=== PATIENT | male | born 1955 | race Two or more races ===

== ENCOUNTER → 2025-01-03 | Outpatient (CLI) | payer MEDICARE, MEDICAID, SELFPAY ==
--- NOTE | 2025-01-03 14:00 | XR_ITS ---
Examination: CT chest, without intravenous contrast. Sagittal and coronal 2-D reconstructions. Exam date and time: January 03, [address] chest July 07, 2024 CTDI:vol (mGy) 9.35 DLP: (mGycm) 335 INDICATIONS: Chronic respiratory failure with hypoxia and coughing 3 months, bilateral pulmonary nodules on CT chest June 06, 2024 Technique: Multiple 3.0 mm axial sections of the chest to been obtained. Bone and lung density settings are obtained. Sagittal and coronal 2-D reconstructions have been obtained. Low dose protocols were performed. One or more of the following dose reduction techniques were used; automated exposure control, adjustment of the mA and/or KV according to patient size, use of iterative reconstruction technique. Findings: Thoracic aortic calcification no aneurysmal dilatation Heavy calcification left anterior descending left circumflex coronary arteries Mild to moderate enlargement cardiac contour COPD with multiple areas of airspace destruction Diffuse woil-ts-sjyaeuli pulmonary fibrosis with bronchiectasis in the right middle lobe and lingular segment as well as left base Mild to moderate left pleural effusion Bilateral pulmonary nodules again depicted, the largest in the right lower lobe 8 mm 1 new nodule in the right upper lobe 7 mm image 91 No focal liver or splenic lesion No gallstones No pancreatic mass Moderate osteopenia IMPRESSION: COPD Mild to moderate pulmonary fibrosis Bronchiectasis right middle lobe lingular segment left upper lobe left base Bilateral pulmonary nodules, one new pulmonary nodule in the right upper lobe 7 mm, recommend continued 6 month follow-up CT chest without contrast Mild to moderate left pleural effusion
== END | disposition home or self-care (01) ==
PROVIDERS: PCP Internal Medicine; Referring Provider Nurse Practitioner Family; Visit Provider Nurse Practitioner Family
DX: J44.9 Chronic obstructive pulmonary disease, unspecified (principal); J84.10 Pulmonary fibrosis, unspecified; R91.8 Other nonspecific abnormal finding of lung field; J90 Pleural effusion, not elsewhere classified
CPT/HCPCS: 71250

== ENCOUNTER 2025-01-13 08:41 | Emergency (ER) | payer MEDICARE, MEDICAID, SELFPAY ==
--- NOTE | 2025-01-13 08:46 | EKG_ITS ---
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
--- NOTE | 2025-01-13 08:46 | XR_ITS ---
Examination: PA lateral chest 2 views Technique: Upright PA lateral chest 2 views Date and time: January 13, 2025 0930 hrs. Comparison 04/26/2024 Indications: Difficulty breathing beginning one week ago. Findings: Prominent CHF. Moderate enlargement cardiac contour with prominent perihilar edema and layering left pleural fluid Cardiac leads adequate position Impression: Prominent CHF
[2025-01-13 08:54] VITALS: BP 125/79; PULSE 96; RESP 19; TEMP 36.3; O2SAT 94; BMI 24.0
--- NOTE | 2025-01-13 09:17 | PD.EDRME ---
Rapid Medical Screening Exam RME Arrival date/time: 01/13/25 08:41 69-year-old male presents to the emergency department today for complaint of chest pain and shortness of breath Chief Complaint: Shortness of Breath/Dyspnea Vital signs: Vital Signs Temperature 97.4 F 01/13/25 08:54 Pulse Rate 96 01/13/25 08:54 Respiratory Rate 19 01/13/25 08:54 Blood Pressure 125/79 01/13/25 08:54 Pulse Oximetry (%) 94 L 01/13/25 08:54 Oxygen Delivery Method Room Air 01/13/25 08:54
[2025-01-13 09:32] LABS: Basophils % (Auto) 0 % (0-2.5); Eosinophils # (Auto) 0.3 Thou/mm3 (0.0-0.5); Eosinophils % (Auto) 3 % (0-10); Hemoglobin 13.8 g/dL (13.5-16.0); Immature Granulocytes % (Auto) 0 % (0-0); Immature Granulocytes Auto 0.04 Thou/mm3 (0.00-0.00); Lymphocytes # (Auto) 0.4 Thou/mm3 (1.0-4.8); Lymphocytes % (Auto) 4 % (10-50); Mean Corpuscular HGB Conc 32.9 g/dl (31.0-37.0); Mean Corpuscular Hemoglobin 30.7 pg (25.0-35.0); Mean Corpuscular Volume 94 fL (80-100); Monocytes # (Auto) 0.7 Thou/mm3 (0.0-0.8); Monocytes % (Auto) 7 % (0-12); Neutrophils # (Auto) 9.5 Thou/mm3 (1.8-7.7); Neutrophils % (Auto) 86 % (37-80); Nucleated Red Blood Cell % 0 /100 WBC (0); Platelet Count 186 Thou/mm3 (140-440); RDW Standard Deviation 52.7 fL (35.1-43.9); Red Blood Count 4.49 Miln/mm3 (4.50-5.90)
[2025-01-13 09:54] LABS: B-Type Natriuretic Peptide 2651 pg/mL (0-100); INR 1.2 (0.9-1.3); Partial Thromboplastin Time 29.2 Seconds (22.0-36.0); Prothrombin Time 12.7 Seconds (9.0-12.2)
[2025-01-13 09:56] LABS: Alanine Aminotransferase 13 U/L (10-49); Albumin, Serum 4.5 gm/dL (3.4-4.8); Albumin/Globulin Ratio 1.5 (1.2-2.2); Alkaline Phosphatase 71 U/L (46-116); Anion Gap 13 (7-16); BUN/Creatinine Ratio 18 Ratio (12-20); Bilirubin,Total 1.1 mg/dL (0.3-1.2); Blood Urea Nitrogen 22 mg/dL (9-23); Calcium 9.1 mg/dL (8.3-10.6); Calcium (Corrected) 9.1 mg/dL (8.5-10.1); Carbon Dioxide 27.3 mMol/L (20.0-31.0); Chloride 105 mMol/L (98-107); Creatinine (Component) 1.2 mg/dL (0.6-1.3); Digoxin 2.1 ng/mL (0.8-2.0); Estimated Creatinine Clearance 47.4 mL/min (>60); Globulin 3.1 gm/dL (2.3-3.5); Glucose 143 mg/dL (74-106); Magnesium 2.2 mg/dL (1.6-2.6); Osmolality,Calculated 294 (275-295); Sodium 145 mMol/L (136-145); Total Protein 7.6 gm/dL (5.7-8.2); Troponin I 0.027 ng/mL (0.0-0.045); eGFR > 60 See Note
[2025-01-13 10:43] LABS: Collection Type, Urine Clean Catch; Squamous Epithelial Cell,Urine 0 /hpf (0-5)
[2025-01-13 10:52] LABS: Bilirubin,Urine Negative (Negative); Blood,Urine Trace (Negative); Clarity,Urine Clear (Clear/Hazy); Color,Urine Colorless (Lt Yel-Yel); Glucose, Urine 3+ (Negative); Ketones,Urine Negative (Negative); Leukocyte Esterase,Urine Negative (Negative); Nitrite,Urine Negative (Negative); Protein,Urine Negative (Neg - Trace); RBC,Urine 2 /hpf (0-3); Specific Gravity,Urine 1.008 (1.001-1.035); Urobilinogen,Urine Negative mg/dL (0.0-1.0); WBC,Urine < 1 /hpf (0-5)
[2025-01-13 10:59] LABS: Amphetamine/Methamp Scrn,U Negative (Negative); Barbiturate Screen,Urine Negative (Negative); Benzodiazepines Screen,Urine Negative (Negative); Benzoylecgonine Screen, Ur Negative (Negative); Fentanyl Screen,Urine Negative (Negative); Opiate Screen,Urine Negative (Negative); THC Screen,Urine Negative (Negative)
[2025-01-13 12:24] VITALS: BP 116/73; PULSE 80; RESP 17; TEMP 36.6; O2SAT 97
--- NOTE | 2025-01-13 12:49 | PD.EDSOB ---
ED SOB =RME/HPI General Chief Complaint: Shortness of Breath/Dyspnea Stated Complaint: SOB Time Seen by Provider: 01/13/25 12:28 Arrival date/time: 01/13/25 08:41 This is a 69 year old male with past medical history of hypertension, coronary artery disease status post stent, s/p pacemaker, HFrEF (EF 30-35%) on goal-directed medical therapy, atrial fibrillation, COPD on 2.5 L home but not all the time, former smoker (30 pack-year history), DMII, recent hospitalization for pneumonia on 08/2023 presented to the emergency department for chief complaint of 2 days shortness of breath. Patient states over the past few days he was not taking his Lasix or spironolactone. Patient stated that he started getting very short of breath and it was hard for him to lay flat. Patient states that sometimes he gets frustrated taking the Lasix because he has to be close to a bathroom all the time. RME / HPI RME / HPI Narrative: 01/13/25 08:41 69-year-old male presents to the emergency department today for complaint of chest pain and shortness of breath Related Data Home Medications ?Medication ?Instructions ?Recorded ?Confirmed amiodarone 200 mg tablet 200 mg PO QDAY 05/18/22 10/27/23 levothyroxine 88 mcg tablet 88 mcg PO QDAY 05/18/22 10/27/23 liothyronine 5 mcg tablet 5 mcg PO QDAY 05/18/22 10/27/23 semaglutide 0.25 mg or 0.5 mg (2 0.5 mg subcut QWEEK 05/18/22 10/27/23 mg/1.5 mL) subcutaneous pen injector (Ozempic) dapagliflozin propanediol 5 mg 5 mg PO DAILY 10/27/23 10/27/23 tablet (Farxiga) digoxin 125 mcg (0.125 mg) tablet 125 mcg PO DAILY 10/27/23 10/27/23 Previous Rx's ?Medication ?Instructions ?Recorded carvedilol 3.125 mg tablet 3.125 mg PO BIDWM 30 days #60 tabs 08/21/23 furosemide 40 mg tablet 40 mg PO QDAY 30 days #30 tabs 08/21/23 potassium chloride 10 mEq 10 meq PO QDAY #30 caps 08/21/23 capsule,extended release sacubitril 24 mg-valsartan 26 mg 1 tab PO BID #60 tabs 08/21/23 tablet (Entresto) dexamethasone 6 mg tablet 6 mg PO QDAY #5 tabs 09/27/23 aspirin 81 mg tablet,delayed 81 mg PO QDAY Antiplatelet therapy 10/27/23 release post-stent placement 30 days #30 tabs ticagrelor 90 mg tablet (Brilinta) 90 mg PO BID #60 tabs 10/27/23 Allergies Allergy/AdvReac Type Severity Reaction Status Date / Time No Known Allergies Allergy Verified 09/23/23 07:05 Course Orders Category Date Time Status EKG (ED ONLY) *Do not use* NOW Care 01/13/25 08:46 Completed EKG (ED Only) Stat Exams 01/13/25 08:46 Draft XR chest 2V Stat Exams 01/13/25 08:46 Completed B-Type Natriuretic Peptide Stat Lab 01/13/25 09:16 Completed CBC Stat Lab 01/13/25 09:16 Completed Comprehensive Metabolic Panel Stat Lab 01/13/25 09:16 Completed Digoxin Stat Lab 01/13/25 09:16 Completed Drug Screen,Urine Stat Lab 01/13/25 10:39 Completed Magnesium Stat Lab 01/13/25 09:16 Completed Partial Thromboplastin Time Stat Lab 01/13/25 09:16 Completed Prothrombin Time with INR Stat Lab 01/13/25 09:16 Completed Troponin I Stat Lab 01/13/25 09:16 Completed Urinalysis Stat Lab 01/13/25 09:31 Completed Furosemide [Lasix] Med 01/13/25 13:04 Discontinued 40 mg PO X1 ONE Vital Signs Vital signs: Vital Signs Temperature 97.4 F 01/13/25 08:54 Pulse Rate 96 01/13/25 08:54 Respiratory Rate 19 01/13/25 08:54 Blood Pressure 125/79 01/13/25 08:54 Pulse Oximetry (%) 94 L 01/13/25 08:54 Oxygen Delivery Method Room Air 01/13/25 08:54 Procedures -ED EKG Interpretation #1: Date of EK01/13/25 Time of EK:57 Rate: 91 Interpretation: Interpreted by me (Ventricularly paced rhythm.) Shortness of Breath / Dyspnea MDM Narrative MDM Narrative:: White blood count is 11. Hemoglobin and hematocrit of 13.8 and 42. Platelet count is 186. PT is 12.7 INR 1.2. BNP is 2651 troponin is 0.027. Dig level is 2.1 drug screen vital signs stable Spoke to patient at length. Patient knows he supposed to be taking his water pills. Patient takes spironolactone 25 mg and also furosemide 40 mg p.o. I will give patient an additional dose of Lasix here. Patient told to come back to the emergency room if symptoms change or worsen. Patient states he feels a lot better because he took his medication prior to coming to the emergency room. Patient feels comfortable going home at this time. Medications / Prescriptions Medication administrations:: Medication Administration History Discontinued Medications Furosemide (Furosemide 40 Mg Tablet) 40 mg PO X1 ONE Stop: 01/13/25 13:05 Consultations Consultation(s) initiated? (list below): Yes Consultation #1 (Physician, Specialty, Details): Dr. Arizmendi workplace trainer and assessor. I let him know that patient had not been taking his medications at home. Patient came in shortness of breath. Patient had a high BNP with prominent CHF on x-ray. He is very familiar with patient. He is okay with patient to go home and follow-up with him in the office. Discharge Plan Plan Patient Disposition: HOME (Self Care) Patient condition on transfer: Stable Prescriptions/Referrals Prescriptions/Med Rec: No Action furosemide 40 mg Tablet 40 mg PO QDAY 30 Days Qty: 30 1RF carvedilol 3.125 mg Tablet 3.125 mg PO BIDWM 30 Days Qty: 60 2RF Entresto 24-26 mg Tablet 1 tab PO BID Qty: 60 2RF potassium chloride 10 mEq capsule, extended release 10 meq PO QDAY Qty: 30 0RF dexamethasone 6 mg Tablet 6 mg PO QDAY Qty: 5 0RF dapagliflozin propanediol [Farxiga] 5 mg tablet 5 mg PO DAILY Patient Comments: take 1 tablet by mouth every morning digoxin 125 mcg (0.125 mg) Tablet 125 mcg PO DAILY aspirin 81 mg Tablet,Delayed Release (Dr/Ec) 81 mg PO QDAY 30 Days Qty: 30 1RF Brilinta 90 mg Tablet 90 mg PO BID Qty: 60 0RF amiodarone 200 mg Tablet 200 mg PO QDAY liothyronine 5 mcg Tablet 5 mcg PO QDAY levothyroxine 88 mcg Tablet 88 mcg PO QDAY Ozempic 0.25 mg or 0.5 mg(2 mg/1.5 mL) Pen Injector 0.5 mg SUBCUT QWEEK Referrals: Hortencia Donis FNP [Primary Care Provider] - In 1 week Problem List Clinical Impression: CHF (congestive heart failure) Patient/Caregiver Discharge Instructions Discharge Activity: activity as tolerated Education Materials: Diabetes and Heart Disease Additional Instructions: Follow up with primary provider in 1-2 days. Come back to ED if symptoms change or worsen Print Language: Latvian Stand Alone Forms: Domenica Award Info., Patient Portal Info Letter PA/DIAGNOSTIC CARDIAC SONOGRAPHER Supervising Physician SEVERO/DIAGNOSTIC CARDIAC SONOGRAPHER Supervising Physician: pato
[2025-01-13 13:26] VITALS: BP 116/73; PULSE 80
[2025-01-13] MEDS: Furosemide 40 MG TABLET PO (13:26)
== END 2025-01-13 13:42 | disposition home or self-care (01) ==
PROVIDERS: Nurse Practitioner Primary Care; Emergency Provider Family Medicine; PCP Nurse Practitioner Family
DX: I11.0 Hypertensive heart disease with heart failure (principal); I50.20 Unspecified systolic (congestive) heart failure; R94.31 Abnormal electrocardiogram [ECG] [EKG]; I25.10 Atherosclerotic heart disease of native coronary artery without angina pectoris; I48.91 Unspecified atrial fibrillation; Z79.02 Long term (current) use of antithrombotics/antiplatelets; Z95.0 Presence of cardiac pacemaker; Z95.5 Presence of coronary angioplasty implant and graft; Z87.891 Personal history of nicotine dependence
CPT/HCPCS: 36415; 71046; 80053; 80162; 80307; 81001; 83735; 83880; 84484; 85025; 85610; 85730; 93005; 99283; A9270

== ENCOUNTER 2025-02-27 06:47 | Day surgery (SDC) | payer MEDICARE, MEDICAID, SELFPAY ==
[2025-02-23 15:40] VITALS: BMI 23.1
--- NOTE | 2025-02-26 07:00 | EKG_ITS ---
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
[2025-02-26 12:46] LABS: Basophils # (Auto) 0.0 Thou/mm3 (0.0-0.2); Basophils % (Auto) 1 % (0-2.5); Eosinophils # (Auto) 0.3 Thou/mm3 (0.0-0.5); Eosinophils % (Auto) 5 % (0-10); Hematocrit 42.7 % (41.0-53.0); Hemoglobin 13.2 g/dL (13.5-16.0); Immature Granulocytes Auto 0.01 Thou/mm3 (0.00-0.00); Lymphocytes # (Auto) 0.6 Thou/mm3 (1.0-4.8); Lymphocytes % (Auto) 9 % (10-50); Mean Corpuscular HGB Conc 30.9 g/dl (31.0-37.0); Mean Corpuscular Hemoglobin 30.0 pg (25.0-35.0); Mean Corpuscular Volume 97 fL (80-100); Monocytes # (Auto) 0.6 Thou/mm3 (0.0-0.8); Monocytes % (Auto) 9 % (0-12); Neutrophils # (Auto) 5.1 Thou/mm3 (1.8-7.7); Neutrophils % (Auto) 78 % (37-80); Nucleated Red Blood Cell # 0.00 Thou/mm3 (0.00-0.00); Nucleated Red Blood Cell % 0 /100 WBC (0); Platelet Count 168 Thou/mm3 (140-440); RDW Standard Deviation 57.5 fL (35.1-43.9); Red Blood Count 4.40 Miln/mm3 (4.50-5.90); White Blood Count 6.6 Thou/mm3 (3.8-10.6)
[2025-02-26 12:48] LABS: Anion Gap 9 (7-16); BUN/Creatinine Ratio 14 Ratio (12-20); Blood Urea Nitrogen 20 mg/dL (9-23); Calcium 8.7 mg/dL (8.3-10.6); Carbon Dioxide 29.2 mMol/L (20.0-31.0); Chloride 106 mMol/L (98-107); Creatinine (Component) 1.4 mg/dL (0.6-1.3); Estimated Creatinine Clearance 42.3 mL/min (>60); Glucose 108 mg/dL (74-106); Osmolality,Calculated 290 (275-295); Potassium 4.6 mMol/L (3.4-5.1); Sodium 144 mMol/L (136-145); eGFR 55 See Note
[2025-02-26 12:52] LABS: INR 1.1 (0.9-1.3); Partial Thromboplastin Time 29.3 Seconds (22.0-36.0); Prothrombin Time 12.4 Seconds (9.0-12.2)
[2025-02-27] VITALS (13 sets, daily range): BP systolic 102–129; BP diastolic 59–81; PULSE 56–73; RESP 12–15; TEMP 36.4; O2SAT 91–98; BMI 23.1
[2025-02-27 10:31] LABS: ACT (CATH LAB ONLY) 307.0 Seconds (89-169)
--- NOTE | 2025-02-28 09:31 | ESOP_ITS ---
RE: REAL REYES : 1955 DATE OF OPERATION: 02/27/2025 DATE OF PROCEDURE: 02/27/2025 PROCEDURES PERFORMED: 1. Diagnostic right and left heart cardiac catheterization, selective coronary angiogram, left ventricular angiogram, CPT 53940. 2. Conscious sedation for 30-minute duration. 3. Ultrasound-guided access, right radial artery and right femoral vein. 4. PCI, stent placement of the proximal left circumflex artery, placement of a drug-eluting stent 3.0 x 12 mm Yg Medtronic drug-eluting stent. Pre-procedure stenosis 95%, post-procedure stenosis 0%, CAMPBELL flow pre-procedure 3, post-procedure 3, CPT 22241. DIAGNOSES: Coronary artery disease, ischemic cardiomyopathy, congestive heart failure, shortness of breath, chest pressure, abnormal nuclear stress test. HISTORY AND INDICATIONS: The patient is a 69-year-old male with history of known ischemic cardiomyopathy, multiple stents placed in the circumflex artery, LAD, right coronary artery in the past, and severe LV dysfunction with systolic heart failure. He has been having severe shortness of breath and chest pressure. Cardiac nuclear stress test with nuclear scan was abnormal and showed extensive inferolateral ischemia. Hence, coronary angiogram was recommended to assess if the patient is a candidate for intervention including PCI. DESCRIPTION OF PROCEDURE: The patient was brought to the cardiac catheterization laboratory where he was given 2 mg of Versed and 50 mcg of fentanyl for sedation. Right radial approach was taken. Right radial artery was cannulated with a micropuncture technique and 6-[place] Glidesheath was introduced. Right femoral vein was cannulated by micropuncture technique. Ultrasound guidance was used and a 7-[place] Citizen sheath was introduced. Right heart catheterization was performed with Jean-Nazario catheter. Right heart pressures were measured. Wedge pressure was measured. Subsequently, left heart catheterization was performed by a 5-[place] Citizen TIG-4 diagnostic catheter. Left ventricular angiogram was performed by hand injection method. Selective right and left coronary angiogram was performed by a TIG-4 diagnostic catheter. The patient tolerated the diagnostic procedure well with no complications. Findings are as follows Hemodynamics: Right atrial pressure 12 mmHg, right ventricular pressure 57/12 mmHg, pulmonary artery wedge pressure is 26 mmHg, V-wave 31, A-wave 25, pulmonary artery pressure is 68/43 mmHg, left ventricular pressure 107/6 mmHg, EDP is 31 mmHg, aortic pressure 100/59 mmHg. No gradient across the aortic valve. Left ventricular angiogram showed evidence of severe global hypokinesis with an ejection fraction of 15% to 20%. Following diagnostic procedure, intervention was undertaken. Diagnostic coronary angiogram showed the following findings. The right coronary artery is large and dominant and showed evidence of mild plaque at the bifurcation with no significant stenosis. Left coronary system: The left main coronary artery is normal. The left anterior descending artery showed multiple stents across the mid segment with widely patent left circumflex artery _ one large obtuse marginal branch and posterolateral branch. There is evidence of a 95% stenosis of the left circumflex artery just proximal to the previously deployed edge of the stent. The stent itself showed moderate 70% in-stent restenosis. This was the culprit lesion, hence we proceeded with a PCI. Details of the angioplasty are as follows. The patient was given IV heparin radial cocktail 2000 units, subsequently additional 3000 units was given, a total of 5000 units. ACT was 305. Proceeded with PCI, aspirin and Plavix, the patient is already on board, has been taking at home. The patient was given IV Lasix 40 mg because of elevated wedge pressures. The patient proceeded with a PCI. A 6-[place] Citizen FL4 guiding catheter was used to cannulate the left main coronary artery. A 0.014-inch Runthrough guidewire was used to cross the lesion successfully. Pre-dilation of the lesion was performed by a subsequently, a 3.0 x 12 mm Medtronic [place] stent was deployed successfully in the proximal left circumflex artery. Multiple inflations were performed with high pressure including the stent itself. The previously stented site was also dilated using a 3.0 mm balloon. Final angiogram showed widely patent circumflex artery with excellent angiographic results. SUMMARY OF FINDINGS AND SUGGESTIONS: 1. Ischemic cardiomyopathy, chronic systolic heart failure, elevated wedge pressures, and ejection fraction of 15% to 20%. 2. Elevated wedge pressure of 26 mmHg and left ventricular end-diastolic pressure suggestive of congestive heart failure, chronic systolic heart failure. 3. Widely patent stents in the LAD and right coronary artery with evidence of severe stenosis of the proximal left circumflex artery, 95% stenosis, underwent successful PCI, stent placement of a drug-eluting stent, 3.0 x 12 mm Medtronic [place] stent with excellent results. Pre-procedure stenosis was 95%, post-procedure 0%. CAMPBELL flow pre-procedure 3, post-procedure 3. COMPLICATIONS: None. Estimated blood loss is 0. TR band was applied. Hemostasis was secured. Venous sheath will be removed later. RECOMMENDATIONS: The patient will be continued on medical management. We will change the Lasix to bumetanide 2 mg daily because of decompensated heart failure. _ Continue with spironolactone, also digoxin, Entresto, and guideline-directed medical management including Farxiga and will follow up in 1 week. DT: 09:02:11 TT: 10:32:00 Ref: [id number] - TID: [id number] MTDD
== END 2025-02-27 12:00 | disposition home or self-care (01) ==
PROVIDERS: PCP Internal Medicine; Referring Provider Internal Medicine Cardiovascular Disease; Visit Provider Internal Medicine Cardiovascular Disease
PROC: (CPT 93460; principal; 2025-02-27 07:30)
DX: I25.118 Atherosclerotic heart disease of native coronary artery with other forms of angina pectoris (principal); I25.5 Ischemic cardiomyopathy; Z95.5 Presence of coronary angioplasty implant and graft; I50.23 Acute on chronic systolic (congestive) heart failure; Z95.810 Presence of automatic (implantable) cardiac defibrillator; E11.9 Type 2 diabetes mellitus without complications; Z01.810 Encounter for preprocedural cardiovascular examination; R06.02 Shortness of breath
CPT/HCPCS: 93460; C9600; 36415; 80048; 85025; 85347; 85610; 85730; 93005; 99152; 99153; A4649; C1725; C1769; C1874; C1887; C1894; J0171; J0461; J1643; J1938; J2250; J2310; J2371; J3010; J3490; Q9967; J2305

== ENCOUNTER → 2025-03-21 | Outpatient (CLI) | payer MEDICARE, MEDICAID, SELFPAY ==
--- NOTE | 2025-03-21 09:59 | XR_ITS ---
EXAMINATION: Cervical spine, 5 views Technique: Cervical spine AP, AP odontoid, lateral, bilateral obliques, 5 views Exam date and time: March 21, 2025 1003 hours INDICATIONS: Neck pain and stiffness beginning 4 months ago. FINDINGS: Straightening normal cervical lordosis. No cervical fracture. Intact odontoid. Moderate cervical spondylosis. No significant cervical disc narrowing. Soft tissue left carotid vascular calcification. Oblique films do not demonstrate significant neural foraminal stenosis. IMPRESSION: No cervical fracture No significant cervical disc narrowing Soft tissue left carotid vascular calcification
[2025-03-21 11:04] LABS: Albumin, Serum 4.1 gm/dL (3.4-4.8); Anion Gap 11 (7-16); BUN/Creatinine Ratio 15 Ratio (12-20); Blood Urea Nitrogen 22 mg/dL (9-23); Calcium 9.2 mg/dL (8.3-10.6); Calcium (Corrected) 9.2 mg/dL (8.5-10.1); Carbon Dioxide 29.4 mMol/L (20.0-31.0); Chloride 102 mMol/L (98-107); Creatinine (Component) 1.5 mg/dL (0.6-1.3); Glucose 107 mg/dL (74-106); Osmolality,Calculated 286 (275-295); Phosphorous 4.2 mg/dL (2.4-5.1); Potassium 4.1 mMol/L (3.4-5.1); Sodium 142 mMol/L (136-145); eGFR 50 See Note
== END | disposition home or self-care (01) ==
LOC: CDIM 09:28 → COPL 10:32
PROVIDERS: PCP Nurse Practitioner Family; Referring Provider Nurse Practitioner Family; Visit Provider Radiology Diagnostic Radiology
DX: I77.89 Other specified disorders of arteries and arterioles (principal); I20.89 Other forms of angina pectoris
CPT/HCPCS: 36415; 72050; 80069

== ENCOUNTER 2025-05-01 06:15 | Inpatient (IN) | payer MEDICARE, MEDICAID, SELFPAY ==
[2025-05-01] VITALS (13 sets, daily range): BP systolic 101–144; BP diastolic 60–106; PULSE 50–93; RESP 12–100; TEMP 35.8–36.9; O2SAT 82–100; BMI 23.1
--- NOTE | 2025-05-01 06:17 | EKG_ITS ---
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
--- NOTE | 2025-05-01 06:30 | XR_ITS ---
Examination: AP lateral chest 2 views Technique: Sitting AP lateral chest 2 views Date and time: May 01, 2025, 0659 hrs., Comparison January 13, 2025 Indications: Shortness of breath chest pain beginning 2 days ago. Findings: Prominent CHF. Moderate enlargement cardiac contour, prominent vascular congestion and perihilar edema. Consider superimposed pneumonia at the lung bases Large left pleural effusion Cardiac leads satisfactory position Impression: Prominent CHF Consider superimposed pneumonia at the lung bases Recommend ultrasound left hemithorax follow-up to confirm large left pleural effusion
--- NOTE | 2025-05-01 06:30 | PD.EDRME ---
Rapid Medical Screening Exam RME Arrival date/time: 05/01/25 06:15 70-year-old male with a history of hypertension, hypothyroidism, CHF, COPD, atrial fibrillation, presents to the emergency room with a chief complaint of shortness of breath, and chest pain x 3 days I have greeted and performed a focused initial assessment of this patient. A comprehensive ED assessment and evaluation of the patient, analysis of all test results, and completion of the medical decision making process will be conducted by additional ED providers. Chief Complaint: Shortness of Breath/Dyspnea Time Seen by Provider: 05/01/25 06:23 Vital signs reviewed by provider: Yes
[2025-05-01 07:40] LABS: Basophils # (Auto) 0.0 Thou/mm3 (0.0-0.2); Basophils % (Auto) 0 % (0-2.5); Eosinophils # (Auto) 0.1 Thou/mm3 (0.0-0.5); Eosinophils % (Auto) 1 % (0-10); Hematocrit 42.4 % (41.0-53.0); Hemoglobin 13.2 g/dL (13.5-16.0); Immature Granulocytes Auto 0.05 Thou/mm3 (0.00-0.00); Lymphocytes # (Auto) 0.4 Thou/mm3 (1.0-4.8); Lymphocytes % (Auto) 4 % (10-50); Mean Corpuscular HGB Conc 31.1 g/dl (31.0-37.0); Mean Corpuscular Hemoglobin 30.6 pg (25.0-35.0); Mean Corpuscular Volume 98 fL (80-100); Monocytes # (Auto) 0.4 Thou/mm3 (0.0-0.8); Monocytes % (Auto) 4 % (0-12); Neutrophils # (Auto) 9.6 Thou/mm3 (1.8-7.7); Neutrophils % (Auto) 90 % (37-80); Nucleated Red Blood Cell # 0.00 Thou/mm3 (0.00-0.00); Nucleated Red Blood Cell % 0 /100 WBC (0); Platelet Count 248 Thou/mm3 (140-440); RDW Standard Deviation 57.0 fL (35.1-43.9); Red Blood Count 4.31 Miln/mm3 (4.50-5.90); White Blood Count 10.6 Thou/mm3 (3.8-10.6)
[2025-05-01 08:06] LABS: INR 1.4 (0.9-1.3); Partial Thromboplastin Time 27.1 Seconds (22.0-36.0); Prothrombin Time 15.0 Seconds (9.0-12.2)
[2025-05-01 08:07] LABS: Collection Type, Urine Clean Catch
[2025-05-01 09:00] LABS: Amphetamine/Methamp Scrn,U Negative (Negative); Barbiturate Screen,Urine Negative (Negative); Benzodiazepines Screen,Urine Positive (Negative); Benzoylecgonine Screen, Ur Negative (Negative); Fentanyl Screen,Urine Negative (Negative); Opiate Screen,Urine Positive (Negative); THC Screen,Urine Negative (Negative)
[2025-05-01 09:00] LABS: Alanine Aminotransferase 46 U/L (10-49); Albumin, Serum 4.1 gm/dL (3.4-4.8); Albumin/Globulin Ratio 1.2 (1.2-2.2); Alkaline Phosphatase 98 U/L (46-116); Anion Gap 13 (7-16); Aspartate Amino Transferase 83 U/L (0-34); BUN/Creatinine Ratio 22 Ratio (12-20); Bilirubin,Total 0.8 mg/dL (0.3-1.2); Blood Urea Nitrogen 38 mg/dL (9-23); Calcium 9.3 mg/dL (8.3-10.6); Calcium (Corrected) 9.3 mg/dL (8.5-10.1); Carbon Dioxide 26.3 mMol/L (20.0-31.0); Chloride 104 mMol/L (98-107); Creatinine (Component) 1.7 mg/dL (0.6-1.3); Estimated Creatinine Clearance 34.3 mL/min (>60); Globulin 3.3 gm/dL (2.3-3.5); Glucose 166 mg/dL (74-106); Osmolality,Calculated 297 (275-295); Potassium 4.4 mMol/L (3.4-5.1); Sodium 143 mMol/L (136-145); Total Protein 7.4 gm/dL (5.7-8.2); eGFR 43 See Note
[2025-05-01 09:10] LABS: Troponin I 0.056 ng/mL (0.0-0.045)
[2025-05-01 09:14] LABS: B-Type Natriuretic Peptide > 3280 pg/mL (0-100)
[2025-05-01 09:27] LABS: Bilirubin,Urine Negative (Negative); Blood,Urine Negative (Negative); Cellular Casts,Urine 2 /hpf (0-1); Color,Urine Yellow (Lt Yel-Yel); Culture Indicated,Urine Not Indicated; Glucose, Urine 3+ (Negative); Hyaline Casts,Urine 7 /hpf (0-1); Ketones,Urine Negative (Negative); Leukocyte Esterase,Urine Positive (Negative); Nitrite,Urine Negative (Negative); PH,Urine 5.5 (5.0-7.0); Protein,Urine 1+ (Neg - Trace); RBC,Urine 5 /hpf (0-3); Specific Gravity,Urine 1.031 (1.001-1.035); Squamous Epithelial Cell,Urine 1 /hpf (0-5); Urobilinogen,Urine 6.0 mg/dL (0.0-1.0); WBC,Urine 7 /hpf (0-5)
[2025-05-01 09:54] LABS: Clarity,Urine Hazy (Clear/Hazy)
--- NOTE | 2025-05-01 10:17 | XR_ITS ---
Examination: CTA chest with intravenous contrast 2-D reconstructions 3-D reconstructions, vascular Date and time of exam: May 01, 2025, 1208 hours, comparison January 03, 2025 INDICATIONS: Chest pain shortness of breath today, clinical diagnosis pulmonary embolus CTDI: vol (mGy) 14.6 DLP: (mGycm) 296 Technique: Multiple axial sections of the thorax have been obtained. 3 mm slice thickness, from below the hemidiaphragms to above the apices of the lungs. Mediastinal and lung density settings have been obtained. 2-D sagittal and coronal reconstructions. 3-D angiographic renderings, 3-D volume renderings, 3D post processing, vascular maximum intensity projections obtained. Contrast administered is 60 cc Isovue-300. Low dose protocols were performed. One or more of the following dose reduction techniques were used; automated exposure control, adjustment of the mA and/or KV according to patient size, use of iterative reconstruction technique. Findings: No thoracic aortic aneurysmal dilatation No definite pulmonary artery filling defects Mild hilar lymphadenopathy Heavy calcification coronary arteries Moderate enlargement cardiac contour Appearance of bilateral lung opacity consistent with pneumonia with superimposed pulmonary fibrosis at the lung bases Extensive loculated left pleural fluid Mild right pleural fluid No liver or splenic lesion No definite gallstones No pancreatic mass IMPRESSION: Negative for pulmonary artery emboli Extensive diffuse bilateral pneumonia Superimposed pulmonary fibrosis at the lung bases Extensive loculated left pleural fluid
[2025-05-01] MEDS: FUROSEMIDE INJ 10 MG/ML VIAL 2 ML 40 MG IVP ×2 (10:22→21:02)
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
--- NOTE | 2025-05-01 13:52 | XR_ITS ---
Examination: Ultrasound-guided left thoracentesis Ultrasound right left hemithoraces Date and time: May 01, 2025, 1433 hours INDICATIONS: Difficulty breathing this week, large left loculated pleural fluid on CT chest study today TECHNIQUE AND FINDINGS: Grayscale sonographic images right and left hemithoraces, large left pleural effusion Informed consent provided. Timeout performed. Skin prepped over the left hemithorax and sterile drape applied hand hygiene ultrasound sterile technique Utilizing ultrasonographic guidance percutaneous placement 5 Faroese catheter in the left pleural space, 1475 cc pleural fluid removed IMPRESSION: Successful ultrasound-guided left thoracentesis, 1475 cc pleural fluid removed
--- NOTE | 2025-05-01 14:42 | XR_ITS ---
Examination: AP chest single view Technique one AP portable semiupright chest single view Date and time: May 01, 2025 1510 hours, comparison 05/01/2025 INDICATIONS: Post left thoracentesis. FINDINGS: No pneumothorax post thoracentesis Mild to moderate enlargement cardiac contour prominent vascular congestion and extensive edema and/or pneumonia throughout the lungs Cardiac leads satisfactory position IMPRESSION: No pneumothorax post thoracentesis
--- NOTE | 2025-05-01 14:46 | PC.NURSE ---
PATIENT TAKEN VIA GURNEY FOR THORACENTESIS
[2025-05-01] MEDS: cefTRIAXone/D5w 1gm IV premix 1 GM/50 ML BAG IV (15:52)
--- NOTE | 2025-05-01 16:08 | ECHO_ITS ---
Transthoracic Echo Report Ht (in): 64 Wt (lb): 135 Exam Location: Echo Lab Status: Emergency Spd Tech: Jyotsna Durbin Indications: Procedure Performed: BP: 103 / 49 HR: 52 Technical Quality: Technically difficult study MEASUREMENTS (Male / Female) Normal Values 2D ECHO LV Diastolic Diameter PLAX 6.3 cm 4.2 - 5.9 / 3.9 - 5.3 cm LV Systolic Diameter PLAX 5.6 cm IVS Diastolic Thickness 0.5 cm 0.6 - 1.0 / 0.6 - 0.9 cm LVPW Diastolic Thickness 1.1 cm 0.6 - 1.0 / 0.6 - 0.9 cm LV Relative Wall Thickness 0.3 LVOT Diameter 2.4 cm Aortic Root Diameter 3.4 cm LV Ejection Fraction MOD BP 24.7 % >= 55 % LV Cardiac Index MOD BP 1713.6 cm?/min?m? LV Ejection Fraction MOD 4C 27.8 % LV Cardiac Index MOD 4C 1838.2 cm?/min?m? LV Ejection Fraction 4C AL 29.6 % LV Cardiac Index 4C AL 2068.7 cm?/min?m? LV Ejection Fraction MOD 2C 34.3 % LV Cardiac Index MOD 2C 2461.3 cm?/min?m? LV Ejection Fraction 2C AL 33.7 % LV Cardiac Index 2C AL 2426.2 cm?/min?m? LA Volume Index 52.7 cm?/m? 16 - 28 cm?/m? DOPPLER AV Peak Velocity 234.0 cm/s AV Peak Gradient 21.9 mmHg AV Mean Gradient 12.5 mmHg AV Velocity Time Integral 43.8 cm LVOT Peak Velocity 79.1 cm/s LVOT Peak Gradient 2.5 mmHg LVOT Velocity Time Integral 12.8 cm LVOT Cardiac Index 1804.1 cm?/min?m? AV Area Cont Eq vti 1.3 cm? AV Area Cont Eq pk 1.5 cm? MR Peak Velocity 336.0 cm/s MR Peak Gradient 45.2 mmHg TR Peak Velocity 361.3 cm/s TR Peak Gradient 52.2 mmHg PV Peak Velocity 179.0 cm/s PV Peak Gradient 12.8 mmHg FINDINGS Left Ventricle The left ventricular cavity size is moderately increased with normal wall thickness. wall thickness. Global left ventricular systolic function is severely decreased. The ejection fraction is visually estimated at 20 %. Right Ventricle The right ventricle is normal in size and systolic function. The estimated right ventricular systolic pressure, 66 mmHg. RAP 8. Left Atrium The left atrium is normal by two-dimensional, color flow and Doppler imaging with no structural abnormalities, no thrombus formation present. Right Atrium The right atrium is normal by two-dimensional imaging, color flow and Doppler imaging with no structural abnormalities, no thrombus formation present. Atrial Septum The interatrial septum appears normal with no evidence of a shunt. Aorta The aorta is normal by two-dimensional, color flow and Doppler interrogation. Mitral Valve The mitral valve is normal by two-dimensional, color flow and Doppler interrogation. Trace mitral regurgitation. Aortic Valve Trace aortic valve regurgitation. Aortic valve sclerosis. Tricuspid Valve The tricuspid valve is normal by two-dimensional, color flow and Doppler interrogation. There is moderate tricuspid regurgitation. Pulmonic Valve The pulmonic valve is not well visualized. There is no significant pulmonic valve regurgitation. Vessels The pulmonary artery appears normal. The inferior vena cava pulmonary and hepatic veins appear normal. Pericardium The pericardium is normal by two-dimensional imaging. There is no significant pericardial effusion. CONCLUSIONS Indication: CHF exacerbation Dilated cardiomyopathy severe global hypokinesis LVEF 20% The RV is normal in size and systolic function. The estimated RVSP, 66 mmHg. RAP 8. Aortic valve sclerosis with mild aortic regurgitation Mild mitral regurgitation Moderate tricuspid regurgitation Theodora Springer (Electronically Signed) Final Date: 03 May 2025 16:42
[2025-05-01] MEDS: AZITHROMYCIN INJ 500 MG in SODIUM CHLORIDE 0.9% 250 ML 250 ML 250 MG IV (16:25)
--- NOTE | 2025-05-01 16:30 | ESHP_ITS ---
<Statement entered by Tia Kinney MD - 05/02/25 08:43> Mr. Dugan is a 70-year-old male with past medical history significant for CAD status post stent with recent 1 on 03/02 currently on aspirin and Plavix, CHF, COPD who presented with worsening shortness of breath. Associated symptoms include leg swelling, and insomnia. Patient will be admitted for further management of acute hypoxic respiratory failure secondary to CHF exacerbation, CAP and bilateral pleural effusion. In the ER, patient had a thoracentesis of the left side pending fluid analysis. Patient will be on IV antibiotics, aggressive IV Lasix, Farxiga strict I's and O's, and fluid restriction. Pending echocardiogram. Will resume patient's home aspirin and Plavix due to recent coronary stent. Patient also noted to have GEORGIE most likely in the setting of CKD secondary to CHF exacerbation, and will continue to monitor and hold off on adding any gentle fluids. Anticipate discharge within 48 to 72 hours. I discussed with and supervised the investigator internal revenue physician who took care of this patient. I personally saw and examined the patient and discussed the assessment and plan with the entire medicine team, including my attending Dr. Tinajero, I agree with most of the assessment and plan as documented below Tia Kinney M.D. PGY-3 Disclaimer: Despite multiple revisions, due to the dictation software being used, the document bellow may not be free of grammatical errors including phonetic/typographic errors. However, this does not deter from our commitment to providing health care in the patient's best interest in mind. Documentation for date of: 05/01/25 HPI History of Present Illness Chief complaint: shortness of breath History of present illness: 70 yom with a h/o CAD, s/p stenting on 03/02 currently on aspirin plavix, CHF, COPD, who presents with weeks of progressive shortness of breath. Has been having worsening breathing and leg swelling. Has not been sleeping well at night. Normally uses one 2-3 L of O2 NC at night. Denies fever, sputum production, nausea, vomiting, or sick contacts. Had these symptoms before PMHx: CHF chronic ischemic cardiomyopathy, EF 15-20% on 02/28/25, COPD, afib, type II DM, HTN, PSHx: Stent on 03/02 Meds: See med rec Allergies: NKDA Fam hx, non-contributory ED Course: -Patient presented with BP 140/92, HR 87, T 98.2, RR 17, O2 95% RA. - Labs notable for creatinine is 1.7, troponin is 0.056. BNP is greater than 3000, Patient given lasix. - Chest x-ray with pneumonia. CT chest with evidence of bilateral pneumonia and extensive superimposed pulmonary fibrosis. Also extensive loculated left pleural effusion. Patient also with mild right pleural fluid. -Patient given ceftriaxone, and azithromycin. Blood cx ordered. -Patient also recieved thoracentesis pleural fluid sent for analysis. -Admitted for Acute on chronic CHF exacerbation Exam Vital Signs Temp Pulse Resp BP Pulse Ox O2 Del Method O2 Flow Rate 97.5 F 93 19 128/91 H 100 Nasal Cannula 3 05/01/25 15:54 05/01/25 15:54 05/01/25 15:54 05/01/25 15:54 05/01/25 15:54 05/01/25 15:54 05/01/25 15:54 Narrative Exam General: Elderly, frail, ill appearing patient, sitting at the edge of the bed, hunched over. HEENT: Mucosa moist. Pupils are equal and reactive to light bilaterally. Poor dentition. Cardiovascular: Regular rate and rhythm. No murmur appreciated, Cold extremities Respiratory: Crackles heard at the lung bases bilaterally, higher on the left side. No wheezes. No tachypnea Abdomen: Soft, nontender, not distended, Skin: Dry, no rashes or bruising Musculoskeletal: No gross injuries. Able to move all 4 extremities. B/L pitting edema up to the knees. Neuro: No focal neuro deficits. Results: Labs 05/03/25 04:40 05/03/25 04:40 Labs: Short CBC 05/01/25 Range/Units 07:26 WBC 10.6 (3.8-10.6) Thou/mm3 Hgb 13.2 L (13.5-16.0) g/dL Hct 42.4 (41.0-53.0) % Plt Count 248 (140-440) Thou/mm3 BMP 05/01/25 07:26 Sodium 143 Potassium 4.4 Chloride 104 Carbon Dioxide 26.3 BUN 38 H Creatinine 1.7 H Glucose 166 H Calcium 9.3 Cardiac Enzymes 05/01/25 Range/Units 07:26 Troponin I 0.056 H* (0.0-0.045) ng/mL Liver Function 05/01/25 Range/Units 07:26 Total Bilirubin 0.8 (0.3-1.2) mg/dL AST 83 H (0-34) U/L ALT 46 (10-49) U/L Alkaline Phosphatase 98 (46-116) U/L Albumin 4.1 (3.4-4.8) gm/dL Urine 05/01/25 Range/Units 07:49 Urine Color Yellow (Lt Yel-Yel) Urine Clarity Hazy (Clear/Hazy) Urine pH 5.5 (5.0-7.0) Ur Specific [place] 1.031 (1.001-1.035) Urine Protein 1+ A (Neg - Trace) Urine Glucose (UA) 3+ A (Negative) Quality Measures Quality Measures none Advance care planning discussed with:: patient and spouse Medications Home Medications and Allergies Home Medications ?Medication ?Instructions ?Recorded ?Confirmed ?Type levothyroxine 88 mcg tablet 88 mcg PO QDAY 05/18/22 History semaglutide 0.25 mg or 0.5 mg (2 0.5 mg subcut QWEEK 1 05/01/25 History mg/1.5 mL) subcutaneous pen injector (Ozempic) dapagliflozin propanediol 5 mg 10 mg PO DAILY 10/27/23 05/01/25 History tablet (Farxiga) digoxin 125 mcg (0.125 mg) tablet 125 mcg PO DAILY 05/01/25 History clopidogrel 75 mg tablet (Plavix) 75 mg PO QDAY 05/01/25 History amiodarone 200 mg tablet 200 mg PO Q24H 05/01/2504/10 History dapagliflozin propanediol 10 mg 10 mg PO DAILY 5 05/01/25 History tablet (Farxiga) fexofenadine 180 mg tablet 180 mg PO Q24H 05/01/25 History (Allergy Relief (fexofenadine)) hydrocodone 10 mg-acetaminophen 1 tab PO Q6H 05/01/25 05/01/25 History 325 mg tablet tadalafil 10 mg tablet 10 mg PO .as needed 05/01/25 05/01/25 History Allergies Allergy/AdvReac Type Severity Reaction Status Date / Time No Known Allergies Allergy Verified 09/23/23 07:05 Visit Medications Acetaminophen (Acetaminophen 325 Mg Tablet) 650 mg PO Q6H PRN PRN Reason: Fever >101.5 Stop: 05/31/25 16:02 Aspirin (Aspirin Ec 81 Mg Tabec) 81 mg PO QDAY ALISA Stop: 05/31/25 16:29 Clopidogrel Bisulfate (Clopidogrel Bisulfate 75 Mg Tablet) 75 mg PO QDAY ALISA Stop: 05/31/25 16:29 Ceftriaxone Sodium/Dextrose (Rocephin/D5w 1gm Iv Premix) 1 gm in 50 mls @ 100 mls/hr IV Q12HR ALISA Stop: 05/09/25 08:59 Azithromycin 250 mg/ Sterile (Water 2.5 ml/ Sodium Chloride) 252.5 mls @ 252.5 mls/hr IV QDAY ALISA Stop: 05/09/25 08:59 Levalbuterol HCl (Levalbuterol Rt 0.63 Mg/3 Ml Nebu) 0.63 mg INH Q4HRRT PRN PRN Reason: WHEEZING Stop: 05/31/25 18:59 Ondansetron HCl (Ondansetron Inj 2 Mg/Ml Inj 2 Ml) 4 mg IVP Q6H PRN; Protocol PRN Reason: NAUSEA OR VOMITING Stop: 05/31/25 16:02 Discontinued Medications Furosemide (Furosemide Inj 10 Mg/Ml Vial 2 Ml) 40 mg IVP X1 ONE Stop: 05/01/25 10:18 Last Admin: 05/01/25 10:22 Dose: 40 mg Ceftriaxone Sodium/Dextrose (Rocephin/D5w 1gm Iv Premix) 1 gm in 50 mls @ 100 mls/hr IV STAT STA Stop: 05/01/25 14:22 Last Admin: 05/01/25 15:52 Dose: 100 mls/hr Azithromycin 500 mg/ Sodium (Chloride) 250 mls @ 250 mls/hr IV QDAY ALISA Stop: 05/08/25 13:53 Last Admin: 05/01/25 16:25 Dose: 250 mls/hr Assessment & Plan Plan 70 yom with a h/o CHF CAD s/p stenting 03/02, DM, and COPD who presents with a few weeks of progressive dyspnea. Found to have a bilateral pleural effusion which is now s/p thoracentesis, admitted for CHF exacerbation vs pneumonia. #Acute on Chronic CHF exacerbation #Pleural Effusion #CAP #NSTEMI Progressive shortness of breath, LE edema, orthopnea. Patient near tripoding but not tachypneic. BNP markedly elevated with elevated troponins. Extremities cool and wet. CT chest with evidence of bilateral pneumonia and extensive superimposed pulmonary fibrosis. Also extensive loculated left pleural effusion. Patient also with mild right pleural fluid. Is now s/p thoracentesis. -Ceftriaxone (05/01- -Azithromycin (05/01- -Continue Farxiga. Hold entresto and -Pleural fluid analysis. - Admit tele - Strict I&O -Daily Weights - Fluid restrict 1500 mL - caridac, low sodium diet, less than 2 gm. - Furosemide, 40mg IV TID #CAD -Recent stent on 03/02. On DAPT -Continue aspirin and plavix. #GEORGIE #CKD Noted Cr of 1.7, baseline appears to be 1.4. Likely secondary to CHF exacerbation. Anticipate improvement with treatment of HF exacerbation. - Continue to moniter. #NSTEMI Trop 0.056, most likley secondary to CHF exacerbation. -treatment of CHF as above. #Non-insulin dependent Type II DM -Continue Farxiga -Consider sliding scale tomorrow. Health Maintenance: DVT prophylaxis: SCDs Diet: Cardiac, low salt < 2gm [place]: No Lines: PIV CODE STATUS: Full code Disposition: Pending treatment of CAP and CHF exacerbation. Patient's plan and care discussed with my attending, Dr. Tinajero and my senior Dr. Nirmal Alvarado, PGY-1 ([facility] Resident) Attending Provider Attestation/Addendum 70-year-old male with multiple comorbidities including hypertension, hyperlipidemia with subsequent CAD status post stent placement and heart failure with unknown EF who presented with shortness of breath found to have acute hypoxic respiratory failure and noted to have bilateral pleural effusion status post thoracentesis and admitted for acute hypoxic respiratory failure secondary to CHF exacerbation. In addition noted to have acute kidney injury superimposed on CKD and mild elevation in troponin at 0.056. I reviewed above note and agree with findings and plans. I have also personally examined the patient with medicine team and went over assessment and plan with medical team including investigator internal revenue and resident physician.
--- NOTE | 2025-05-01 17:16 | PC.NURSE ---
REPORT CALLED TO CHARISSE THOMAS. NO FURTHER QUESTIONS. PATIENT WILL BE ADMITTED TO ROOM 270
--- NOTE | 2025-05-01 17:52 | PC.NURSE ---
pt arrived to floor
[2025-05-01 18:15] LABS: Glucose,Pleural Fluid 148 mg/dL; LDH,Pleural Fluid 95 IU/L; Protein Total,Pleural Fluid 2.2 g/dL
[2025-05-01] MEDS: ASPIRIN EC 81 MG TABEC PO (18:15)
[2025-05-01] MEDS: CLOPIDOGREL BISULFATE 75 MG TABLET PO (18:15)
[2025-05-01 18:28] LABS: Pleural Fluid WBC 239 /cmm
[2025-05-01 18:37] LABS: Pleural Fluid Appearance Hazy; Pleural Fluid Color Straw
[2025-05-01 18:38] LABS: Pleural Fluid Mononuclear 65 %; Pleural Fluid Polynuclear 35 %; Pleural Fluid RBC 5000 /cmm
[2025-05-01 18:51] LABS: pH,Body Fluid 7.0
--- NOTE | 2025-05-01 21:10 | PC.NURSE ---
Pt returned from EGD at 2104, pt resting comfortably in bed, instructed to utilize call light for assistance as needed.
[2025-05-02] VITALS (14 sets, daily range): BP systolic 90–125; BP diastolic 49–72; PULSE 50–74; RESP 13–27; TEMP 35.7–36.6; O2SAT 1–100; BMI 21.1
--- NOTE | 2025-05-02 00:15 | PC.NURSE ---
Pt found down near bedside commode, code star initiated at 2312, Pt noted to be bleeding from skin tear to left elbow, pt assisted back into bed, vitals taken, pt assessed by MD Vu. When asked if the pt hit his head during the fall, pt replies with I'm not sure, I don't think so . MD Vu provided orders to continue to monitor pt's neurological status and to call MD if any changes were observed.
[2025-05-02] MEDS: FUROSEMIDE INJ 10 MG/ML VIAL 2 ML 40 MG IVP (05:11)
[2025-05-02] MEDS: ACETAMINOPHEN 325 MG TABLET 650 MG PO (05:36)
[2025-05-02 05:37] LABS: Basophils # (Auto) 0.0 Thou/mm3 (0.0-0.2); Basophils % (Auto) 0 % (0-2.5); Eosinophils # (Auto) 0.0 Thou/mm3 (0.0-0.5); Eosinophils % (Auto) 0 % (0-10); Hematocrit 42.4 % (41.0-53.0); Hemoglobin 13.0 g/dL (13.5-16.0); Immature Granulocytes Auto 0.18 Thou/mm3 (0.00-0.00); Lymphocytes # (Auto) 0.3 Thou/mm3 (1.0-4.8); Lymphocytes % (Auto) 2 % (10-50); Mean Corpuscular HGB Conc 30.7 g/dl (31.0-37.0); Mean Corpuscular Hemoglobin 30.8 pg (25.0-35.0); Mean Corpuscular Volume 101 fL (80-100); Monocytes # (Auto) 0.8 Thou/mm3 (0.0-0.8); Monocytes % (Auto) 4 % (0-12); Neutrophils # (Auto) 16.6 Thou/mm3 (1.8-7.7); Neutrophils % (Auto) 93 % (37-80); Nucleated Red Blood Cell # 0.00 Thou/mm3 (0.00-0.00); Nucleated Red Blood Cell % 0 /100 WBC (0); Platelet Count 226 Thou/mm3 (140-440); RDW Standard Deviation 58.4 fL (35.1-43.9); Red Blood Count 4.22 Miln/mm3 (4.50-5.90); White Blood Count 17.9 Thou/mm3 (3.8-10.6)
[2025-05-02 07:33] LABS: Alanine Aminotransferase 2333 U/L (10-49); Albumin, Serum 4.0 gm/dL (3.4-4.8); Albumin/Globulin Ratio 1.1 (1.2-2.2); Alkaline Phosphatase 98 U/L (46-116); Anion Gap 16 (7-16); Aspartate Amino Transferase 5002 U/L (0-34); BUN/Creatinine Ratio 23 Ratio (12-20); Bilirubin,Total 1.0 mg/dL (0.3-1.2); Blood Urea Nitrogen 62 mg/dL (9-23); Calcium 9.3 mg/dL (8.3-10.6); Calcium (Corrected) 9.3 mg/dL (8.5-10.1); Carbon Dioxide 21.0 mMol/L (20.0-31.0); Chloride 101 mMol/L (98-107); Creatinine (Component) 2.7 mg/dL (0.6-1.3); Estimated Creatinine Clearance 20.4 mL/min (>60); Globulin 3.5 gm/dL (2.3-3.5); Glucose 148 mg/dL (74-106); Magnesium 2.4 mg/dL (1.6-2.6); Osmolality,Calculated 296 (275-295); Potassium 5.3 mMol/L (3.4-5.1); Sodium 138 mMol/L (136-145); Total Protein 7.5 gm/dL (5.7-8.2); eGFR 25 See Note
[2025-05-02] MEDS: ASPIRIN EC 81 MG TABEC PO (08:20)
[2025-05-02] MEDS: CLOPIDOGREL BISULFATE 75 MG TABLET PO (08:20)
[2025-05-02] MEDS: cefTRIAXone/D5w 1gm IV premix 1 GM/50 ML BAG IV (08:20)
[2025-05-02 09:54] LABS: Hepatitis A Antibody IgM Non Reactive (Non React); Hepatitis B Core Antibody IgM Non Reactive (Non React); Hepatitis B Surface Antigen Non Reactive (Non React); Hepatitis C Antibody Non Reactive (Non React)
[2025-05-02 10:11] LABS: Alanine Aminotransferase 2415 U/L (10-49); Albumin, Serum 3.8 gm/dL (3.4-4.8); Albumin/Globulin Ratio 1.2 (1.2-2.2); Alkaline Phosphatase 100 U/L (46-116); Anion Gap 17 (7-16); BUN/Creatinine Ratio 20 Ratio (12-20); Bilirubin,Total 0.8 mg/dL (0.3-1.2); Blood Urea Nitrogen 57 mg/dL (9-23); Calcium 9.1 mg/dL (8.3-10.6); Calcium (Corrected) 9.3 mg/dL (8.5-10.1); Carbon Dioxide 20.3 mMol/L (20.0-31.0); Chloride 99 mMol/L (98-107); Creatinine (Component) 2.8 mg/dL (0.6-1.3); Estimated Creatinine Clearance 19.7 mL/min (>60); Globulin 3.2 gm/dL (2.3-3.5); Glucose 170 mg/dL (74-106); LDH (Lactate Dehydrogenase) 4056 U/L (120-246); Osmolality,Calculated 291 (275-295); Potassium 5.4 mMol/L (3.4-5.1); Sodium 136 mMol/L (136-145); Total Protein 7.0 gm/dL (5.7-8.2); eGFR 24 See Note
--- NOTE | 2025-05-02 10:30 | XR_ITS ---
Examination: Abdomen sonogram, complete Date and time of exam: May 02, 2025 1332 hours INDICATIONS: History chest pain this week epigastric pain. Technique: Multiple real-time grayscale transabdominal sonographic images of the abdomen have been obtained. Findings: Normal gallbladder Normal common bile duct 0.4 cm Pancreatic head 2.8 cm Aorta not enlarged. Liver 14.9 cm smooth contour Normal hepatopedal portal venous flow Patent IVC Right kidney 8.5 cm cortex 1.9 cm Left kidney 8.2 cm cortex 1.7 cm Mild renal scarring Spleen 9.2 cm IMPRESSION: Normal gallbladder Normal common bile duct Normal hepatopedal portal venous flow Patent IVC no thrombus Small kidneys with bilateral renal cortical thinning
[2025-05-02 10:32] LABS: Aspartate Amino Transferase 5078 U/L (0-34)
[2025-05-02] MEDS: AZITHROMYCIN INJ 250 MG, Sterile Water 2.5 ML in SODIUM CHLORIDE 0.9% 250 ML 250 ML 252.5 MG IV (10:35)
[2025-05-02] MEDS: BUMETANIDE INJ 0.25 MG/ML VIAL 4 ML 2 MG IVP (10:43)
--- NOTE | 2025-05-02 10:56 | PC.CC ---
1154-Per Dr. Kinney, pt is now getting a workup on renal, liver and heart failure toxcitiy. Pt is not ready for d/c at this time. Possible d/c in the next few days.
[2025-05-02 11:36] LABS: Lactate (Lactic Acid) 3.4 mMol/L (0.4-2.0)
[2025-05-02 11:38] LABS: Acetaminophen 8.6 mcg/mL (10.0-20.0)
[2025-05-02] MEDS: ALBUTEROL/IPRATROPIUM (Duoneb) RT SOL 3 ML NEBU INH ×4 (11:42→22:53)
[2025-05-02 11:45] LABS: Troponin I 0.117 ng/mL (0.0-0.045)
[2025-05-02] MEDS: LEVOFLOXACIN/D5W 750MG IVPB 750 MG/150 ML BAG 100 MG IV (12:17)
[2025-05-02] MEDS: ONDANSETRON INJ 2 MG/ML INJ 2 ML 4 MG IVP (12:22)
--- NOTE | 2025-05-02 12:52 | ESPR_ITS ---
<Statement entered by María Jennings MD - 05/02/25 17:50> Patient examined at bedside. No events overnight. Has no pain after undergoing thoracentesis yesterday. Blood pressure 111/72, heart rate low 50s, no fever. LFTs markedly elevated to AST 5002, ALT 2333. LDH 4056, troponins uptrending 0.117. Patient's acute liver injury most likely due to overdiuresis as yesterday he underwent thoracentesis with significant amount of fluid removed and continued to undergo diuresis with IV Lasix, IV Bumex in the morning. Possible ischemic injury follow-up with abdominal ultrasound to rule out Budd- Chiari. Will hold fluids and discontinue ceftriaxone as possible contributing factor. Plan to start 1 L LR maintenance fluids 100 cc/h if lactic acid continues to increase or blood pressure drops. Follow-up with morning coagulation pannel. The patient's management plan was discussed with my attending physician Dr. Tinajero. María Jennings, PGY-2 Documentation for date of: 05/02/25 Subjective Subjective Interval history: Test Mr. Dugan is a 70-year-old man with history of CAD status post stent on aspirin and Plavix, CHF with EF of 15-20, COPD, who presented with concern for CHF exacerbation who was found to have bilateral pleural effusions who is status post thoracentesis performed by interventional radiology and concomitant bilateral pneumonia who was started on ceftriaxone and azithromycin. He was started on IV Lasix and fluid restriction for CHF exacerbation 05/02/2025 patient seen and examined at bedside patient reports feeling less short of breath currently on 2 L nasal cannula. Laboratories were significant for marked elevation of AST and ALT, creatinine 2.7 from 1.7. LA 3.5, will continue to trend GI and nephrology were consulted. Suspect that acute liver injury is secondary to aggressive diuresis from yesterday. Had minimal urine output recorded. Patient received Bumex 2 mg IV this morning. patient's vital signs demonstrate that his blood pressures lower than on admission 90s over 70s. Pending abdominal ultrasound to rule out Budd Chiari. Stop diuretics, stopped ceftriaxone. Okay for fluids if lactic acid uptrend Exam Vital Signs Temp Pulse Resp BP Pulse Ox O2 Del Method O2 Flow Rate 96.9 F 57 L 20 96/71 1 L Nasal Cannula 1 05/02/25 12:00 05/02/25 12:00 05/02/25 12:00 05/02/25 12:00 05/02/25 12:00 05/02/25 12:00 05/02/25 11:45 FiO2 3 05/02/25 08:00 Narrative Exam General: Elderly, frail, in no acute distress sitting upright in bed with nasal cannula in place HEENT: Mucosa dry. Pupils are equal and reactive to light bilaterally. Poor dentition. Cardiovascular: Regular rate and rhythm. No murmur appreciated, Cold extremities, pedal pulses are palpable Respiratory: Bilateral bibasilar crackles Abdomen: Soft, nontender, not distended, Skin: Dry, no rashes or bruising Musculoskeletal: No gross injuries. Able to move all 4 extremities. B/L trace edema less notable at the feet and ankles Neuro: No focal neuro deficits. Objective Labs 05/03/25 04:40 05/03/25 04:40 Labs: Laboratory Results - last 24 hr 05/01/25 05/02/25 05/02/25 17:00 05:13 06:47 WBC 17.9 H D RBC 4.22 L Hgb 13.0 L Hct 42.4 MCV 101 H MCH 30.8 MCHC 30.7 L RDW Std Deviation 58.4 H Plt Count 226 Neut % (Auto) 93 H Lymph % (Auto) 2 L [place] % (Auto) 4 Eos % (Auto) 0 Baso % (Auto) 0 Neut # (Auto) 16.6 H Lymph # (Auto) 0.3 L [place] # (Auto) 0.8 Eos # (Auto) 0.0 Baso # (Auto) 0.0 Immature Gran # (Auto) 0.18 H Absolute Nucleated RBC 0.00 Immature Gran % 1 H Nucleated RBC % 0 Sodium 138 Potassium 5.3 H D Chloride 101 Carbon Dioxide 21.0 Anion Gap 16 BUN 62 H Creatinine 2.7 H D Estim Creat Clear Calc 20.4 L eGFR 25 L BUN/Creatinine Ratio 23 H Glucose 148 H Calculated Osmolality 296 H Lactic Acid Calcium 9.3 Corrected Calcium 9.3 Magnesium 2.4 Total Bilirubin 1.0 AST 5002 H* ALT 2333 H* Alkaline Phosphatase 98 Lactate Dehydrogenase Troponin I Total Protein 7.5 Albumin 4.0 Globulin 3.5 Albumin/Globulin Ratio 1.1 L Fluid pH 7.0 Pleural Color Straw Pleural Appearance Hazy Pleural WBC 239 Pleural RBC 5000 Pleural Polynuclear WBC 35 Pleural Mononuclear WBC 65 Pleural Total Protein 2.2 Pleural LDH 95 Pleural Glucose 148 Acetaminophen Hepatitis A IgM Ab Non Reactive Hep Bs Antigen Non Reactive Hep B Core IgM Ab Non Reactive Hepatitis C Antibody Non Reactive 05/02/25 05/02/25 09:15 11:17 WBC RBC Hgb Hct MCV MCH MCHC RDW Std Deviation Plt Count Neut % (Auto) Lymph % (Auto) [place] % (Auto) Eos % (Auto) Baso % (Auto) Neut # (Auto) Lymph # (Auto) [place] # (Auto) Eos # (Auto) Baso # (Auto) Immature Gran # (Auto) Absolute Nucleated RBC Immature Gran % Nucleated RBC % Sodium 136 Potassium 5.4 H Chloride 99 Carbon Dioxide 20.3 Anion Gap 17 H BUN 57 H Creatinine 2.8 H Estim Creat Clear Calc 19.7 L eGFR 24 L BUN/Creatinine Ratio 20 Glucose 170 H Calculated Osmolality 291 Lactic Acid 3.4 H Calcium 9.1 Corrected Calcium 9.3 Magnesium Total Bilirubin 0.8 AST 5078 H* ALT 2415 H* Alkaline Phosphatase 100 Lactate Dehydrogenase 4056 H Troponin I 0.117 H* Total Protein 7.0 Albumin 3.8 Globulin 3.2 Albumin/Globulin Ratio 1.2 Fluid pH Pleural Color Pleural Appearance Pleural WBC Pleural RBC Pleural Polynuclear WBC Pleural Mononuclear WBC Pleural Total Protein Pleural LDH Pleural Glucose Acetaminophen 8.6 L Hepatitis A IgM Ab Hep Bs Antigen Hep B Core IgM Ab Hepatitis C Antibody Quality Measures Quality Measures VTE prophylaxis and none Advance care planning discussed with:: patient and spouse Assessment & Plan Assessment Current Active Medications: Generic Name Dose Route Start Last Admin Trade Name Freq PRN Reason Stop Dose Admin Acetaminophen 650 mg 05/01/25 16:03 05/02/25 05:36 Acetaminophen 325 Mg Tablet PO 05/31/25 16:02 650 mg Q6H PRN Administration Fever >101.5 Albuterol/Ipratropium 3 ml 05/02/25 11:00 05/02/25 11:42 Albuterol/Ipratropium (Duoneb) Rt Emily 3 Ml Nebu INH 06/01/25 10:59 3 ml Q4HRRT ALISA Administration Aspirin 81 mg 05/01/25 16:30 05/02/25 08:20 Aspirin Ec 81 Mg Tabec PO 05/31/25 16:29 81 mg QDAY ALISA Administration Bumetanide 2 mg 05/02/25 10:30 05/02/25 10:43 Bumetanide Inj 0.25 Mg/Ml Vial 4 Ml IVP 06/01/25 10:29 2 mg On Hold: 05/02/25 12:03 BID ALISA Administration Clopidogrel Bisulfate 75 mg 05/01/25 16:30 05/02/25 08:20 Clopidogrel Bisulfate 75 Mg Tablet PO 05/31/25 16:29 75 mg QDAY ALISA Administration Levofloxacin/Dextrose 750 mg in 150 mls @ 100 mls/hr 05/02/25 10:45 05/02/25 12:17 Levaquin Ivpb IV 05/09/25 10:44 100 mls/hr Q48H ALISA Administration Protocol Methylprednisolone Sodium Succinate 40 mg 05/02/25 10:00 05/02/25 10:47 Methylprednisolone Sod Succ 40 Mg/Ml Vial IVP 05/09/25 09:59 40 mg DAILY ALISA Administration Ondansetron HCl 4 mg 05/01/25 16:03 05/02/25 12:22 Ondansetron Inj 2 Mg/Ml Inj 2 Ml IVP 05/31/25 16:02 4 mg Q6H PRN Administration NAUSEA OR VOMITING Protocol Plan Mr. Dugan ani 70 yo gentleman with a h/o CHF CAD s/p stenting 03/02, DM, and COPD who presents with a few weeks of progressive dyspnea. Found to have a bilateral pleural effusion which is now s/p thoracentesis, admitted for CHF exacerbation and bibasilar pneumonia, who was agressively diuresed yesterday, which likely contributed to ischemic hepatitis demonstrated on labs today. Acute liver Injury 2/2 Ischemic hepatitis SBP 90s/70s copared to SBP 130s yesterday, suspect that marked elevation in transaminases are 2/2 reduced blood flow due to decreased preload 2/2 agressive diuresis Lactic acid 3.5, continue to trend LDH elevated, however T lauren wnl, lower c/f Budd chiari. given pt has no pain on exam. Abdominal US pending to rule out Budd Chiari Hepatitis panel negative - GI consulted, appreciate recs - d/c diuretics - give IVF 100cc/hr for 1 L LR if Lactic acid uptrends #GEORGIE- worse (Cr 1.7 --> 2.7, baseline 1.2) #CKD Stage III b Noted Cr of 1.7, baseline appears to be 1.4 --> 2.7, likely prerenal 2/2 agressive diuresis with lasix and bumex - hold diuresis - Strict I and O - Avoid nephro toxic medications - Nephro consulted appreciate recs. #Acute on Chronic CHF exacerbation- ruled out #Pleural Effusion s/p thora #CAP- on ivabx #NSTEMI Progressive shortness of breath, LE edema, orthopnea. Patient near tripoding but not tachypneic. BNP markedly elevated with elevated troponins. Extremities cool and wet. CT chest with evidence of bilateral pneumonia and extensive superimposed pulmonary fibrosis. Also extensive loculated left pleural effusion. Patient also with mild right pleural fluid. Is now s/p thoracentesis. -Ceftriaxone (05/01- 05/02) -Azithromycin (05/01-05/02) -Continue Farxiga. Hold entresto and -Pleural fluid analysis: - Admit tele - Strict I&O -Daily Weights - Fluid restrict 1500 mL - caridac, low sodium diet, less than 2 gm. - d/c Furosemide, 40mg IV TID - d/c Bumex 2mg IV x1 #CAD -Recent stent on 03/02. On DAPT -Continue aspirin and plavix. #NSTEMI Trop 0.056, most likley secondary to CHF exacerbation, downtrending -Dr. Arizmendi consulted, appreciate recs #Non-insulin dependent Type II DM well controlled on farixiga -Continue Farxiga -Consider sliding scale . Health Maintenance: DVT prophylaxis: SCDs Diet: Cardiac, low salt < 2gm [place]: yes Lines: PIV CODE STATUS: Full code Disposition: Pending treatment of ischemic hepatitis, and chf exacerbation Plan discussed with Dr. Jennings, Dr Kinney, and Dr. Lior Stevens MD PGY1 Attending Provider Attestation/Addendum 70-year-old male with multiple comorbidities including hypertension, hyperlipidemia with subsequent CAD status post stent placement and heart failure with unknown EF who presented with shortness of breath found to have acute hypoxic respiratory failure and noted to have bilateral pleural effusion status post thoracentesis and admitted for acute hypoxic respiratory failure secondary to CHF exacerbation. In addition noted to have acute kidney injury superimposed on CKD and mild elevation in troponin at 0.056. Overnight, patient was noted to have acute liver injury with AST and ALT in the thousands and worsening kidney injury unknown etiology at this point however no evidence of any Tylenol or alcohol use, no evidence of any viral/infectious hepatitis, denies any herbal supplementation. At this point, could be ischemic hepatitis versus Budd-Chiari for which we will obtain an ultrasound. As for acute kidney injury superimposed on CKD plan to obtain nephrology and likely will benefit from a fluid challenge. I reviewed above note and agree with findings and plans. I have also personally examined the patient with medicine team and went over assessment and plan with medical team including recording studio internship and resident physician.
--- NOTE | 2025-05-02 12:58 | PD.RESCONSUL ---
HPI Data of Consult Consult date: 05/02/25 Requesting Physician: Kelli Tinajero MD Admitting Provider: Kelli Tinajero MD Attending Provider: Kelli Tinajero MD Primary Care Provider: LAURA Iqbal Consult Narrative Reason for consult: GEORGIE History of present illness: History of Present Illness: 70 y/o M with PMH significant for Coronary artery disease s/p stent placement (currently on aspirin and clopidogrel), CHF, and COPD, presented to hospital on 05/01/2025, with several weeks of progressively worsening shortness of breath, increased work of breathing, and lower extremity swelling. THe patient reports difficulty sleeping at night and requires 2-3 liters of supplemental oxygen nocturnally. Patient was admitted for CHF exacerbation vs pneumonia. Nephrology has been consulted for management of GEORGIE. ED Course: -Patient presented with BP 140/92, HR 87, T 98.2, RR 17, O2 95% RA. - Labs notable for creatinine is 1.7, troponin is 0.056. BNP is greater than 3000, Patient given lasix. - Chest x-ray with pneumonia. CT chest with evidence of bilateral pneumonia and extensive superimposed pulmonary fibrosis. Also extensive loculated left pleural effusion. Patient also with mild right pleural fluid. -Patient given ceftriaxone, and azithromycin. Blood cx ordered. -Patient also recieved thoracentesis pleural fluid sent for analysis. -Admitted for Acute on chronic CHF exacerbation PMHx: CHF chronic ischemic cardiomyopathy, EF 15-20% on 02/28/25, COPD, afib, type II DM, HTN, PSHx: Stent on 03/02 Meds: See med rec Allergies: NKDA Fam hx, non-contributory 05/02/2025: Labs reviewed and patient examined at the bedside. Initially, patient was mildly hypertensive, stable HR, afebrile, O2 sat acceptable on room air, wirh Cr 1.7, troponin 0.056, and BNP >3000. CXR and CT both showed ongoing pneumonia with pleural effusion. During hospital stay, patient was given IV Lasix with minimal diuresis (only ~300ml output), 1.3 L of pleural effusion drained via thoracentesis, markedly decline in renal function (Cr from 1.7 to 2.8 and eGFR from 43 to 25), WBC john from 10.6 to 17.9 despite ceftriaxone. Rise in LFTs (AST from 83 to 5000 and ALT from 46 to 2333) showing massive hepatocellular injury. LDH showed 4056 , troponin increased from 0.056 to 0.117. This patient has marked transaminitis, which is not typical of CHF exacerbation alone, Rising WBC despite antibiotics that shows uncontrolled or atypical infection, Severe LDH elevation raises suspicion for tissue necrosis/hemolysis/ischemia, Acute renal injury is out of proportion to diuresis, and troponin bump may indicate supply-demand problem or true LA. Overall, this raises concern for possibility of ischemic Hepatitis (Shock liver) due to hypoperfusion and Sepsis due to resistant pneumonia or empyema. The patient is currently in borderline SIRS 3/4 criteria: T 96.9 (>100.4 or <96.8F), RR 20 (>20/min), HR 50 (>90/min), WBC 17.9 (>12 or <4K or Bands >10%). Hepatic and renal injury may be secondary to sepsis-induced hypoperfusion in addition to aggressive diuresis given to the patient. However, transient increase in Cr due to contrast-induced nephropathy from Chest CTA is also a possibility. Will continue to monitor. cc:: cc: Kelli Tinajero MD Review of Systems Review of Systems Narrative Review of Systems: All 12 systems assessed and the patient denies unless otherwise stated in HPI Exam Vital Signs Temp Pulse Resp BP Pulse Ox O2 Del Method O2 Flow Rate 96.9 F 57 L 20 96/71 1 L Nasal Cannula 1 05/02/25 12:00 05/02/25 12:00 05/02/25 12:00 05/02/25 12:00 05/02/25 12:00 05/02/25 12:00 05/02/25 11:45 FiO2 3 05/02/25 08:00 Narrative Exam General: No acute distress, frail, elderly, AAO x3 Eye: PERRL, EOMI, normal conjunctiva, no scleral icterus HENT: Normocephalic, atraumatic, hearing intact to conversation at normal volume, moist oral mucosa Neck: Supple, non-tender, no JVD, no lymphadenopathy Lungs: symmetric chest rise, Slight labored breathing, Expiratory wheezing throughout bilateral lungs. Heart: Peripheral pulses intact bilaterally, Regular Rate and Rhythm. Abdomen: Soft, non-tender, non-distended, no palpable masses Musculoskeletal: Normal range of motion and strength, No cyanosis, Minimal edema BLE, No visible joint swelling Skin: Skin is warm, dry, no rashes or lesions. Psychiatric: Cooperative, appropriate mood and affect, Awake and alert, not agitated Neuro: Cranial nerves II-XII grossly intact. Sensations intact to light touch. Results Labs 05/02/25 05:13 05/02/25 09:15 Labs: Short CBC 05/02/25 Range/Units 05:13 WBC 17.9 H D (3.8-10.6) Thou/mm3 Hgb 13.0 L (13.5-16.0) g/dL Hct 42.4 (41.0-53.0) % Plt Count 226 (140-440) Thou/mm3 BMP 05/02/25 05/02/25 06:47 09:15 Sodium 138 136 Potassium 5.3 H D 5.4 H Chloride 101 99 Carbon Dioxide 21.0 20.3 BUN 62 H 57 H Creatinine 2.7 H D 2.8 H Glucose 148 H 170 H Calcium 9.3 9.1 Cardiac Enzymes 05/02/25 Range/Units 09:15 Troponin I 0.117 H* (0.0-0.045) ng/mL Liver Function 05/02/25 05/02/25 Range/Units 06:47 09:15 Total Bilirubin 1.0 0.8 (0.3-1.2) mg/dL AST 5002 H* 5078 H* (0-34) U/L ALT 2333 H* 2415 H* (10-49) U/L Alkaline Phosphatase 98 100 (46-116) U/L Albumin 4.0 3.8 (3.4-4.8) gm/dL Quality Measures Quality Measures none Advance care planning discussed with:: patient and other Medications Home Medications and Allergies Home Medications ?Medication ?Instructions ?Recorded ?Confirmed ?Type levothyroxine 88 mcg tablet 88 mcg PO QDAY 05/18/22 05/01/25 History semaglutide 0.25 mg or 0.5 mg (2 0.5 mg subcut QWEEK 05/18/22 05/01/25 History mg/1.5 mL) subcutaneous pen injector (Ozempic) dapagliflozin propanediol 5 mg 10 mg PO DAILY 10/27/23 05/01/25 History tablet (Farxiga) digoxin 125 mcg (0.125 mg) tablet 125 mcg PO DAILY 10/27/23 05/01/25 History clopidogrel 75 mg tablet (Plavix) 75 mg PO QDAY 02/27/25 05/01/25 History amiodarone 200 mg tablet 200 mg PO Q24H 05/01/25 05/01/25 History dapagliflozin propanediol 10 mg 10 mg PO DAILY 05/01/25 05/01/25 History tablet (xi) fexofenadine 180 mg tablet 180 mg PO Q24H 05/01/25 05/01/25 History (Allergy Relief (fexofenadine)) hydrocodone 10 mg-acetaminophen 1 tab PO Q6H 05/01/25 05/01/25 History 325 mg tablet tadalafil 10 mg tablet 10 mg PO .as needed 05/01/25 05/01/25 History Allergies Allergy/AdvReac Type Severity Reaction Status Date / Time No Known Allergies Allergy Verified 09/23/23 07:05 Visit Medications Acetaminophen (Acetaminophen 325 Mg Tablet) 650 mg PO Q6H PRN PRN Reason: Fever >101.5 Stop: 05/31/25 16:02 Last Admin: 05/02/25 05:36 Dose: 650 mg Albuterol/Ipratropium (Albuterol/Ipratropium (Duoneb) Rt Emily 3 Ml Nebu) 3 ml INH Q4HRRT [facility] Stop: 06/01/25 10:59 Last Admin: 05/02/25 11:42 Dose: 3 ml Aspirin (Aspirin Ec 81 Mg Tabec) 81 mg PO QDAY [facility] Stop: 05/31/25 16:29 Last Admin: 05/02/25 08:20 Dose: 81 mg Bumetanide (Bumetanide Inj 0.25 Mg/Ml Vial 4 Ml) 2 mg IVP BID ALISA On Hold: 05/02/25 12:03 Stop: 06/01/25 10:29 Last Admin: 05/02/25 10:43 Dose: 2 mg Clopidogrel Bisulfate (Clopidogrel Bisulfate 75 Mg Tablet) 75 mg PO QDAY [facility] Stop: 05/31/25 16:29 Last Admin: 05/02/25 08:20 Dose: 75 mg Levofloxacin/Dextrose (Levaquin Ivpb) 750 mg in 150 mls @ 100 mls/hr IV Q48H [facility]; Protocol Stop: 05/09/25 10:44 Last Admin: 05/02/25 12:17 Dose: 100 mls/hr Methylprednisolone Sodium Succinate (Methylprednisolone Sod Succ 40 Mg/Ml Vial) 40 mg IVP DAILY [facility] Stop: 05/09/25 09:59 Last Admin: 05/02/25 10:47 Dose: 40 mg Ondansetron HCl (Ondansetron Inj 2 Mg/Ml Inj 2 Ml) 4 mg IVP Q6H PRN; Protocol PRN Reason: NAUSEA OR VOMITING Stop: 05/31/25 16:02 Last Admin: 05/02/25 12:22 Dose: 4 mg Discontinued Medications Furosemide (Furosemide Inj 10 Mg/Ml Vial 2 Ml) 40 mg IVP X1 ONE Stop: 05/01/25 10:18 Last Admin: 05/01/25 10:22 Dose: 40 mg Furosemide (Furosemide Inj 10 Mg/Ml Vial 2 Ml) 40 mg IVP TID ALISA Stop: 05/31/25 21:59 Last Admin: 05/02/25 05:11 Dose: 40 mg Ceftriaxone Sodium/Dextrose (Rocephin/D5w 1gm Iv Premix) 1 gm in 50 mls @ 100 mls/hr IV STAT STA Stop: 05/01/25 14:22 Last Infusion: 05/01/25 16:22 Dose: Infused Azithromycin 500 mg/ Sodium (Chloride) 250 mls @ 250 mls/hr IV QDAY [facility] Stop: 05/08/25 13:53 Last Admin: 05/01/25 16:25 Dose: 250 mls/hr Ceftriaxone Sodium/Dextrose (Rocephin/D5w 1gm Iv Premix) 1 gm in 50 mls @ 100 mls/hr IV Q12HR [facility] Stop: 05/09/25 08:59 Last Admin: 05/02/25 08:20 Dose: 100 mls/hr Azithromycin 250 mg/ Sterile (Water 2.5 ml/ Sodium Chloride) 252.5 mls @ 252.5 mls/hr IV QDAY [facility] Stop: 05/09/25 08:59 Last Admin: 05/02/25 10:35 Dose: 252.5 mls/hr Levalbuterol HCl (Levalbuterol Rt 0.63 Mg/3 Ml Nebu) 0.63 mg INH Q4HRRT PRN PRN Reason: WHEEZING Stop: 05/31/25 18:59 Methylprednisolone Sodium Succinate (Methylprednisolone Sod Succ 40 Mg/Ml Vial) 40 mg IM DAILY [facility] Stop: 05/09/25 09:59 Assessment & Plan Plan 70 y/o M with PMG significant for Coronary artery disease s/p stent placement (currently on aspirin and clopidogrel), CHF, and COPD, presented to hospital on 05/01/2025, with several weeks of progressively worsening shortness of breath, increased work of breathing, and lower extremity swelling. Patient was admitted for CHF exacerbation vs pneumonia. Nephrology has been consulted for management of GEORGIE. # GEORGIE on Chronic Kidney Disease # ?Cardiorenal Syndrome # VS Contrast Induced nephropathy -On admission: BUN:38, Cr:1.7, eGFR:43, BNP: >3280, Tropnin: 0.056 -Currently, BUN:57, Cr:2.8, eGFR:24, Tropnin: 0.117 -CXR: (05/01/2025): Prominent CHF. Moderate enlargement cardiac contour, prominent vascular congestion and perihilar edema, Consider superimposed pneumonia at the lung bases, Large left pleural effusion, Cardiac leads satisfactory position -Repeat CXR (05/01/2025): No pneumothorax post thoracentesis, Mild to moderate enlargement cardiac contour prominent vascular congestion and extensive edema and/or pneumonia throughout the lungs, Cardiac leads satisfactory position. -Chest CTA (05/01/2025): Negative for pulmonary artery emboli, Extensive diffuse bilateral pneumonia, Superimposed pulmonary fibrosis at the lung bases, Extensive loculated left pleural fluid -His current renal function is most likely a result of chronic injury to the kidneys from poorly controlled CHF, resulting in fluid overload as evidenced by BNP levels, with possibility of sepsis due to pneumonia. -Initial management with diuresis is warranted, dialysis can be considered if renal function does not improve with diuresis. Plan: -Hold diuresis. -Renal US pending. -Continue to monitor renal function; will consider dialysis if renal function shows no improvement with diuresis -Nephrology will continue to follow -Urine electrolytes, Urine protein and Urea -Avoid nephrotoxic and renally dose medications, -Strict ins and outs #Acute on Chronic CHF exacerbation #Pleural Effusion #CAP #NSTEMI #CAD #Non-insulin dependent Type II DM -Management per Primary Hospitalist team Thank you for allowing us to participate in the care of your patient. Assessment and plan discussed with my attending physician Dr. Quirino Foss (PGY-1)- Internal medicine resident Attending Provider Attestation/Addendum patient currently seen and examined with resident physician Dr. Foss. Note reviewed, agree with findings and recommendations. Patient currently seen in telemetry. Chart review done. Sick looking gentleman. Significant elevation in liver enzymes-most likely related to shock liver. Rising creatinine today secondary to contrast nephropathy in the setting of prerenal azotemia/ischemic ATN. Will monitor renal function and urine output closely. Prognosis guarded. Thank you Kelli for allowing me to participate in the care of Mr. Dugan.
[2025-05-02 14:32] LABS: Reflex Lactate? Y
--- NOTE | 2025-05-02 15:13 | ESCONSULT_ITS ---
<Statement entered by Sydney Arizmendi MD - 05/04/25 10:05> I personally evaluated examined this patient who is very well-known to me alongside history ischemic cardiomyopathy multiple stent placements most recently circumflex artery stent placement also had LAD stent placed in the past has ejection fraction only 10 to 15% has a NYHA functional class IV congestive heart failure status post previous ICD implantation came to the hospital with multiple problems shortness of breath and patient underwent CTA of the chest to rule out pulm embolism inappropriately contrast was given patient developed acute renal failure now not doing well also developed severe elevation of liver enzymes 4000 ALT AST and elevated LDH due to possibly shock liver hypoperfusion possibly low blood pressure. Patient is critically ill with multiorgan failure be getting a renal consultation. Evaluated patient with resident physician Dr. Corey Olmstead PGY2 MD evaluate. I do not think patient had any cardiac event here he is known to have end-stage heart failure cardiac and functional class IV stage D heart failure with poor prognosis. Recommended nephrology consultation may require dialysis for acute renal failure prognosis extremely poor. Will continue to monitor the patient closely HPI Data of Consult Consult date: 05/02/25 Requesting Physician: Kelli Tinajero MD Admitting Provider: Kelli Tinajero MD Attending Provider: Sydney Arizmendi MD Primary Care Provider: LAURA Iqbal Consult Narrative Reason for consult: Heart failure exacerbation History of present illness: 70 y/o M with PMHx of CAD s/p stents in february 2025, Heart failure with reduced ejection fraction (15-20%) in 2023, COPD on 2L of home O2 who presented to the ED due to progressive shortness of breath. Patient has been having progressive shortness of breath for that past few months, he also endorses bilateral lower extremity swelling. In the ED patient was given IV dirureses and noted to have pleural effusions and had thoracentesis done with removal of 1.4L of fluid. Patient continued to not improve and was admitted for acute decompensated heart failure. ED course: BP 140/92, HR 87, RR 17, O2 95% on room air. Labs notable for creatinine is 1.7, troponin is 0.056. BNP > 3000. Chest x-ray with pneumonia. CT chest with evidence of bilateral pneumonia and extensive superimposed pulmonary fibrosis. Also extensive loculated left pleural effusion. Patient given lasix, ceftriaxone, and azithromycin. Blood cx ordered. Patient also recieved thoracentesis pleural fluid sent for analysis PMHx: as above SxHx: stent FHx: unknown cc:: cc: Kelli Tinajero MD Review of Systems Review of Systems Systems Reviewed: All systems reviewed, normal except as documented Exam Vital Signs Temp Pulse Resp BP Pulse Ox O2 Del Method O2 Flow Rate 96.9 F 51 L 19 96/71 97 Nasal Cannula 2 05/02/25 12:00 05/02/25 15:03 05/02/25 15:03 05/02/25 12:00 05/02/25 15:03 05/02/25 12:00 05/02/25 15:03 FiO2 3 05/02/25 08:00 Narrative Exam Physical Exam GENERAL: NAD, AAOx3 HEENT: dry mucosa. Eyes open, symmetrical, & clear, +JVD CARDIO: Heart RRR, no obvious murmurs PULM: No noted coughing/dyspnea, B/L mild crackles GI: Abdomen soft, nondistended, no pain on palpation. BSx4 SKIN/MSK/EXT: bilateral lower extremity swelling, no pain on palpation. Pedal pulses present B/L NEURO: AAOx3, no focal neuro deficits, able to move all 4 extremities Results Labs 05/02/25 05:13 05/02/25 09:15 Labs: Short CBC 05/02/25 Range/Units 05:13 WBC 17.9 H D (3.8-10.6) Thou/mm3 Hgb 13.0 L (13.5-16.0) g/dL Hct 42.4 (41.0-53.0) % Plt Count 226 (140-440) Thou/mm3 BMP 05/02/25 05/02/25 06:47 09:15 Sodium 138 136 Potassium 5.3 H D 5.4 H Chloride 101 99 Carbon Dioxide 21.0 20.3 BUN 62 H 57 H Creatinine 2.7 H D 2.8 H Glucose 148 H 170 H Calcium 9.3 9.1 Cardiac Enzymes 05/02/25 Range/Units 09:15 Troponin I 0.117 H* (0.0-0.045) ng/mL Liver Function 05/02/25 05/02/25 Range/Units 06:47 09:15 Total Bilirubin 1.0 0.8 (0.3-1.2) mg/dL AST 5002 H* 5078 H* (0-34) U/L ALT 2333 H* 2415 H* (10-49) U/L Alkaline Phosphatase 98 100 (46-116) U/L Albumin 4.0 3.8 (3.4-4.8) gm/dL Quality Measures Quality Measures VTE prophylaxis and none Advance care planning discussed with:: patient Medications Home Medications and Allergies Home Medications ?Medication ?Instructions ?Recorded ?Confirmed ?Type levothyroxine 88 mcg tablet 88 mcg PO QDAY 05/18/22 History semaglutide 0.25 mg or 0.5 mg (2 0.5 mg subcut QWEEK 1 05/01/25 History mg/1.5 mL) subcutaneous pen injector (Ozempic) dapagliflozin propanediol 5 mg 10 mg PO DAILY 10/27/23 05/01/25 History tablet (Farxiga) digoxin 125 mcg (0.125 mg) tablet 125 mcg PO DAILY 05/01/25 History clopidogrel 75 mg tablet (Plavix) 75 mg PO QDAY 05/01/25 History amiodarone 200 mg tablet 200 mg PO Q24H 05/01/2504/10 History dapagliflozin propanediol 10 mg 10 mg PO DAILY 5 05/01/25 History tablet (Farxiga) fexofenadine 180 mg tablet 180 mg PO Q24H 05/01/25 History (Allergy Relief (fexofenadine)) hydrocodone 10 mg-acetaminophen 1 tab PO Q6H 05/01/25 05/01/25 History 325 mg tablet tadalafil 10 mg tablet 10 mg PO .as needed 05/01/25 05/01/25 History Allergies Allergy/AdvReac Type Severity Reaction Status Date / Time No Known Allergies Allergy Verified 09/23/23 07:05 Visit Medications Acetaminophen (Acetaminophen 325 Mg Tablet) 650 mg PO Q6H PRN PRN Reason: Fever >101.5 Stop: 05/31/25 16:02 Last Admin: 05/02/25 05:36 Dose: 650 mg Albuterol/Ipratropium (Albuterol/Ipratropium (Duoneb) Rt Emily 3 Ml Nebu) 3 ml INH Q4HRRT [facility] Stop: 06/01/25 10:59 Last Admin: 05/02/25 15:01 Dose: 3 ml Aspirin (Aspirin Ec 81 Mg Tabec) 81 mg PO QDAY [facility] Stop: 05/31/25 16:29 Last Admin: 05/02/25 08:20 Dose: 81 mg Clopidogrel Bisulfate (Clopidogrel Bisulfate 75 Mg Tablet) 75 mg PO QDAY [facility] Stop: 05/31/25 16:29 Last Admin: 05/02/25 08:20 Dose: 75 mg Levofloxacin/Dextrose (Levaquin Ivpb) 750 mg in 150 mls @ 100 mls/hr IV Q48H [facility]; Protocol Stop: 05/09/25 10:44 Last Admin: 05/02/25 12:17 Dose: 100 mls/hr Methylprednisolone Sodium Succinate (Methylprednisolone Sod Succ 40 Mg/Ml Vial) 40 mg IVP DAILY [facility] Stop: 05/09/25 09:59 Last Admin: 05/02/25 10:47 Dose: 40 mg Ondansetron HCl (Ondansetron Inj 2 Mg/Ml Inj 2 Ml) 4 mg IVP Q6H PRN; Protocol PRN Reason: NAUSEA OR VOMITING Stop: 05/31/25 16:02 Last Admin: 05/02/25 12:22 Dose: 4 mg Discontinued Medications Bumetanide (Bumetanide Inj 0.25 Mg/Ml Vial 4 Ml) 2 mg IVP BID ALISA Stop: 06/01/25 10:29 Last Admin: 05/02/25 10:43 Dose: 2 mg Furosemide (Furosemide Inj 10 Mg/Ml Vial 2 Ml) 40 mg IVP X1 ONE Stop: 05/01/25 10:18 Last Admin: 05/01/25 10:22 Dose: 40 mg Furosemide (Furosemide Inj 10 Mg/Ml Vial 2 Ml) 40 mg IVP TID ALISA Stop: 05/31/25 21:59 Last Admin: 05/02/25 05:11 Dose: 40 mg Ceftriaxone Sodium/Dextrose (Rocephin/D5w 1gm Iv Premix) 1 gm in 50 mls @ 100 mls/hr IV STAT STA Stop: 05/01/25 14:22 Last Infusion: 05/01/25 16:22 Dose: Infused Azithromycin 500 mg/ Sodium (Chloride) 250 mls @ 250 mls/hr IV QDAY [facility] Stop: 05/08/25 13:53 Last Admin: 05/01/25 16:25 Dose: 250 mls/hr Ceftriaxone Sodium/Dextrose (Rocephin/D5w 1gm Iv Premix) 1 gm in 50 mls @ 100 mls/hr IV Q12HR [facility] Stop: 05/09/25 08:59 Last Admin: 05/02/25 08:20 Dose: 100 mls/hr Azithromycin 250 mg/ Sterile (Water 2.5 ml/ Sodium Chloride) 252.5 mls @ 252.5 mls/hr IV QDAY [facility] Stop: 05/09/25 08:59 Last Admin: 05/02/25 10:35 Dose: 252.5 mls/hr Levalbuterol HCl (Levalbuterol Rt 0.63 Mg/3 Ml Nebu) 0.63 mg INH Q4HRRT PRN PRN Reason: WHEEZING Stop: 05/31/25 18:59 Methylprednisolone Sodium Succinate (Methylprednisolone Sod Succ 40 Mg/Ml Vial) 40 mg IM DAILY [facility] Stop: 05/09/25 09:59 Assessment & Plan Plan 70 y/o M with PMHx of CAD s/p stents in february 2025, Heart failure with reduced ejection fraction (15-20%) in 2023, COPD on 2L of home O2 who presented to the ED due to progressive shortness of breath. Admitted for acute on chronic decompensated heart failure. #Acute on chronic decompensated heart failure exacerbation #Heart failure with reduced ejection fraction [15-20%] #NSTEMI, likely type II #CAD s/p Stent Presented with clinical signs such as shortness of breath, dyspnea on exertion, bilateral leg swelling mild troponin leak likely secondary to CHF exacerbation, patient with no chest pain, doubt ACS at this present point in time. Liver enzymes increased dramatically likely in setting of hypoperfusion, shock liver, sepsis NYHA class: IV CXR: prominent vascular congestion BNP: >3250 Last echo Sep 2023: Dilated cardiomyopathy with severe systolic dysfunction. Severe global hypokinesis. Estimated EF 15-20% Dilated right ventricle with RVSP 35mmHg. Mild PAH. Pacing wire present. Biatrial dilatation. Mild mitral and tricuspid regurgitation Moderate calcific aortic stenosis vmax 2.5m/s. Possible Low flow low gradient severe aotic stenosis ? Echo ordered ? Hold IV diuresis in the setting of sepsis-induced hypoperfusion, however patient still with bilateral lower extremity swelling, +JVD and mild crackles ? Start goal-directed medical therapy when stable to tolerate ? Continue Aspirin and Plavix ? Keep K>4, Mg>2 ? Provide oxygen as required ? Strict I's and O's ? Fluid restriction #Acuteliver injury #Ischemic hepatitis #GEORGIE #CKD Stage III b #Pleural Effusion s/p thora #CAP- on ivabx #Non-insulin dependent Type II DM -as per primary team Case discussed with my attending Dr. Ugo Olmstead MD PGY-2 Disclaimer: Despite multiple revisions, due to the dictation software being used, the document bellow may not be free of grammatical errors including phonetic/typographic errors. However, this does not deter from our commitment to providing health care in the patient's best interest in mind.
[2025-05-02 15:14] LABS: Lactic Acid, 3 HR 3.3 mMol/L (0.4-2.0)
--- NOTE | 2025-05-02 16:12 | ESCONSULT_ITS ---
HPI Data of Consult Requesting Physician: Kelli Tinajero MD Admitting Provider: Kelli Tinajero MD Attending Provider: Kelli Tinajero MD Primary Care Provider: LAURA Iqbal Consult Narrative Reason for consult: acute liver injury/elevated LFTs History of present illness: Mr. Dugan presented 05/01 with progressive dyspnea, LE edema, orthopnea, and was admitted for CHF exacerbation vs pneumonia. He underwent left-sided thoracentesis (1.3 L removed), started on IV Lasix and antibiotics (ceftriaxone, azithromycin). Subsequently developed hypotension (SBP 90s vs 130s on admission) and minimal urine output. Labs on 05/02 showed AST 5000, ALT 2400, LDH 4000, lactic acid 3.4, Cr john to 2.8 from 1.7. Bili 0.8, albumin 4. INR 1.4. Hepatitis panel negative, acetaminophen level low at 8.6. RUQ U/S with Doppler showed patent hepatic vasculature, no Budd-Chiari, no obstruction. At bedside, patient denies abdominal pain, hematemesis, melena, or jaundice. reports baseline skin tone, no new icterus. Patient notes mild nausea without vomiting, no alcohol or supplement use, last EtOH ~35 years ago. No recent Tylenol except small dose given prior to admission. Denies confusion, though noted intermittent daytime sleepiness cc:: cc: Kelli Tinajero MD Exam Vital Signs Temp Pulse Resp BP Pulse Ox O2 Del Method O2 Flow Rate 96.3 F L 52 L 15 103/49 L 95 Nasal Cannula 2 05/02/25 15:59 05/02/25 15:59 05/02/25 15:59 05/02/25 15:59 05/02/25 15:59 05/02/25 15:59 05/02/25 15:59 FiO2 3 05/02/25 08:00 Narrative Exam General: Elderly, frail, sitting upright, no acute distress. HEENT: No scleral icterus, mucous membranes slightly dry. CV: Regular rate/rhythm, palpable pulses. Abdomen: Soft, non-tender, no hepatomegaly, no RUQ pain. Extremities: Trace pedal edema. Neuro: Alert, oriented ?3, no focal deficits, no asterixis. Results Labs 05/02/25 05:13 05/02/25 09:15 Labs: Short CBC 05/02/25 Range/Units 05:13 WBC 17.9 H D (3.8-10.6) Thou/mm3 Hgb 13.0 L (13.5-16.0) g/dL Hct 42.4 (41.0-53.0) % Plt Count 226 (140-440) Thou/mm3 BMP 05/02/25 05/02/25 06:47 09:15 Sodium 138 136 Potassium 5.3 H D 5.4 H Chloride 101 99 Carbon Dioxide 21.0 20.3 BUN 62 H 57 H Creatinine 2.7 H D 2.8 H Glucose 148 H 170 H Calcium 9.3 9.1 Cardiac Enzymes 05/02/25 Range/Units 09:15 Troponin I 0.117 H* (0.0-0.045) ng/mL Liver Function 05/02/25 05/02/25 Range/Units 06:47 09:15 Total Bilirubin 1.0 0.8 (0.3-1.2) mg/dL AST 5002 H* 5078 H* (0-34) U/L ALT 2333 H* 2415 H* (10-49) U/L Alkaline Phosphatase 98 100 (46-116) U/L Albumin 4.0 3.8 (3.4-4.8) gm/dL Quality Measures Quality Measures VTE prophylaxis and none Advance care planning discussed with:: patient and spouse Medications Home Medications and Allergies Home Medications ?Medication ?Instructions ?Recorded ?Confirmed ?Type levothyroxine 88 mcg tablet 88 mcg PO QDAY 05/18/22 History semaglutide 0.25 mg or 0.5 mg (2 0.5 mg subcut QWEEK 1 05/01/25 History mg/1.5 mL) subcutaneous pen injector (Ozempic) dapagliflozin propanediol 5 mg 10 mg PO DAILY 10/27/23 05/01/25 History tablet (Farxiga) digoxin 125 mcg (0.125 mg) tablet 125 mcg PO DAILY 05/01/25 History clopidogrel 75 mg tablet (Plavix) 75 mg PO QDAY 05/01/25 History amiodarone 200 mg tablet 200 mg PO Q24H 05/01/2504/10 History dapagliflozin propanediol 10 mg 10 mg PO DAILY 5 05/01/25 History tablet (Farxiga) fexofenadine 180 mg tablet 180 mg PO Q24H 05/01/25 History (Allergy Relief (fexofenadine)) hydrocodone 10 mg-acetaminophen 1 tab PO Q6H 05/01/25 05/01/25 History 325 mg tablet tadalafil 10 mg tablet 10 mg PO .as needed 05/01/25 05/01/25 History Allergies Allergy/AdvReac Type Severity Reaction Status Date / Time No Known Allergies Allergy Verified 09/23/23 07:05 Visit Medications Acetaminophen (Acetaminophen 325 Mg Tablet) 650 mg PO Q6H PRN PRN Reason: Fever >101.5 Stop: 05/31/25 16:02 Last Admin: 05/02/25 05:36 Dose: 650 mg Albuterol/Ipratropium (Albuterol/Ipratropium (Duoneb) Rt Emily 3 Ml Nebu) 3 ml INH Q4HRRT [facility] Stop: 06/01/25 10:59 Last Admin: 05/02/25 15:01 Dose: 3 ml Aspirin (Aspirin Ec 81 Mg Tabec) 81 mg PO QDAY [facility] Stop: 05/31/25 16:29 Last Admin: 05/02/25 08:20 Dose: 81 mg Clopidogrel Bisulfate (Clopidogrel Bisulfate 75 Mg Tablet) 75 mg PO QDAY [facility] Stop: 05/31/25 16:29 Last Admin: 05/02/25 08:20 Dose: 75 mg Levofloxacin/Dextrose (Levaquin Ivpb) 750 mg in 150 mls @ 100 mls/hr IV Q48H ALISA; Protocol Stop: 05/09/25 10:44 Last Admin: 05/02/25 12:17 Dose: 100 mls/hr Methylprednisolone Sodium Succinate (Methylprednisolone Sod Succ 40 Mg/Ml Vial) 40 mg IVP DAILY [facility] Stop: 05/09/25 09:59 Last Admin: 05/02/25 10:47 Dose: 40 mg Ondansetron HCl (Ondansetron Inj 2 Mg/Ml Inj 2 Ml) 4 mg IVP Q6H PRN; Protocol PRN Reason: NAUSEA OR VOMITING Stop: 05/31/25 16:02 Last Admin: 05/02/25 12:22 Dose: 4 mg Discontinued Medications Bumetanide (Bumetanide Inj 0.25 Mg/Ml Vial 4 Ml) 2 mg IVP BID ALISA Stop: 06/01/25 10:29 Last Admin: 05/02/25 10:43 Dose: 2 mg Furosemide (Furosemide Inj 10 Mg/Ml Vial 2 Ml) 40 mg IVP X1 ONE Stop: 05/01/25 10:18 Last Admin: 05/01/25 10:22 Dose: 40 mg Furosemide (Furosemide Inj 10 Mg/Ml Vial 2 Ml) 40 mg IVP TID ALISA Stop: 05/31/25 21:59 Last Admin: 05/02/25 05:11 Dose: 40 mg Ceftriaxone Sodium/Dextrose (Rocephin/D5w 1gm Iv Premix) 1 gm in 50 mls @ 100 mls/hr IV STAT STA Stop: 05/01/25 14:22 Last Infusion: 05/01/25 16:22 Dose: Infused Azithromycin 500 mg/ Sodium (Chloride) 250 mls @ 250 mls/hr IV QDAY ALISA Stop: 05/08/25 13:53 Last Admin: 05/01/25 16:25 Dose: 250 mls/hr Ceftriaxone Sodium/Dextrose (Rocephin/D5w 1gm Iv Premix) 1 gm in 50 mls @ 100 mls/hr IV Q12HR ALISA Stop: 05/09/25 08:59 Last Admin: 05/02/25 08:20 Dose: 100 mls/hr Azithromycin 250 mg/ Sterile (Water 2.5 ml/ Sodium Chloride) 252.5 mls @ 252.5 mls/hr IV QDAY ALISA Stop: 05/09/25 08:59 Last Admin: 05/02/25 10:35 Dose: 252.5 mls/hr Levalbuterol HCl (Levalbuterol Rt 0.63 Mg/3 Ml Nebu) 0.63 mg INH Q4HRRT PRN PRN Reason: WHEEZING Stop: 05/31/25 18:59 Methylprednisolone Sodium Succinate (Methylprednisolone Sod Succ 40 Mg/Ml Vial) 40 mg IM DAILY [facility] Stop: 05/09/25 09:59 Assessment & Plan Plan 70-year-old male with CHF (EF 15?20%), CAD s/p stent on DAPT, COPD, admitted with CHF exacerbation/pneumonia s/p thoracentesis, now with abrupt severe transaminitis most consistent with ischemic hepatopathy in the setting of aggressive diuresis and hypotension. # Acute hypoxic hepatitis # Consistent with ischemic hepatopathy in the setting of decompensated CHF Abrupt massive AST/ALT elevation (AST 5000, ALT 2400) with LDH >4000, lactate elevation, recent hypotension after aggressive diuresis, concurrent GEORGIE. Bili 0.8, albumin 4.0, INR 1.4 --> preserved synthetic function. RUQ Doppler: patent hepatic/portal veins, no Budd?Chiari, no obstruction. Hepatitis panel negative, acetaminophen low (8.6), no EtOH/supplements. Plan: * Hold diuretics, avoid hepatotoxins. * Trend AST/ALT, LDH, INR daily * Ammonia levels only if patient develops AMS. Other problems: CHF exacerbation, GEORGIE/CKD, CAP, CAD s/p stent, NSTEMI, DM2 Plan: Management per primary, nephrology, cardiology teams. ----- Plan discussed with attending physician Dr. Sumit Somers MD PGY-1 Internal Medicine Attending Provider Attestation/Addendum I personally examined the patient All the labs and imaging studies reviewed Case discussed in detail with the internal medicine resident I agree with the assessment that the patient has primarily transaminitis due to acute hypoxic hepatitis Will trend the LFTs Advance to general condition improves the LFTs will improve primary transaminases Will closely monitor the patient and the LFTs Thank you for the opportunity to participate in the care of this patient
[2025-05-02 18:57] LABS: Lactate (Lactic Acid) 2.8 mMol/L (0.4-2.0)
[2025-05-02 19:20] LABS: Ammonia 31 uMol/L (11-32)
[2025-05-02 19:24] LABS: Troponin I 0.128 ng/mL (0.0-0.045)
[2025-05-02 21:55] LABS: Reflex Lactate? Y
[2025-05-02 22:37] LABS: Lactic Acid, 3 HR 2.4 mMol/L (0.4-2.0)
[2025-05-03] VITALS (95 sets, daily range): BP systolic 86–121; BP diastolic 44–72; PULSE 49–89; RESP 8–35; TEMP 35.6–36.3; O2SAT 86–100; BMI 21.4; BMI 21.3
[2025-05-03] MEDS: ACETAMINOPHEN 325 MG TABLET 650 MG PO (02:09)
[2025-05-03] MEDS: ALBUTEROL/IPRATROPIUM (Duoneb) RT SOL 3 ML NEBU INH ×6 (02:22→23:12)
[2025-05-03 05:12] LABS: Lactate (Lactic Acid) 1.7 mMol/L (0.4-2.0)
[2025-05-03 05:28] LABS: Basophils # (Auto) 0.0 Thou/mm3 (0.0-0.2); Basophils % (Auto) 0 % (0-2.5); Eosinophils # (Auto) 0.0 Thou/mm3 (0.0-0.5); Eosinophils % (Auto) 0 % (0-10); Hematocrit 43.8 % (41.0-53.0); Hemoglobin 13.7 g/dL (13.5-16.0); Immature Granulocytes Auto 0.11 Thou/mm3 (0.00-0.00); Lymphocytes # (Auto) 0.2 Thou/mm3 (1.0-4.8); Lymphocytes % (Auto) 1 % (10-50); Mean Corpuscular HGB Conc 31.3 g/dl (31.0-37.0); Mean Corpuscular Hemoglobin 30.6 pg (25.0-35.0); Mean Corpuscular Volume 98 fL (80-100); Monocytes # (Auto) 0.4 Thou/mm3 (0.0-0.8); Monocytes % (Auto) 2 % (0-12); Neutrophils # (Auto) 18.3 Thou/mm3 (1.8-7.7); Neutrophils % (Auto) 96 % (37-80); Nucleated Red Blood Cell # 0.02 Thou/mm3 (0.00-0.00); Nucleated Red Blood Cell % 0 /100 WBC (0); Platelet Count 238 Thou/mm3 (140-440); RDW Standard Deviation 55.1 fL (35.1-43.9); Red Blood Count 4.48 Miln/mm3 (4.50-5.90); White Blood Count 19.0 Thou/mm3 (3.8-10.6)
[2025-05-03 05:44] LABS: INR 2.0 (0.9-1.3); Prothrombin Time 21.0 Seconds (9.0-12.2)
[2025-05-03 06:16] LABS: Alanine Aminotransferase 2191 U/L (10-49); Albumin, Serum 3.4 gm/dL (3.4-4.8); Albumin/Globulin Ratio 1.1 (1.2-2.2); Alkaline Phosphatase 102 U/L (46-116); Anion Gap 15 (7-16); BUN/Creatinine Ratio 21 Ratio (12-20); Bilirubin,Total 0.8 mg/dL (0.3-1.2); Blood Urea Nitrogen 83 mg/dL (9-23); Calcium 7.2 mg/dL (8.3-10.6); Calcium (Corrected) 7.7 mg/dL (8.5-10.1); Carbon Dioxide 21.1 mMol/L (20.0-31.0); Chloride 97 mMol/L (98-107); Creatinine (Component) 3.9 mg/dL (0.6-1.3); Estimated Creatinine Clearance 14.3 mL/min (>60); Globulin 3.1 gm/dL (2.3-3.5); Glucose 193 mg/dL (74-106); Osmolality,Calculated 296 (275-295); Sodium 133 mMol/L (136-145); Total Protein 6.5 gm/dL (5.7-8.2); eGFR 16 See Note
[2025-05-03 06:28] LABS: Potassium 6.2 mMol/L (3.4-5.1); Troponin I 0.079 ng/mL (0.0-0.045)
[2025-05-03 06:36] LABS: Aspartate Amino Transferase 2387 U/L (0-34)
[2025-05-03] MEDS: DEXTROSE 50%-WATER INJ 50 ML SYRINGE IV (07:57)
[2025-05-03] MEDS: CALCIUM GLUCONATE 10% INJ 1 GM/10 ML VIAL IV (07:58)
[2025-05-03] MEDS: ASPIRIN EC 81 MG TABEC PO (07:59)
[2025-05-03] MEDS: CLOPIDOGREL BISULFATE 75 MG TABLET PO (07:59)
[2025-05-03] MEDS: INSULIN HUM REGULAR 1 UNIT/0.01 ML (PER UNIT) 5 UNIT IV (08:02)
[2025-05-03] MEDS: SOD POLYSTYRENE SULFON SUSP 15 GM/60 ML BTL 30 GM PO (08:12)
--- NOTE | 2025-05-03 09:57 | PC.SS ---
Patient is a 70 year old male presenting to the hospital for CHF exacerbation vs pneumonia. RAILCAR SWITCHER met with patient and patient at bedside. RAILCAR SWITCHER explained self, role, and reason for visit. Patients , Angelica stated that he lives at home with her, patient uses oxygen concentrator 2-3L provided by [employer], a nebulizer, vest, and a walker. Patient utilizes walker to complete ADL?S with assistance from his . Patient?s stated that in case patient is unable to make medical decisions on their own she would be the one to make them. Patients PCP is Dr. Murphy and Hortencia Donis and he had an appointment last week. Patient?s pharmacy of choice is [facility]. Patient?s stated that the doctors told her that patient will be receiving dialysis today, patients reported patient is not connected to outpatient dialysis. Patients stated that once medically clear patient will return home and she will provide transportation. PCP: Dr. Donis Decision maker: Angelica Stewart PH: [phone] d/c: home
[2025-05-03 10:11] LABS: Lactate (Lactic Acid) 2.6 mMol/L (0.4-2.0)
--- NOTE | 2025-05-03 10:41 | ESPR_ITS ---
Documentation for date of: 05/03/25 Subjective Subjective Interval history: History of Present Illness: 70 y/o M with PMH significant for Coronary artery disease s/p stent placement (currently on aspirin and clopidogrel), CHF, and COPD, presented to hospital on 05/01/2025, with several weeks of progressively worsening shortness of breath, increased work of breathing, and lower extremity swelling. THe patient reports difficulty sleeping at night and requires 2-3 liters of supplemental oxygen nocturnally. Patient was admitted for CHF exacerbation vs pneumonia. Nephrology has been consulted for management of GEORGIE. ED Course: -Patient presented with BP 140/92, HR 87, T 98.2, RR 17, O2 95% RA. - Labs notable for creatinine is 1.7, troponin is 0.056. BNP is greater than 3000, Patient given lasix. - Chest x-ray with pneumonia. CT chest with evidence of bilateral pneumonia and extensive superimposed pulmonary fibrosis. Also extensive loculated left pleural effusion. Patient also with mild right pleural fluid. -Patient given ceftriaxone, and azithromycin. Blood cx ordered. -Patient also recieved thoracentesis pleural fluid sent for analysis. -Admitted for Acute on chronic CHF exacerbation PMHx: CHF chronic ischemic cardiomyopathy, EF 15-20% on 02/28/25, COPD, afib, type II DM, HTN, PSHx: Stent on 03/02 Meds: See med rec Allergies: NKDA Fam hx, non-contributory 05/02/2025: Labs reviewed and patient examined at the bedside. Initially, patient was mildly hypertensive, stable HR, afebrile, O2 sat acceptable on room air, wirh Cr 1.7, troponin 0.056, and BNP >3000. CXR and CT both showed ongoing pneumonia with pleural effusion. During hospital stay, patient was given IV Lasix with minimal diuresis (only ~300ml output), 1.3 L of pleural effusion drained via thoracentesis, markedly decline in renal function (Cr from 1.7 to 2.8 and eGFR from 43 to 25), WBC john from 10.6 to 17.9 despite ceftriaxone. Rise in LFTs (AST from 83 to 5000 and ALT from 46 to 2333) showing massive hepatocellular injury. LDH showed 4056 , troponin increased from 0.056 to 0.117. This patient has marked transaminitis, which is not typical of CHF exacerbation alone, Rising WBC despite antibiotics that shows uncontrolled or atypical infection, Severe LDH elevation raises suspicion for tissue necrosis/hemolysis/ischemia, Acute renal injury is out of proportion to diuresis, and troponin bump may indicate supply-demand problem or true NM. Overall, this raises concern for possibility of ischemic Hepatitis (Shock liver) due to hypoperfusion and Sepsis due to resistant pneumonia or empyema. The patient is currently in borderline SIRS 3/4 criteria: T 96.9 (>100.4 or <96.8F), RR 20 (>20/min), HR 50 (>90/min), WBC 17.9 (>12 or <4K or Bands >10%). Hepatic and renal injury may be secondary to sepsis-induced hypoperfusion in addition to aggressive diuresis given to the patient. However, transient increase in Cr due to contrast-induced nephropathy from Chest CTA is also a possibility. Will continue to monitor. 05/03/2025: Labs reviewed and patient examined at the bedside. Patient showed decline in renal function. BUN:83, Cr:3.9, eGFR:16 with minimal urine output (200ml). Patient agreed to be transferred to ICU and undergo conventional dialysis for possible renal recovery. If patient can't tolerate, then will do CRRT. Exam Vital Signs Temp Pulse Resp BP Pulse Ox O2 Del Method O2 Flow Rate 97.3 F 50 L 13 97/64 95 Nasal Cannula 2 05/03/25 08:00 05/03/25 10:31 05/03/25 10:31 05/03/25 10:31 05/03/25 10:31 05/03/25 08:30 05/03/25 10:06 FiO2 3 05/03/25 04:00 Narrative Exam General: No acute distress, frail, elderly, AAO x3 Eye: PERRL, EOMI, normal conjunctiva, no scleral icterus HENT: Normocephalic, atraumatic, hearing intact to conversation at normal volume, moist oral mucosa Neck: Supple, non-tender, no JVD, no lymphadenopathy Lungs: symmetric chest rise, Slight labored breathing, Expiratory wheezing throughout bilateral lungs. Heart: Peripheral pulses intact bilaterally, Regular Rate and Rhythm. Abdomen: Soft, non-tender, non-distended, no palpable masses Musculoskeletal: Normal range of motion and strength, No cyanosis, Minimal edema BLE, No visible joint swelling Skin: Skin is warm, dry, no rashes or lesions. Psychiatric: Cooperative, appropriate mood and affect, Awake and alert, not agitated Neuro: Cranial nerves II-XII grossly intact. Sensations intact to light touch. Objective Labs 05/03/25 04:40 05/03/25 04:40 Labs: Laboratory Results - last 24 hr 05/02/25 05/02/25 05/02/25 09:15 11:17 15:08 WBC RBC Hgb Hct MCV MCH MCHC RDW Std Deviation Plt Count Neut % (Auto) Lymph % (Auto) [place] % (Auto) Eos % (Auto) Baso % (Auto) Neut # (Auto) Lymph # (Auto) [place] # (Auto) Eos # (Auto) Baso # (Auto) Immature Gran # (Auto) Absolute Nucleated RBC Immature Gran % Nucleated RBC % PT INR Sodium Potassium Chloride Carbon Dioxide Anion Gap BUN Creatinine Estim Creat Clear Calc eGFR BUN/Creatinine Ratio Glucose Calculated Osmolality Lactic Acid 3.4 H 3.3 H Calcium Corrected Calcium Total Bilirubin AST ALT Alkaline Phosphatase Ammonia Troponin I 0.117 H* Total Protein Albumin Globulin Albumin/Globulin Ratio Acetaminophen 8.6 L 05/02/25 05/02/25 05/03/25 18:49 22:26 04:40 WBC 19.0 H RBC 4.48 L Hgb 13.7 Hct 43.8 MCV 98 MCH 30.6 MCHC 31.3 RDW Std Deviation 55.1 H Plt Count 238 Neut % (Auto) 96 H Lymph % (Auto) 1 L [place] % (Auto) 2 Eos % (Auto) 0 Baso % (Auto) 0 Neut # (Auto) 18.3 H Lymph # (Auto) 0.2 L [place] # (Auto) 0.4 Eos # (Auto) 0.0 Baso # (Auto) 0.0 Immature Gran # (Auto) 0.11 H Absolute Nucleated RBC 0.02 H Immature Gran % 1 H Nucleated RBC % 0 PT 21.0 H D INR 2.0 H Sodium 133 L Potassium 6.2 H* D Chloride 97 L Carbon Dioxide 21.1 Anion Gap 15 BUN 83 H Creatinine 3.9 H D Estim Creat Clear Calc 14.3 L eGFR 16 L BUN/Creatinine Ratio 21 H Glucose 193 H Calculated Osmolality 296 H Lactic Acid 2.8 H 2.4 H 1.7 Calcium 7.2 L D Corrected Calcium 7.7 L D Total Bilirubin 0.8 AST 2387 H* ALT 2191 H* Alkaline Phosphatase 102 Ammonia 31 Troponin I 0.128 H* 0.079 H* Total Protein 6.5 Albumin 3.4 Globulin 3.1 Albumin/Globulin Ratio 1.1 L Acetaminophen 05/03/25 09:40 WBC RBC Hgb Hct MCV MCH MCHC RDW Std Deviation Plt Count Neut % (Auto) Lymph % (Auto) [place] % (Auto) Eos % (Auto) Baso % (Auto) Neut # (Auto) Lymph # (Auto) [place] # (Auto) Eos # (Auto) Baso # (Auto) Immature Gran # (Auto) Absolute Nucleated RBC Immature Gran % Nucleated RBC % PT INR Sodium Potassium Chloride Carbon Dioxide Anion Gap BUN Creatinine Estim Creat Clear Calc eGFR BUN/Creatinine Ratio Glucose Calculated Osmolality Lactic Acid 2.6 H Calcium Corrected Calcium Total Bilirubin AST ALT Alkaline Phosphatase Ammonia Troponin I Total Protein Albumin Globulin Albumin/Globulin Ratio Acetaminophen Quality Measures Quality Measures VTE prophylaxis and none Advance care planning discussed with:: patient and other Assessment & Plan Assessment Current Active Medications: Generic Name Dose Route Start Last Admin Trade Name Freq PRN Reason Stop Dose Admin Acetaminophen 650 mg 05/01/25 16:03 05/03/25 02:09 Acetaminophen 325 Mg Tablet PO 05/31/25 16:02 650 mg Q6H PRN Administration Fever >101.5 Albuterol/Ipratropium 3 ml 05/02/25 11:00 05/03/25 10:05 Albuterol/Ipratropium (Duoneb) Rt Emily 3 Ml Nebu INH 06/01/25 10:59 3 ml Q4HRRT ALISA Administration Aspirin 81 mg 05/01/25 16:30 05/03/25 07:59 Aspirin Ec 81 Mg Tabec PO 05/31/25 16:29 81 mg QDAY ALISA Administration Clopidogrel Bisulfate 75 mg 05/01/25 16:30 05/03/25 07:59 Clopidogrel Bisulfate 75 Mg Tablet PO 05/31/25 16:29 75 mg QDAY ALISA Administration Levofloxacin/Dextrose 750 mg in 150 mls @ 100 mls/hr 05/02/25 10:45 05/02/25 12:17 Levaquin Ivpb IV 05/09/25 10:44 100 mls/hr Q48H ALISA Administration Protocol Methylprednisolone Sodium Succinate 40 mg 05/02/25 10:00 05/03/25 07:59 Methylprednisolone Sod Succ 40 Mg/Ml Vial IVP 05/09/25 09:59 40 mg DAILY ALISA Administration Ondansetron HCl 4 mg 05/01/25 16:03 05/02/25 12:22 Ondansetron Inj 2 Mg/Ml Inj 2 Ml IVP 05/31/25 16:02 4 mg Q6H PRN Administration NAUSEA OR VOMITING Protocol Plan 70 y/o M with PMG significant for Coronary artery disease s/p stent placement (currently on aspirin and clopidogrel), CHF, and COPD, presented to hospital on 05/01/2025, with several weeks of progressively worsening shortness of breath, increased work of breathing, and lower extremity swelling. Patient was admitted for CHF exacerbation vs pneumonia. Nephrology has been consulted for management of GEORGIE. #GEORGIE on Chronic Kidney Disease #Cardiorenal Syndrome #ATN #VS Contrast Induced nephropathy -On admission: BUN:38, Cr:1.7, eGFR:43, BNP: >3280, Tropnin: 0.056 -Currently, BUN:83, Cr:3.9, eGFR:16 with minimal urine output (200ml). -CXR: (05/01/2025): Prominent CHF. Moderate enlargement cardiac contour, prominent vascular congestion and perihilar edema, Consider superimposed pneumonia at the lung bases, Large left pleural effusion, Cardiac leads satisfactory position -Repeat CXR (05/01/2025): No pneumothorax post thoracentesis, Mild to moderate enlargement cardiac contour prominent vascular congestion and extensive edema and/or pneumonia throughout the lungs, Cardiac leads satisfactory position. -Chest CTA (05/01/2025): Negative for pulmonary artery emboli, Extensive diffuse bilateral pneumonia, Superimposed pulmonary fibrosis at the lung bases, Extensive loculated left pleural fluid -His current renal function is most likely a result of chronic injury to the kidneys from poorly controlled CHF, resulting in fluid overload as evidenced by BNP levels, with possibility of sepsis due to pneumonia. Plan: -Hold diuresis. -Renal US - no hydronephrosis -Avoid nephrotoxic and renally dose medications, -Strict ins and outs #Acute on Chronic CHF exacerbation #Ischemic hepatitis #Pleural Effusion #CAP #NSTEMI #CAD #Non-insulin dependent Type II DM -Management per Primary Hospitalist team Thank you for allowing us to participate in the care of your patient. Assessment and plan discussed with my attending physician Dr. Quirino Foss (PGY-1)- Internal medicine resident Attending Provider Attestation/Addendum patient currently seen and examined with resident physician Dr. Foss. Note reviewed, agree with findings and recommendations. Patient currently seen in telemetry. Chart review done. at bedside. Sick looking gentleman. Significant elevation in liver enzymes-most likely related to shock liver. Rising creatinine today secondary to contrast nephropathy in the setting of prerenal azotemia/ischemic ATN. Patient could also be having underlying cardiorenal syndrome. Urine output minimal. Continues to have shortness of breath. Creatinine significantly elevated. Decided to proceed with dialysis. Due to hemodynamic instability patient will be transferred to ICU. Vas-Cath placed by ICU team. Patient on dialysis. Tolerating dialysis without any problems. Hemodialysis for 2 hours, Qb 200, 2K, ultrafiltration 1 L, Epogen 0, no heparin ordered. Plan of care discussed with the dialysis nurse. Please see dialysis flowsheet for further details. Next dialysis scheduled for tomorrow. Plan of care discussed with Dr. Ashley.
--- NOTE | 2025-05-03 10:56 | XR_ITS ---
Examination: Retroperitoneal ultrasound, complete Technique: Multiple high resolution grayscale images of the retroperitoneum obtained, including kidneys and bladder. Exam date and time:May 03, 2025 1250 hours INDICATIONS: Acute renal insufficiency on laboratory examination today FINDINGS: Right kidney 8.2 cm cortex 1.2 cm Left kidney 8.3 cm cortex 1.0 cm Moderate renal scar formation No hydronephrosis Contracted urinary bladder No significant prostatomegaly, prostate volume 21.8 cc no prostate nodules IMPRESSION: Small kidneys with bilateral renal cortical thinning Moderate bilateral renal parenchymal scar formation No hydronephrosis
--- NOTE | 2025-05-03 10:58 | XR_ITS ---
Examination: AP chest single view Technique one AP portable upright chest single view Date and time: May 03, 2025 1108 hours, comparison 05/01/2025 INDICATIONS: Post dialysis catheter placement FINDINGS: Mild enlargement cardiac contour with prominent vascular congestion Perihilar edema and/or pneumonia Stable position cardiac leads Left pleural disease again noted Right internal jugular dialysis catheter tip SVC satisfactory position, no pneumothorax IMPRESSION: Right internal jugular dialysis catheter tip SVC satisfactory position
--- NOTE | 2025-05-03 11:00 | PD.RESCONSUL ---
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 Patient follows up with project reservoir engineer, Dr. Homer Arizmendi. According to the patient at baseline he has shortness of breath and minimal activity for example changing his close to taking a shower. However over the past 2 weeks with progressively worsened to at rest. At baseline he has a two-pillow orthopnea but recently developed PND as well. Also reported lower extremity swelling. Denies any chest pain/pressure or palpitations. Also denied any sick contacts or recent travel. Hospital course: WBC up trended to 19 from 17.9, PT up trended to 21 from 15, INR up trended to 2 from 1.4. K up trended to 6.2 from 5.3, BUN increased to 83 from 57 CR increased to 3.9 from 2.7, lactic acid down trended to 1.3 from 3.4, corrected calcium 7.7, AST 5002 downtrended to 2387, ALT 2333. LDH 4056. Trop I 0.117?>0.079. Pleural fluid analysis showed transudative effusion. Renal ultrasound showed small kidneys with bilateral renal cortical thinning. No signs of hydronephrosis. Chest CTA ruled out pulmonary artery emboli. pulmonary fibrosis with bilateral pneumonia Patient was initially diuresed with Bumex 2 mg IV twice daily and received an extra dose of Lasix 40 mg IV x 1 on top of that yesterday. He has been oliguric since his hospital stay and he produced 200 cc of urine in the past 24 hours. Also today had significant increase of his BUN and potassium and decision was made by nephrology for urgent hemodialysis. Patient was initially admitted to the floor CHF exacerbation and upgraded to ICU for urgent hemodialysis possibly requiring norepinephrine. cc:: cc: Kelli Tinajero MD Review of Systems Review of Systems Narrative Review of Systems: GENERAL: Denies fever/chills or diaphoresis. HEENT: Denies headaches or visual changes. Denies discharge. Neuro: Denies unusual weakness or difficulty speaking. CARDIO: As Above PULM: As Above GI: Denies abdominal pain, N/V/C/D. Reports having BMs. URO: Denies burning/itching/pain/urinary changes. MSK/EXT/SKIN: Denies joint/skeletal/muscle pain, issues/changes in upper or lower extremities, itchiness, or superficial pain. PSYCH: Cooperative, pleasant mood & affect. The rest of the review of systems is otherwise negative. Exam Vital Signs Temp Pulse Resp BP Pulse Ox O2 Del Method O2 Flow Rate 97.3 F 50 L 13 97/64 95 Nasal Cannula 2 05/03/25 08:00 05/03/25 10:31 05/03/25 10:31 05/03/25 10:31 05/03/25 10:31 05/03/25 08:30 05/03/25 10:06 FiO2 3 05/03/25 04:00 Narrative Exam Constitutional Alert, oriented x 3 and mild distress. Elderly male HEENT Vision grossly intact. Patent nares. Trachea midline Respiratory Chest normal on inspection. RIJ temp dialysis catheter noted. Exit site clean. Bilateral crackles in all lung smiley. Unable to complete full sentences Cardiovascular S1 and S2 audible, RRR. No murmurs carotid bruit. No gross JVD. Abdominal Soft, tender to palpation in right upper quadrant. BS + Genitourinary No bladder tenderness, no flank pain. Normal to palpation. No scrotal edema Musculoskeletal Extremities tone within normal limits. Trace LE edema. Neurological CN II - XII grossly intact. Extremity motor and sensation grossly intact. Skin Warm, dry and intact. No apparent lesions. Psychiatric Patient has good affect, is cooperative Results Labs 05/03/25 04:40 05/03/25 04:40 Labs: Short CBC 05/03/25 Range/Units 04:40 WBC 19.0 H (3.8-10.6) Thou/mm3 Hgb 13.7 (13.5-16.0) g/dL Hct 43.8 (41.0-53.0) % Plt Count 238 (140-440) Thou/mm3 BMP 05/03/25 04:40 Sodium 133 L Potassium 6.2 H* D Chloride 97 L Carbon Dioxide 21.1 BUN 83 H Creatinine 3.9 H D Glucose 193 H Calcium 7.2 L D Cardiac Enzymes 05/02/25 05/02/25 05/03/25 Range/Units 09:15 18:49 04:40 Troponin I 0.117 H* 0.128 H* 0.079 H* (0.0-0.045) ng/mL Liver Function 05/03/25 Range/Units 04:40 Total Bilirubin 0.8 (0.3-1.2) mg/dL AST 2387 H* (0-34) U/L ALT 2191 H* (10-49) U/L Alkaline Phosphatase 102 (46-116) U/L Albumin 3.4 (3.4-4.8) gm/dL Quality Measures Quality Measures VTE prophylaxis and none Advance care planning discussed with:: patient Medications Home Medications and Allergies Home Medications ?Medication ?Instructions ?Recorded ?Confirmed ?Type levothyroxine 88 mcg tablet 88 mcg PO QDAY 05/18/22 05/01/25 History semaglutide 0.25 mg or 0.5 mg (2 0.5 mg subcut QWEEK 05/18/22 05/01/25 History mg/1.5 mL) subcutaneous pen injector (Ozempic) dapagliflozin propanediol 5 mg 10 mg PO DAILY 10/27/23 05/01/25 History tablet (Farxiga) digoxin 125 mcg (0.125 mg) tablet 125 mcg PO DAILY 10/27/23 05/01/25 History clopidogrel 75 mg tablet (Plavix) 75 mg PO QDAY 02/27/25 05/01/25 History amiodarone 200 mg tablet 200 mg PO Q24H 05/01/25 05/01/25 History dapagliflozin propanediol 10 mg 10 mg PO DAILY 05/01/25 05/01/25 History tablet (Farxiga) fexofenadine 180 mg tablet 180 mg PO Q24H 05/01/25 05/01/25 History (Allergy Relief (fexofenadine)) hydrocodone 10 mg-acetaminophen 1 tab PO Q6H 05/01/25 05/01/25 History 325 mg tablet tadalafil 10 mg tablet 10 mg PO .as needed 05/01/25 05/01/25 History Allergies Allergy/AdvReac Type Severity Reaction Status Date / Time No Known Allergies Allergy Verified 09/23/23 07:05 Visit Medications Acetaminophen (Acetaminophen 325 Mg Tablet) 650 mg PO Q6H PRN PRN Reason: Fever >101.5 Stop: 05/31/25 16:02 Last Admin: 05/03/25 02:09 Dose: 650 mg Albuterol/Ipratropium (Albuterol/Ipratropium (Duoneb) Rt Emily 3 Ml Nebu) 3 ml INH Q4HRRT ALISA Stop: 06/01/25 10:59 Last Admin: 05/03/25 10:05 Dose: 3 ml Aspirin (Aspirin Ec 81 Mg Tabec) 81 mg PO QDAY ALISA Stop: 05/31/25 16:29 Last Admin: 05/03/25 07:59 Dose: 81 mg Clopidogrel Bisulfate (Clopidogrel Bisulfate 75 Mg Tablet) 75 mg PO QDAY ALISA Stop: 05/31/25 16:29 Last Admin: 05/03/25 07:59 Dose: 75 mg Levofloxacin/Dextrose (Levaquin Ivpb) 750 mg in 150 mls @ 100 mls/hr IV Q48H ALISA; Protocol Stop: 05/09/25 10:44 Last Admin: 05/02/25 12:17 Dose: 100 mls/hr Methylprednisolone Sodium Succinate (Methylprednisolone Sod Succ 40 Mg/Ml Vial) 40 mg IVP DAILY ALISA Stop: 05/09/25 09:59 Last Admin: 05/03/25 07:59 Dose: 40 mg Ondansetron HCl (Ondansetron Inj 2 Mg/Ml Inj 2 Ml) 4 mg IVP Q6H PRN; Protocol PRN Reason: NAUSEA OR VOMITING Stop: 05/31/25 16:02 Last Admin: 05/02/25 12:22 Dose: 4 mg Discontinued Medications Bumetanide (Bumetanide Inj 0.25 Mg/Ml Vial 4 Ml) 2 mg IVP BID ALISA Stop: 06/01/25 10:29 Last Admin: 05/02/25 10:43 Dose: 2 mg Calcium Gluconate (Calcium Gluconate 10% Inj 1 Gm/10 Ml Vial) 1 gm IV X1 ONE Stop: 05/03/25 06:27 Last Admin: 05/03/25 07:58 Dose: 1 gm Dextrose (Dextrose 50%-Water Inj 50 Ml Syringe) 50 ml IV X1 ONE Stop: 05/03/25 06:27 Last Admin: 05/03/25 07:57 Dose: 50 ml Furosemide (Furosemide Inj 10 Mg/Ml Vial 2 Ml) 40 mg IVP X1 ONE Stop: 05/01/25 10:18 Last Admin: 05/01/25 10:22 Dose: 40 mg Furosemide (Furosemide Inj 10 Mg/Ml Vial 2 Ml) 40 mg IVP TID ALISA Stop: 05/31/25 21:59 Last Admin: 05/02/25 05:11 Dose: 40 mg Ceftriaxone Sodium/Dextrose (Rocephin/D5w 1gm Iv Premix) 1 gm in 50 mls @ 100 mls/hr IV STAT STA Stop: 05/01/25 14:22 Last Infusion: 05/01/25 16:22 Dose: Infused Azithromycin 500 mg/ Sodium (Chloride) 250 mls @ 250 mls/hr IV QDAY ALISA Stop: 05/08/25 13:53 Last Admin: 05/01/25 16:25 Dose: 250 mls/hr Ceftriaxone Sodium/Dextrose (Rocephin/D5w 1gm Iv Premix) 1 gm in 50 mls @ 100 mls/hr IV Q12HR ALISA Stop: 05/09/25 08:59 Last Admin: 05/02/25 08:20 Dose: 100 mls/hr Azithromycin 250 mg/ Sterile (Water 2.5 ml/ Sodium Chloride) 252.5 mls @ 252.5 mls/hr IV QDAY ALISA Stop: 05/09/25 08:59 Last Admin: 05/02/25 10:35 Dose: 252.5 mls/hr Insulin Human Regular (Insulin Hum Regular 1 Unit/0.01 Ml (Per Unit)) 5 unit IV X1 ONE Stop: 05/03/25 06:27 Last Admin: 05/03/25 08:02 Dose: 5 unit Levalbuterol HCl (Levalbuterol Rt 0.63 Mg/3 Ml Nebu) 0.63 mg INH Q4HRRT PRN PRN Reason: WHEEZING Stop: 05/31/25 18:59 Methylprednisolone Sodium Succinate (Methylprednisolone Sod Succ 40 Mg/Ml Vial) 40 mg IM DAILY ALISA Stop: 05/09/25 09:59 Sodium Polystyrene Sulfonate (Sod Polystyrene Sulfon Susp 15 Gm/60 Ml Btl) 30 gm PO X1 ONE Stop: 05/03/25 08:16 Last Admin: 05/03/25 08:12 Dose: 30 gm Assessment & Plan Plan Patient is a 70-year-old male with past medical history significant for CAD s/p 2 stents most recent February 2025, ischemic cardiomyopathy with chronic systolic congestive heart failure with reduced EF [15-20%], 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 He has been oliguric since his hospital stay and he produced 200 cc of urine in the past 24 hours. Also today had significant increase of his BUN and potassium and decision was made by nephrology for urgent hemodialysis. Patient was initially admitted to the floor CHF exacerbation and upgraded to ICU for urgent hemodialysis possibly requiring norepinephrine. NEURO No acute problems CVS Ischemic cardiomyopathy Acute decompensated chronic systolic congestive heart failure exacerbation [15-20%] Cardiorenal syndrome TOGGLE PRESS OPERATOR-D DDx: - Secondary to worsening of CHF Dx: -09/2023 dilated cardiomyopathy with severe systolic dysfunction. Severe global hypokinesis. Estimated EF 15-20% Dilated right ventricle with RVSP 35mmHg. Mild PAH. Moderate calcific aortic stenosis vmax 2.5m/s. Possible Low flow low gradient severe aotic stenosis - Repeat echo pending Rx: - Diuresis on hold due to patient being unresponsive to diuretics - HD today with goal of 1.4 L ultrafiltration PULM COPD Community-acquired pneumonia Dx: - DuoNebs ? Continue levofloxacin 750 mg IV every 48 hours started on [05/02? Pulmonary fibrosis Etiology likely multifactorial. Patient had extensive smoking history before he quit in 2000. 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 However his biggest risk factor is long-term amiodarone use. Dx: ? From CT scan on admission patient had pulmonary fibrosis. Also seen on his chest x-ray Rx: ? Recommend to completely discontinue amiodarone GI/Hep Transaminitis On admission patient had mildly elevated AST at 83 and normal ALT. On day 2 of admission patient's had a drop in blood pressure with MAP decreasing to 70s from 100s. It is possible there was some degree of ischemia leading to transaminitis. Foot is small likely as transaminitis is due to congestive hepatopathy from CHF exacerbation and biventricular dysfunction. DDx: - Congestive hepatopathy, ischemic hepatitis Dx: - AST 5000?>2387 ? ALT 2333?>2191 Rx: - Trend CMP. - HD for UF Coagulopathy Secondary to congestive hepatopathy Dx: ? PT 21 ? INR 2 Rx: ? Monitor coagulation panel RENAL GEORGIE secondary to cardiorenal syndrome Hyponatremia Hyperkalemia Hypochloremia Hypocalcemia DDx: -Likely secondary to both volume depletion from reduced p.o. intake as well as hypoperfusion from cardiorenal syndrome. Electrolyte abnormalities also due to GEORGIE and diuretics - Patient had CTA chest on admission. Contrast Nephropathy is also a possibility Dx: - Baseline CR 1.2 ? On admission CR 2.3?>3.9 ? BUN 38?>83 - K6.2 ? CL?97 ? Corrected Ca 7.74 Rx: - HD with goal of 1.4 L ultrafiltration today as per nephrology - Nephrology, Dr Win consulted. Appreciate recommendations RRX: - Calcium carbonate 1 tab p.o. daily from tomorrow if Ca still low Troponinemia Secondary to boat CHF exacerbation and GEORGIE Dx: ? Trop I 0.117?>0.07 HEME/ONC Leukocytosis DDx: -Likely reactive, secondary to CAP Dx: - WBC 19 Rx: - Monitor CBC ENDO NIDDM type II Rx: - Insulin sliding scale Hypothyroidism DDx: Likely amiodarone induced Rx: - Resume home medication Levothyroxine 88mcg po daily ID Nil Acute MSK/DERM Nil acute ICU Health maintenance: Dispo: Admit to ICU for urgent HD possible requiring Norepinephrine Diet: Cardiac DVT ppx: Heparin GI ppx: None IV lines: 2 pIV Central line: RIJ temp dialysis Cath [05/03 - Arterial line: No Ochoa: No Code status: FULL CODE Plan of care discussed with Attending Dr. Dion Monroe MD PGY 2 Disclaimer: This note was dictated by speech recognition. Minor errors in film color tester may be present due to voice recognition software.
--- NOTE | 2025-05-03 11:10 | PD.RESPROC ---
PROCEDURES: Procedure Date / Time 05/03/25 1100 Central Line Placement Right IJ: Indication(s): other (triple lumen for HD) Informed consent obtained: from patient Time out done, and the following verified: correct patient, side and site, procedure, patient position and implants and/or equipment Patient placed on monitor/pulse ox: Yes Hand Hygiene: scrub, soap & water and alcohol-based hand rub Max Sterile Barrier Techniques used: cap, mask, sterile gown, sterile gloves and sterile full body drape Central line prep: Povidone-Iodine 1% and sterile drapes applied Local anesthesia used: lidocaine 1% Amount of anesthesia used (mL): 5 Ultrasound used for placement: Yes Sterile Technique if Ultrasound used, including sterile gel: yes Central line lumen inserted: triple Post procedure: sutured in place, good blood return, all ports aspirated, flushed, capped and sterile dressing applied Post procedure x-ray: tip of catheter in good position and no pneumothorax seen Patient tolerated procedure: well and no complications EBL(ml): 20 Complications: none Procedure comment: Procedure performed under supervision of Dr. Ashley. Peter Farrar MD, PGY 3. Disclaimer: This note was dictated by speech recognition. Minor errors in disc pad knockout worker may be present due to voice recognition software. Attending note I was present for and assisted in west aspects of the procedure
--- NOTE | 2025-05-03 12:54 | ESPR_ITS ---
Documentation for date of: 05/03/25 Subjective Subjective Interval history: This is a 70-year-old male who is admitted to the hospital on 01 May. Originally he presented for dyspnea on exertion. States that he was unable to walk more than 4 5 feet without becoming very short of breath. He has a known history of heart failure with an EF in the past of approximately 15% and has a dual-chamber pacemaker/ICD. Yesterday he had significant derangements in his laboratory values. He has had progressive renal failure. He has been on Bumex with minimal urinary output. The decision was made by nephrology for dialysis. He is felt to have cardiorenal syndrome. His blood pressure has been borderline with a systolic blood pressure in the high 80s low 90s this morning and a MAP of around 61. The ICU was consulted for dialysis needs and patient's relative hypotension. The patient himself is awake alert and oriented. He is conversant. He is somewhat reluctant to go to the ICU. He thinks his breathing is better than on arrival however admits he has not been able to ambulate to test his breathing. Denies any chest pain, cough, stomach pain, nausea or vomiting, fevers or chills or additional symptoms. He did undergo a left-sided thoracentesis on the to see if this helped his shortness of breath. Critical Care Note Critical care time (min.): 0 Exam Vital Signs Temp Pulse Resp BP Pulse Ox O2 Del Method O2 Flow Rate 96.6 F L 50 L 13 107/57 L 99 Nasal Cannula 2 05/03/25 12:15 05/03/25 12:45 05/03/25 12:36 05/03/25 12:45 05/03/25 12:36 05/03/25 08:30 05/03/25 12:15 FiO2 3 05/03/25 12:15 Narrative Exam General-no acute distress, awake alert and oriented, thin body habitus HEENT-normocephalic, atraumatic, sclera anicteric, EOMI, some left eye nasal deviation, oral mucosa somewhat dry, neck supple, no significant JVD noted Chest-bilateral crackles auscultated on posterior smiley, heart rate regular and rhythmic, murmur, no increased work of breathing, no use of accessory muscles, no pain on palpation of the chest wall,, subcutaneous cardiac device implanted in the left upper chest wall Abdomen-soft, nontender, bowel sounds present, no rebound or guarding Extremities-no edema lower extremities, pulses palpable, no clubbing or cyanosis, no mottling, moves all 4 extremities Physical Exam Completion Physical Exam Complete?: Yes Objective - Clinical Exercise Specialist Labs 05/04/25 04:59 05/04/25 04:59 Labs: Laboratory Results - last 24 hr 05/02/25 05/02/25 05/02/25 15:08 18:49 22:26 WBC RBC Hgb Hct MCV MCH MCHC RDW Std Deviation Plt Count Neut % (Auto) Lymph % (Auto) Green % (Auto) Eos % (Auto) Baso % (Auto) Neut # (Auto) Lymph # (Auto) Green # (Auto) Eos # (Auto) Baso # (Auto) Immature Gran # (Auto) Absolute Nucleated RBC Immature Gran % Nucleated RBC % PT INR Sodium Potassium Chloride Carbon Dioxide Anion Gap BUN Creatinine Estim Creat Clear Calc eGFR BUN/Creatinine Ratio Glucose Calculated Osmolality Lactic Acid 3.3 H 2.8 H 2.4 H Calcium Corrected Calcium Total Bilirubin AST ALT Alkaline Phosphatase Ammonia 31 Troponin I 0.128 H* Total Protein Albumin Globulin Albumin/Globulin Ratio 05/03/25 05/03/25 04:40 09:40 WBC 19.0 H RBC 4.48 L Hgb 13.7 Hct 43.8 MCV 98 MCH 30.6 MCHC 31.3 RDW Std Deviation 55.1 H Plt Count 238 Neut % (Auto) 96 H Lymph % (Auto) 1 L Green % (Auto) 2 Eos % (Auto) 0 Baso % (Auto) 0 Neut # (Auto) 18.3 H Lymph # (Auto) 0.2 L Green # (Auto) 0.4 Eos # (Auto) 0.0 Baso # (Auto) 0.0 Immature Gran # (Auto) 0.11 H Absolute Nucleated RBC 0.02 H Immature Gran % 1 H Nucleated RBC % 0 PT 21.0 H D INR 2.0 H Sodium 133 L Potassium 6.2 H* D Chloride 97 L Carbon Dioxide 21.1 Anion Gap 15 BUN 83 H Creatinine 3.9 H D Estim Creat Clear Calc 14.3 L eGFR 16 L BUN/Creatinine Ratio 21 H Glucose 193 H Calculated Osmolality 296 H Lactic Acid 1.7 2.6 H Calcium 7.2 L D Corrected Calcium 7.7 L D Total Bilirubin 0.8 AST 2387 H* ALT 2191 H* Alkaline Phosphatase 102 Ammonia Troponin I 0.079 H* Total Protein 6.5 Albumin 3.4 Globulin 3.1 Albumin/Globulin Ratio 1.1 L Assessment & Plan Additional Plan Additional Plan: In summary this is 70-year-old male admitted to the ICU for relative hypotension with cardiorenal syndrome and shortness of breath a/p PHYSICIAN ADVISOR Stable CV Heart failure with reduced EF- last known EF 15% in 2023 - repeat echo - dilated cardiomyopathy LV with mild dilation of RV - on diuresis however refractory at this point - BB and farxiga on hold - JOHNSON -> needs volume removal Coronary artery disease- s/p stent 2 months ago - on ASA /plavix Troponinemia- trended down - followed by cards Resp Acute hypoxic respiratory failure- on NC - uses home O2 intermitently COPD- nebs prn - does not appear to have acute exacerbation - stop solumedrol CAP- cont levoquin x7 days Pulmonary edema- crackles b/l exam however unclear if this is related to just fluid or if there may be a significant contribution from pts pulmonary fibrosis Pulmonary fibrosis- noted on several CT over the last 2 years along with some bronchiectasis b/l - on amio at home - would stop pts amio at this time - will need fu with pulm on DC Renal Cardiorenal- not responding on diuretics - for HD today with volume removal Hyponatremia- in the setting of CHF Hyperkalemia- for HD today Lactic acidosis- in the setting of poor perfusion from decreased CO and HF along with GEORGIE GI Transaminitis- LFTs are trending back down today - ? congestive v ischemic insult from hypotension - viral acute panel is neg Endo Diabetes- SSI Heme Leukocytosis- unclear etiology - no fever - ? of underlying PNA Coagulopathy- in the setting of acute hepatic insult DVT prophylaxis- heparin ID Stable case d/w ICU team and nephrology labs, imaging, records reviewed ~68min required for eval, exam, review, intervention, discussion and formulation of POC for this acutely ill pt Provider Notation Provider Notation: Although this document has been carefully reviewed, there may still be some phonetic and other typographical errors. These errors are purely grammatical due to imperfections in the software program and should not be construed in any way to compromise the substance of the patient's medical care during this visit. Thank you for the opportunity and privilege in assisting you with this patient's care and management.
[2025-05-03 13:07] LABS: Reflex Lactate? Y
[2025-05-03 13:44] LABS: Lactic Acid, 3 HR 1.3 mMol/L (0.4-2.0)
[2025-05-03] MEDS: HEPARIN SOD INJ 1000 UNIT/ML VIAL 10 ML 2600 UNIT INDWELLCAT (14:26)
[2025-05-03] MEDS: HEPARIN SOD INJ 5000 UNIT/ML VIAL SC ×2 (14:29→21:12)
--- NOTE | 2025-05-03 17:44 | ESPR_ITS ---
<Statement entered by Sydney Arizmendi MD - 05/04/25 10:12> I personally examined the patient in ICU patient transferred to ICU for dialysis needs because of hemodynamic instability came to multiorgan failure congestive heart failure elevated liver enzymes and acute renal failure possibly worsened by the contrast use end-stage heart disease NYHA functional class IV appears to be doing a little better than yesterday liver function tests are improving gradually tolerated dialysis well possible require dialysis again tomorrow. Evaluated patient with resident physician Dr. Corey Olmstead MD agree with the treatment plan recommendation as documented. Cardiac echo showed ejection fraction approximately 20% unchanged possibly even slightly better. Documentation for date of: 05/03/25 Subjective Subjective Interval history: Patient seen today at the bedside in the ICU found awake, alert, orientedx3. Vitals and labs reviewed. Noted to have hyperkalemia and continued lactic acidosis and was transferred to the ICU for urgent dialysis and possible need for pressor support. He tolerated dialysis with no need of vasopressors at this time. LFTs have started to downtrend. Echo was read and showed some improvement compared to previous previously he had ejection fraction of 10 to 15% now currently around 20%. Overall prognosis seems to be poor. Exam Vital Signs Temp Pulse Resp BP Pulse Ox O2 Del Method O2 Flow Rate 96.1 F L 65 11 L 98/52 L 98 Nasal Cannula 2 05/03/25 15:00 05/03/25 17:00 05/03/25 17:00 05/03/25 17:00 05/03/25 17:00 05/03/25 13:00 05/03/25 15:00 FiO2 3 05/03/25 12:15 Narrative Exam Physical Exam GENERAL: NAD, AAOx3 HEENT: dry mucosa. Eyes open, symmetrical, & clear, Right IJ Vasc cath in place CARDIO: Heart RRR, no obvious murmurs PULM: No noted coughing/dyspnea, B/L mild crackles GI: Abdomen soft, nondistended, no pain on palpation. BSx4 SKIN/MSK/EXT: trace bilateral lower extremity swelling, no pain on palpation. Pedal pulses present B/L NEURO: AAOx3, no focal neuro deficits, able to move all 4 extremities Objective Labs 05/03/25 04:40 05/03/25 04:40 Labs: Laboratory Results - last 24 hr 05/02/25 05/02/2505/03/25 18:49 22:26 04:40 WBC 19.0 H RBC 4.48 L Hgb 13.7 Hct 43.8 MCV 98 MCH 30.6 MCHC 31.3 RDW Std Deviation 55.1 H Plt Count 238 Neut % (Auto) 96 H Lymph % (Auto) 1 L [place] % (Auto) 2 Eos % (Auto) 0 Baso % (Auto) 0 Neut # (Auto) 18.3 H Lymph # (Auto) 0.2 L [place] # (Auto) 0.4 Eos # (Auto) 0.0 Baso # (Auto) 0.0 Immature Gran # (Auto) 0.11 H Absolute Nucleated RBC 0.02 H Immature Gran % 1 H Nucleated RBC % 0 PT 21.0 H D INR 2.0 H Sodium 133 L Potassium 6.2 H* D Chloride 97 L Carbon Dioxide 21.1 Anion Gap 15 BUN 83 H Creatinine 3.9 H D Estim Creat Clear Calc 14.3 L eGFR 16 L BUN/Creatinine Ratio 21 H Glucose 193 H Calculated Osmolality 296 H Lactic Acid 2.8 H 2.4 H 1.7 Calcium 7.2 L D Corrected Calcium 7.7 L D Total Bilirubin 0.8 AST 2387 H* ALT 2191 H* Alkaline Phosphatase 102 Ammonia 31 Troponin I 0.128 H* 0.079 H* Total Protein 6.5 Albumin 3.4 Globulin 3.1 Albumin/Globulin Ratio 1.1 L 05/03/25 05/03/25 09:40 13:35 WBC RBC Hgb Hct MCV MCH MCHC RDW Std Deviation Plt Count Neut % (Auto) Lymph % (Auto) Ball[place] % (Auto) Eos % (Auto) Baso % (Auto) Neut # (Auto) Lymph # (Auto) [place] # (Auto) Eos # (Auto) Baso # (Auto) Immature Gran # (Auto) Absolute Nucleated RBC Immature Gran % Nucleated RBC % PT INR Sodium Potassium Chloride Carbon Dioxide Anion Gap BUN Creatinine Estim Creat Clear Calc eGFR BUN/Creatinine Ratio Glucose Calculated Osmolality Lactic Acid 2.6 H 1.3 Calcium Corrected Calcium Total Bilirubin AST ALT Alkaline Phosphatase Ammonia Troponin I Total Protein Albumin Globulin Albumin/Globulin Ratio Quality Measures Quality Measures VTE prophylaxis and none Advance care planning discussed with:: patient Assessment & Plan Assessment Current Active Medications: Generic Name Dose Route Start Last Admin Trade Name Freq PRN Reason Stop Dose Admin Acetaminophen 650 mg 05/01/25 16:03 05/03/25 02:09 Acetaminophen 325 Mg Tablet PO 05/31/25 16:02 650 mg Q6H PRN Administration Fever >101.5 Albuterol/Ipratropium 3 ml 05/02/25 11:00 05/03/25 14:45 Albuterol/Ipratropium (Duoneb) Rt Emily 3 Ml Nebu INH 06/01/25 10:59 3 ml Q4HRRT ALISA Administration Aspirin 81 mg 05/01/25 16:30 05/03/25 07:59 Aspirin Ec 81 Mg Tabec PO 05/31/25 16:29 81 mg QDAY ALISA Administration Calcium Carbonate 600 mg 05/04/25 09:00 Calcium Carbonate 600 Mg Tablet PO 06/03/25 08:59 QDAY ALISA Clopidogrel Bisulfate 75 mg 05/01/25 16:30 05/03/25 07:59 Clopidogrel Bisulfate 75 Mg Tablet PO 05/31/25 16:29 75 mg QDAY ALISA Administration Heparin Sodium (Porcine) 5,000 unit 05/03/25 14:00 05/03/25 14:29 Heparin Sod Inj 5000 Unit/Ml Vial SC 05/17/25 13:59 5,000 unit Q8HR ALISA Administration Levofloxacin/Dextrose 750 mg in 150 mls @ 100 mls/hr 05/02/25 10:45 05/02/25 12:17 Levaquin Ivpb IV 05/09/25 10:44 100 mls/hr Q48H ALISA Administration Protocol Albumin Human 25 gm in 100 mls @ 100 mls/hr 05/03/25 11:35 Albuminar-25 Ivpb IV PRN PRN DIALYSIS Levothyroxine Sodium 88 mcg 05/04/25 06:00 Levothyroxine Sodium 88 Mcg Tablet PO 06/03/25 05:59 ACBR ALISA Ondansetron HCl 4 mg 05/01/25 16:03 05/02/25 12:22 Ondansetron Inj 2 Mg/Ml Inj 2 Ml IVP 05/31/25 16:02 4 mg Q6H PRN Administration NAUSEA OR VOMITING Protocol Plan 70 y/o M with PMHx of CAD s/p stents in february 2025, Heart failure with reduced ejection fraction (15-20%) in 2023, COPD on 2L of home O2 who presented to the ED due to progressive shortness of breath. Admitted for acute on chronic decompensated heart failure. #Acute on chronic decompensated heart failure exacerbation #Heart failure with reduced ejection fraction [15-20%] #Dilated Cardiomyopathy #NSTEMI, likely type II #CAD s/p Stent Presented with clinical signs such as shortness of breath, dyspnea on exertion, bilateral leg swelling mild troponin leak likely secondary to CHF exacerbation, patient with no chest pain, doubt ACS at this present point in time. Liver enzymes increased dramatically likely in setting of hypoperfusion, shock liver, sepsis NYHA class: IV CXR: prominent vascular congestion BNP: >3250 Echo: Dilated cardiomyopathy severe global hypokinesis LVEF 20% The RV is normal in size and systolic function. The estimated RVSP, 66 mmHg. RAP 8. Aortic valve sclerosis with mild aortic regurgitation. Mild mitral regurgitation. Moderate tricuspid regurgitation ? Hold IV diuresis in the setting of sepsis-induced hypoperfusion, however patient still with bilateral lower extremity swelling, +JVD and mild crackles ? Start goal-directed medical therapy when stable to tolerate ? Continue Aspirin and Plavix ? Keep K>4, Mg>2 ? Provide oxygen as required ? Strict I's and O's ? Fluid restriction #Acute liver injury #Ischemic hepatitis #GEORGIE #CKD Stage III b #Pleural Effusion s/p thora #CAP- on ivabx #Non-insulin dependent Type II DM -as per primary team Case discussed with my attending Dr. Ugo Olmstead MD PGY-2 Disclaimer: Despite multiple revisions, due to the dictation software being used, the document bellow may not be free of grammatical errors including phonetic/typographic errors. However, this does not deter from our commitment to providing health care in the patient's best interest in mind.
--- NOTE | 2025-05-03 20:11 | ESPR_ITS ---
Documentation for date of: 05/03/25 Subjective Subjective Interval history: LFTs improving primarily transaminases AST 2387 ALT 2191 Alk phos 102 Exam Vital Signs Temp Pulse Resp BP Pulse Ox O2 Del Method O2 Flow Rate 96.1 F L 64 18 121/68 100 Nasal Cannula 2 05/03/25 15:00 05/03/25 19:17 05/03/25 19:17 05/03/25 19:00 05/03/25 19:17 05/03/25 13:00 05/03/25 19:17 FiO2 3 05/03/25 12:15 Objective Labs 05/03/25 04:40 05/03/25 04:40 Labs: Laboratory Results - last 24 hr 05/02/25 05/03/25 05/03/25 22:26 04:40 09:40 WBC 19.0 H RBC 4.48 L Hgb 13.7 Hct 43.8 MCV 98 MCH 30.6 MCHC 31.3 RDW Std Deviation 55.1 H Plt Count 238 Neut % (Auto) 96 H Lymph % (Auto) 1 L [place] % (Auto) 2 Eos % (Auto) 0 Baso % (Auto) 0 Neut # (Auto) 18.3 H Lymph # (Auto) 0.2 L [place] # (Auto) 0.4 Eos # (Auto) 0.0 Baso # (Auto) 0.0 Immature Gran # (Auto) 0.11 H Absolute Nucleated RBC 0.02 H Immature Gran % 1 H Nucleated RBC % 0 PT 21.0 H D INR 2.0 H Sodium 133 L Potassium 6.2 H* D Chloride 97 L Carbon Dioxide 21.1 Anion Gap 15 BUN 83 H Creatinine 3.9 H D Estim Creat Clear Calc 14.3 L eGFR 16 L BUN/Creatinine Ratio 21 H Glucose 193 H Calculated Osmolality 296 H Lactic Acid 2.4 H 1.7 2.6 H Calcium 7.2 L D Corrected Calcium 7.7 L D Total Bilirubin 0.8 AST 2387 H* ALT 2191 H* Alkaline Phosphatase 102 Troponin I 0.079 H* Total Protein 6.5 Albumin 3.4 Globulin 3.1 Albumin/Globulin Ratio 1.1 L 05/03/25 13:35 WBC RBC Hgb Hct MCV MCH MCHC RDW Std Deviation Plt Count Neut % (Auto) Lymph % (Auto) [place] % (Auto) Eos % (Auto) Baso % (Auto) Neut # (Auto) Lymph # (Auto) [place] # (Auto) Eos # (Auto) Baso # (Auto) Immature Gran # (Auto) Absolute Nucleated RBC Immature Gran % Nucleated RBC % PT INR Sodium Potassium Chloride Carbon Dioxide Anion Gap BUN Creatinine Estim Creat Clear Calc eGFR BUN/Creatinine Ratio Glucose Calculated Osmolality Lactic Acid 1.3 Calcium Corrected Calcium Total Bilirubin AST ALT Alkaline Phosphatase Troponin I Total Protein Albumin Globulin Albumin/Globulin Ratio Impressions Impression: Acute hypoxic hepatitis Improving LFTs Continue to monitor LFTs Assessment & Plan Time Spent With Patient Time: Total time spent is greater than 50% in coordination of care (as documented) at patient's floor/unit and/or counseling patient:
[2025-05-03] MEDS: INSULIN LISPRO (AdmeLOG) 1 UNIT/0.01 ML UNIT SC (21:12)
[2025-05-04] VITALS (35 sets, daily range): BP systolic 91–120; BP diastolic 53–73; PULSE 58–69; RESP 10–141; TEMP 36–36.4; O2SAT 91–100
[2025-05-04] MEDS: ACETAMINOPHEN 325 MG TABLET 650 MG PO ×2 (02:12→09:37)
[2025-05-04] MEDS: ALBUTEROL/IPRATROPIUM (Duoneb) RT SOL 3 ML NEBU INH ×6 (02:56→22:04)
[2025-05-04] MEDS: LEVOTHYROXINE SODIUM 88 MCG TABLET PO (05:09)
[2025-05-04] MEDS: HEPARIN SOD INJ 5000 UNIT/ML VIAL SC ×3 (05:09→21:28)
[2025-05-04 05:53] LABS: Basophils # (Auto) 0.0 Thou/mm3 (0.0-0.2); Basophils % (Auto) 0 % (0-2.5); Eosinophils # (Auto) 0.0 Thou/mm3 (0.0-0.5); Eosinophils % (Auto) 0 % (0-10); Hematocrit 38.8 % (41.0-53.0); Hemoglobin 12.5 g/dL (13.5-16.0); Immature Granulocytes Auto 0.08 Thou/mm3 (0.00-0.00); Lymphocytes # (Auto) 0.1 Thou/mm3 (1.0-4.8); Lymphocytes % (Auto) 1 % (10-50); Mean Corpuscular HGB Conc 32.2 g/dl (31.0-37.0); Mean Corpuscular Hemoglobin 31.4 pg (25.0-35.0); Mean Corpuscular Volume 98 fL (80-100); Monocytes # (Auto) 0.5 Thou/mm3 (0.0-0.8); Monocytes % (Auto) 3 % (0-12); Neutrophils # (Auto) 15.4 Thou/mm3 (1.8-7.7); Neutrophils % (Auto) 96 % (37-80); Nucleated Red Blood Cell # 0.00 Thou/mm3 (0.00-0.00); Nucleated Red Blood Cell % 0 /100 WBC (0); Platelet Count 168 Thou/mm3 (140-440); RDW Standard Deviation 54.3 fL (35.1-43.9); Red Blood Count 3.98 Miln/mm3 (4.50-5.90); White Blood Count 16.1 Thou/mm3 (3.8-10.6)
[2025-05-04 06:32] LABS: INR 1.9 (0.9-1.3); Partial Thromboplastin Time 31.3 Seconds (22.0-36.0); Prothrombin Time 19.7 Seconds (9.0-12.2)
[2025-05-04 06:42] LABS: Alanine Aminotransferase 1414 U/L (10-49); Albumin, Serum 2.9 gm/dL (3.4-4.8); Albumin/Globulin Ratio 1.1 (1.2-2.2); Alkaline Phosphatase 98 U/L (46-116); Anion Gap 13 (7-16); Aspartate Amino Transferase 699 U/L (0-34); BUN/Creatinine Ratio 18 Ratio (12-20); Bilirubin,Total 0.8 mg/dL (0.3-1.2); Blood Urea Nitrogen 64 mg/dL (9-23); Calcium 7.4 mg/dL (8.3-10.6); Calcium (Corrected) 8.3 mg/dL (8.5-10.1); Carbon Dioxide 29.7 mMol/L (20.0-31.0); Chloride 97 mMol/L (98-107); Creatinine (Component) 3.6 mg/dL (0.6-1.3); Estimated Creatinine Clearance 15.9 mL/min (>60); Globulin 2.6 gm/dL (2.3-3.5); Glucose 183 mg/dL (74-106); Magnesium 2.4 mg/dL (1.6-2.6); Osmolality,Calculated 302 (275-295); Phosphorous 7.0 mg/dL (2.4-5.1); Potassium 4.2 mMol/L (3.4-5.1); Sodium 140 mMol/L (136-145); Total Protein 5.5 gm/dL (5.7-8.2); eGFR 18 See Note
[2025-05-04] MEDS: MIDODRINE 5 MG TABLET 10 MG PO ×2 (08:11→21:28)
[2025-05-04] MEDS: SEVELAMER CARBONATE 800 MG TABLET PO ×3 (08:11→18:37)
[2025-05-04] MEDS: CALCIUM ACETATE 667 MG TABLET PO (08:11)
[2025-05-04] MEDS: ASPIRIN EC 81 MG TABEC PO (08:12)
[2025-05-04] MEDS: INSULIN LISPRO (AdmeLOG) 1 UNIT/0.01 ML UNIT SC ×2 (08:12→21:28)
[2025-05-04] MEDS: CLOPIDOGREL BISULFATE 75 MG TABLET PO (08:12)
--- NOTE | 2025-05-04 08:40 | PD.RESPRO ---
Documentation for date of: 05/04/25 Subjective Subjective Interval history: 70 y/o M with PMH significant for Coronary artery disease s/p stent placement (currently on aspirin and clopidogrel), CHF, and COPD, presented to hospital on 05/01/2025, with several weeks of progressively worsening shortness of breath, increased work of breathing, and lower extremity swelling. THe patient reports difficulty sleeping at night and requires 2-3 liters of supplemental oxygen nocturnally. Patient was admitted for CHF exacerbation vs pneumonia. Nephrology has been consulted for management of GEORGIE. ED Course: -Patient presented with BP 140/92, HR 87, T 98.2, RR 17, O2 95% RA. - Labs notable for creatinine is 1.7, troponin is 0.056. BNP is greater than 3000, Patient given lasix. - Chest x-ray with pneumonia. CT chest with evidence of bilateral pneumonia and extensive superimposed pulmonary fibrosis. Also extensive loculated left pleural effusion. Patient also with mild right pleural fluid. -Patient given ceftriaxone, and azithromycin. Blood cx ordered. -Patient also recieved thoracentesis pleural fluid sent for analysis. -Admitted for Acute on chronic CHF exacerbation PMHx: CHF chronic ischemic cardiomyopathy, EF 15-20% on 02/28/25, COPD, afib, type II DM, HTN, PSHx: Stent on 03/02 Meds: See med rec Allergies: NKDA Fam hx, non-contributory 05/02/2025: Labs reviewed and patient examined at the bedside. Initially, patient was mildly hypertensive, stable HR, afebrile, O2 sat acceptable on room air, wirh Cr 1.7, troponin 0.056, and BNP >3000. CXR and CT both showed ongoing pneumonia with pleural effusion. During hospital stay, patient was given IV Lasix with minimal diuresis (only ~300ml output), 1.3 L of pleural effusion drained via thoracentesis, markedly decline in renal function (Cr from 1.7 to 2.8 and eGFR from 43 to 25), WBC john from 10.6 to 17.9 despite ceftriaxone. Rise in LFTs (AST from 83 to 5000 and ALT from 46 to 2333) showing massive hepatocellular injury. LDH showed 4056 , troponin increased from 0.056 to 0.117. This patient has marked transaminitis, which is not typical of CHF exacerbation alone, Rising WBC despite antibiotics that shows uncontrolled or atypical infection, Severe LDH elevation raises suspicion for tissue necrosis/hemolysis/ischemia, Acute renal injury is out of proportion to diuresis, and troponin bump may indicate supply-demand problem or true PA. Overall, this raises concern for possibility of ischemic Hepatitis (Shock liver) due to hypoperfusion and Sepsis due to resistant pneumonia or empyema. The patient is currently in borderline SIRS 3/4 criteria: T 96.9 (>100.4 or <96.8F), RR 20 (>20/min), HR 50 (>90/min), WBC 17.9 (>12 or <4K or Bands >10%). Hepatic and renal injury may be secondary to sepsis-induced hypoperfusion in addition to aggressive diuresis given to the patient. However, transient increase in Cr due to contrast-induced nephropathy from Chest CTA is also a possibility. Will continue to monitor. 05/03/2025: Labs reviewed and patient examined at the bedside. Patient showed decline in renal function. BUN:83, Cr:3.9, eGFR:16 with minimal urine output (200ml). Patient agreed to be transferred to ICU and undergo conventional dialysis for possible renal recovery. If patient can't tolerate, then will do CRRT. 05/04/2025: Labs reviewed and patient examined at the bedside. Patient's liver function steadily improving. Renal function got better after hemodiaysis yesterday. BUN: 64, Cr:3.6, eGFR:18, UoP 425ml. Patient will receive hemodialysis again today. Exam Vital Signs Temp Pulse Resp BP Pulse Ox O2 Del Method O2 Flow Rate 97.0 F 63 16 106/63 99 Nasal Cannula 2 05/04/25 07:36 05/04/25 08:11 05/04/25 07:36 05/04/25 08:11 05/04/25 07:36 05/04/25 05:00 05/04/25 07:36 FiO2 3 05/03/25 12:15 Narrative Exam General: No acute distress, frail, elderly, AAO x3 Eye: PERRL, EOMI, normal conjunctiva, no scleral icterus HENT: Normocephalic, atraumatic, hearing intact to conversation at normal volume, moist oral mucosa Neck: Supple, non-tender, no JVD, no lymphadenopathy Lungs: symmetric chest rise, Slight labored breathing, Expiratory wheezing throughout bilateral lungs. Heart: Peripheral pulses intact bilaterally, Regular Rate and Rhythm. Abdomen: Soft, non-tender, non-distended, no palpable masses Musculoskeletal: Normal range of motion and strength, No cyanosis, Minimal edema BLE, No visible joint swelling Skin: Skin is warm, dry, no rashes or lesions. Psychiatric: Cooperative, appropriate mood and affect, Awake and alert, not agitated Neuro: Cranial nerves II-XII grossly intact. Sensations intact to light touch. Objective Labs 05/05/25 05:58 05/05/25 05:58 Labs: Laboratory Results - last 24 hr 05/03/25 05/03/25 05/04/25 09:40 13:35 04:59 WBC 16.1 H RBC 3.98 L Hgb 12.5 L Hct 38.8 L MCV 98 MCH 31.4 MCHC 32.2 RDW Std Deviation 54.3 H Plt Count 168 D Neut % (Auto) 96 H Lymph % (Auto) 1 L [place] % (Auto) 3 Eos % (Auto) 0 Baso % (Auto) 0 Neut # (Auto) 15.4 H Lymph # (Auto) 0.1 L [place] # (Auto) 0.5 Eos # (Auto) 0.0 Baso # (Auto) 0.0 Immature Gran # (Auto) 0.08 H Absolute Nucleated RBC 0.00 Immature Gran % 1 H Nucleated RBC % 0 PT 19.7 H INR 1.9 H APTT 31.3 Sodium 140 Potassium 4.2 D Chloride 97 L Carbon Dioxide 29.7 Anion Gap 13 BUN 64 H Creatinine 3.6 H Estim Creat Clear Calc 15.9 L eGFR 18 L BUN/Creatinine Ratio 18 Glucose 183 H Calculated Osmolality 302 H Lactic Acid 2.6 H 1.3 Calcium 7.4 L Corrected Calcium 8.3 L Phosphorus 7.0 H Magnesium 2.4 Total Bilirubin 0.8 AST 699 H* ALT 1414 H* Alkaline Phosphatase 98 Total Protein 5.5 L Albumin 2.9 L D Globulin 2.6 Albumin/Globulin Ratio 1.1 L Quality Measures Quality Measures VTE prophylaxis and none Advance care planning discussed with:: patient and other Assessment & Plan Assessment Current Active Medications: Generic Name Dose Route Start Last Admin Trade Name Freq PRN Reason Stop Dose Admin Acetaminophen 650 mg 05/01/25 16:03 05/04/25 02:12 Acetaminophen 325 Mg Tablet PO 05/31/25 16:02 650 mg Q6H PRN Administration Fever >101.5 Albuterol/Ipratropium 3 ml 05/02/25 11:00 05/04/25 06:12 Albuterol/Ipratropium (Duoneb) Rt Emily 3 Ml Nebu INH 06/01/25 10:59 3 ml Q4HRRT ALISA Administration Aspirin 81 mg 05/01/25 16:30 05/04/25 08:12 Aspirin Ec 81 Mg Tabec PO 05/31/25 16:29 81 mg QDAY ALISA Administration Calcium Acetate 667 mg 05/04/25 09:00 05/04/25 08:11 Calcium Acetate 667 Mg Tablet PO 06/03/25 08:59 667 mg DAILY ALISA Administration Clopidogrel Bisulfate 75 mg 05/01/25 16:30 05/04/25 08:12 Clopidogrel Bisulfate 75 Mg Tablet PO 05/31/25 16:29 75 mg QDAY ALISA Administration Dextrose 50 ml 05/03/25 18:38 Dextrose 50%-Water Inj 50 Ml Syringe IV 06/02/25 18:37 Q15MIN PRN BG <50 OR BG <70 & pt unresponsive Glucagon 1 mg 05/03/25 18:38 Glucagon Inj 1 Mg Vial IM Q15MIN PRN BG <70, and no IV access Heparin Sodium (Porcine) 5,000 unit 05/03/25 14:00 05/04/25 05:09 Heparin Sod Inj 5000 Unit/Ml Vial SC 05/17/25 13:59 5,000 unit Q8HR ALISA Administration Levofloxacin/Dextrose 750 mg in 150 mls @ 100 mls/hr 05/02/25 10:45 05/02/25 12:17 Levaquin Ivpb IV 05/09/25 10:44 100 mls/hr Q48H ALISA Administration Protocol Albumin Human 25 gm in 100 mls @ 100 mls/hr 05/03/25 11:35 Albuminar-25 Ivpb IV PRN PRN DIALYSIS Insulin Human Lispro 0 unit 05/03/25 21:00 05/04/25 08:12 Insulin Lispro (Admelog) 1 Unit/0.01 Ml Unit SC 06/02/25 20:59 1 unit ACHS ALISA Administration Protocol Levothyroxine Sodium 88 mcg 05/04/25 06:00 05/04/25 05:09 Levothyroxine Sodium 88 Mcg Tablet PO 06/03/25 05:59 88 mcg ACBR ALISA Administration Ondansetron HCl 4 mg 05/01/25 16:03 05/02/25 12:22 Ondansetron Inj 2 Mg/Ml Inj 2 Ml IVP 05/31/25 16:02 4 mg Q6H PRN Administration NAUSEA OR VOMITING Protocol Sevelamer Carbonate 800 mg 05/04/25 08:00 05/04/25 08:11 Sevelamer Carbonate 800 Mg Tablet PO 06/03/25 07:59 800 mg TIDWM ALISA Administration Plan 70 y/o M with PMG significant for Coronary artery disease s/p stent placement (currently on aspirin and clopidogrel), CHF, and COPD, presented to hospital on 05/01/2025, with several weeks of progressively worsening shortness of breath, increased work of breathing, and lower extremity swelling. Patient was admitted for CHF exacerbation vs pneumonia. Nephrology has been consulted for management of GEORGIE. #GEORGIE on Chronic Kidney Disease #Cardiorenal Syndrome #ATN #VS Contrast Induced nephropathy -On admission: BUN:38, Cr:1.7, eGFR:43, BNP: >3280, Tropnin: 0.056 -Currently, BUN:83, Cr:3.9, eGFR:16 with minimal urine output (200ml). -CXR: (05/01/2025): Prominent CHF. Moderate enlargement cardiac contour, prominent vascular congestion and perihilar edema, Consider superimposed pneumonia at the lung bases, Large left pleural effusion, Cardiac leads satisfactory position -Repeat CXR (05/01/2025): No pneumothorax post thoracentesis, Mild to moderate enlargement cardiac contour prominent vascular congestion and extensive edema and/or pneumonia throughout the lungs, Cardiac leads satisfactory position. -Chest CTA (05/01/2025): Negative for pulmonary artery emboli, Extensive diffuse bilateral pneumonia, Superimposed pulmonary fibrosis at the lung bases, Extensive loculated left pleural fluid -His current renal function is most likely a result of chronic injury to the kidneys from poorly controlled CHF, resulting in fluid overload as evidenced by BNP levels, with possibility of sepsis due to pneumonia. -Renal US (05/03/25): Small kidneys with bilateral renal cortical thinning, Moderate bilateral renal parenchymal scar formation, No hydronephrosis -Hemodialysis session: 05/03, 05/04 Plan: -Hold diuresis. -Renal US - no hydronephrosis -Avoid nephrotoxic and renally dose medications, -Strict ins and outs -Patient will receive hemodialysis today #Acute on Chronic CHF exacerbation #Ischemic hepatitis #Pleural Effusion #CAP #NSTEMI #CAD #Non-insulin dependent Type II DM -Management per Primary Hospitalist team Thank you for allowing us to participate in the care of your patient. Assessment and plan discussed with my attending physician Dr. Quirino Foss (PGY-1)- Internal medicine resident Attending Provider Attestation/Addendum patient currently seen and examined with resident physician Dr. Foss. Note reviewed, agree with findings and recommendations. Patient currently seen in telemetry. Chart review done. at bedside. Sick looking gentleman. Significant elevation in liver enzymes-most likely related to shock liver. Rising creatinine today secondary to contrast nephropathy in the setting of prerenal azotemia/ischemic ATN. Patient could also be having underlying cardiorenal syndrome. Urine output minimal. Continues to have shortness of breath. Creatinine significantly elevated. Decided to proceed with dialysis. Due to hemodynamic instability patient will be transferred to ICU. Vas-Cath placed by ICU team. Patient on second dialysis. Tolerating dialysis without any problems. Hemodialysis for 2.5 hours, Qb 250, 2K, ultrafiltration 1 L, Epogen 0, no heparin ordered. Plan of care discussed with the dialysis nurse. Please see dialysis flowsheet for further details. Next dialysis scheduled for tomorrow. Plan of care discussed with primary team. Outpatient dialysis will be arranged.
--- NOTE | 2025-05-04 09:16 | ESPR_ITS ---
<Statement entered by Sydney Arizmendi MD - 05/07/25 12:22> I personally examined evaluate the patient with resident physician Dr. Corey Olmstead PGY2 renal function improved liver function also improving steadily heart failure well compensated evaluated patient resident physician PGY 2 agree with treatment plan recommendation as documented The patient appears to be doing definitely better though his prognosis Short short-term intermittent prognosis guarded there is some improvement from admission. Will continue to monitor the patient closely Documentation for date of: 05/04/25 Subjective Subjective Interval history: Patient seen and evaluated in the ICU found awake, alert, into x 3. Vitals and labs reviewed. Transaminitis and kidney function as well as lactic acid seems to have improved. Currently on hemodialysis session. Overall clinically improving. Exam Vital Signs Temp Pulse Resp BP Pulse Ox O2 Del Method O2 Flow Rate 97.0 F 61 16 107/73 99 Nasal Cannula 2 05/04/25 07:36 05/04/25 09:15 05/04/25 07:36 05/04/25 09:15 05/04/25 07:36 05/04/25 05:00 05/04/25 07:36 FiO2 3 05/03/25 12:15 Narrative Exam GENERAL: NAD, AAOx3 HEENT: dry mucosa. Eyes open, symmetrical, & clear, Right IJ Vasc cath in place CARDIO: Heart RRR, no obvious murmurs PULM: No noted coughing/dyspnea, B/L mild crackles GI: Abdomen soft, nondistended, no pain on palpation. BSx4 SKIN/MSK/EXT: trace bilateral lower extremity swelling, no pain on palpation. Pedal pulses present B/L NEURO: AAOx3, no focal neuro deficits, able to move all 4 extremities Objective Labs 05/04/25 04:59 05/04/25 04:59 Labs: Laboratory Results - last 24 hr 05/03/25 05/03/25 05/04/25 09:40 13:35 04:59 WBC 16.1 H RBC 3.98 L Hgb 12.5 L Hct 38.8 L MCV 98 MCH 31.4 MCHC 32.2 RDW Std Deviation 54.3 H Plt Count 168 D Neut % (Auto) 96 H Lymph % (Auto) 1 L [place] % (Auto) 3 Eos % (Auto) 0 Baso % (Auto) 0 Neut # (Auto) 15.4 H Lymph # (Auto) 0.1 L [place] # (Auto) 0.5 Eos # (Auto) 0.0 Baso # (Auto) 0.0 Immature Gran # (Auto) 0.08 H Absolute Nucleated RBC 0.00 Immature Gran % 1 H Nucleated RBC % 0 PT 19.7 H INR 1.9 H APTT 31.3 Sodium 140 Potassium 4.2 D Chloride 97 L Carbon Dioxide 29.7 Anion Gap 13 BUN 64 H Creatinine 3.6 H Estim Creat Clear Calc 15.9 L eGFR 18 L BUN/Creatinine Ratio 18 Glucose 183 H Calculated Osmolality 302 H Lactic Acid 2.6 H 1.3 Calcium 7.4 L Corrected Calcium 8.3 L Phosphorus 7.0 H Magnesium 2.4 Total Bilirubin 0.8 AST 699 H* ALT 1414 H* Alkaline Phosphatase 98 Total Protein 5.5 L Albumin 2.9 L D Globulin 2.6 Albumin/Globulin Ratio 1.1 L Quality Measures Quality Measures VTE prophylaxis and none Advance care planning discussed with:: patient Assessment & Plan Assessment Current Active Medications: Generic Name Dose Route Start Last Admin Trade Name Freq PRN Reason Stop Dose Admin Acetaminophen 650 mg 05/01/25 16:03 05/04/25 02:12 Acetaminophen 325 Mg Tablet PO 05/31/25 16:02 650 mg Q6H PRN Administration Fever >101.5 Albuterol/Ipratropium 3 ml 05/02/25 11:00 05/04/25 06:12 Albuterol/Ipratropium (Duoneb) Rt Emily 3 Ml Nebu INH 06/01/25 10:59 3 ml Q4HRRT ALISA Administration Aspirin 81 mg 05/01/25 16:30 05/04/25 08:12 Aspirin Ec 81 Mg Tabec PO 05/31/25 16:29 81 mg QDAY ALISA Administration Calcium Acetate 667 mg 05/04/25 09:00 05/04/25 08:11 Calcium Acetate 667 Mg Tablet PO 06/03/25 08:59 667 mg DAILY ALISA Administration Clopidogrel Bisulfate 75 mg 05/01/25 16:30 05/04/25 08:12 Clopidogrel Bisulfate 75 Mg Tablet PO 05/31/25 16:29 75 mg QDAY ALISA Administration Dextrose 50 ml 05/03/25 18:38 Dextrose 50%-Water Inj 50 Ml Syringe IV 06/02/25 18:37 Q15MIN PRN BG <50 OR BG <70 & pt unresponsive Glucagon 1 mg 05/03/25 18:38 Glucagon Inj 1 Mg Vial IM Q15MIN PRN BG <70, and no IV access Heparin Sodium (Porcine) 5,000 unit 05/03/25 14:00 05/04/25 05:09 Heparin Sod Inj 5000 Unit/Ml Vial SC 05/17/25 13:59 5,000 unit Q8HR ALISA Administration Levofloxacin/Dextrose 750 mg in 150 mls @ 100 mls/hr 05/02/25 10:45 05/02/25 12:17 Levaquin Ivpb IV 05/09/25 10:44 100 mls/hr Q48H ALISA Administration Protocol Albumin Human 25 gm in 100 mls @ 100 mls/hr 05/03/25 11:35 Albuminar-25 Ivpb IV PRN PRN DIALYSIS Insulin Human Lispro 0 unit 05/03/25 21:00 05/04/25 08:12 Insulin Lispro (Admelog) 1 Unit/0.01 Ml Unit SC 06/02/25 20:59 1 unit ACHS ALISA Administration Protocol Levothyroxine Sodium 88 mcg 05/04/25 06:00 05/04/25 05:09 Levothyroxine Sodium 88 Mcg Tablet PO 06/03/25 05:59 88 mcg ACBR ALISA Administration Ondansetron HCl 4 mg 05/01/25 16:03 05/02/25 12:22 Ondansetron Inj 2 Mg/Ml Inj 2 Ml IVP 05/31/25 16:02 4 mg Q6H PRN Administration NAUSEA OR VOMITING Protocol Sevelamer Carbonate 800 mg 05/04/25 08:00 05/04/25 08:11 Sevelamer Carbonate 800 Mg Tablet PO 06/03/25 07:59 800 mg TIDWM ALISA Administration Plan 70 y/o M with PMHx of CAD s/p stents in february 2025, Heart failure with reduced ejection fraction (15-20%) in 2023, COPD on 2L of home O2 who presented to the ED due to progressive shortness of breath. Admitted for acute on chronic decompensated heart failure. #Acute on chronic decompensated heart failure exacerbation #Heart failure with reduced ejection fraction [15-20%] #Dilated Cardiomyopathy #NSTEMI, likely type II #CAD s/p Stent Presented with clinical signs such as shortness of breath, dyspnea on exertion, bilateral leg swelling mild troponin leak likely secondary to CHF exacerbation, patient with no chest pain, doubt ACS at this present point in time. Liver enzymes increased dramatically likely in setting of hypoperfusion, shock liver, sepsis NYHA class: IV CXR: prominent vascular congestion BNP: >3250 Echo: Dilated cardiomyopathy severe global hypokinesis LVEF 20% The RV is normal in size and systolic function. The estimated RVSP, 66 mmHg. RAP 8. Aortic valve sclerosis with mild aortic regurgitation. Mild mitral regurgitation. Moderate tricuspid regurgitation ? Hold IV diuresis in the setting of sepsis-induced hypoperfusion, however patient still with bilateral lower extremity swelling, +JVD and mild crackles ? Continue Hemodialysis ? Start goal-directed medical therapy when stable to tolerate ? Continue Aspirin and Plavix ? Keep K>4, Mg>2 ? Provide oxygen as required ? Strict I's and O's ? Fluid restriction #Acute liver injury #Ischemic hepatitis #GEORGIE #CKD Stage III b #Pleural Effusion s/p thora #CAP- on ivabx #Non-insulin dependent Type II DM -as per primary team Case discussed with my attending Dr. Ugo Olmstead MD PGY-2 Disclaimer: Despite multiple revisions, due to the dictation software being used, the document bellow may not be free of grammatical errors including phonetic/typographic errors. However, this does not deter from our commitment to providing health care in the patient's best interest in mind.
[2025-05-04] MEDS: ALBUMIN HUMAN 25% IVPB 25 GM/100 ML BTL IV (10:06)
--- NOTE | 2025-05-04 10:11 | PC.NURSE ---
BP CONT'S. TO TREND DOWN, PT DENIES ALL S/S OF HYPOTENSION. WILL ADMIN PRN ALBUMIN 25/100ML AND CONT. TO MONITOR.
--- NOTE | 2025-05-04 10:50 | CHAP ---
Patient was visited by the Spiritual Care Volunteer who prayed for them. (Volunteer was in the hospital from C 9:30-10:50)
--- NOTE | 2025-05-04 11:14 | PD.RESPRO ---
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 Patient follows up with accounting support specialist, Dr. Homer Arizmendi. According to the patient at baseline he has shortness of breath and minimal activity for example changing his close to taking a shower. However over the past 2 weeks with progressively worsened to at rest. At baseline he has a two-pillow orthopnea but recently developed PND as well. Also reported lower extremity swelling. Denies any chest pain/pressure or palpitations. Also denied any sick contacts or recent travel. Hospital course: WBC up trended to 19 from 17.9, PT up trended to 21 from 15, INR up trended to 2 from 1.4. K up trended to 6.2 from 5.3, BUN increased to 83 from 57 CR increased to 3.9 from 2.7, lactic acid down trended to 1.3 from 3.4, corrected calcium 7.7, AST 5002 downtrended to 2387, ALT 2333. LDH 4056. Trop I 0.117?>0.079. Pleural fluid analysis showed transudative effusion. Renal ultrasound showed small kidneys with bilateral renal cortical thinning. No signs of hydronephrosis. Chest CTA ruled out pulmonary artery emboli. pulmonary fibrosis with bilateral pneumonia Patient was initially diuresed with Bumex 2 mg IV twice daily and received an extra dose of Lasix 40 mg IV x 1 on top of that yesterday. He has been oliguric since his hospital stay and he produced 200 cc of urine in the past 24 hours. Also today had significant increase of his BUN and potassium and decision was made by nephrology for urgent hemodialysis. Patient was initially admitted to the floor CHF exacerbation and upgraded to ICU for urgent hemodialysis possibly requiring norepinephrine. 05/04/2025: Overnight patient had no events. Input 620 cc, output 425 cc, volume 25 cc. This morning patient says he feels well and denies any shortness of breath, chest pain, palpitations and weakness. Labs showed WBC decreased to 16.1 from 818, NA 140, K decreased to 4.2 from 6, BUN 64, CR 2.6, PT 19.7, INR 1.9, corrected calcium 8.3, phosphorus 7. Patient underwent hemodialysis yesterday with a goal of 1.4 L ultrafiltration, plan to undergo another session today with a goal of 1.9 L ultrafiltration. Patient was started on midodrine 10 mg p.o. twice daily. At this point patient medically stable for downgrade to telemetry. Exam Vital Signs Temp Pulse Resp BP Pulse Ox O2 Del Method O2 Flow Rate 97.0 F 61 18 118/70 100 Nasal Cannula 2 05/04/25 11:01 05/04/25 11:00 05/04/25 11:01 05/04/25 11:00 05/04/25 11:01 05/04/25 08:01 05/04/25 11:01 FiO2 3 05/03/25 12:15 Narrative Exam Constitutional Alert, oriented x 3 and mild distress. Elderly male HEENT Vision grossly intact. Patent nares. Trachea midline Respiratory Chest normal on inspection. RIJ temp dialysis catheter noted. Exit site clean. Inspiratory crackles at lung bases?improving. Cardiovascular S1 and S2 audible, RRR. No murmurs carotid bruit. No gross JVD. Abdominal Soft, nontender. BS + Genitourinary No bladder tenderness, no flank pain. Normal to palpation. No scrotal edema Musculoskeletal Extremities tone within normal limits. No LE edema. Neurological CN II - XII grossly intact. Extremity motor and sensation grossly intact. Skin Warm, dry and intact. No apparent lesions. Psychiatric Patient has good affect, is cooperative Objective Labs 05/04/25 04:59 05/04/25 04:59 Labs: Laboratory Results - last 24 hr 05/03/25 05/04/25 13:35 04:59 WBC 16.1 H RBC 3.98 L Hgb 12.5 L Hct 38.8 L MCV 98 MCH 31.4 MCHC 32.2 RDW Std Deviation 54.3 H Plt Count 168 D Neut % (Auto) 96 H Lymph % (Auto) 1 L [place] % (Auto) 3 Eos % (Auto) 0 Baso % (Auto) 0 Neut # (Auto) 15.4 H Lymph # (Auto) 0.1 L [place] # (Auto) 0.5 Eos # (Auto) 0.0 Baso # (Auto) 0.0 Immature Gran # (Auto) 0.08 H Absolute Nucleated RBC 0.00 Immature Gran % 1 H Nucleated RBC % 0 PT 19.7 H INR 1.9 H APTT 31.3 Sodium 140 Potassium 4.2 D Chloride 97 L Carbon Dioxide 29.7 Anion Gap 13 BUN 64 H Creatinine 3.6 H Estim Creat Clear Calc 15.9 L eGFR 18 L BUN/Creatinine Ratio 18 Glucose 183 H Calculated Osmolality 302 H Lactic Acid 1.3 Calcium 7.4 L Corrected Calcium 8.3 L Phosphorus 7.0 H Magnesium 2.4 Total Bilirubin 0.8 AST 699 H* ALT 1414 H* Alkaline Phosphatase 98 Total Protein 5.5 L Albumin 2.9 L D Globulin 2.6 Albumin/Globulin Ratio 1.1 L Quality Measures Quality Measures VTE prophylaxis and none Advance care planning discussed with:: patient Assessment & Plan Assessment Current Active Medications: Generic Name Dose Route Start Last Admin Trade Name Freq PRN Reason Stop Dose Admin Acetaminophen 650 mg 05/01/25 16:03 05/04/25 09:37 Acetaminophen 325 Mg Tablet PO 05/31/25 16:02 650 mg Q6H PRN Administration Fever >101.5 Albuterol/Ipratropium 3 ml 05/02/25 11:00 05/04/25 10:33 Albuterol/Ipratropium (Duoneb) Rt Emily 3 Ml Nebu INH 06/01/25 10:59 3 ml Q4HRRT ALISA Administration Aspirin 81 mg 05/01/25 16:30 05/04/25 08:12 Aspirin Ec 81 Mg Tabec PO 05/31/25 16:29 81 mg QDAY ALISA Administration Calcium Acetate 667 mg 05/04/25 09:00 05/04/25 08:11 Calcium Acetate 667 Mg Tablet PO 06/03/25 08:59 667 mg DAILY ALISA Administration Clopidogrel Bisulfate 75 mg 05/01/25 16:30 05/04/25 08:12 Clopidogrel Bisulfate 75 Mg Tablet PO 05/31/25 16:29 75 mg QDAY ALISA Administration Dextrose 50 ml 05/03/25 18:38 Dextrose 50%-Water Inj 50 Ml Syringe IV 06/02/25 18:37 Q15MIN PRN BG <50 OR BG <70 & pt unresponsive Glucagon 1 mg 05/03/25 18:38 Glucagon Inj 1 Mg Vial IM Q15MIN PRN BG <70, and no IV access Heparin Sodium (Porcine) 5,000 unit 05/03/25 14:00 05/04/25 05:09 Heparin Sod Inj 5000 Unit/Ml Vial SC 05/17/25 13:59 5,000 unit Q8HR ALISA Administration Heparin Sodium (Porcine) 2,600 unit 05/04/25 11:09 Heparin Sod Inj 1000 Unit/Ml Vial 10 Ml INDWELLCAT 05/18/25 11:08 PRN PRN DIALYSIS Levofloxacin/Dextrose 750 mg in 150 mls @ 100 mls/hr 05/02/25 10:45 05/02/25 12:17 Levaquin Ivpb IV 05/09/25 10:44 100 mls/hr Q48H ALISA Administration Protocol Albumin Human 25 gm in 100 mls @ 100 mls/min 05/04/25 10:07 05/04/25 10:06 Albuminar-25 Ivpb IV 100 mls/min PRN PRN Administration DIALYSIS Insulin Human Lispro 0 unit 05/03/25 21:00 05/04/25 08:12 Insulin Lispro (Admelog) 1 Unit/0.01 Ml Unit SC 06/02/25 20:59 1 unit ACHS ALISA Administration Protocol Levothyroxine Sodium 88 mcg 05/04/25 06:00 05/04/25 05:09 Levothyroxine Sodium 88 Mcg Tablet PO 06/03/25 05:59 88 mcg ACBR ALISA Administration Ondansetron HCl 4 mg 05/01/25 16:03 05/02/25 12:22 Ondansetron Inj 2 Mg/Ml Inj 2 Ml IVP 05/31/25 16:02 4 mg Q6H PRN Administration NAUSEA OR VOMITING Protocol Sevelamer Carbonate 800 mg 05/04/25 08:00 05/04/25 08:11 Sevelamer Carbonate 800 Mg Tablet PO 06/03/25 07:59 800 mg TIDWM ALISA Administration Plan Patient is a 70-year-old male with past medical history significant for CAD s/p 2 stents most recent February 2025, ischemic cardiomyopathy with chronic systolic congestive heart failure with reduced EF [15-20%], 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 He has been oliguric since his hospital stay and he produced 200 cc of urine in the past 24 hours. Also today had significant increase of his BUN and potassium and decision was made by nephrology for urgent hemodialysis. Patient was initially admitted to the floor CHF exacerbation and upgraded to ICU for urgent hemodialysis possibly requiring norepinephrine. NEURO No acute problems CVS Ischemic cardiomyopathy Acute decompensated chronic systolic congestive heart failure exacerbation [15-20%] Cardiorenal syndrome CONVEYOR BELT OPERATOR-D DDx: - Secondary to worsening of CHF Dx: -09/2023 dilated cardiomyopathy with severe systolic dysfunction. Severe global hypokinesis. Estimated EF 15-20% Dilated right ventricle with RVSP 35mmHg. Mild PAH. Moderate calcific aortic stenosis vmax 2.5m/s. Possible Low flow low gradient severe aotic stenosis - ilated cardiomyopathy with severe global hypokinesis LVEF 20%. RV normal size and systolic function. RVSP 66 mmHg, RAP 8. Aortic valve sclerosis with mild aortic regurg. Rx: - Diuresis on hold due to patient being unresponsive to diuretics - HD today with goal of 1.9 L ultrafiltration PULM COPD Community-acquired pneumonia Dx: - DuoNebs ? Continue levofloxacin 750 mg IV every 48 hours started on [05/02? to complete a 7-day course. Pulmonary fibrosis Etiology likely multifactorial. Patient had extensive smoking history before he quit in 2000. 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 However his biggest risk factor is long-term amiodarone use. Dx: ? From CT scan on admission patient had pulmonary fibrosis. Also seen on his chest x-ray Rx: ? Recommend to completely discontinue amiodarone GI/Hep Ischemic hepatitis On admission patient had mildly elevated AST at 83 and normal ALT. On day 2 of admission patient's had a drop in blood pressure with MAP decreasing to 70s from 100s. It is possible there was some degree of ischemia leading to transaminitis. Repeat echo showed good right ventricular systolic function and normal right atrial pressure, congestive hepatopathy less likely at this point. Etiology most likely ischemic due to hypoperfusion. DDx: - Congestive hepatopathy Dx: - AST 5000?>2387?>699 ? ALT 2333?>2191?>1414 Rx: - Trend CMP. - HD for UF Coagulopathy Secondary to congestive hepatopathy Dx: ? PT 21?>19.7 ? INR 2 Rx:?>1.9 ? Monitor coagulation panel RENAL GEORGIE secondary to cardiorenal syndrome Hypocalcemia Hyperphosphatemia DDx: -Likely secondary to both volume depletion from reduced p.o. intake as well as hypoperfusion from cardiorenal syndrome. Electrolyte abnormalities also due to GEORGIE and diuretics - Patient had CTA chest on admission. Contrast Nephropathy is also a possibility Dx: - Baseline CR 1.2 ? On admission CR 2.3?>3.9?>3.6 ? BUN 38?>83?>64 - K6.2?>4.2 ? CL?97 ? Corrected Ca 7.74?>8.3 -Phosphorus 7 Rx: - 05/04 HD with goal of 1.4 L ultrafiltration today as per nephrology Today will undergo hemodialysis with a 1.9 L ultrafiltration- - Nephrology, Dr Win consulted. Appreciate recommendations RRX: - Calcium acetate 1 tab p.o. daily ? Sevelamer 800 mg p.o. 3 times daily with meals Troponinemia?resolved Secondary to boat CHF exacerbation and GEORGIE Dx: ? Trop I 0.117?>0.07 HEME/ONC Leukocytosis?resolving DDx: -Likely reactive, secondary to CAP Dx: - WBC 19?>16.1 Rx: - Monitor CBC ENDO NIDDM type II Rx: - Insulin sliding scale Hypothyroidism DDx: Likely amiodarone induced Rx: - Continue home medication Levothyroxine 88mcg po daily ID Nil Acute MSK/DERM Nil acute ICU Health maintenance: Dispo: Stable for downgrade to telemetry Diet: Cardiac DVT ppx: Heparin GI ppx: None IV lines: 2 pIV Central line: RIJ Temp dialysis cath [05/03 - Arterial line: No [place]cho[place]: no Code status: FULL CODE Plan of care discussed with Attending Dr. Dion Monroe MD PGY 2 Disclaimer: This note was dictated by speech recognition. Minor errors in patient registration manager may be present due to voice recognition software.
[2025-05-04] MEDS: HEPARIN SOD INJ 1000 UNIT/ML VIAL 10 ML 2600 UNIT INDWELLCAT (11:17)
--- NOTE | 2025-05-04 12:09 | PD.INTPROG ---
Documentation for date of: 05/04/25 Subjective Subjective Interval history: This is a 70-year-old male who is admitted to the hospital on 01 May. Originally he presented for dyspnea on exertion. States that he was unable to walk more than 4 5 feet without becoming very short of breath. He has a known history of heart failure with an EF in the past of approximately 15% and has a dual-chamber pacemaker/ICD. Yesterday he had significant derangements in his laboratory values. He has had progressive renal failure. He has been on Bumex with minimal urinary output. The decision was made by nephrology for dialysis. He is felt to have cardiorenal syndrome. His blood pressure has been borderline with a systolic blood pressure in the high 80s low 90s this morning and a MAP of around 61. The ICU was consulted for dialysis needs and patient's relative hypotension. The patient himself is awake alert and oriented. He is conversant. He is somewhat reluctant to go to the ICU. He thinks his breathing is better than on arrival however admits he has not been able to ambulate to test his breathing. Denies any chest pain, cough, stomach pain, nausea or vomiting, fevers or chills or additional symptoms. He did undergo a left-sided thoracentesis on the to see if this helped his shortness of breath. 05/04- no acute overnight events, tolerated HD well yesterday, decrease appetite but no n/v Critical Care Note Critical care time (min.): 0 Exam Vital Signs Temp Pulse Resp BP Pulse Ox O2 Del Method O2 Flow Rate 97.0 F 63 18 107/64 100 Nasal Cannula 2 05/04/25 11:36 05/04/25 11:36 05/04/25 11:36 05/04/25 11:36 05/04/25 11:36 05/04/25 08:01 05/04/25 11:36 FiO2 3 05/03/25 12:15 Narrative Exam Gen- NAD, AAOx3, thin body habitus HEENT- NC/AT, mucosa hydrated, sclera anicteric, EOMI Chest- crackles at post bases, HRRR, murmur, no increase in WOB Abd- s/nt/bs+ Ext- no edema, pulses palp, no clubbing, no mottling, moves all 4 Physical Exam Completion Physical Exam Complete?: Yes Objective - Ballast Inspector Labs 05/04/25 04:59 05/04/25 04:59 Labs: Laboratory Results - last 24 hr 05/03/25 05/04/25 13:35 04:59 WBC 16.1 H RBC 3.98 L Hgb 12.5 L Hct 38.8 L MCV 98 MCH 31.4 MCHC 32.2 RDW Std Deviation 54.3 H Plt Count 168 D Neut % (Auto) 96 H Lymph % (Auto) 1 L [place] % (Auto) 3 Eos % (Auto) 0 Baso % (Auto) 0 Neut # (Auto) 15.4 H Lymph # (Auto) 0.1 L [place] # (Auto) 0.5 Eos # (Auto) 0.0 Baso # (Auto) 0.0 Immature Gran # (Auto) 0.08 H Absolute Nucleated RBC 0.00 Immature Gran % 1 H Nucleated RBC % 0 PT 19.7 H INR 1.9 H APTT 31.3 Sodium 140 Potassium 4.2 D Chloride 97 L Carbon Dioxide 29.7 Anion Gap 13 BUN 64 H Creatinine 3.6 H Estim Creat Clear Calc 15.9 L eGFR 18 L BUN/Creatinine Ratio 18 Glucose 183 H Calculated Osmolality 302 H Lactic Acid 1.3 Calcium 7.4 L Corrected Calcium 8.3 L Phosphorus 7.0 H Magnesium 2.4 Total Bilirubin 0.8 AST 699 H* ALT 1414 H* Alkaline Phosphatase 98 Total Protein 5.5 L Albumin 2.9 L D Globulin 2.6 Albumin/Globulin Ratio 1.1 L Assessment & Plan Additional Plan Additional Plan: In summary this is 70-year-old male admitted to the ICU for relative hypotension with cardiorenal syndrome and 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 CV Heart failure with reduced EF- last known EF 20% in 2024 - echo shows dilated cardiomyopathy with severe global hypokinesis - dilated cardiomyopathy LV with mild dilation of RV - on diuresis however refractory at this point - BB and farxiga on hold - JOHNSON -> needs volume removal - on HD and for 1lt off today Coronary artery disease- s/p stent 2 months ago - on ASA /plavix Troponinemia- trended down - followed by cards Resp Acute hypoxic respiratory failure- on NC - uses home O2 intermitently COPD- nebs prn - does not appear to have acute exacerbation - stop solumedrol - doing well CAP- cont levoquin x7 days Pulmonary edema- crackles b/l exam however unclear if this is related to just fluid or if there may be a significant contribution from pts pulmonary fibrosis Pulmonary fibrosis- noted on several CT over the last 2 years along with some bronchiectasis b/l - amio stopped - fu with pulm as outpt - will need full PFTs Renal Cardiorenal- not responding on diuretics - for HD today with volume removal Hyponatremia- in the setting of CHF Hyperkalemia- for HD today Lactic acidosis- in the setting of poor perfusion from decreased CO and HF along with GEORGIE GI Transaminitis- LFTs are trending back down today - ? congestive v ischemic insult from hypotension - viral acute panel is neg Endo Diabetes- SSI Heme Leukocytosis- unclear etiology - no fever - ? of underlying PNA - trending down Coagulopathy- in the setting of acute hepatic insult - INr slight improvement today - anticipate return to baseline DVT prophylaxis- heparin ID Stable case d/w ICU team and nephrology labs, imaging, records reviewed ok for downgrade ~35min required for eval, exam, review, intervention, discussion and formulation of POC for this acutely ill pt Provider Notation Provider Notation: Although this document has been carefully reviewed, there may still be some phonetic and other typographical errors. These errors are purely grammatical due to imperfections in the software program and should not be construed in any way to compromise the substance of the patient's medical care during this visit. Thank you for the opportunity and privilege in assisting you with this patient's care and management.
--- NOTE | 2025-05-04 12:16 | ESPR_ITS ---
<Statement entered by María Jennings MD - 05/04/25 21:30> Note reviewed, I agree with most of its contents and agree with the patient's care as documented by Dr. Alvarado. The patient's management plan was discussed with my attending physician Dr. Becker. María Jennings, PGY-2 Documentation for date of: 05/04/25 Subjective Subjective Interval history: Mr. Dugan is a 70-year-old male with past medical history significant for CAD status post stent with recent 1 on 03/02 currently on aspirin and Plavix, CHF with ICD/pacemaker, COPD who presented with worsening shortness of breath, admitted for CHF exacerbation. He was found to have a CT chest with evidence of bilateral pneumonia and extensive superimposed pulmonary fibrosis. Also extensive loculated left pleural effusion. Patient also with mild right pleural fluid. He recieved a left thoracentesis and subsequently started on furosemide 40mg TID. The following day, he was noted to be oliguric, and had a marked elevation in his transaminases in the 4000 to 5000 range, and had soft BP with systolics in the 80s to 90s. Cardiology consulted for acute decompensated HF. GI consulted for the transaminases, felt the liver injury was most likely shock liver secondary to over diuresis vs congestive hepatopathy. Nephrology felt that this hypotension represented more of a type I cardiorenal syndrome. Recommended dialysis. Patient was upgraded to the ICU on 05/03 due to concern that the dialysis would make his tenous BP worse, and because he a high risk of needing pressor support or requiring CRRT if HD wasn't tolerated. Echo was done and showed EF of 20%, slightly better than last Echo of 15%. Cardiology recommending holding IV diuretics and restarting GDMT as soon as the patient could tolerate. 05/04 He tolerated the dialysis well, had 1 L of fluid pulled yesterday and 1.5 L pulled today. He was downgraded from the ICU to telemetry floor. He is feeling a bit better today, less short of breath. Blood pressure stable with systolics in the 100s to 110s. Exam Vital Signs Temp Pulse Resp BP Pulse Ox O2 Del Method O2 Flow Rate 97.0 F 63 18 107/64 100 Nasal Cannula 2 05/04/25 11:36 05/04/25 11:36 05/04/25 11:36 05/04/25 11:36 05/04/25 11:36 05/04/25 08:01 05/04/25 11:36 FiO2 3 05/03/25 12:15 Narrative Exam General: Frail appearing patient, conversant, no acute distress. HEENT: Mucosa moist. Pupils are equal, no scleral icterus. Cardiovascular: Systolic murmur noted. Regular rate and rhythm. No rub. Respiratory: mild crackles heard throughout, worse at the lung bases. Abdomen: Soft, nontender, not distended, Skin: Dry, no rashes or bruising Musculoskeletal: No gross injuries. Able to move all 4 extremities. Non edematous lower extremities. Neuro: Alert, conversational, No focal neuro deficits. Psych: Normal affect and mood Objective Labs 05/05/25 05:58 05/05/25 05:58 Labs: Laboratory Results - last 24 hr 05/03/25 05/04/25 13:35 04:59 WBC 16.1 H RBC 3.98 L Hgb 12.5 L Hct 38.8 L MCV 98 MCH 31.4 MCHC 32.2 RDW Std Deviation 54.3 H Plt Count 168 D Neut % (Auto) 96 H Lymph % (Auto) 1 L [place] % (Auto) 3 Eos % (Auto) 0 Baso % (Auto) 0 Neut # (Auto) 15.4 H Lymph # (Auto) 0.1 L [place] # (Auto) 0.5 Eos # (Auto) 0.0 Baso # (Auto) 0.0 Immature Gran # (Auto) 0.08 H Absolute Nucleated RBC 0.00 Immature Gran % 1 H Nucleated RBC % 0 PT 19.7 H INR 1.9 H APTT 31.3 Sodium 140 Potassium 4.2 D Chloride 97 L Carbon Dioxide 29.7 Anion Gap 13 BUN 64 H Creatinine 3.6 H Estim Creat Clear Calc 15.9 L eGFR 18 L BUN/Creatinine Ratio 18 Glucose 183 H Calculated Osmolality 302 H Lactic Acid 1.3 Calcium 7.4 L Corrected Calcium 8.3 L Phosphorus 7.0 H Magnesium 2.4 Total Bilirubin 0.8 AST 699 H* ALT 1414 H* Alkaline Phosphatase 98 Total Protein 5.5 L Albumin 2.9 L D Globulin 2.6 Albumin/Globulin Ratio 1.1 L Quality Measures Quality Measures VTE prophylaxis and none Advance care planning discussed with:: patient and spouse Assessment & Plan Assessment Current Active Medications: Generic Name Dose Route Start Last Admin Trade Name Jeysonq PRN Reason Stop Dose Admin Acetaminophen 650 mg 05/01/25 16:03 05/04/25 09:37 Acetaminophen 325 Mg Tablet PO 05/31/25 16:02 650 mg Q6H PRN Administration Fever >101.5 Albuterol/Ipratropium 3 ml 05/02/25 11:00 05/04/25 10:33 Albuterol/Ipratropium (Duoneb) Rt Emily 3 Ml Nebu INH 06/01/25 10:59 3 ml Q4HRRT ALISA Administration Aspirin 81 mg 05/01/25 16:30 05/04/25 08:12 Aspirin Ec 81 Mg Tabec PO 05/31/25 16:29 81 mg QDAY ALISA Administration Calcium Acetate 667 mg 05/04/25 09:00 05/04/25 08:11 Calcium Acetate 667 Mg Tablet PO 06/03/25 08:59 667 mg DAILY ALISA Administration Clopidogrel Bisulfate 75 mg 05/01/25 16:30 05/04/25 08:12 Clopidogrel Bisulfate 75 Mg Tablet PO 05/31/25 16:29 75 mg QDAY ALISA Administration Dextrose 50 ml 05/03/25 18:38 Dextrose 50%-Water Inj 50 Ml Syringe IV 06/02/25 18:37 Q15MIN PRN BG <50 OR BG <70 & pt unresponsive Glucagon 1 mg 05/03/25 18:38 Glucagon Inj 1 Mg Vial IM Q15MIN PRN BG <70, and no IV access Heparin Sodium (Porcine) 5,000 unit 05/03/25 14:00 05/04/25 05:09 Heparin Sod Inj 5000 Unit/Ml Vial SC 05/17/25 13:59 5,000 unit Q8HR ALISA Administration Heparin Sodium (Porcine) 2,600 unit 05/04/25 11:09 05/04/25 11:17 Heparin Sod Inj 1000 Unit/Ml Vial 10 Ml INDWELLCAT 05/18/25 11:08 2,600 unit PRN PRN Administration DIALYSIS Levofloxacin/Dextrose 750 mg in 150 mls @ 100 mls/hr 05/02/25 10:45 05/02/25 12:17 Levaquin Ivpb IV 05/09/25 10:44 100 mls/hr Q48H ALISA Administration Protocol Albumin Human 25 gm in 100 mls @ 100 mls/min 05/04/25 10:07 05/04/25 10:06 Albuminar-25 Ivpb IV 100 mls/min PRN PRN Administration DIALYSIS Insulin Human Lispro 0 unit 05/03/25 21:00 05/04/25 08:12 Insulin Lispro (Admelog) 1 Unit/0.01 Ml Unit SC 06/02/25 20:59 1 unit ACHS ALISA Administration Protocol Levothyroxine Sodium 88 mcg 05/04/25 06:00 05/04/25 05:09 Levothyroxine Sodium 88 Mcg Tablet PO 06/03/25 05:59 88 mcg ACBR ALISA Administration Midodrine 10 mg 05/04/25 21:00 Midodrine 5 Mg Tablet PO 06/03/25 20:59 BID ALISA Ondansetron HCl 4 mg 05/01/25 16:03 05/02/25 12:22 Ondansetron Inj 2 Mg/Ml Inj 2 Ml IVP 05/31/25 16:02 4 mg Q6H PRN Administration NAUSEA OR VOMITING Protocol Sevelamer Carbonate 800 mg 05/04/25 08:00 05/04/25 08:11 Sevelamer Carbonate 800 Mg Tablet PO 06/03/25 07:59 800 mg TIDWM ALISA Administration Plan 70 yom with a h/o CHF CAD s/p stenting 03/02, DM, and COPD who presents with a few weeks of progressive dyspnea. Found to have a bilateral pleural effusion which is now s/p thoracentesis, admitted for CHF exacerbation vs pneumonia. #Acute on Chronic CHF exacerbation EF 15-20% #Ischemic Cardiomyopathy #Cardiorenal Syndrome Type I #GEOR[place]IE on CKD #Ischemic Hepatitis- improving #Lactic acidosis-improving #Pleural Effusion #NSTEMI Progressive shortness of breath, LE edema, orthopnea. Patient near tripoding but not tachypneic. BNP markedly elevated with elevated troponins. Extremities cool and wet. S/p thoracentesis, became oliguric despite aggressive diuresis, hypotensive, with marked elevation in transaminases in the 5000 and 2000 range. Now recovering after dialysis. CT chest with evidence of bilateral pneumonia and extensive superimposed pulmonary fibrosis. Also extensive loculated left pleural effusion. Patient also with mild right pleural fluid. Is now s/p thoracentesis. -Holding farxiga, entresto, and IV diuretics at this time. -Continue midrodrine for hypotension. -Appreciate cardiology and nephrology recommendations. - Admit tele - Strict I&O -Daily Weights - Fluid restrict 1500 mL - caridac, low sodium diet, less than 2 gm. #CAP #Pulmonary fibrosis. CT chest with evidence of bilateral pneumonia and extensive superimposed pulmonary fibrosis. Also extensive loculated left pleural effusion. Patient also with mild right pleural fluid. Is now s/p thoracentesis which showed transudative effusion likely secondary to HF. Pulmonary fibrosis may be secondary to care home amiodarone use. Would consider discontinuing this all together. -On levofloxacin (05/02- -Hold amiodarone. -Continue duonebs. #CAD -Recent stent on 03/02. On DAPT -Continue aspirin and plavix. #NSTEMI Trop 0.056, most likley secondary to CHF exacerbation. -treatment of CHF as above. #Non-insulin dependent Type II DM -Continue Farxiga -Consider sliding scale tomorrow. Health Maintenance: DVT prophylaxis: SCD Diet: Cardiac, low salt < 2gm [place]: No Lines: PIV CODE STATUS: Full code Disposition: Pending treatment of CAP and CHF exacerbation. Patient's plan and care discussed with my attending, Dr. Becker and my senior Dr. Dick Alvarado DO PGY-1 ([facility] Resident) Attending Provider Attestation/Addendum Ankita Hoff DO, attest that I was physically present for the west portions of the service and evaluated the patient with the resident and I reviewed and discussed the case with the resident and agree with the resident's findings and plans of care as documented above Patient seen and evaluated this AM. Patient is a 70-year-old male with past medical history of CAD status post stents on aspirin Plavix, ischemic cardiomyopathy with an ejection fraction of 15 to 20%, COPD, A-fib, type 2 diabetes, hypertension who was admitted for acute CHF exacerbation with bilateral pneumonia. Over course of hospital stay, Patient was diuresed with IV diuretics and had underwent thoracoscentesis during which 1.3L of fluid was removed. However, patient was oliguric despite fluid overload and diuretics. He developed worsening of GEOR[place]IE, ischemic hepatitis and hypotension. Patient was subsequently transferred to ICU due to concern for worsening of hypotension with initiation of dialysis and possibly CRRT with vasopressors. Dialysis line was placed on 05/03 and patient has been able to tolerate dialysis with midodrine and albumin. Patient has been downgraded from ICU today and to continue HD on the floors. Patient has no peripheral edema at this time and reports improvement of his respiratory status. He denies any chest pain, shortness of breath, fevers or chills. Patient appears very weak and deconditioned. Will order physical therapy. Continue with HD and midodrine.
[2025-05-04] MEDS: LEVOFLOXACIN/D5W 750MG IVPB 750 MG/150 ML BAG 100 MG IV (12:59)
--- NOTE | 2025-05-04 15:01 | PC.SS ---
Update: Plan is for the patient to downgrade to Tele today.
--- NOTE | 2025-05-04 16:09 | PD.IMPROG ---
Documentation for date of: 05/04/25 Subjective Subjective Interval history: LFTs improving total bilirubin 0.8 AST 699 ALT 1414 Exam Vital Signs Temp Pulse Resp BP Pulse Ox O2 Del Method O2 Flow Rate 97.6 F 68 17 91/70 97 Nasal Cannula 2 05/04/25 16:09 05/04/25 16:09 05/04/25 16:09 05/04/25 16:09 05/04/25 16:09 05/04/25 16:09 05/04/25 16:09 FiO2 3 05/03/25 12:15 Objective Labs 05/04/25 04:59 05/04/25 04:59 Labs: Laboratory Results - last 24 hr 05/04/25 04:59 WBC 16.1 H RBC 3.98 L Hgb 12.5 L Hct 38.8 L MCV 98 MCH 31.4 MCHC 32.2 RDW Std Deviation 54.3 H Plt Count 168 D Neut % (Auto) 96 H Lymph % (Auto) 1 L [place] % (Auto) 3 Eos % (Auto) 0 Baso % (Auto) 0 Neut # (Auto) 15.4 H Lymph # (Auto) 0.1 L [place] # (Auto) 0.5 Eos # (Auto) 0.0 Baso # (Auto) 0.0 Immature Gran # (Auto) 0.08 H Absolute Nucleated RBC 0.00 Immature Gran % 1 H Nucleated RBC % 0 PT 19.7 H INR 1.9 H APTT 31.3 Sodium 140 Potassium 4.2 D Chloride 97 L Carbon Dioxide 29.7 Anion Gap 13 BUN 64 H Creatinine 3.6 H Estim Creat Clear Calc 15.9 L eGFR 18 L BUN/Creatinine Ratio 18 Glucose 183 H Calculated Osmolality 302 H Calcium 7.4 L Corrected Calcium 8.3 L Phosphorus 7.0 H Magnesium 2.4 Total Bilirubin 0.8 AST 699 H* ALT 1414 H* Alkaline Phosphatase 98 Total Protein 5.5 L Albumin 2.9 L D Globulin 2.6 Albumin/Globulin Ratio 1.1 L Impressions Impression: Acute hypoxic hepatitis Improving LFTs Assessment & Plan Time Spent With Patient Time: Total time spent is greater than 50% in coordination of care (as documented) at patient's floor/unit and/or counseling patient:
--- NOTE | 2025-05-04 19:12 | PC.NURSE ---
1750- patient complaining of urgency to urinate but unable, bladder scan done with 600ml in bladder, called dr. rodrigez and made aware, new order to insert mandujano catheter, inserted mandujano catheter with 600ml immediate return.
[2025-05-05] VITALS (27 sets, daily range): BP systolic 93–127; BP diastolic 55–68; PULSE 61–86; RESP 12–25; TEMP 36.1–36.5; O2SAT 96–100
[2025-05-05] MEDS: ACETAMINOPHEN 325 MG TABLET 650 MG PO (01:48)
[2025-05-05] MEDS: ALBUTEROL/IPRATROPIUM (Duoneb) RT SOL 3 ML NEBU INH ×4 (02:37→23:35)
[2025-05-05] MEDS: LEVOTHYROXINE SODIUM 88 MCG TABLET PO (05:18)
[2025-05-05] MEDS: HEPARIN SOD INJ 5000 UNIT/ML VIAL SC ×3 (05:18→21:15)
[2025-05-05 06:13] LABS: Basophils # (Auto) 0.0 Thou/mm3 (0.0-0.2); Basophils % (Auto) 0 % (0-2.5); Eosinophils # (Auto) 0.0 Thou/mm3 (0.0-0.5); Eosinophils % (Auto) 0 % (0-10); Hematocrit 39.0 % (41.0-53.0); Hemoglobin 12.2 g/dL (13.5-16.0); Immature Granulocytes Auto 0.06 Thou/mm3 (0.00-0.00); Lymphocytes # (Auto) 0.1 Thou/mm3 (1.0-4.8); Lymphocytes % (Auto) 1 % (10-50); Mean Corpuscular HGB Conc 31.3 g/dl (31.0-37.0); Mean Corpuscular Hemoglobin 30.4 pg (25.0-35.0); Mean Corpuscular Volume 97 fL (80-100); Monocytes # (Auto) 0.7 Thou/mm3 (0.0-0.8); Monocytes % (Auto) 5 % (0-12); Neutrophils # (Auto) 12.3 Thou/mm3 (1.8-7.7); Neutrophils % (Auto) 93 % (37-80); Nucleated Red Blood Cell # 0.00 Thou/mm3 (0.00-0.00); Nucleated Red Blood Cell % 0 /100 WBC (0); Platelet Count 148 Thou/mm3 (140-440); RDW Standard Deviation 55.1 fL (35.1-43.9); Red Blood Count 4.01 Miln/mm3 (4.50-5.90); White Blood Count 13.2 Thou/mm3 (3.8-10.6)
[2025-05-05 06:47] LABS: Alanine Aminotransferase 1035 U/L (10-49); Albumin, Serum 3.4 gm/dL (3.4-4.8); Albumin/Globulin Ratio 1.3 (1.2-2.2); Alkaline Phosphatase 95 U/L (46-116); Anion Gap 8 (7-16); Aspartate Amino Transferase 361 U/L (0-34); BUN/Creatinine Ratio 21 Ratio (12-20); Bilirubin,Total 0.8 mg/dL (0.3-1.2); Blood Urea Nitrogen 47 mg/dL (9-23); Calcium 8.1 mg/dL (8.3-10.6); Calcium (Corrected) 8.6 mg/dL (8.5-10.1); Carbon Dioxide 34.2 mMol/L (20.0-31.0); Chloride 97 mMol/L (98-107); Creatinine (Component) 2.2 mg/dL (0.6-1.3); Estimated Creatinine Clearance 26.0 mL/min (>60); Globulin 2.7 gm/dL (2.3-3.5); Glucose 183 mg/dL (74-106); Magnesium 2.2 mg/dL (1.6-2.6); Osmolality,Calculated 294 (275-295); Phosphorous 3.8 mg/dL (2.4-5.1); Potassium 3.9 mMol/L (3.4-5.1); Sodium 139 mMol/L (136-145); Total Protein 6.1 gm/dL (5.7-8.2); eGFR 32 See Note
[2025-05-05] MEDS: MIDODRINE 5 MG TABLET 10 MG PO ×2 (07:39→20:12)
[2025-05-05] MEDS: INSULIN LISPRO (AdmeLOG) 1 UNIT/0.01 ML UNIT SC ×4 (07:45→20:11)
[2025-05-05] MEDS: SEVELAMER CARBONATE 800 MG TABLET PO ×3 (07:45→17:34)
[2025-05-05] MEDS: ALBUMIN HUMAN 25% IVPB 25 GM/100 ML BTL IV (08:32)
--- NOTE | 2025-05-05 08:39 | PC.NURSE ---
BP RECHECKED AND CONT'S. TO TREND DOWN, PT DENIES ALL S/S OF HYPOTENSION AND REMAINS RECLINED. UF GOAL LOWERED TO 1L TOLERATED WILL CONT. TO MONITOR
--- NOTE | 2025-05-05 08:41 | PC.NURSE ---
BP LOW AT START OF TX, PT DENIES ALL COMPLAINTS. ADMINISTERED ALBUMIN 25/100M,L AT START OF TX PER MD ORDERS. WILL CONT. TO MONITOR
--- NOTE | 2025-05-05 09:31 | PC.NURSE ---
PT BP TRENDING UP, PT REMAINS W/O COMPLAINT. UF GOAL INCREASED TO 1.1L TOLERATED. WILL CONT. TO MONITOR
--- NOTE | 2025-05-05 09:42 | PC.PT ---
attempted PT eval this AM. Pt was not in the room. Per family member patient went to dialysis. PT will re-attempt eval later as time permits
--- NOTE | 2025-05-05 09:45 | PC.NURSE ---
BP TRENDING BACK DOWN, PT REMAINS ASYMPTOMATIC, UF GOAL LOWERED TO 1.5L WILL CONT. TO MONITOR
--- NOTE | 2025-05-05 10:11 | ESPR_ITS ---
<Statement entered by Tia Kinney MD - 05/05/25 17:29> Patient seen and examined at bedside. Patient had a Mandujano placed due to inability to void, however was able to have 600 cc output. Patient's creatinine function is doing a lot better, and able to tolerate dialysis today. Patient is on scheduled midodrine 10 mg twice daily along with albumin on days of his dialysis. Patient will also require a tunneled dialysis catheter, and will reach out to cardiology for further recommendations on holding his DAPT. Will discontinue his levofloxacin, as patient has completed his antibiotic course for CAP. Patient seems to be hesitant but does agree eventually to trying dialysis for a few months outpatient. Patient also received PPD, and will get read in 48 hours prior to establishing dialysis outpatient chair time. Hepatitis panel is currently negative. Patient's liver transaminase levels are improving. I discussed with and supervised the environmental engineering intern physician who took care of this patient. I personally saw and examined the patient and discussed the assessment and plan with the entire medicine team, including my attending Dr. Becker, I agree with most of the assessment and plan as documented below Tia Kinney M.D. PGY-3 Disclaimer: Despite multiple revisions, due to the dictation software being used, the document bellow may not be free of grammatical errors including phonetic/typographic errors. However, this does not deter from our commitment to providing health care in the patient's best interest in mind. Documentation for date of: 05/05/25 Subjective Subjective Interval history: Mr. Dugan is a 70-year-old male with past medical history significant for CAD status post stent with recent 1 on 03/02 currently on aspirin and Plavix, CHF with ICD/pacemaker, COPD who presented with worsening shortness of breath, admitted for CHF exacerbation. He was found to have a CT chest with evidence of bilateral pneumonia and extensive superimposed pulmonary fibrosis. Also extensive loculated left pleural effusion. Patient also with mild right pleural fluid. He recieved a left thoracentesis and subsequently started on furosemide 40mg TID. The following day, he was noted to be oliguric, and had a marked elevation in his transaminases in the 4000 to 5000 range, and had soft BP with systolics in the 80s to 90s. Cardiology consulted for acute decompensated HF. GI consulted for the transaminases, felt the liver injury was most likely shock liver secondary to over diuresis vs congestive hepatopathy. Nephrology felt that this hypotension represented more of a type I cardiorenal syndrome. Recommended dialysis. Patient was upgraded to the ICU on 05/03 due to concern that the dialysis would make his tenous BP worse, and because he a high risk of needing pressor support or requiring CRRT if HD wasn't tolerated. Echo was done and showed EF of 20%, slightly better than last Echo of 15%. Cardiology recommending holding IV diuretics and restarting GDMT as soon as the patient could tolerate. 05/04 He tolerated the dialysis well, had 1 L of fluid pulled yesterday and 1.5 L pulled today. He was downgraded from the ICU to telemetry floor. He is feeling a bit better today, less short of breath. Blood pressure stable with systolics in the 100s to 110s. 05/05: Patient examined at bedside. Mandujano was placed last night due to patient's inability to void. Voided 600cc after placement. Patient stating his breathing feels a lot better. Patient recieved dialysis today, required midodrine and albumin for his BP to tolerate the dialysis. 1L fluid was removed today. Per nephrology's recommendations, the patient will likley need dialysis for the next few weeks necissitating a tunneled dialysis catheter. Patient is agreeable to this. Unfortunately, his DAPT will likely need to be held for this procedure. Will need cardiology recommendations regarding his DAPT considering he recently had his stent on 03/02. Discontinuing Levofloxacin, completed his antibiotic course for CAP. Exam Vital Signs Temp Pulse Resp BP Pulse Ox O2 Del Method O2 Flow Rate 97.5 F 64 18 105/60 98 Nasal Cannula 1 05/05/25 08:01 05/05/25 10:00 05/05/25 08:01 05/05/25 10:00 05/05/25 08:01 05/05/25 00:00 05/05/25 08:01 FiO2 3 05/03/25 12:15 Narrative Exam General: frail, elderly patient, no acute distress, converstational HEENT: Mucosa moist. Pupils are equal and reactive to light bilaterally, temporary dialysis catheter in place on the right. Cardiovascular: Soft heart tones, regular rate and rhythm, systolic murmur appreciated. Respiratory: Coarse sounds along the left lung. Right lung clear to auscultation. Crackles not appreciated. Abdomen: Soft, nontender, not distended, Skin: Dry, no rashes or bruising Musculoskeletal: No gross injuries. Able to move all 4 extremities. Non edematous lower extremities. Neuro: Alert and oriented x3. No focal neuro deficits. Psych: Normal affect and mood Objective Labs 05/06/25 04:40 05/06/25 04:40 Labs: Laboratory Results - last 24 hr 05/05/25 05:58 WBC 13.2 H RBC 4.01 L Hgb 12.2 L Hct 39.0 L MCV 97 MCH 30.4 MCHC 31.3 RDW Std Deviation 55.1 H Plt Count 148 Neut % (Auto) 93 H Lymph % (Auto) 1 L Nash % (Auto) 5 Eos % (Auto) 0 Baso % (Auto) 0 Neut # (Auto) 12.3 H Lymph # (Auto) 0.1 L Nash # (Auto) 0.7 Eos # (Auto) 0.0 Baso # (Auto) 0.0 Immature Gran # (Auto) 0.06 H Absolute Nucleated RBC 0.00 Immature Gran % 1 H Nucleated RBC % 0 Sodium 139 Potassium 3.9 Chloride 97 L Carbon Dioxide 34.2 H Anion Gap 8 BUN 47 H Creatinine 2.2 H D Estim Creat Clear Calc 26.0 L eGFR 32 L BUN/Creatinine Ratio 21 H Glucose 183 H Calculated Osmolality 294 Calcium 8.1 L Corrected Calcium 8.6 Phosphorus 3.8 Magnesium 2.2 Total Bilirubin 0.8 AST 361 H ALT 1035 H* Alkaline Phosphatase 95 Total Protein 6.1 Albumin 3.4 D Globulin 2.7 Albumin/Globulin Ratio 1.3 Quality Measures Quality Measures VTE prophylaxis and none Advance care planning discussed with:: patient Assessment & Plan Assessment Current Active Medications: Generic Name Dose Route Start Last Admin Trade Name Freq PRN Reason Stop Dose Admin Acetaminophen 650 mg 05/01/25 16:03 05/05/25 01:48 Acetaminophen 325 Mg Tablet PO 05/31/25 16:02 650 mg Q6H PRN Administration Fever >101.5 Albuterol/Ipratropium 3 ml 05/02/25 11:00 05/05/25 06:29 Albuterol/Ipratropium (Duoneb) Rt Emily 3 Ml Nebu INH 06/01/25 10:59 3 ml Q4HRRT ALISA Administration Aspirin 81 mg 05/01/25 16:30 05/04/25 08:12 Aspirin Ec 81 Mg Tabec PO 05/31/25 16:29 81 mg QDAY ALISA Administration Calcium Acetate 667 mg 05/04/25 09:00 05/04/25 08:11 Calcium Acetate 667 Mg Tablet PO 06/03/25 08:59 667 mg DAILY ALISA Administration Clopidogrel Bisulfate 75 mg 05/01/25 16:30 05/04/25 08:12 Clopidogrel Bisulfate 75 Mg Tablet PO 05/31/25 16:29 75 mg QDAY ALISA Administration Dextrose 50 ml 05/03/25 18:38 Dextrose 50%-Water Inj 50 Ml Syringe IV 06/02/25 18:37 Q15MIN PRN BG <50 OR BG <70 & pt unresponsive Glucagon 1 mg 05/03/25 18:38 Glucagon Inj 1 Mg Vial IM Q15MIN PRN BG <70, and no IV access Heparin Sodium (Porcine) 5,000 unit 05/03/25 14:00 05/05/25 05:18 Heparin Sod Inj 5000 Unit/Ml Vial SC 05/17/25 13:59 5,000 unit Q8HR ALISA Administration Heparin Sodium (Porcine) 2,600 unit 05/04/25 11:09 05/04/25 11:17 Heparin Sod Inj 1000 Unit/Ml Vial 10 Ml INDWELLCAT 05/18/25 11:08 2,600 unit PRN PRN Administration DIALYSIS Levofloxacin/Dextrose 750 mg in 150 mls @ 100 mls/hr 05/02/25 10:45 05/04/25 12:59 Levaquin Ivpb IV 05/09/25 10:44 100 mls/hr Q48H ALISA Administration Protocol Albumin Human 25 gm in 100 mls @ 100 mls/min 05/04/25 10:07 05/05/25 08:32 Albuminar-25 Ivpb IV 100 mls/min PRN PRN Administration DIALYSIS Insulin Human Lispro 0 unit 05/03/25 21:00 05/05/25 07:45 Insulin Lispro (Admelog) 1 Unit/0.01 Ml Unit SC 06/02/25 20:59 1 unit ACHS ALISA Administration Protocol Levothyroxine Sodium 88 mcg 05/04/25 06:00 05/05/25 05:18 Levothyroxine Sodium 88 Mcg Tablet PO 06/03/25 05:59 88 mcg ACBR ALISA Administration Midodrine 10 mg 05/04/25 21:00 05/05/25 07:39 Midodrine 5 Mg Tablet PO 06/03/25 20:59 10 mg BID ALISA Administration Ondansetron HCl 4 mg 05/01/25 16:03 05/02/25 12:22 Ondansetron Inj 2 Mg/Ml Inj 2 Ml IVP 05/31/25 16:02 4 mg Q6H PRN Administration NAUSEA OR VOMITING Protocol Sevelamer Carbonate 800 mg 05/04/25 08:00 05/05/25 07:45 Sevelamer Carbonate 800 Mg Tablet PO 06/03/25 07:59 800 mg TIDWM ALISA Administration Plan 70 yom with a h/o CHF CAD s/p stenting 03/02, DM, and COPD who presents with a few weeks of progressive dyspnea. Found to have a bilateral pleural effusion which is now s/p thoracentesis, admitted for CHF exacerbation vs pneumonia. #Acute on Chronic CHF exacerbation EF 15-20% #Ischemic Cardiomyopathy #Cardiorenal Syndrome Type I #GEORGIE on CKD #Ischemic Hepatitis- improving #Lactic acidosis-improving #Pleural Effusion #NSTEMI Progressive shortness of breath, LE edema, orthopnea. Patient near tripoding but not tachypneic. BNP markedly elevated with elevated troponins. Extremities cool and wet. S/p thoracentesis, became oliguric despite aggressive diuresis, hypotensive, with marked elevation in transaminases in the 5000 and 2000 range. Now recovering after dialysis. CT chest with evidence of bilateral pneumonia and extensive superimposed pulmonary fibrosis. Also extensive loculated left pleural effusion. Patient also with mild right pleural fluid. Is now s/p thoracentesis, pleural fluid analysis consistent with transudative effusion. . Repeat CXR on 05/05 demonstrated return of pleural effusion. Currently receiving dialysis through temporary catheter. Will likely need a tunneled catheter for longer term dialysis. Per nephrology recommendations, he will likely need dialysis for at least a few weeks, unclear if his renal function will fully recover. -Coordination with cardiology, nephrology, regarding holding DAPT for tunneled dialysis catheter. Continue Aspirin and plavix until cardiology recommendations. Tenative placement for tunneled cath would be wednesday. -Holding farxiga, entresto, and IV diuretics at this time. -Continue midrodrine for hypotension. - Admit tele - Strict I&O 150:1200 -Daily Weights - Fluid restrict 1500 mL - caridac, low sodium diet, less than 2 gm. #CAP #Pulmonary fibrosis. CT chest with evidence of bilateral pneumonia and extensive superimposed pulmonary fibrosis. Also extensive loculated left pleural effusion. Patient also with mild right pleural fluid. Is now s/p thoracentesis which showed transudative effusion likely secondary to HF. Pulmonary fibrosis may be secondary to [facility] amiodarone use. Would consider discontinuing this all together. -Discontinuing Levofloxacin, completed antibiotic course. -Hold amiodarone. -Continue duonebs. #CAD -Recent stent on 03/02. On DAPT -Continue aspirin and plavix. #NSTEMI Trop 0.056, most likley secondary to CHF exacerbation. -treatment of CHF as above. #Non-insulin dependent Type II DM -Continue Farxiga -Consider sliding scale tomorrow. Health Maintenance: DVT prophylaxis: heparin Diet: Cardiac, low salt < 2gm Mandujano: Yes, 05/05 Lines: PIV CODE STATUS: Full code Disposition: Pending tunneled dialysis cath placement. Patient's plan and care discussed with my attending, Dr. Becker and my senior Dr Nirmal Alvarado DO PGY-1 ([facility] Resident) Attending Provider Attestation/Addendum I, Ankita Becker DO, attest that I was physically present for the west portions of the service and evaluated the patient with the resident and I reviewed and discussed the case with the resident and agree with the resident's findings and plans of care as documented above Patient seen and evaluated this AM. Patient is hesitant to continue with HD outpatient, but is agreeable. No peripheral edema noted. Renal function improved, plan for removal of mandujano. Anticipate DC on Wednesday as patient will need permacath. Case discussed with nephrology. However, patient will need to hold DAPT for placement of tunneled cath. Will discuss with cardio
--- NOTE | 2025-05-05 10:11 | ESPR_ITS ---
<Statement entered by Sydney Arizmendi MD - 05/07/25 12:25> I personally evaluated the along with resident physician PGY [address] Corey Olmstead patient appears to be clinically improving still undergoing ultrafiltration dialysis removal of the fluid stable patient is on aspirin Plavix because of recent stent placement adult protective caseworker recommended PermCath placement we can stop the antiplatelet drug for a couple of days after 3 to 4 days without any risk in order to place PermCath evaluated patient and agree with treatment plan recommendation as documented by PGY [address] Dr[address] Olmstead Documentation for date of: 05/05/25 Subjective Subjective Interval history: Patient seen today at the bedside in the dialysis unit found awake, alert, oriented x 3. No active issues at this time. Vitals and labs reviewed. Currently on hemodialysis plan was to remove 1.5 L with ultrafiltration however due to patient's blood pressure evem while on Midodrine unable to tolerate goal was switched to 1 L. Patient has started to make urine again with urine output around 500 mL. Liver and kidney function seems to be improving. Overall patient seems to be trending in the right direction. Can continue holding diuretics at this time and continue with dialysis for fluid removal. Exam Vital Signs Temp Pulse Resp BP Pulse Ox O2 Del Method O2 Flow Rate 97.5 F 64 18 105/60 98 Nasal Cannula 1 05/05/25 08:01 05/05/25 10:00 05/05/25 08:01 05/05/25 10:00 05/05/25 08:01 05/05/25 00:00 05/05/25 08:01 FiO2 3 05/03/25 12:15 Narrative Exam GENERAL: NAD, AAOx3 HEENT: dry mucosa. Eyes open, symmetrical, & clear, Right IJ Vasc cath in place CARDIO: Heart RRR, no obvious murmurs PULM: No noted coughing/dyspnea, B/L mild crackles GI: Abdomen soft, nondistended, no pain on palpation. BSx4 SKIN/MSK/EXT: trace bilateral lower extremity swelling, no pain on palpation. Pedal pulses present B/L NEURO: AAOx3, no focal neuro deficits, able to move all 4 extremities Objective Labs 05/06/25 04:40 05/06/25 04:40 Labs: Laboratory Results - last 24 hr 05/05/25 05:58 WBC 13.2 H RBC 4.01 L Hgb 12.2 L Hct 39.0 L MCV 97 MCH 30.4 MCHC 31.3 RDW Std Deviation 55.1 H Plt Count 148 Neut % (Auto) 93 H Lymph % (Auto) 1 L Sully % (Auto) 5 Eos % (Auto) 0 Baso % (Auto) 0 Neut # (Auto) 12.3 H Lymph # (Auto) 0.1 L Sully # (Auto) 0.7 Eos # (Auto) 0.0 Baso # (Auto) 0.0 Immature Gran # (Auto) 0.06 H Absolute Nucleated RBC 0.00 Immature Gran % 1 H Nucleated RBC % 0 Sodium 139 Potassium 3.9 Chloride 97 L Carbon Dioxide 34.2 H Anion Gap 8 BUN 47 H Creatinine 2.2 H D Estim Creat Clear Calc 26.0 L eGFR 32 L BUN/Creatinine Ratio 21 H Glucose 183 H Calculated Osmolality 294 Calcium 8.1 L Corrected Calcium 8.6 Phosphorus 3.8 Magnesium 2.2 Total Bilirubin 0.8 AST 361 H ALT 1035 H* Alkaline Phosphatase 95 Total Protein 6.1 Albumin 3.4 D Globulin 2.7 Albumin/Globulin Ratio 1.3 Quality Measures Quality Measures VTE prophylaxis and none Advance care planning discussed with:: patient Assessment & Plan Assessment Current Active Medications: Generic Name Dose Route Start Last Admin Trade Name Freq PRN Reason Stop Dose Admin Acetaminophen 650 mg 05/01/25 16:03 05/05/25 01:48 Acetaminophen 325 Mg Tablet PO 05/31/25 16:02 650 mg Q6H PRN Administration Fever >101.5 Albuterol/Ipratropium 3 ml 05/02/25 11:00 05/05/25 06:29 Albuterol/Ipratropium (Duoneb) Rt Emily 3 Ml Nebu INH 06/01/25 10:59 3 ml Q4HRRT ALISA Administration Aspirin 81 mg 05/01/25 16:30 05/04/25 08:12 Aspirin Ec 81 Mg Tabec PO 05/31/25 16:29 81 mg QDAY ALISA Administration Calcium Acetate 667 mg 05/04/25 09:00 05/04/25 08:11 Calcium Acetate 667 Mg Tablet PO 06/03/25 08:59 667 mg DAILY ALISA Administration Clopidogrel Bisulfate 75 mg 05/01/25 16:30 05/04/25 08:12 Clopidogrel Bisulfate 75 Mg Tablet PO 05/31/25 16:29 75 mg QDAY ALISA Administration Dextrose 50 ml 05/03/25 18:38 Dextrose 50%-Water Inj 50 Ml Syringe IV 06/02/25 18:37 Q15MIN PRN BG <50 OR BG <70 & pt unresponsive Glucagon 1 mg 05/03/25 18:38 Glucagon Inj 1 Mg Vial IM Q15MIN PRN BG <70, and no IV access Heparin Sodium (Porcine) 5,000 unit 05/03/25 14:00 05/05/25 05:18 Heparin Sod Inj 5000 Unit/Ml Vial SC 05/17/25 13:59 5,000 unit Q8HR ALISA Administration Heparin Sodium (Porcine) 2,600 unit 05/04/25 11:09 05/04/25 11:17 Heparin Sod Inj 1000 Unit/Ml Vial 10 Ml INDWELLCAT 05/18/25 11:08 2,600 unit PRN PRN Administration DIALYSIS Levofloxacin/Dextrose 750 mg in 150 mls @ 100 mls/hr 05/02/25 10:45 05/04/25 12:59 Levaquin Ivpb IV 05/09/25 10:44 100 mls/hr Q48H ALISA Administration Protocol Albumin Human 25 gm in 100 mls @ 100 mls/min 05/04/25 10:07 05/05/25 08:32 Albuminar-25 Ivpb IV 100 mls/min PRN PRN Administration DIALYSIS Insulin Human Lispro 0 unit 05/03/25 21:00 05/05/25 07:45 Insulin Lispro (Admelog) 1 Unit/0.01 Ml Unit SC 06/02/25 20:59 1 unit ACHS ALISA Administration Protocol Levothyroxine Sodium 88 mcg 05/04/25 06:00 05/05/25 05:18 Levothyroxine Sodium 88 Mcg Tablet PO 06/03/25 05:59 88 mcg ACBR ALISA Administration Midodrine 10 mg 05/04/25 21:00 05/05/25 07:39 Midodrine 5 Mg Tablet PO 06/03/25 20:59 10 mg BID ALISA Administration Ondansetron HCl 4 mg 05/01/25 16:03 05/02/25 12:22 Ondansetron Inj 2 Mg/Ml Inj 2 Ml IVP 05/31/25 16:02 4 mg Q6H PRN Administration NAUSEA OR VOMITING Protocol Sevelamer Carbonate 800 mg 05/04/25 08:00 05/05/25 07:45 Sevelamer Carbonate 800 Mg Tablet PO 06/03/25 07:59 800 mg TIDWM ALISA Administration Plan 70 y/o M with PMHx of CAD s/p stents in february 2025, Heart failure with reduced ejection fraction (15-20%) in 2023, COPD on 2L of home O2 who presented to the ED due to progressive shortness of breath. Admitted for acute on chronic decompensated heart failure. #Acute on chronic decompensated heart failure exacerbation #Heart failure with reduced ejection fraction [15-20%] #Dilated Cardiomyopathy #NSTEMI, likely type II #CAD s/p Stent Presented with clinical signs such as shortness of breath, dyspnea on exertion, bilateral leg swelling mild troponin leak likely secondary to CHF exacerbation, patient with no chest pain, doubt ACS at this present point in time. Liver enzymes increased dramatically likely in setting of hypoperfusion, shock liver, sepsis NYHA class: IV, stage D, has poor prognosis, end-stage heart failure CXR: prominent vascular congestion BNP: >3250 Echo: Dilated cardiomyopathy severe global hypokinesis LVEF 20% The RV is normal in size and systolic function. The estimated RVSP, 66 mmHg. RAP 8. Aortic valve sclerosis with mild aortic regurgitation. Mild mitral regurgitation. Moderate tricuspid regurgitation ? Hold IV diuresis in the setting of sepsis-induced hypoperfusion, however patient still with bilateral lower extremity swelling, +JVD and mild crackles ? Continue Hemodialysis ? Start goal-directed medical therapy when stable to tolerate ? Continue Aspirin and Plavix ? Keep K>4, Mg>2 ? Provide oxygen as required ? Strict I's and O's ? Fluid restriction #Acute liver injury #Ischemic hepatitis #GEORGIE #CKD Stage III b #Pleural Effusion s/p thora #CAP- on ivabx #Non-insulin dependent Type II DM -as per primary team Case discussed with my attending Dr. Ugo Olmstead MD PGY-2 Disclaimer: Despite multiple revisions, due to the dictation software being used, the document bellow may not be free of grammatical errors including phonetic/typographic errors. However, this does not deter from our commitment to providing health care in the patient's best interest in mind.
--- NOTE | 2025-05-05 10:46 | ESPR_ITS ---
Documentation for date of: 05/05/25 Subjective Subjective Interval history: 70 y/o M with PMH significant for Coronary artery disease s/p stent placement (currently on aspirin and clopidogrel), CHF, and COPD, presented to hospital on 05/01/2025, with several weeks of progressively worsening shortness of breath, increased work of breathing, and lower extremity swelling. THe patient reports difficulty sleeping at night and requires 2-3 liters of supplemental oxygen nocturnally. Patient was admitted for CHF exacerbation vs pneumonia. Nephrology has been consulted for management of GEORGIE. 05/02/2025: Labs reviewed and patient examined at the bedside. Initially, patient was mildly hypertensive, stable HR, afebrile, O2 sat acceptable on room air, wirh Cr 1.7, troponin 0.056, and BNP >3000. CXR and CT both showed ongoing pneumonia with pleural effusion. During hospital stay, patient was given IV Lasix with minimal diuresis (only ~300ml output), 1.3 L of pleural effusion drained via thoracentesis, markedly decline in renal function (Cr from 1.7 to 2.8 and eGFR from 43 to 25), WBC john from 10.6 to 17.9 despite ceftriaxone. Rise in LFTs (AST from 83 to 5000 and ALT from 46 to 2333) showing massive hepatocellular injury. LDH showed 4056 , troponin increased from 0.056 to 0.117. This patient has marked transaminitis, which is not typical of CHF exacerbation alone, Rising WBC despite antibiotics that shows uncontrolled or atypical infection, Severe LDH elevation raises suspicion for tissue necrosis/hemolysis/ischemia, Acute renal injury is out of proportion to diuresis, and troponin bump may indicate supply-demand problem or true LA. Overall, this raises concern for possibility of ischemic Hepatitis (Shock liver) due to hypoperfusion and Sepsis due to resistant pneumonia or empyema. The patient is currently in borderline SIRS 3/4 criteria: T 96.9 (>100.4 or <96.8F), RR 20 (>20/min), HR 50 (>90/min), WBC 17.9 (>12 or <4K or Bands >10%). Hepatic and renal injury may be secondary to sepsis-induced hypoperfusion in addition to aggressive diuresis given to the patient. However, transient increase in Cr due to contrast-induced nephropathy from Chest CTA is also a possibility. Will continue to monitor. 05/03/2025: Labs reviewed and patient examined at the bedside. Patient showed decline in renal function. BUN:83, Cr:3.9, eGFR:16 with minimal urine output (200ml). Patient agreed to be transferred to ICU and undergo conventional dialysis for possible renal recovery. If patient can't tolerate, then will do CRRT. 05/04/2025: Labs reviewed and patient examined at the bedside. Patient's liver function steadily improving. Renal function got better after hemodiaysis yesterday. BUN: 64, Cr:3.6, eGFR:18, UoP 425ml. Patient will receive hemodialysis again today. 05/05/2025 patient currently seen on his third dialysis treatment. at bedside. Had several questions regarding outpatient dialysis will be arranged. Patient needs PermCath placement on Wednesday. However his coagulation seems to be high due to liver problems. Will discuss with Dr. Springer regarding holding off on aspirin and Plavix for 2 days. Left a message for Dr. Springer. Patient had a stent in February. Patient stated he is feeling much better and his shortness of breath is also better. Of note CT chest showed pulmonary fibrosis. Did have urinary retention yesterday and Ochoa catheter was placed. 600 cc of urine was drained. Will need bladder training. Spoke to primary team. Review of Systems Review of Systems Narrative Review of Systems: CONSTITUTIONAL: Patient denies any fever, chills. Complaining of fatigue HEENT: Denies any visual disturbances or hearing problems. CARDIOVASCULAR: Patient denies any chest pain, , swelling in the lower extremities. PULMONARY: Patient complaining of shortness of breath GASTROINTESTINAL: Patient denies any abdominal pain, constipation, nausea, vomiting, diarrhea. GENITOURINARY: Complaining of urinary retention. SKIN: Denies any rash. MUSCULOSKELETAL: Denies any muscular skeletal problems of joint pains. Complaining of gait imbalance NEUROLOGICAL: Denies any neurological problems of strokes, seizures or confusion. Denies any memory problems. PSYCHIATRIC: Denies any depression or anxiety. LYMPHATICS : No lymphadenopathy Exam Vital Signs Temp Pulse Resp BP Pulse Ox O2 Del Method O2 Flow Rate 36.5 C 69 21 H 107/65 99 Nasal Cannula 2 05/05/25 11:11 05/05/25 18:10 05/05/25 18:10 05/05/25 11:11 05/05/25 18:10 05/05/25 00:00 05/05/25 18:10 FiO2 3 05/03/25 12:15 Narrative Exam GENERAL APPEARANCE: Skinny gentleman currently seen in dialysis. NECK: Neck supple, no JVD or bruit CARDIOVASCULAR: Heart regular, no murmurs LUNGS/CHEST: Bilateral dry rales noted ABDOMEN: Soft, nontender, nondistended. No masses. Normal bowel sounds. EXTREMITIES: No edema, clubbing or cyanosis. SKIN: Skin exam normal without any rashes Right IJ Vas-Cath MUSCULOSKELETAL: In bed NEUROLOGICAL : No neurological deficits Objective Labs 05/05/25 05:58 05/05/25 05:58 Labs: Laboratory Results - last 24 hr 05/05/25 05:58 WBC 13.2 H RBC 4.01 L Hgb 12.2 L Hct 39.0 L MCV 97 MCH 30.4 MCHC 31.3 RDW Std Deviation 55.1 H Plt Count 148 Neut % (Auto) 93 H Lymph % (Auto) 1 L [place] % (Auto) 5 Eos % (Auto) 0 Baso % (Auto) 0 Neut # (Auto) 12.3 H Lymph # (Auto) 0.1 L [place] # (Auto) 0.7 Eos # (Auto) 0.0 Baso # (Auto) 0.0 Immature Gran # (Auto) 0.06 H Absolute Nucleated RBC 0.00 Immature Gran % 1 H Nucleated RBC % 0 Sodium 139 Potassium 3.9 Chloride 97 L Carbon Dioxide 34.2 H Anion Gap 8 BUN 47 H Creatinine 2.2 H D Estim Creat Clear Calc 26.0 L eGFR 32 L BUN/Creatinine Ratio 21 H Glucose 183 H Calculated Osmolality 294 Calcium 8.1 L Corrected Calcium 8.6 Phosphorus 3.8 Magnesium 2.2 Total Bilirubin 0.8 AST 361 H ALT 1035 H* Alkaline Phosphatase 95 Total Protein 6.1 Albumin 3.4 D Globulin 2.7 Albumin/Globulin Ratio 1.3 Assessment & Plan Additional Assessment & Plan Additional Plan: #GEORGIE secondary to ischemic ATN/cardiorenal syndrome type I. Patient currently seen on dialysis. Tolerating dialysis without any problems. sequential ultrafiltration for 2-1/2 hours, UF of 1 to 1.5 L, Epogen 6000, no heparin ordered. Plan of care discussed with the dialysis nurse. Please see dialysis flowsheet for further details. Will hold aspirin and Plavix tomorrow if okay with cardiology. If coags are elevated-might need 1 dose of vitamin K. Skeptical to use right now due to his recent stent. Plan of care discussed with his at bedside. Outpatient dialysis will be arranged. Hep panel negative. PPD placed. # Cardiomyopathy, congestive heart failure, coronary artery disease status post stents Under Dr. Springer. Currently on dialysis due to diuretic dependent/resistant state #Acute liver injury secondary to shock liver. 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
[2025-05-05] MEDS: HEPARIN SOD INJ 1000 UNIT/ML VIAL 10 ML 2600 UNIT INDWELLCAT (11:15)
--- NOTE | 2025-05-05 11:47 | PC.SS ---
Addendum entered by MARK Toure 05/05/25 15:57: SS update: [employer] informed patients family that dialysis referral was submitted to [facility], family requested that they have a later chair time if possible and they do not want the first shift. Original Note: SS UPDATE: [employer] was notified by SS that patient will need outpatient dialysis, [employer] submitted dialysis packet to [facility] via fax and [facility], TB test pending, per chart patient is currently being seen by DR. Win nephrology.
[2025-05-05] MEDS: ASPIRIN EC 81 MG TABEC PO (11:58)
[2025-05-05] MEDS: CLOPIDOGREL BISULFATE 75 MG TABLET PO (11:58)
[2025-05-05] MEDS: CALCIUM ACETATE 667 MG TABLET PO (11:59)
[2025-05-05] MEDS: TUBERCULIN PPD INJ 5 UNIT/0.1 ML DOSE ID (15:11)
--- NOTE | 2025-05-05 17:29 | PD.IMPROG ---
Documentation for date of: 05/05/25 Subjective Subjective Interval history: Patient is status post resection of the transverse colon currently intubated going for closure surgery tomorrow WBC count has dropped down to 13.2 hemoglobin hematocrit 12.2 and 39.0 pro time INR 1.9 and platelet count is 148,000 Exam Vital Signs Temp Pulse Resp BP Pulse Ox O2 Del Method O2 Flow Rate 97.7 F 67 18 107/65 98 Nasal Cannula 1 05/05/25 11:11 05/05/25 12:00 05/05/25 11:11 05/05/25 11:11 05/05/25 11:11 05/05/25 00:00 05/05/25 11:11 FiO2 3 05/03/25 12:15 Objective Labs 05/05/25 05:58 05/05/25 05:58 Labs: Laboratory Results - last 24 hr 05/05/25 05:58 WBC 13.2 H RBC 4.01 L Hgb 12.2 L Hct 39.0 L MCV 97 MCH 30.4 MCHC 31.3 RDW Std Deviation 55.1 H Plt Count 148 Neut % (Auto) 93 H Lymph % (Auto) [address] [place] % (Auto) 5 Eos % (Auto) 0 Baso % (Auto) 0 Neut # (Auto) 12.3 H Lymph # (Auto) 0.[address] 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
--- NOTE | 2025-05-05 17:31 | PD.IMPROG ---
Documentation for date of: 05/05/25 Subjective Subjective Interval history: Previous note was wrongly dictated by me for another patient Patient has improving LFTs we will continue to monitor We will talk to the IT to move that note from the chart Exam Vital Signs Temp Pulse Resp BP Pulse Ox O2 Del Method O2 Flow Rate 97.7 F 67 18 107/65 98 Nasal Cannula 1 05/05/25 11:11 05/05/25 12:00 05/05/25 11:11 05/05/25 11:11 05/05/25 11:11 05/05/25 00:00 05/05/25 11:11 FiO2 3 05/03/25 12:15 Objective Labs 05/05/25 05:58 05/05/25 05:58 Labs: Laboratory Results - last 24 hr 05/05/25 05:58 WBC 13.2 H RBC 4.01 L Hgb 12.2 L Hct 39.0 L MCV 97 MCH 30.4 MCHC 31.3 RDW Std Deviation 55.1 H Plt Count 148 Neut % (Auto) 93 H Lymph % (Auto) 1 L [place] % (Auto) 5 Eos % (Auto) 0 Baso % (Auto) 0 Neut # (Auto) 12.3 H Lymph # (Auto) 0.1 L [place] # (Auto) 0.7 Eos # (Auto) 0.0 Baso # (Auto) 0.0 Immature Gran # (Auto) 0.06 H Absolute Nucleated RBC 0.00 Immature Gran % 1 H Nucleated RBC % 0 Sodium 139 Potassium 3.9 Chloride 97 L Carbon Dioxide 34.2 H Anion Gap 8 BUN 47 H Creatinine 2.2 H D Estim Creat Clear Calc 26.0 L eGFR 32 L BUN/Creatinine Ratio 21 H Glucose 183 H Calculated Osmolality 294 Calcium 8.1 L Corrected Calcium 8.6 Phosphorus 3.8 Magnesium 2.2 Total Bilirubin 0.8 AST 361 H ALT 1035 H* Alkaline Phosphatase 95 Total Protein 6.1 Albumin 3.4 D Globulin 2.7 Albumin/Globulin Ratio 1.3 Assessment & Plan Time Spent With Patient Time: Total time spent is greater than 50% in coordination of care (as documented) at patient's floor/unit and/or counseling patient:
[2025-05-06] VITALS (21 sets, daily range): BP systolic 87–114; BP diastolic 53–83; PULSE 44–100; RESP 12–23; TEMP 36–36.5; O2SAT 94–100; BMI 13.0
[2025-05-06] MEDS: ACETAMINOPHEN 325 MG TABLET 650 MG PO ×2 (00:24→16:19)
[2025-05-06] MEDS: ALBUTEROL/IPRATROPIUM (Duoneb) RT SOL 3 ML NEBU INH ×6 (02:40→22:17)
[2025-05-06] MEDS: HEPARIN SOD INJ 5000 UNIT/ML VIAL SC ×2 (05:17→13:54)
[2025-05-06] MEDS: LEVOTHYROXINE SODIUM 88 MCG TABLET PO (05:18)
[2025-05-06 07:28] LABS: Basophils # (Auto) 0.0 Thou/mm3 (0.0-0.2); Basophils % (Auto) 0 % (0-2.5); Eosinophils # (Auto) 0.0 Thou/mm3 (0.0-0.5); Eosinophils % (Auto) 0 % (0-10); Hematocrit 40.2 % (41.0-53.0); Hemoglobin 12.8 g/dL (13.5-16.0); Immature Granulocytes Auto 0.05 Thou/mm3 (0.00-0.00); Lymphocytes # (Auto) 0.3 Thou/mm3 (1.0-4.8); Lymphocytes % (Auto) 2 % (10-50); Mean Corpuscular HGB Conc 31.8 g/dl (31.0-37.0); Mean Corpuscular Hemoglobin 30.8 pg (25.0-35.0); Mean Corpuscular Volume 97 fL (80-100); Monocytes # (Auto) 0.8 Thou/mm3 (0.0-0.8); Monocytes % (Auto) 7 % (0-12); Neutrophils # (Auto) 10.8 Thou/mm3 (1.8-7.7); Neutrophils % (Auto) 90 % (37-80); Nucleated Red Blood Cell # 0.00 Thou/mm3 (0.00-0.00); Nucleated Red Blood Cell % 0 /100 WBC (0); Platelet Count 133 Thou/mm3 (140-440); RDW Standard Deviation 56.2 fL (35.1-43.9); Red Blood Count 4.16 Miln/mm3 (4.50-5.90); White Blood Count 11.9 Thou/mm3 (3.8-10.6)
[2025-05-06 07:34] LABS: Alanine Aminotransferase 743 U/L (10-49); Albumin, Serum 3.5 gm/dL (3.4-4.8); Albumin/Globulin Ratio 1.4 (1.2-2.2); Alkaline Phosphatase 85 U/L (46-116); Anion Gap 10 (7-16); Aspartate Amino Transferase 200 U/L (0-34); BUN/Creatinine Ratio 27 Ratio (12-20); Bilirubin,Total 1.1 mg/dL (0.3-1.2); Blood Urea Nitrogen 43 mg/dL (9-23); Calcium 8.8 mg/dL (8.3-10.6); Calcium (Corrected) 9.2 mg/dL (8.5-10.1); Carbon Dioxide 35.0 mMol/L (20.0-31.0); Chloride 97 mMol/L (98-107); Creatinine (Component) 1.6 mg/dL (0.6-1.3); Estimated Creatinine Clearance 35.8 mL/min (>60); Globulin 2.5 gm/dL (2.3-3.5); Glucose 118 mg/dL (74-106); Magnesium 2.1 mg/dL (1.6-2.6); Osmolality,Calculated 294 (275-295); Phosphorous 2.0 mg/dL (2.4-5.1); Potassium 3.7 mMol/L (3.4-5.1); Sodium 142 mMol/L (136-145); Total Protein 6.0 gm/dL (5.7-8.2); eGFR 46 See Note
[2025-05-06 08:11] LABS: INR 1.3 (0.9-1.3); Prothrombin Time 14.1 Seconds (9.0-12.2)
[2025-05-06] MEDS: CALCIUM ACETATE 667 MG TABLET PO (08:16)
[2025-05-06] MEDS: MIDODRINE 5 MG TABLET 10 MG PO ×2 (08:16→21:28)
[2025-05-06] MEDS: ASPIRIN EC 81 MG TABEC PO (08:17)
[2025-05-06] MEDS: SEVELAMER CARBONATE 800 MG TABLET PO ×3 (08:17→17:20)
[2025-05-06] MEDS: CLOPIDOGREL BISULFATE 75 MG TABLET PO (08:17)
--- NOTE | 2025-05-06 10:40 | PD.RESPRO ---
Documentation for date of: 05/06/25 Subjective Subjective Interval history: Mr. Dugan is a 70-year-old male with past medical history significant for CAD status post stent with recent 1 on 03/02 currently on aspirin and Plavix, CHF with ICD/pacemaker, COPD who presented with worsening shortness of breath, admitted for CHF exacerbation. He was found to have a CT chest with evidence of bilateral pneumonia and extensive superimposed pulmonary fibrosis. Also extensive loculated left pleural effusion. Patient also with mild right pleural fluid. He recieved a left thoracentesis and subsequently started on furosemide 40mg TID. The following day, he was noted to be oliguric, and had a marked elevation in his transaminases in the 4000 to 5000 range, and had soft BP with systolics in the 80s to 90s. Cardiology consulted for acute decompensated HF. GI consulted for the transaminases, felt the liver injury was most likely shock liver secondary to over diuresis vs congestive hepatopathy. Nephrology felt that this hypotension represented more of a type I cardiorenal syndrome. Recommended dialysis. Patient was upgraded to the ICU on 05/03 due to concern that the dialysis would make his tenous BP worse, and because he a high risk of needing pressor support or requiring CRRT if HD wasn't tolerated. Echo was done and showed EF of 20%, slightly better than last Echo of 15%. Cardiology recommending holding IV diuretics and restarting GDMT as soon as the patient could tolerate. 05/04 He tolerated the dialysis well, had 1 L of fluid pulled yesterday and 1.5 L pulled today. He was downgraded from the ICU to telemetry floor. He is feeling a bit better today, less short of breath. Blood pressure stable with systolics in the 100s to 110s. 05/05: Patient examined at bedside. Mandujano was placed last night due to patient's inability to void. Voided 600cc after placement. Patient stating his breathing feels a lot better. Patient recieved dialysis today, required midodrine and albumin for his BP to tolerate the dialysis. 1L fluid was removed today. Per nephrology's recommendations, the patient will likley need dialysis for the next few weeks necissitating a tunneled dialysis catheter. Patient is agreeable to this. Unfortunately, his DAPT will likely need to be held for this procedure. Will need cardiology recommendations regarding his DAPT considering he recently had his stent on 03/02. Discontinuing Levofloxacin, completed his antibiotic course for CAP. 05/06: Patient examined at bedside, RABIA. Patient states his breathing feels better but is feeling depressed about still being in the hospital, wanting to go home. Still not reporting the urge to void, continue bladder training. Renal function improving, eGFR 46 from 32 yesterday. Continued downtrend of transaminases. BP still soft, 87/59, continue midodrine. PT eval, encourage out of bed to chair. Cardiology ok with holding aspirin/plavix up to 3 days for tunneled dialysis catheter placement. Held. Exam Vital Signs Temp Pulse Resp BP Pulse Ox O2 Del Method O2 Flow Rate 96.8 F 59 L 23 H 87/59 L 96 Nasal Cannula 4 05/06/25 07:43 05/06/25 08:16 05/06/25 07:43 05/06/25 08:16 05/06/25 07:43 05/06/25 07:43 05/06/25 07:43 FiO2 3 05/03/25 12:15 Narrative Exam General: frail, elderly patient, no acute distress, converstational HEENT: Mucosa moist. Pupils are equal and reactive to light bilaterally, temporary dialysis catheter in place on the right. Cardiovascular: Soft heart tones, regular rate and rhythm, systolic murmur appreciated. Respiratory: Coarse sounds along the left lung. Right lung clear to auscultation. Crackles not appreciated on the right. Abdomen: Soft, nontender, not distended, Skin: Dry, no rashes or bruising Musculoskeletal: No gross injuries. Able to move all 4 extremities. Non edematous lower extremities. Neuro: Alert and oriented x3. No focal neuro deficits. Psych: Somewhat flat affect and depressed mood Objective Labs 05/06/25 04:40 05/06/25 04:40 Labs: Laboratory Results - last 24 hr 05/06/25 04:40 WBC 11.9 H RBC 4.16 L Hgb 12.8 L Hct 40.2 L MCV 97 MCH 30.8 MCHC 31.8 RDW Std Deviation 56.2 H Plt Count 133 L Neut % (Auto) 90 H Lymph % (Auto) 2 L [place] % (Auto) 7 Eos % (Auto) 0 Baso % (Auto) 0 Neut # (Auto) 10.8 H Lymph # (Auto) 0.3 L [place] # (Auto) 0.8 Eos # (Auto) 0.0 Baso # (Auto) 0.0 Immature Gran # (Auto) 0.05 H Absolute Nucleated RBC 0.00 Immature Gran % 0 Nucleated RBC % 0 PT 14.1 H D INR 1.3 Sodium 142 Potassium 3.7 Chloride 97 L Carbon Dioxide 35.0 H Anion Gap 10 BUN 43 H Creatinine 1.6 H D Estim Creat Clear Calc 35.8 L eGFR 46 L BUN/Creatinine Ratio 27 H Glucose 118 H D Calculated Osmolality 294 Calcium 8.8 Corrected Calcium 9.2 Phosphorus 2.0 L Magnesium 2.1 Total Bilirubin 1.1 AST 200 H ALT 743 H* Alkaline Phosphatase 85 Total Protein 6.0 Albumin 3.5 Globulin 2.5 Albumin/Globulin Ratio 1.4 Quality Measures Quality Measures VTE prophylaxis and none Advance care planning discussed with:: patient and spouse Assessment & Plan Assessment Current Active Medications: Generic Name Dose Route Start Last Admin Trade Name Freq PRN Reason Stop Dose Admin Acetaminophen 650 mg 05/05/25 13:47 05/06/25 00:24 Acetaminophen 325 Mg Tablet PO 05/31/25 16:02 650 mg Q6H PRN Administration Fever >101.5 Albuterol/Ipratropium 3 ml 05/02/25 11:00 05/06/25 06:44 Albuterol/Ipratropium (Duoneb) Rt Emily 3 Ml Nebu INH 06/01/25 10:59 3 ml Q4HRRT ALISA Administration Aspirin 81 mg 05/01/25 16:30 05/06/25 08:17 Aspirin Ec 81 Mg Tabec PO 05/31/25 16:29 81 mg On Hold: 05/06/25 10:29 QDAY ALISA Administration Calcium Acetate 667 mg 05/04/25 09:00 05/06/25 08:16 Calcium Acetate 667 Mg Tablet PO 06/03/25 08:59 667 mg DAILY ALISA Administration Clopidogrel Bisulfate 75 mg 05/01/25 16:30 05/06/25 08:17 Clopidogrel Bisulfate 75 Mg Tablet PO 05/31/25 16:29 75 mg On Hold: 05/06/25 10:29 QDAY ALISA Administration Dextrose 50 ml 05/03/25 18:38 Dextrose 50%-Water Inj 50 Ml Syringe IV 06/02/25 18:37 Q15MIN PRN BG <50 OR BG <70 & pt unresponsive Glucagon 1 mg 05/03/25 18:38 Glucagon Inj 1 Mg Vial IM Q15MIN PRN BG <70, and no IV access Heparin Sodium (Porcine) 5,000 unit 05/03/25 14:00 05/06/25 05:17 Heparin Sod Inj 5000 Unit/Ml Vial SC 05/17/25 13:59 5,000 unit Q8HR ALISA Administration Heparin Sodium (Porcine) 2,600 unit 05/04/25 11:09 05/05/25 11:15 Heparin Sod Inj 1000 Unit/Ml Vial 10 Ml INDWELLCAT 05/18/25 11:08 2,600 unit PRN PRN Administration DIALYSIS Albumin Human 25 gm in 100 mls @ 100 mls/min 05/04/25 10:07 05/05/25 08:32 Albuminar-25 Ivpb IV 100 mls/min PRN PRN Administration DIALYSIS Insulin Human Lispro 0 unit 05/03/25 21:00 05/06/25 07:27 Insulin Lispro (Admelog) 1 Unit/0.01 Ml Unit SC 06/02/25 20:59 Not Given ACHS ALISA Protocol Levothyroxine Sodium 88 mcg 05/04/25 06:00 05/06/25 05:18 Levothyroxine Sodium 88 Mcg Tablet PO 06/03/25 05:59 88 mcg ACBR ALISA Administration Midodrine 10 mg 05/04/25 21:00 05/06/25 08:16 Midodrine 5 Mg Tablet PO 06/03/25 20:59 10 mg BID ALISA Administration Ondansetron HCl 4 mg 05/01/25 16:03 05/02/25 12:22 Ondansetron Inj 2 Mg/Ml Inj 2 Ml IVP 05/31/25 16:02 4 mg Q6H PRN Administration NAUSEA OR VOMITING Protocol Sevelamer Carbonate 800 mg 05/04/25 08:00 05/06/25 08:17 Sevelamer Carbonate 800 Mg Tablet PO 06/03/25 07:59 800 mg TIDWM ALISA Administration Plan 70 yom with a h/o CHF CAD s/p stenting 03/02, DM, and COPD who presents with a few weeks of progressive dyspnea. Found to have a bilateral pleural effusion which is now s/p thoracentesis, admitted for CHF exacerbation vs pneumonia. #Acute on Chronic CHF exacerbation EF 15-20% #Ischemic Cardiomyopathy #Cardiorenal Syndrome Type I #GEORGIE on CKD #Ischemic Hepatitis- improving #Lactic acidosis-improving #Pleural Effusion #NSTEMI Progressive shortness of breath, LE edema, orthopnea. Patient near tripoding but not tachypneic. BNP markedly elevated with elevated troponins. Extremities cool and wet. S/p thoracentesis, became oliguric despite aggressive diuresis, hypotensive, with marked elevation in transaminases in the 5000 and 2000 range. Now recovering after dialysis. CT chest with evidence of bilateral pneumonia and extensive superimposed pulmonary fibrosis. Also extensive loculated left pleural effusion. Patient also with mild right pleural fluid. Is now s/p thoracentesis, pleural fluid analysis consistent with transudative effusion. . Repeat CXR on 05/05 demonstrated return of pleural effusion. Currently receiving dialysis through temporary catheter. Will likely need a tunneled catheter for longer term dialysis. Per nephrology recommendations, he will likely need dialysis for at least a few weeks, unclear if his renal function will fully recover. -Coordination with cardiology, nephrology, regarding holding DAPT for tunneled dialysis catheter. Cardiology OK with holding aspirin/plavix for up to 72 hours. Last dose of both on 05/06 at 08:17. Coordinate with radiology for optimal timing for placement. Continue coordination for outpatient dialysis, Hep panel negative, PPD is pending, started on 05/05. -Holding Aspirin and Plavix, last dose 05/06 at 08:17 -Holding farxiga, entresto, and IV diuretics at this time. -Continue midrodrine for hypotension. - Admit tele - Strict I&O [id number] -Daily Weights - Fluid restrict 1500 mL - caridac, low sodium diet, less than 2 gm. #CAP #Pulmonary fibrosis. CT chest with evidence of bilateral pneumonia and extensive superimposed pulmonary fibrosis. Also extensive loculated left pleural effusion. Patient also with mild right pleural fluid. Is now s/p thoracentesis which showed transudative effusion likely secondary to HF. Pulmonary fibrosis may be secondary to detention amiodarone use. Would consider discontinuing this all together. -Discontinuing Levofloxacin, completed antibiotic course. -Hold amiodarone. -Continue duonebs. #CAD -Recent stent on 03/02. On DAPT -Holding aspirin and plavix, cardiology aware. #NSTEMI Trop 0.056, most likley secondary to CHF exacerbation. -treatment of CHF as above. #Non-insulin dependent Type II DM -Continue Farxiga -Consider sliding scale tomorrow. #Urinary Retention [place] like he couldn't pee, Mandujano placed and drained 600cc urine. Unlikely to be BPH, no prostatic enlargement noted on renal/bladder US upon admission. -Continue bladder training today. Health Maintenance: DVT prophylaxis: heparin Diet: Cardiac, low salt < 2gm Mandujano: Yes, 05/05 Lines: PIV, right sided temporary dialysis catheter. CODE STATUS: Full code Disposition: Pending tunneled dialysis cath placement and outpatient dialysis chair. Patient's plan and care discussed with my attending, Dr. Becker. Krzysztof Alvarado DO PGY-1 ([facility] Resident) Attending Provider Attestation/Addendum Ankita Hoff DO, attest that I was physically present for the west portions of the service and evaluated the patient with the resident and I reviewed and discussed the case with the resident and agree with the resident's findings and plans of care as documented above Patient seen and evaluated this AM. Patient states he is feeling sad becaue he does not want to be on permanant dialysis. Patient will need a tunneled catheter on Wednesday. Case was discussed with nephrology who discussed with patient and regarding outpatient HD, which they are now agreeable to. Creatinine has been improving. Will bladder train and remove mandujano catheter. PPD ordered. Will arrange for outpatient dialysis. Patient appears euvolemic and is currently on 2L/NC. Patient remains on midodrine. Will order physical therapy as patient has not been out of bed. Anticipate DC within next 48-72h. Will need to discuss to cardiology regarding holding DAPT in anticipation of placement of tunneled catheter by IR.
--- NOTE | 2025-05-06 10:56 | ESPR_ITS ---
<Statement entered by Sydney Arizmendi MD - 05/07/25 12:26> The patient is evaluated by me along with Dr. Olmstead PGY2 continue to improve on dialysis will require dialysis at least for temporary or short-term. Requesting permanent cath placement will go ahead with PermCath placement clearance aspirin Plavix can be stopped temporarily. Cardiac andrews stable do not think patient had a myocardial infarction or a cardiac event at this time patient had a CKD stage III went with acute kidney injury due to hypotension as well as contrast nephropathy which should improve gradually back to his baseline eventually but for now he is requiring hemodialysis Documentation for date of: 05/06/25 Subjective Subjective Interval history: Patient seen today at the bedside found awake, alert, orientedx3. No overnight events reported. No active complaints wants to go home. Vital signs and labs reviewed. Overall clinically improving. Patient looks clinically dry responding well to dialysis sessions with midodrine on board. DAPT can be put on hold for 2-4 days max in view of possible tunneled dialysis catheter placement by Nephrology team for patient to be able to continue dialysis as an outpatient. Exam Vital Signs Temp Pulse Resp BP Pulse Ox O2 Del Method O2 Flow Rate 96.8 F 59 L 23 H 87/59 L 96 Nasal Cannula 4 05/06/25 07:43 05/06/25 08:16 05/06/25 07:43 05/06/25 08:16 05/06/25 07:43 05/06/25 07:43 05/06/25 07:43 FiO2 3 05/03/25 12:15 Narrative Exam GENERAL: NAD, AAOx3 HEENT: dry mucosa. Eyes open, symmetrical, & clear, Right IJ Vasc cath in place CARDIO: Heart RRR, no obvious murmurs PULM: No noted coughing/dyspnea, B/L mild wheezing GI: Abdomen soft, nondistended, no pain on palpation. BSx4 SKIN/MSK/EXT: trace bilateral lower extremity swelling, no pain on palpation. Pedal pulses present B/L NEURO: AAOx3, no focal neuro deficits, able to move all 4 extremities Objective Labs 05/06/25 04:40 05/06/25 04:40 Labs: Laboratory Results - last 24 hr 05/06/25 04:40 WBC 11.9 H RBC 4.16 L Hgb 12.8 L Hct 40.2 L MCV 97 MCH 30.8 MCHC 31.8 RDW Std Deviation 56.2 H Plt Count 133 L Neut % (Auto) 90 H Lymph % (Auto) 2 L Hand % (Auto) 7 Eos % (Auto) 0 Baso % (Auto) 0 Neut # (Auto) 10.8 H Lymph # (Auto) 0.3 L Hand # (Auto) 0.8 Eos # (Auto) 0.0 Baso # (Auto) 0.0 Immature Gran # (Auto) 0.05 H Absolute Nucleated RBC 0.00 Immature Gran % 0 Nucleated RBC % 0 PT 14.1 H D INR 1.3 Sodium 142 Potassium 3.7 Chloride 97 L Carbon Dioxide 35.0 H Anion Gap 10 BUN 43 H Creatinine 1.6 H D Estim Creat Clear Calc 35.8 L eGFR 46 L BUN/Creatinine Ratio 27 H Glucose 118 H D Calculated Osmolality 294 Calcium 8.8 Corrected Calcium 9.2 Phosphorus 2.0 L Magnesium 2.1 Total Bilirubin 1.1 AST 200 H ALT 743 H* Alkaline Phosphatase 85 Total Protein 6.0 Albumin 3.5 Globulin 2.5 Albumin/Globulin Ratio 1.4 Quality Measures Quality Measures VTE prophylaxis and none Advance care planning discussed with:: patient Assessment & Plan Assessment Current Active Medications: Generic Name Dose Route Start Last Admin Trade Name Freq PRN Reason Stop Dose Admin Acetaminophen 650 mg 05/05/25 13:47 05/06/25 00:24 Acetaminophen 325 Mg Tablet PO 05/31/25 16:02 650 mg Q6H PRN Administration Fever >101.5 Albuterol/Ipratropium 3 ml 05/02/25 11:00 05/06/25 06:44 Albuterol/Ipratropium (Duoneb) Rt Emily 3 Ml Nebu INH 06/01/25 10:59 3 ml Q4HRRT ALISA Administration Aspirin 81 mg 05/01/25 16:30 05/06/25 08:17 Aspirin Ec 81 Mg Tabec PO 05/31/25 16:29 81 mg On Hold: 05/06/25 10:29 QDAY ALISA Administration Calcium Acetate 667 mg 05/04/25 09:00 05/06/25 08:16 Calcium Acetate 667 Mg Tablet PO 06/03/25 08:59 667 mg DAILY ALISA Administration Clopidogrel Bisulfate 75 mg 05/01/25 16:30 05/06/25 08:17 Clopidogrel Bisulfate 75 Mg Tablet PO 05/31/25 16:29 75 mg On Hold: 05/06/25 10:29 QDAY ALISA Administration Dextrose 50 ml 05/03/25 18:38 Dextrose 50%-Water Inj 50 Ml Syringe IV 06/02/25 18:37 Q15MIN PRN BG <50 OR BG <70 & pt unresponsive Glucagon 1 mg 05/03/25 18:38 Glucagon Inj 1 Mg Vial IM Q15MIN PRN BG <70, and no IV access Heparin Sodium (Porcine) 5,000 unit 05/03/25 14:00 05/06/25 05:17 Heparin Sod Inj 5000 Unit/Ml Vial SC 05/17/25 13:59 5,000 unit Q8HR ALISA Administration Heparin Sodium (Porcine) 2,600 unit 05/04/25 11:09 05/05/25 11:15 Heparin Sod Inj 1000 Unit/Ml Vial 10 Ml INDWELLCAT 05/18/25 11:08 2,600 unit PRN PRN Administration DIALYSIS Albumin Human 25 gm in 100 mls @ 100 mls/min 05/04/25 10:07 05/05/25 08:32 Albuminar-25 Ivpb IV 100 mls/min PRN PRN Administration DIALYSIS Insulin Human Lispro 0 unit 05/03/25 21:00 05/06/25 07:27 Insulin Lispro (Admelog) 1 Unit/0.01 Ml Unit SC 06/02/25 20:59 Not Given ACHS ALISA Protocol Levothyroxine Sodium 88 mcg 05/04/25 06:00 05/06/25 05:18 Levothyroxine Sodium 88 Mcg Tablet PO 06/03/25 05:59 88 mcg ACBR ALISA Administration Midodrine 10 mg 05/04/25 21:00 05/06/25 08:16 Midodrine 5 Mg Tablet PO 06/03/25 20:59 10 mg BID ALISA Administration Ondansetron HCl 4 mg 05/01/25 16:03 05/02/25 12:22 Ondansetron Inj 2 Mg/Ml Inj 2 Ml IVP 05/31/25 16:02 4 mg Q6H PRN Administration NAUSEA OR VOMITING Protocol Sevelamer Carbonate 800 mg 05/04/25 08:00 05/06/25 08:17 Sevelamer Carbonate 800 Mg Tablet PO 06/03/25 07:59 800 mg TIDWM ALISA Administration Plan 70 y/o M with PMHx of CAD s/p stents in february 2025, Heart failure with reduced ejection fraction (15-20%) in 2023, COPD on 2L of home O2 who presented to the ED due to progressive shortness of breath. Admitted for acute on chronic decompensated heart failure. #Acute on chronic decompensated heart failure exacerbation #Heart failure with reduced ejection fraction [15-20%] #Dilated Cardiomyopathy #NSTEMI, likely type II #CAD s/p Stent Presented with clinical signs such as shortness of breath, dyspnea on exertion, bilateral leg swelling mild troponin leak likely secondary to CHF exacerbation, patient with no chest pain, doubt ACS at this present point in time. Liver enzymes increased dramatically likely in setting of hypoperfusion, shock liver, sepsis NYHA class: IV, stage D, has poor prognosis, end-stage heart failure CXR: prominent vascular congestion BNP: >3250 Echo: Dilated cardiomyopathy severe global hypokinesis LVEF 20% The RV is normal in size and systolic function. The estimated RVSP, 66 mmHg. RAP 8. Aortic valve sclerosis with mild aortic regurgitation. Mild mitral regurgitation. Moderate tricuspid regurgitation ? Continue Hemodialysis ? Can hold DAPT for 2-4 days max in view of placement of tunneled dialysis catheter ? Start goal-directed medical therapy when stable to tolerate ? Continue Aspirin and Plavix ? Keep K>4, Mg>2 ? Provide oxygen as required ? Strict I's and O's ? Fluid restriction #Acute liver injury #Ischemic hepatitis #GEORGIE #CKD Stage III b #Pleural Effusion s/p thora #CAP- on ivabx #Non-insulin dependent Type II DM -as per primary team Case discussed with my attending Dr. Ugo Olmstead MD PGY-2 Disclaimer: Despite multiple revisions, due to the dictation software being used, the document bellow may not be free of grammatical errors including phonetic/typographic errors. However, this does not deter from our commitment to providing health care in the patient's best interest in mind.
[2025-05-06] MEDS: INSULIN LISPRO (AdmeLOG) 1 UNIT/0.01 ML UNIT SC ×3 (12:04→21:29)
--- NOTE | 2025-05-06 13:38 | ESPR_ITS ---
Documentation for date of: 05/06/25 Subjective Subjective Interval history: 70 y/o M with PMH significant for Coronary artery disease s/p stent placement (currently on aspirin and clopidogrel), CHF, and COPD, presented to hospital on 05/01/2025, with several weeks of progressively worsening shortness of breath, increased work of breathing, and lower extremity swelling. THe patient reports difficulty sleeping at night and requires 2-3 liters of supplemental oxygen nocturnally. Patient was admitted for CHF exacerbation vs pneumonia. Nephrology has been consulted for management of GEORGIE. 05/02/2025: Labs reviewed and patient examined at the bedside. Initially, patient was mildly hypertensive, stable HR, afebrile, O2 sat acceptable on room air, wirh Cr 1.7, troponin 0.056, and BNP >3000. CXR and CT both showed ongoing pneumonia with pleural effusion. During hospital stay, patient was given IV Lasix with minimal diuresis (only ~300ml output), 1.3 L of pleural effusion drained via thoracentesis, markedly decline in renal function (Cr from 1.7 to 2.8 and eGFR from 43 to 25), WBC john from 10.6 to 17.9 despite ceftriaxone. Rise in LFTs (AST from 83 to 5000 and ALT from 46 to 2333) showing massive hepatocellular injury. LDH showed 4056 , troponin increased from 0.056 to 0.117. This patient has marked transaminitis, which is not typical of CHF exacerbation alone, Rising WBC despite antibiotics that shows uncontrolled or atypical infection, Severe LDH elevation raises suspicion for tissue necrosis/hemolysis/ischemia, Acute renal injury is out of proportion to diuresis, and troponin bump may indicate supply-demand problem or true AK. Overall, this raises concern for possibility of ischemic Hepatitis (Shock liver) due to hypoperfusion and Sepsis due to resistant pneumonia or empyema. The patient is currently in borderline SIRS 3/4 criteria: T 96.9 (>100.4 or <96.8F), RR 20 (>20/min), HR 50 (>90/min), WBC 17.9 (>12 or <4K or Bands >10%). Hepatic and renal injury may be secondary to sepsis-induced hypoperfusion in addition to aggressive diuresis given to the patient. However, transient increase in Cr due to contrast-induced nephropathy from Chest CTA is also a possibility. Will continue to monitor. 05/03/2025: Labs reviewed and patient examined at the bedside. Patient showed decline in renal function. BUN:83, Cr:3.9, eGFR:16 with minimal urine output (200ml). Patient agreed to be transferred to ICU and undergo conventional dialysis for possible renal recovery. If patient can't tolerate, then will do CRRT. 05/04/2025: Labs reviewed and patient examined at the bedside. Patient's liver function steadily improving. Renal function got better after hemodiaysis yesterday. BUN: 64, Cr:3.6, eGFR:18, UoP 425ml. Patient will receive hemodialysis again today. 05/05/2025 patient currently seen on his third dialysis treatment. at bedside. Had several questions regarding outpatient dialysis will be arranged. Patient needs PermCath placement on Wednesday. However his coagulation seems to be high due to liver problems. Will discuss with Dr. Springer regarding holding off on aspirin and Plavix for 2 days. Left a message for Dr. Springer. Patient had a stent in February. Patient stated he is feeling much better and his shortness of breath is also better. Of note CT chest showed pulmonary fibrosis. Did have urinary retention yesterday and Ochoa catheter was placed. 600 cc of urine was drained. Will need bladder training. Spoke to primary team. 05/06/2025 patient currently seen in telemetry. His Angelica is at the bedside. Patient denies any chest pain. Shortness of breath much better. Hopefully can get IJ PermCath tomorrow with IR. Aspirin, Plavix held-okayed by Dr. Springer. Labs and medications reviewed. Review of Systems Review of Systems Narrative Review of Systems: CONSTITUTIONAL: Patient denies any fever, chills. Complaining of fatigue HEENT: Denies any visual disturbances or hearing problems. CARDIOVASCULAR: Patient denies any chest pain, , swelling in the lower extremities. PULMONARY: Patient complaining of shortness of breath GASTROINTESTINAL: Patient denies any abdominal pain, constipation, nausea, vomiting, diarrhea. GENITOURINARY: Complaining of urinary retention. SKIN: Denies any rash. MUSCULOSKELETAL: Denies any muscular skeletal problems of joint pains. Complaining of gait imbalance NEUROLOGICAL: Denies any neurological problems of strokes, seizures or confusion. Denies any memory problems. PSYCHIATRIC: Denies any depression or anxiety. LYMPHATICS : No lymphadenopathy Exam Vital Signs Temp Pulse Resp BP Pulse Ox O2 Del Method O2 Flow Rate 36.1 C 65 16 114/83 94 L Nasal Cannula 2 05/06/25 11:43 05/06/25 12:00 05/06/25 11:43 05/06/25 11:43 05/06/25 11:43 05/06/25 11:43 05/06/25 11:43 FiO2 3 05/03/25 12:15 Narrative Exam GENERAL APPEARANCE: Skinny gentleman currently seen in dialysis. NECK: Neck supple, no JVD or bruit CARDIOVASCULAR: Heart regular, no murmurs LUNGS/CHEST: Bilateral dry rales noted ABDOMEN: Soft, nontender, nondistended. No masses. Normal bowel sounds. EXTREMITIES: No edema, clubbing or cyanosis. SKIN: Skin exam normal without any rashes Right IJ Vas-Cath MUSCULOSKELETAL: In bed NEUROLOGICAL : No neurological deficits Objective Labs 05/06/25 04:40 05/06/25 04:40 Labs: Laboratory Results - last 24 hr 05/06/25 04:40 WBC 11.9 H RBC 4.16 L Hgb 12.8 L Hct 40.2 L MCV 97 MCH 30.8 MCHC 31.8 RDW Std Deviation 56.2 H Plt Count 133 L Neut % (Auto) 90 H Lymph % (Auto) 2 L [place] % (Auto) 7 Eos % (Auto) 0 Baso % (Auto) 0 Neut # (Auto) 10.8 H Lymph # (Auto) 0.3 L [place] # (Auto) 0.8 Eos # (Auto) 0.0 Baso # (Auto) 0.0 Immature Gran # (Auto) 0.05 H Absolute Nucleated RBC 0.00 Immature Gran % 0 Nucleated RBC % 0 PT 14.1 H D INR 1.3 Sodium 142 Potassium 3.7 Chloride 97 L Carbon Dioxide 35.0 H Anion Gap 10 BUN 43 H Creatinine 1.6 H D Estim Creat Clear Calc 35.8 L eGFR 46 L BUN/Creatinine Ratio 27 H Glucose 118 H D Calculated Osmolality 294 Calcium 8.8 Corrected Calcium 9.2 Phosphorus 2.0 L Magnesium 2.1 Total Bilirubin 1.1 AST 200 H ALT 743 H* Alkaline Phosphatase 85 Total Protein 6.0 Albumin 3.5 Globulin 2.5 Albumin/Globulin Ratio 1.4 Assessment & Plan Additional Assessment & Plan Additional Plan: #GEORGIE secondary to ischemic ATN/cardiorenal syndrome type I. Next dialysis will be scheduled Wednesday. Will hold aspirin and Plavix tomorrow - okay with cardiology. Plan of care discussed with his at bedside. Outpatient dialysis will be arranged. Hep panel negative. PPD placed. # Cardiomyopathy, congestive heart failure, coronary artery disease status post stents Under Dr. Springer. Currently on dialysis due to diuretic dependent/resistant state #Acute liver injury secondary to shock liver. 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
--- NOTE | 2025-05-06 14:54 | PC.SS ---
Rounding note: needs PT services, dialysis cath on Wednesday.
--- NOTE | 2025-05-06 19:06 | PD.IMPROG ---
Documentation for date of: 05/06/25 Subjective Subjective Interval history: Patient evaluated LFTs improving Total bilirubin down to 1.1 AST 200 ALT 743 and alk phos 85 Exam Vital Signs Temp Pulse Resp BP Pulse Ox O2 Del Method O2 Flow Rate 97.7 F 82 18 104/75 100 Nasal Cannula 2 05/06/25 15:00 05/06/25 18:41 05/06/25 18:41 05/06/25 15:00 05/06/25 18:41 05/06/25 15:00 05/06/25 18:41 FiO2 3 05/03/25 12:15 Objective Labs 05/06/25 04:40 05/06/25 04:40 Labs: Laboratory Results - last 24 hr 05/06/25 04:40 WBC 11.9 H RBC 4.16 L Hgb 12.8 L Hct 40.2 L MCV 97 MCH 30.8 MCHC 31.8 RDW Std Deviation 56.2 H Plt Count 133 L Neut % (Auto) 90 H Lymph % (Auto) 2 L [place] % (Auto) 7 Eos % (Auto) 0 Baso % (Auto) 0 Neut # (Auto) 10.8 H Lymph # (Auto) 0.3 L [place] # (Auto) 0.8 Eos # (Auto) 0.0 Baso # (Auto) 0.0 Immature Gran # (Auto) 0.05 H Absolute Nucleated RBC 0.00 Immature Gran % 0 Nucleated RBC % 0 PT 14.1 H D INR 1.3 Sodium 142 Potassium 3.7 Chloride 97 L Carbon Dioxide 35.0 H Anion Gap 10 BUN 43 H Creatinine 1.6 H D Estim Creat Clear Calc 35.8 L eGFR 46 L BUN/Creatinine Ratio 27 H Glucose 118 H D Calculated Osmolality 294 Calcium 8.8 Corrected Calcium 9.2 Phosphorus 2.0 L Magnesium 2.1 Total Bilirubin 1.1 AST 200 H ALT 743 H* Alkaline Phosphatase 85 Total Protein 6.0 Albumin 3.5 Globulin 2.5 Albumin/Globulin Ratio 1.4 Impressions Impression: Acute hypoxic hepatitis improving Continue to monitor LFTs Assessment & Plan Time Spent With Patient Time: Total time spent is greater than 50% in coordination of care (as documented) at patient's floor/unit and/or counseling patient:
[2025-05-07] VITALS (14 sets, daily range): BP systolic 96–120; BP diastolic 60–83; PULSE 60–95; RESP 12–22; TEMP 36–37; O2SAT 96–100; BMI 13.0
[2025-05-07] MEDS: ACETAMINOPHEN 325 MG TABLET 650 MG PO ×3 (01:06→17:03)
--- NOTE | 2025-05-07 02:22 | PC.NURSE ---
called Dr. uV regarding patient has not voided after catheter removal, patient has been trying to void but patient can not. Patient does feel some discomfort in his bladder, per doctor to do x1 in and out cath. Per patient will keep trying to void on his own. Per doctor primary team trying to not have him on the catheter and do bladder retaining. Patient had 393 mL from bladder scanner. In and out catheter done at 0120 with 450 cc out.
[2025-05-07] MEDS: ALBUTEROL/IPRATROPIUM (Duoneb) RT SOL 3 ML NEBU INH ×4 (02:50→14:20)
--- NOTE | 2025-05-07 04:20 | PC.NURSE ---
called Dr. Vu regarding patient concerned about not voiding, patient had in and out cath at 0120 with 450cc out, patient currently NPO since midnight for procedure in AM, per doctor okay not to do additional bladder scan if the patient isn't c/o bladder distention or pain, will let the day team know about patient unable to void, explained to patient need to keep trying to void on his own to avoid catheter placement.
[2025-05-07 05:49] LABS: Basophils # (Auto) 0.0 Thou/mm3 (0.0-0.2); Basophils % (Auto) 0 % (0-2.5); Eosinophils # (Auto) 0.1 Thou/mm3 (0.0-0.5); Eosinophils % (Auto) 1 % (0-10); Hematocrit 39.0 % (41.0-53.0); Hemoglobin 12.4 g/dL (13.5-16.0); Immature Granulocytes Auto 0.04 Thou/mm3 (0.00-0.00); Lymphocytes # (Auto) 0.4 Thou/mm3 (1.0-4.8); Lymphocytes % (Auto) 3 % (10-50); Mean Corpuscular HGB Conc 31.8 g/dl (31.0-37.0); Mean Corpuscular Hemoglobin 30.7 pg (25.0-35.0); Mean Corpuscular Volume 97 fL (80-100); Monocytes # (Auto) 1.0 Thou/mm3 (0.0-0.8); Monocytes % (Auto) 9 % (0-12); Neutrophils # (Auto) 9.6 Thou/mm3 (1.8-7.7); Neutrophils % (Auto) 87 % (37-80); Nucleated Red Blood Cell # 0.00 Thou/mm3 (0.00-0.00); Nucleated Red Blood Cell % 0 /100 WBC (0); Platelet Count 108 Thou/mm3 (140-440); RDW Standard Deviation 57.0 fL (35.1-43.9); Red Blood Count 4.04 Miln/mm3 (4.50-5.90); White Blood Count 11.0 Thou/mm3 (3.8-10.6)
[2025-05-07 06:17] LABS: Alanine Aminotransferase 523 U/L (10-49); Albumin, Serum 3.4 gm/dL (3.4-4.8); Albumin/Globulin Ratio 1.4 (1.2-2.2); Alkaline Phosphatase 81 U/L (46-116); Anion Gap 8 (7-16); Aspartate Amino Transferase 98 U/L (0-34); BUN/Creatinine Ratio 28 Ratio (12-20); Bilirubin,Total 1.1 mg/dL (0.3-1.2); Blood Urea Nitrogen 36 mg/dL (9-23); Calcium 8.9 mg/dL (8.3-10.6); Calcium (Corrected) 9.4 mg/dL (8.5-10.1); Carbon Dioxide 36.7 mMol/L (20.0-31.0); Chloride 97 mMol/L (98-107); Creatinine (Component) 1.3 mg/dL (0.6-1.3); Estimated Creatinine Clearance 44.0 mL/min (>60); Globulin 2.5 gm/dL (2.3-3.5); Glucose 142 mg/dL (74-106); Magnesium 2.2 mg/dL (1.6-2.6); Osmolality,Calculated 293 (275-295); Phosphorous 2.1 mg/dL (2.4-5.1); Potassium 3.5 mMol/L (3.4-5.1); Sodium 142 mMol/L (136-145); Total Protein 5.9 gm/dL (5.7-8.2); eGFR 59 See Note
[2025-05-07] MEDS: MIDODRINE 5 MG TABLET 10 MG PO ×2 (08:54→20:23)
--- NOTE | 2025-05-07 09:05 | PD.RESPRO ---
Documentation for date of: 05/07/25 Subjective Subjective Interval history: 70 y/o M with PMH significant for Coronary artery disease s/p stent placement (currently on aspirin and clopidogrel), CHF, and COPD, presented to hospital on 05/01/2025, with several weeks of progressively worsening shortness of breath, increased work of breathing, and lower extremity swelling. THe patient reports difficulty sleeping at night and requires 2-3 liters of supplemental oxygen nocturnally. Patient was admitted for CHF exacerbation vs pneumonia. Nephrology has been consulted for management of GEORGIE. 05/02/2025: Labs reviewed and patient examined at the bedside. Initially, patient was mildly hypertensive, stable HR, afebrile, O2 sat acceptable on room air, wirh Cr 1.7, troponin 0.056, and BNP >3000. CXR and CT both showed ongoing pneumonia with pleural effusion. During hospital stay, patient was given IV Lasix with minimal diuresis (only ~300ml output), 1.3 L of pleural effusion drained via thoracentesis, markedly decline in renal function (Cr from 1.7 to 2.8 and eGFR from 43 to 25), WBC john from 10.6 to 17.9 despite ceftriaxone. Rise in LFTs (AST from 83 to 5000 and ALT from 46 to 2333) showing massive hepatocellular injury. LDH showed 4056 , troponin increased from 0.056 to 0.117. This patient has marked transaminitis, which is not typical of CHF exacerbation alone, Rising WBC despite antibiotics that shows uncontrolled or atypical infection, Severe LDH elevation raises suspicion for tissue necrosis/hemolysis/ischemia, Acute renal injury is out of proportion to diuresis, and troponin bump may indicate supply-demand problem or true MD. Overall, this raises concern for possibility of ischemic Hepatitis (Shock liver) due to hypoperfusion and Sepsis due to resistant pneumonia or empyema. The patient is currently in borderline SIRS 3/4 criteria: T 96.9 (>100.4 or <96.8F), RR 20 (>20/min), HR 50 (>90/min), WBC 17.9 (>12 or <4K or Bands >10%). Hepatic and renal injury may be secondary to sepsis-induced hypoperfusion in addition to aggressive diuresis given to the patient. However, transient increase in Cr due to contrast-induced nephropathy from Chest CTA is also a possibility. Will continue to monitor. 05/03/2025: Labs reviewed and patient examined at the bedside. Patient showed decline in renal function. BUN:83, Cr:3.9, eGFR:16 with minimal urine output (200ml). Patient agreed to be transferred to ICU and undergo conventional dialysis for possible renal recovery. If patient can't tolerate, then will do CRRT. 05/04/2025: Labs reviewed and patient examined at the bedside. Patient's liver function steadily improving. Renal function got better after hemodiaysis yesterday. BUN: 64, Cr:3.6, eGFR:18, UoP 425ml. Patient will receive hemodialysis again today. 05/05/2025 patient currently seen on his third dialysis treatment. at bedside. Had several questions regarding outpatient dialysis will be arranged. Patient needs PermCath placement on Wednesday. However his coagulation seems to be high due to liver problems. Will discuss with Dr. Springer regarding holding off on aspirin and Plavix for 2 days. Left a message for Dr. Springer. Patient had a stent in February. Patient stated he is feeling much better and his shortness of breath is also better. Of note CT chest showed pulmonary fibrosis. Did have urinary retention yesterday and Ochoa catheter was placed. 600 cc of urine was drained. Will need bladder training. Spoke to primary team. 05/06/2025 patient currently seen in telemetry. His Angelica is at the bedside. Patient denies any chest pain. Shortness of breath much better. Hopefully can get IJ PermCath tomorrow with IR. Aspirin, Plavix held-okayed by Dr. Springer. Labs and medications reviewed. 05/07/2025:Labs reviewed and patient examined at the bedside. BUN: 36, Cr:1.3, eGFR:59 Patient endorses generalized weakness. No other complaints at this moment. Marked improvement renally. Will remove catheter before discharge. Exam Vital Signs Temp Pulse Resp BP Pulse Ox O2 Del Method O2 Flow Rate 98.6 F 85 21 H 96/61 100 Nasal Cannula 2 05/07/25 03:00 05/07/25 08:54 05/07/25 06:36 05/07/25 08:54 05/07/25 06:36 05/06/25 15:00 05/07/25 06:36 FiO2 3 05/03/25 12:15 Narrative Exam General: No acute distress, frail, elderly, AAO x3 Eye: PERRL, EOMI, normal conjunctiva, no scleral icterus HENT: Normocephalic, atraumatic, hearing intact to conversation at normal volume, moist oral mucosa Neck: Supple, non-tender, no JVD, no lymphadenopathy Lungs: symmetric chest rise, Slight labored breathing, Expiratory wheezing throughout bilateral lungs. Heart: Peripheral pulses intact bilaterally, Regular Rate and Rhythm. Abdomen: Soft, non-tender, non-distended, no palpable masses Musculoskeletal: Normal range of motion and strength, No cyanosis, No visible joint swelling Skin: Skin is warm, dry, no rashes or lesions. Psychiatric: Cooperative, appropriate mood and affect, Awake and alert, not agitated Neuro: Cranial nerves II-XII grossly intact. Sensations intact to light touch. Objective Labs 05/08/25 05:01 05/08/25 05:01 Labs: Laboratory Results - last 24 hr 05/07/25 05:00 WBC 11.0 H RBC 4.04 L Hgb 12.4 L Hct 39.0 L MCV 97 MCH 30.7 MCHC 31.8 RDW Std Deviation 57.0 H Plt Count 108 L Neut % (Auto) 87 H Lymph % (Auto) 3 L [place] % (Auto) 9 Eos % (Auto) 1 Baso % (Auto) 0 Neut # (Auto) 9.6 H Lymph # (Auto) 0.4 L [place] # (Auto) 1.0 H Eos # (Auto) 0.1 Baso # (Auto) 0.0 Immature Gran # (Auto) 0.04 H Absolute Nucleated RBC 0.00 Immature Gran % 0 Nucleated RBC % 0 Sodium 142 Potassium 3.5 Chloride 97 L Carbon Dioxide 36.7 H Anion Gap 8 BUN 36 H Creatinine 1.3 Estim Creat Clear Calc 44.0 L eGFR 59 L BUN/Creatinine Ratio 28 H Glucose 142 H Calculated Osmolality 293 Calcium 8.9 Corrected Calcium 9.4 Phosphorus 2.1 L Magnesium 2.2 Total Bilirubin 1.1 AST 98 H ALT 523 H* Alkaline Phosphatase 81 Total Protein 5.9 Albumin 3.4 Globulin 2.5 Albumin/Globulin Ratio 1.4 Quality Measures Quality Measures VTE prophylaxis and none Advance care planning discussed with:: patient Assessment & Plan Assessment Current Active Medications: Generic Name Dose Route Start Last Admin Trade Name Freq PRN Reason Stop Dose Admin Acetaminophen 650 mg 05/05/25 13:47 05/07/25 01:06 Acetaminophen 325 Mg Tablet PO 05/31/25 16:02 650 mg Q6H PRN Administration Fever >101.5 Albuterol/Ipratropium 3 ml 05/02/25 11:00 05/07/25 06:35 Albuterol/Ipratropium (Duoneb) Rt Emily 3 Ml Nebu INH 06/01/25 10:59 3 ml Q4HRRT ALISA Administration Aspirin 81 mg 05/01/25 16:30 05/06/25 08:17 Aspirin Ec 81 Mg Tabec PO 05/31/25 16:29 81 mg On Hold: 05/06/25 10:29 QDAY ALISA Administration Clopidogrel Bisulfate 75 mg 05/01/25 16:30 05/06/25 08:17 Clopidogrel Bisulfate 75 Mg Tablet PO 05/31/25 16:29 75 mg On Hold: 05/06/25 10:29 QDAY ALISA Administration Dextrose 50 ml 05/03/25 18:38 Dextrose 50%-Water Inj 50 Ml Syringe IV 06/02/25 18:37 Q15MIN PRN BG <50 OR BG <70 & pt unresponsive Glucagon 1 mg 05/03/25 18:38 Glucagon Inj 1 Mg Vial IM Q15MIN PRN BG <70, and no IV access Heparin Sodium (Porcine) 5,000 unit 05/03/25 14:00 05/07/25 06:14 Heparin Sod Inj 5000 Unit/Ml Vial SC 05/17/25 13:59 Not Given Q8HR [facility] Heparin Sodium (Porcine) 2,600 unit 05/04/25 11:09 05/05/25 11:15 Heparin Sod Inj 1000 Unit/Ml Vial 10 Ml INDWELLCAT 05/18/25 11:08 2,600 unit PRN PRN Administration DIALYSIS Albumin Human 25 gm in 100 mls @ 100 mls/min 05/04/25 10:07 05/05/25 08:32 Albuminar-25 Ivpb IV 100 mls/min PRN PRN Administration DIALYSIS Insulin Human Lispro 0 unit 05/07/25 12:00 Insulin Lispro (Admelog) 1 Unit/0.01 Ml Unit SC 06/06/25 11:59 Q6HR [facility] Protocol Levothyroxine Sodium 88 mcg 05/04/25 06:00 05/07/25 06:14 Levothyroxine Sodium 88 Mcg Tablet PO 06/03/25 05:59 Not Given ACBR ALISA Midodrine 10 mg 05/04/25 21:00 05/07/25 08:54 Midodrine 5 Mg Tablet PO 06/03/25 20:59 10 mg BID ALISA Administration Ondansetron HCl 4 mg 05/01/25 16:03 05/02/25 12:22 Ondansetron Inj 2 Mg/Ml Inj 2 Ml IVP 05/31/25 16:02 4 mg Q6H PRN Administration NAUSEA OR VOMITING Protocol Plan 70 y/o M with PMG significant for Coronary artery disease s/p stent placement (currently on aspirin and clopidogrel), CHF, and COPD, presented to hospital on 05/01/2025, with several weeks of progressively worsening shortness of breath, increased work of breathing, and lower extremity swelling. Patient was admitted for CHF exacerbation vs pneumonia. Nephrology has been consulted for management of GEORGIE. #GEORGIE on Chronic Kidney Disease #Cardiorenal Syndrome-Resolving #ATN - Resolving #VS Contrast Induced nephropathy -On admission: BUN:38, Cr:1.7, eGFR:43, BNP: >3280, Tropnin: 0.056 -Currently, BUN:36, Cr:1.3, eGFR:59 , UoP:1.1L. -CXR: (05/01/2025): Prominent CHF. Moderate enlargement cardiac contour, prominent vascular congestion and perihilar edema, Consider superimposed pneumonia at the lung bases, Large left pleural effusion, Cardiac leads satisfactory position -Repeat CXR (05/01/2025): No pneumothorax post thoracentesis, Mild to moderate enlargement cardiac contour prominent vascular congestion and extensive edema and/or pneumonia throughout the lungs, Cardiac leads satisfactory position. -Chest CTA (05/01/2025): Negative for pulmonary artery emboli, Extensive diffuse bilateral pneumonia, Superimposed pulmonary fibrosis at the lung bases, Extensive loculated left pleural fluid -His current renal function is most likely a result of chronic injury to the kidneys from poorly controlled CHF, resulting in fluid overload as evidenced by BNP levels, with possibility of sepsis due to pneumonia. -Renal US (05/03/25): Small kidneys with bilateral renal cortical thinning, Moderate bilateral renal parenchymal scar formation, No hydronephrosis -Hemodialysis session: 05/03, 05/04, 05/05 Plan: -Hold diuresis. -Renal US - no hydronephrosis -Avoid nephrotoxic and renally dose medications, -Strict ins and outs -Patient's catheter will be removed prior to discharge. #Acute on Chronic CHF exacerbation #Ischemic hepatitis #Pleural Effusion #CAP #NSTEMI #CAD #Non-insulin dependent Type II DM -Management per Primary Hospitalist team Thank you for allowing us to participate in the care of your patient. Assessment and plan discussed with my attending physician Dr. Quirino Foss (PGY-1)- Internal medicine resident Attending Provider Attestation/Addendum Patient seen and examined with resident physician Dr. Foss. Note reviewed, agree with findings and recommendations. #GEORGIE secondary to ischemic ATN/cardiorenal syndrome type I. Patient's creatinine started to improve. Will hold off on dialysis. Noted he has some urinary retention. With Ochoa catheter urine output seems to be much better. If creatinine continues to improve will DC dialysis catheter in a.m. and dialysis. Patient needs urology follow-up as an outpatient. Spoke to his at bedside # Cardiomyopathy, congestive heart failure, coronary artery disease status post stents Under Dr. Springer. Held dialysis. Resume Lasix. Care discussed with Dr. Becker
--- NOTE | 2025-05-07 09:59 | PC.SS ---
SS follow up note; Patient might not need dialysis after all. Possible discharge home today.
--- NOTE | 2025-05-07 10:10 | CHAP ---
Patient was visited by the Spiritual Care Volunteer who prayed for them. (Volunteer was in the hospital from 09:10-10:10)
--- NOTE | 2025-05-07 10:48 | PC.NURSE ---
MD ordered for pt to have an indwelling mandujano cath placed after pt was unable to void due to urine retention.
[2025-05-07] MEDS: FINASTERIDE 5 MG TABLET PO (10:59)
[2025-05-07] MEDS: INSULIN LISPRO (AdmeLOG) 1 UNIT/0.01 ML UNIT SC ×2 (11:51→17:08)
--- NOTE | 2025-05-07 13:35 | ESPR_ITS ---
Documentation for date of: 05/07/25 Subjective Subjective Interval history: Patient remains mechanically ventilated Abdomen soft tender not distended no bowel sounds Exam Vital Signs Temp Pulse Resp BP Pulse Ox O2 Del Method O2 Flow Rate 96.8 F 85 15 105/60 100 Nasal Cannula 4 05/07/25 12:00 05/07/25 12:00 05/07/25 12:00 05/07/25 12:00 05/07/25 12:00 05/07/25 12:00 05/07/25 12:00 FiO2 3 05/03/25 12:15 Objective Labs 05/07/25 05:00 05/07/25 05:00 Labs: Laboratory Results - last 24 hr 05/07/25 05:00 WBC 11.0 H RBC 4.04 L Hgb 12.4 L Hct 39.0 L MCV 97 MCH 30.7 MCHC 31.8 RDW Std Deviation 57.0 H Plt Count 108 L Neut % (Auto) 87 H Lymph % (Auto) 3 L [place] % (Auto) 9 Eos % (Auto) 1 Baso % (Auto) 0 Neut # (Auto) 9.6 H Lymph # (Auto) 0.4 L [place] # (Auto) 1.0 H Eos # (Auto) 0.1 Baso # (Auto) 0.0 Immature Gran # (Auto) 0.04 H Absolute Nucleated RBC 0.00 Immature Gran % 0 Nucleated RBC % 0 Sodium 142 Potassium 3.5 Chloride 97 L Carbon Dioxide 36.7 H Anion Gap 8 BUN 36 H Creatinine 1.3 Estim Creat Clear Calc 44.0 L eGFR 59 L BUN/Creatinine Ratio 28 H Glucose 142 H Calculated Osmolality 293 Calcium 8.9 Corrected Calcium 9.4 Phosphorus 2.1 L Magnesium 2.2 Total Bilirubin 1.1 AST 98 H ALT 523 H* Alkaline Phosphatase 81 Total Protein 5.9 Albumin 3.4 Globulin 2.5 Albumin/Globulin Ratio 1.4 Impressions Impression: 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
--- NOTE | 2025-05-07 13:40 | PD.IMPROG ---
Documentation for date of: 05/07/25 Subjective Subjective Interval history: The previous note accidentally dictated in the wrong chart LFTs improving will speak with information technology personnel how to limit that that note Exam Vital Signs Temp Pulse Resp BP Pulse Ox O2 Del Method O2 Flow Rate 96.8 F 85 15 105/60 100 Nasal Cannula 4 05/07/25 12:00 05/07/25 12:00 05/07/25 12:00 05/07/25 12:00 05/07/25 12:00 05/07/25 12:00 05/07/25 12:00 FiO2 3 05/03/25 12:15 Objective Labs 05/07/25 05:00 05/07/25 05:00 Labs: Laboratory Results - last 24 hr 05/07/25 05:00 WBC 11.0 H RBC 4.04 L Hgb 12.4 L Hct 39.0 L MCV 97 MCH 30.7 MCHC 31.8 RDW Std Deviation 57.0 H Plt Count 108 L Neut % (Auto) 87 H Lymph % (Auto) 3 L [place] % (Auto) 9 Eos % (Auto) 1 Baso % (Auto) 0 Neut # (Auto) 9.6 H Lymph # (Auto) 0.4 L [place] # (Auto) 1.0 H Eos # (Auto) 0.1 Baso # (Auto) 0.0 Immature Gran # (Auto) 0.04 H Absolute Nucleated RBC 0.00 Immature Gran % 0 Nucleated RBC % 0 Sodium 142 Potassium 3.5 Chloride 97 L Carbon Dioxide 36.7 H Anion Gap 8 BUN 36 H Creatinine 1.3 Estim Creat Clear Calc 44.0 L eGFR 59 L BUN/Creatinine Ratio 28 H Glucose 142 H Calculated Osmolality 293 Calcium 8.9 Corrected Calcium 9.4 Phosphorus 2.1 L Magnesium 2.2 Total Bilirubin 1.1 AST 98 H ALT 523 H* Alkaline Phosphatase 81 Total Protein 5.9 Albumin 3.4 Globulin 2.5 Albumin/Globulin Ratio 1.4 Assessment & Plan Time Spent With Patient Time: Total time spent is greater than 50% in coordination of care (as documented) at patient's floor/unit and/or counseling patient:
--- NOTE | 2025-05-07 14:35 | ESPR_ITS ---
Documentation for date of: 05/07/25 Subjective Subjective Interval history: Patient examined at bedside. Overnight, bladder scan showed urine retention of about 400cc. Straight in and out cath done with good output. Repeat scan late morning showed retention again of 300cc. Plan to place mandujano again and discharge with mandujano. Patient expressing frustration but reassured about improvement. Defer HD cath placement as kidney function is improving. GFR increased to 59, Cr downtrended to 1.3 LFTs downtrending, BP remains soft 90-100systolic. Continue midodrine. Resume aspirin and plavix tomorrow. Per nephro recs, pateint started on finasteride. Anticipate discharge next 24hrs. Exam Vital Signs Temp Pulse Resp BP Pulse Ox O2 Del Method O2 Flow Rate 96.8 F 81 16 105/60 100 Nasal Cannula 5 05/07/25 12:00 05/07/25 14:21 05/07/25 14:21 05/07/25 12:00 05/07/25 14:21 05/07/25 12:00 05/07/25 14:21 FiO2 3 05/03/25 12:15 Narrative Exam General: frail, elderly patient, no acute distress, converstational HEENT: Mucosa moist. Pupils are equal and reactive to light bilaterally, temporary dialysis catheter in place on the right. Cardiovascular: Soft heart tones, regular rate and rhythm, systolic murmur appreciated. Respiratory: Coarse sounds along the left lung. Right lung clear to auscultation. Crackles not appreciated on the right. Abdomen: Soft, nontender, not distended, Skin: Dry, no rashes or bruising Musculoskeletal: No gross injuries. Able to move all 4 extremities. Non edematous lower extremities. Neuro: Alert and oriented x3. No focal neuro deficits. Psych: Somewhat flat affect and irritable Objective Labs 05/08/25 05:01 05/08/25 05:01 Labs: Laboratory Results - last 24 hr 05/07/25 05:00 WBC 11.0 H RBC 4.04 L Hgb 12.4 L Hct 39.0 L MCV 97 MCH 30.7 MCHC 31.8 RDW Std Deviation 57.0 H Plt Count 108 L Neut % (Auto) 87 H Lymph % (Auto) 3 L [place] % (Auto) 9 Eos % (Auto) 1 Baso % (Auto) 0 Neut # (Auto) 9.6 H Lymph # (Auto) 0.4 L [place] # (Auto) 1.0 H Eos # (Auto) 0.1 Baso # (Auto) 0.0 Immature Gran # (Auto) 0.04 H Absolute Nucleated RBC 0.00 Immature Gran % 0 Nucleated RBC % 0 Sodium 142 Potassium 3.5 Chloride 97 L Carbon Dioxide 36.7 H Anion Gap 8 BUN 36 H Creatinine 1.3 Estim Creat Clear Calc 44.0 L eGFR 59 L BUN/Creatinine Ratio 28 H Glucose 142 H Calculated Osmolality 293 Calcium 8.9 Corrected Calcium 9.4 Phosphorus 2.1 L Magnesium 2.2 Total Bilirubin 1.1 AST 98 H ALT 523 H* Alkaline Phosphatase 81 Total Protein 5.9 Albumin 3.4 Globulin 2.5 Albumin/Globulin Ratio 1.4 Quality Measures Quality Measures VTE prophylaxis and none Advance care planning discussed with:: patient Assessment & Plan Assessment Current Active Medications: Generic Name Dose Route Start Last Admin Trade Name Freq PRN Reason Stop Dose Admin Acetaminophen 650 mg 05/05/25 13:47 05/07/25 11:04 Acetaminophen 325 Mg Tablet PO 05/31/25 16:02 650 mg Q6H PRN Administration Fever >101.5 Albuterol/Ipratropium 3 ml 05/07/25 14:30 Albuterol/Ipratropium (Duoneb) Rt Emily 3 Ml Nebu INH 06/01/25 10:59 Q4HRRT PRN SHORTNESS OF BREATH Aspirin 81 mg 05/01/25 16:30 05/06/25 08:17 Aspirin Ec 81 Mg Tabec PO 05/31/25 16:29 81 mg On Hold: 05/06/25 10:29 QDAY ALISA Administration Clopidogrel Bisulfate 75 mg 05/01/25 16:30 05/06/25 08:17 Clopidogrel Bisulfate 75 Mg Tablet PO 05/31/25 16:29 75 mg On Hold: 05/06/25 10:29 QDAY ALISA Administration Dextrose 50 ml 05/03/25 18:38 Dextrose 50%-Water Inj 50 Ml Syringe IV 06/02/25 18:37 Q15MIN PRN BG <50 OR BG <70 & pt unresponsive Finasteride 5 mg 05/07/25 10:00 05/07/25 10:59 Finasteride 5 Mg Tablet PO 06/06/25 09:59 5 mg QDAY ALISA Administration Glucagon 1 mg 05/03/25 18:38 Glucagon Inj 1 Mg Vial IM Q15MIN PRN BG <70, and no IV access Heparin Sodium (Porcine) 5,000 unit 05/03/25 14:00 05/07/25 06:14 Heparin Sod Inj 5000 Unit/Ml Vial SC 05/17/25 13:59 Not Given Q8HR ALISA Heparin Sodium (Porcine) 2,600 unit 05/04/25 11:09 05/05/25 11:15 Heparin Sod Inj 1000 Unit/Ml Vial 10 Ml INDWELLCAT 05/18/25 11:08 2,600 unit PRN PRN Administration DIALYSIS Albumin Human 25 gm in 100 mls @ 100 mls/min 05/04/25 10:07 05/05/25 08:32 Albuminar-25 Ivpb IV 100 mls/min PRN PRN Administration DIALYSIS Insulin Human Lispro 0 unit 05/07/25 11:30 05/07/25 11:51 Insulin Lispro (Admelog) 1 Unit/0.01 Ml Unit SC 06/06/25 11:29 1 unit AC ALISA Administration Protocol Levothyroxine Sodium 88 mcg 05/04/25 06:00 05/07/25 06:14 Levothyroxine Sodium 88 Mcg Tablet PO 06/03/25 05:59 Not Given ACBR ALISA Midodrine 10 mg 05/04/25 21:00 05/07/25 08:54 Midodrine 5 Mg Tablet PO 06/03/25 20:59 10 mg BID ALISA Administration Ondansetron HCl 4 mg 05/01/25 16:03 05/02/25 12:22 Ondansetron Inj 2 Mg/Ml Inj 2 Ml IVP 05/31/25 16:02 4 mg Q6H PRN Administration NAUSEA OR VOMITING Protocol Plan 70 yom with a h/o CHF CAD s/p stenting 03/02, DM, and COPD who presents with a few weeks of progressive dyspnea. Found to have a bilateral pleural effusion which is now s/p thoracentesis, admitted for CHF exacerbation vs pneumonia. #Acute on Chronic CHF exacerbation EF 15-20% #Ischemic Cardiomyopathy #Cardiorenal Syndrome Type I #GEORGIE on CKD #Ischemic Hepatitis- improving #Lactic acidosis-improving #Pleural Effusion #NSTEMI Progressive shortness of breath, LE edema, orthopnea. Patient near tripoding but not tachypneic. BNP markedly elevated with elevated troponins. Extremities cool and wet. S/p thoracentesis, became oliguric despite aggressive diuresis, hypotensive, with marked elevation in transaminases in the 5000 and 2000 range. Now recovering after dialysis. CT chest with evidence of bilateral pneumonia and extensive superimposed pulmonary fibrosis. Also extensive loculated left pleural effusion. Patient also with mild right pleural fluid. Is now s/p thoracentesis, pleural fluid analysis consistent with transudative effusion. . Repeat CXR on 05/05 demonstrated return of pleural effusion. Currently receiving dialysis through temporary catheter. Will likely need a tunneled catheter for longer term dialysis. Per nephrology recommendations, he will likely need dialysis for at least a few weeks, unclear if his renal function will fully recover. -Coordination with cardiology, nephrology, regarding holding DAPT for tunneled dialysis catheter. Cardiology OK with holding aspirin/plavix for up to 72 hours. Last dose of both on 05/06 at 08:17. Coordinate with radiology for optimal timing for placement. Continue coordination for outpatient dialysis, Hep panel negative, PPD is pending, started on 05/05. -Holding Aspirin and Plavix until tomorrow, last dose was 05/06 at 08:17 -Holding farxiga, entresto, and IV diuretics at this time. Pending cardio recs to resume meds -Continue midrodrine for hypotension. - Admit tele - Strict I&O [id number] -Daily Weights - Fluid restrict 1500 mL - caridac, low sodium diet, less than 2 gm. -start finasteride daily #CAP #Pulmonary fibrosis. CT chest with evidence of bilateral pneumonia and extensive superimposed pulmonary fibrosis. Also extensive loculated left pleural effusion. Patient also with mild right pleural fluid. Is now s/p thoracentesis which showed transudative effusion likely secondary to HF. Pulmonary fibrosis may be secondary to rn long term care amiodarone use. Would consider discontinuing this all together. -Discontinuing Levofloxacin, completed antibiotic course. -Hold amiodarone. -Continue duonebs prn #CAD -Recent stent on 03/02. On DAPT -Holding aspirin and plavix until tomorrow, cardiology aware. #NSTEMI Trop 0.056, most likley secondary to CHF exacerbation. -treatment of CHF as above. #Non-insulin dependent Type II DM -Continue Farxiga -Consider sliding scale tomorrow. #Urinary Retention [place] like he couldn't pee, Mandujano placed and drained 600cc urine. Unlikely to be BPH, no prostatic enlargement noted on renal/bladder US upon admission. -Continue bladder training today. Health Maintenance: DVT prophylaxis: heparin Diet: Cardiac, low salt < 2gm Mandujano: Yes, 05/07 (second time) Lines: PIV, right sided temporary dialysis catheter. CODE STATUS: Full code Disposition: dc tomrrow, watching kidney function. Patient's plan and care discussed with my attending, Dr. Becker. María Jennings PGY2 Attending Provider Attestation/Addendum IAnkita, DO, attest that I was physically present for the west portions of the service and evaluated the patient with the resident and I reviewed and discussed the case with the resident and agree with the resident's findings and plans of care as documented above Patient seen and evaluated this AM. Patient states he is feeling well. Kidney function is much improved. Case discussed with nephro, will not need dialysis, but patient will need to go home with mandujano to leg bag due to urinary retention. Discussed with patient and that he will not need HD as his renal function is much improved and back at baseline. Recommended for outpatient f/u with urology due to urinary retention. Will need [facility] for mandujano care. Will DC hd cath in AM. Continue with PT.
[2025-05-07] MEDS: HEPARIN SOD INJ 5000 UNIT/ML VIAL SC ×2 (14:39→21:11)
[2025-05-07] MEDS: HYDROmorphone INJ 2 MG/ML VIAL 0.5 MG IVP (20:23)
--- NOTE | 2025-05-07 20:32 | ESPR_ITS ---
<Statement entered by Sydney Arizmendi MD - 05/08/25 18:33> I personally examined evaluate the patient the PGY 2 Dr. Corey Olmstead patient is feeling better does not complain of chest pain shortness of breath is quite dialysis per few days but now off dialysis creatinine is stable started back on Bumex 1 mg daily for now later on may increase if necessary. Evaluated patient with resident physician agree with the treatment plan recommendation as documented by PGY 2 Dr. Olmstead Documentation for date of: 05/07/25 Subjective Subjective Interval history: Patient seen today at the bedside found awake, alert, orientedx3. No overnight events reported. Vitals and labs reviewed. Patient still requiring midodrine to maintain his blood pressure. Patient is not currently making adequate urine output. Will not be undergoing primary hemodialysis, will not need permanent catheter. Can be restarted on aspirin, Plavix. Additionally patient can be started on Bumex 1 mg p.o. daily to prevent heart failure exacerbation. At the time of discharge patient can be followed by cardiology within 1 week to resume the rest of patient's GDMT as tolerated. Exam Vital Signs Temp Pulse Resp BP Pulse Ox O2 Del Method O2 Flow Rate 97.3 F 92 13 113/62 100 Nasal Cannula 4.5 05/07/25 16:00 05/07/25 20:23 05/07/25 16:00 05/07/25 20:23 05/07/25 16:00 05/07/25 16:00 05/07/25 16:00 FiO2 3 05/03/25 12:15 Narrative Exam GENERAL: NAD, AAOx3 HEENT: dry mucosa. Eyes open, symmetrical, & clear, Right IJ Vasc cath in place CARDIO: Heart RRR, no obvious murmurs PULM: No noted coughing/dyspnea, B/L mild wheezing GI: Abdomen soft, nondistended, no pain on palpation. BSx4 SKIN/MSK/EXT: trace bilateral lower extremity swelling, no pain on palpation. Pedal pulses present B/L NEURO: AAOx3, no focal neuro deficits, able to move all 4 extremities Objective Labs 05/07/25 05:00 05/07/25 05:00 Labs: Laboratory Results - last 24 hr 05/07/25 05:00 WBC 11.0 H RBC 4.04 L Hgb 12.4 L Hct 39.0 L MCV 97 MCH 30.7 MCHC 31.8 RDW Std Deviation 57.0 H Plt Count 108 L Neut % (Auto) 87 H Lymph % (Auto) 3 L [place] % (Auto) 9 Eos % (Auto) 1 Baso % (Auto) 0 Neut # (Auto) 9.6 H Lymph # (Auto) 0.4 L [place] # (Auto) 1.0 H Eos # (Auto) 0.1 Baso # (Auto) 0.0 Immature Gran # (Auto) 0.04 H Absolute Nucleated RBC 0.00 Immature Gran % 0 Nucleated RBC % 0 Sodium 142 Potassium 3.5 Chloride 97 L Carbon Dioxide 36.7 H Anion Gap 8 BUN 36 H Creatinine 1.3 Estim Creat Clear Calc 44.0 L eGFR 59 L BUN/Creatinine Ratio 28 H Glucose 142 H Calculated Osmolality 293 Calcium 8.9 Corrected Calcium 9.4 Phosphorus 2.1 L Magnesium 2.2 Total Bilirubin 1.1 AST 98 H ALT 523 H* Alkaline Phosphatase 81 Total Protein 5.9 Albumin 3.4 Globulin 2.5 Albumin/Globulin Ratio 1.4 Quality Measures Quality Measures VTE prophylaxis and none Advance care planning discussed with:: patient Assessment & Plan Assessment Current Active Medications: Generic Name Dose Route Start Last Admin Trade Name Freq PRN Reason Stop Dose Admin Acetaminophen 650 mg 05/05/25 13:47 05/07/25 17:03 Acetaminophen 325 Mg Tablet PO 05/31/25 16:02 650 mg Q6H PRN Administration Fever >101.5 Albuterol/Ipratropium 3 ml 05/07/25 14:30 Albuterol/Ipratropium (Duoneb) Rt Emily 3 Ml Nebu INH 06/01/25 10:59 Q4HRRT PRN SHORTNESS OF BREATH Aspirin 81 mg 05/01/25 16:30 05/06/25 08:17 Aspirin Ec 81 Mg Tabec PO 05/31/25 16:29 81 mg On Hold: 05/06/25 10:29 QDAY ALISA Administration Bumetanide 1 mg 05/08/25 09:00 Bumetanide 0.5 Mg Tablet PO 06/07/25 08:59 QDAY ALISA Clopidogrel Bisulfate 75 mg 05/01/25 16:30 05/06/25 08:17 Clopidogrel Bisulfate 75 Mg Tablet PO 05/31/25 16:29 75 mg On Hold: 05/06/25 10:29 QDAY ALISA Administration Dextrose 50 ml 05/03/25 18:38 Dextrose 50%-Water Inj 50 Ml Syringe IV 06/02/25 18:37 Q15MIN PRN BG <50 OR BG <70 & pt unresponsive Finasteride 5 mg 05/07/25 10:00 05/07/25 10:59 Finasteride 5 Mg Tablet PO 06/06/25 09:59 5 mg QDAY AILSA Administration Glucagon 1 mg 05/03/25 18:38 Glucagon Inj 1 Mg Vial IM Q15MIN PRN BG <70, and no IV access Heparin Sodium (Porcine) 5,000 unit 05/03/25 14:00 05/07/25 14:39 Heparin Sod Inj 5000 Unit/Ml Vial SC 05/17/25 13:59 5,000 unit Q8HR ALISA Administration Heparin Sodium (Porcine) 2,600 unit 05/04/25 11:09 05/05/25 11:15 Heparin Sod Inj 1000 Unit/Ml Vial 10 Ml INDWELLCAT 05/18/25 11:08 2,600 unit PRN PRN Administration DIALYSIS Albumin Human 25 gm in 100 mls @ 100 mls/min 05/04/25 10:07 05/05/25 08:32 Albuminar-25 Ivpb IV 100 mls/min PRN PRN Administration DIALYSIS Insulin Human Lispro 0 unit 05/07/25 11:30 05/07/25 17:08 Insulin Lispro (Admelog) 1 Unit/0.01 Ml Unit SC 06/06/25 11:29 1 unit AC ALISA Administration Protocol Levothyroxine Sodium 88 mcg 05/04/25 06:00 05/07/25 06:14 Levothyroxine Sodium 88 Mcg Tablet PO 06/03/25 05:59 Not Given ACBR ALISA Midodrine 10 mg 05/04/25 21:00 05/07/25 20:23 Midodrine 5 Mg Tablet PO 06/03/25 20:59 10 mg BID ALISA Administration Ondansetron HCl 4 mg 05/01/25 16:03 05/02/25 12:22 Ondansetron Inj 2 Mg/Ml Inj 2 Ml IVP 05/31/25 16:02 4 mg Q6H PRN Administration NAUSEA OR VOMITING Protocol Plan 70 y/o M with PMHx of CAD s/p stents in february 2025, Heart failure with reduced ejection fraction (15-20%) in 2023, COPD on 2L of home O2 who presented to the ED due to progressive shortness of breath. Admitted for acute on chronic decompensated heart failure. #Acute on chronic decompensated heart failure exacerbation #Heart failure with reduced ejection fraction [15-20%] #Dilated Cardiomyopathy #NSTEMI, likely type II #CAD s/p Stent Presented with clinical signs such as shortness of breath, dyspnea on exertion, bilateral leg swelling mild troponin leak likely secondary to CHF exacerbation, patient with no chest pain, doubt ACS at this present point in time. Liver enzymes increased dramatically likely in setting of hypoperfusion, shock liver, sepsis NYHA class: IV, stage D, has poor prognosis, end-stage heart failure CXR: prominent vascular congestion BNP: >3250 Echo: Dilated cardiomyopathy severe global hypokinesis LVEF 20% The RV is normal in size and systolic function. The estimated RVSP, 66 mmHg. RAP 8. Aortic valve sclerosis with mild aortic regurgitation. Mild mitral regurgitation. Moderate tricuspid regurgitation ? Can be starterd on Bumex 1mg PO qday ? Resume DAPT ? Start goal-directed medical therapy when stable to tolerate, likely in the outpatient setting ? Continue Aspirin and Plavix ? Keep K>4, Mg>2 ? Provide oxygen as required ? Strict I's and O's ? Fluid restriction #Acute liver injury #Ischemic hepatitis #GEORGIE #CKD Stage III b #Pleural Effusion s/p thora #CAP- on ivabx #Non-insulin dependent Type II DM -as per primary team Case discussed with my attending Dr. Ugo Olmstead MD PGY-2 Disclaimer: Despite multiple revisions, due to the dictation software being used, the document bellow may not be free of grammatical errors including phonetic/typographic errors. However, this does not deter from our commitment to providing health care in the patient's best interest in mind.
[2025-05-07] MEDS: MELATONIN 3 MG TABLET 6 MG PO (22:26)
[2025-05-08] VITALS (7 sets, daily range): BP systolic 90–115; BP diastolic 67–75; PULSE 66–94; RESP 15–22; TEMP 36.2–36.4; O2SAT 95–100; BMI 20.8
--- NOTE | 2025-05-08 | XR_ITS ---
Examination: Venous access removal nontunneled dialysis catheter Date and time: May 08, 2025, 10:00 AM INDICATIONS: No longer needed for dialysis TECHNIQUE AND FINDINGS: Informed consent provided. Timeout performed. Skin prepped over the entrance site of the temporary dialysis catheter Hand hygiene Careful removal of the temporary dialysis catheter, direct pressure applied for control of hemostasis No blood loss IMPRESSION: Successful venous assess removal nontunneled dialysis catheter
--- NOTE | 2025-05-08 00:21 | PC.NURSE ---
Pt in bed with unorganized blankets and is slouched, pt does not want to be repositioned at this time or blankets messed with.
[2025-05-08] MEDS: HEPARIN SOD INJ 5000 UNIT/ML VIAL SC (05:32)
[2025-05-08] MEDS: LEVOTHYROXINE SODIUM 88 MCG TABLET PO (05:32)
[2025-05-08 05:38] LABS: Basophils # (Auto) 0.0 Thou/mm3 (0.0-0.2); Basophils % (Auto) 0 % (0-2.5); Eosinophils # (Auto) 0.2 Thou/mm3 (0.0-0.5); Eosinophils % (Auto) 1 % (0-10); Hematocrit 39.8 % (41.0-53.0); Hemoglobin 12.5 g/dL (13.5-16.0); Immature Granulocytes Auto 0.06 Thou/mm3 (0.00-0.00); Lymphocytes # (Auto) 0.4 Thou/mm3 (1.0-4.8); Lymphocytes % (Auto) 3 % (10-50); Mean Corpuscular HGB Conc 31.4 g/dl (31.0-37.0); Mean Corpuscular Hemoglobin 30.7 pg (25.0-35.0); Mean Corpuscular Volume 98 fL (80-100); Monocytes # (Auto) 1.0 Thou/mm3 (0.0-0.8); Monocytes % (Auto) 9 % (0-12); Neutrophils # (Auto) 10.4 Thou/mm3 (1.8-7.7); Neutrophils % (Auto) 87 % (37-80); Nucleated Red Blood Cell # 0.00 Thou/mm3 (0.00-0.00); Nucleated Red Blood Cell % 0 /100 WBC (0); Platelet Count 108 Thou/mm3 (140-440); RDW Standard Deviation 58.5 fL (35.1-43.9); Red Blood Count 4.07 Miln/mm3 (4.50-5.90); White Blood Count 12.0 Thou/mm3 (3.8-10.6)
[2025-05-08 06:00] LABS: Alanine Aminotransferase 377 U/L (10-49); Albumin, Serum 3.4 gm/dL (3.4-4.8); Albumin/Globulin Ratio 1.3 (1.2-2.2); Alkaline Phosphatase 83 U/L (46-116); Anion Gap 7 (7-16); Aspartate Amino Transferase 53 U/L (0-34); BUN/Creatinine Ratio 25 Ratio (12-20); Bilirubin,Total 1.1 mg/dL (0.3-1.2); Blood Urea Nitrogen 25 mg/dL (9-23); Calcium 9.0 mg/dL (8.3-10.6); Calcium (Corrected) 9.5 mg/dL (8.5-10.1); Carbon Dioxide 36.0 mMol/L (20.0-31.0); Chloride 99 mMol/L (98-107); Creatinine (Component) 1.0 mg/dL (0.6-1.3); Estimated Creatinine Clearance 54.6 mL/min (>60); Globulin 2.6 gm/dL (2.3-3.5); Glucose 108 mg/dL (74-106); Osmolality,Calculated 288 (275-295); Potassium 3.9 mMol/L (3.4-5.1); Sodium 142 mMol/L (136-145); Total Protein 6.0 gm/dL (5.7-8.2); eGFR > 60 See Note
--- NOTE | 2025-05-08 06:04 | PC.NURSE ---
Provider Basil aware that diet order does not have fluid restriction, provider will speak to day team about if patient is still on fluid restriction of 1500ml
[2025-05-08] MEDS: MIDODRINE 5 MG TABLET 10 MG PO (08:38)
[2025-05-08] MEDS: BUMETANIDE 0.5 MG TABLET 1 MG PO (08:38)
[2025-05-08] MEDS: FINASTERIDE 5 MG TABLET PO (08:39)
--- NOTE | 2025-05-08 08:56 | PD.RESPRO ---
Documentation for date of: 05/08/25 Subjective Subjective Interval history: 70 y/o M with PMH significant for Coronary artery disease s/p stent placement (currently on aspirin and clopidogrel), CHF, and COPD, presented to hospital on 05/01/2025, with several weeks of progressively worsening shortness of breath, increased work of breathing, and lower extremity swelling. THe patient reports difficulty sleeping at night and requires 2-3 liters of supplemental oxygen nocturnally. Patient was admitted for CHF exacerbation vs pneumonia. Nephrology has been consulted for management of GEORGIE. 05/02/2025: Labs reviewed and patient examined at the bedside. Initially, patient was mildly hypertensive, stable HR, afebrile, O2 sat acceptable on room air, wirh Cr 1.7, troponin 0.056, and BNP >3000. CXR and CT both showed ongoing pneumonia with pleural effusion. During hospital stay, patient was given IV Lasix with minimal diuresis (only ~300ml output), 1.3 L of pleural effusion drained via thoracentesis, markedly decline in renal function (Cr from 1.7 to 2.8 and eGFR from 43 to 25), WBC john from 10.6 to 17.9 despite ceftriaxone. Rise in LFTs (AST from 83 to 5000 and ALT from 46 to 2333) showing massive hepatocellular injury. LDH showed 4056 , troponin increased from 0.056 to 0.117. This patient has marked transaminitis, which is not typical of CHF exacerbation alone, Rising WBC despite antibiotics that shows uncontrolled or atypical infection, Severe LDH elevation raises suspicion for tissue necrosis/hemolysis/ischemia, Acute renal injury is out of proportion to diuresis, and troponin bump may indicate supply-demand problem or true MT. Overall, this raises concern for possibility of ischemic Hepatitis (Shock liver) due to hypoperfusion and Sepsis due to resistant pneumonia or empyema. The patient is currently in borderline SIRS 3/4 criteria: T 96.9 (>100.4 or <96.8F), RR 20 (>20/min), HR 50 (>90/min), WBC 17.9 (>12 or <4K or Bands >10%). Hepatic and renal injury may be secondary to sepsis-induced hypoperfusion in addition to aggressive diuresis given to the patient. However, transient increase in Cr due to contrast-induced nephropathy from Chest CTA is also a possibility. Will continue to monitor. 05/03/2025: Labs reviewed and patient examined at the bedside. Patient showed decline in renal function. BUN:83, Cr:3.9, eGFR:16 with minimal urine output (200ml). Patient agreed to be transferred to ICU and undergo conventional dialysis for possible renal recovery. If patient can't tolerate, then will do CRRT. 05/04/2025: Labs reviewed and patient examined at the bedside. Patient's liver function steadily improving. Renal function got better after hemodiaysis yesterday. BUN: 64, Cr:3.6, eGFR:18, UoP 425ml. Patient will receive hemodialysis again today. 05/05/2025 patient currently seen on his third dialysis treatment. at bedside. Had several questions regarding outpatient dialysis will be arranged. Patient needs PermCath placement on Wednesday. However his coagulation seems to be high due to liver problems. Will discuss with Dr. Springer regarding holding off on aspirin and Plavix for 2 days. Left a message for Dr. Springer. Patient had a stent in February. Patient stated he is feeling much better and his shortness of breath is also better. Of note CT chest showed pulmonary fibrosis. Did have urinary retention yesterday and Mandujano catheter was placed. 600 cc of urine was drained. Will need bladder training. Spoke to primary team. 05/06/2025 patient currently seen in telemetry. His Angelica is at the bedside. Patient denies any chest pain. Shortness of breath much better. Hopefully can get IJ PermCath tomorrow with IR. Aspirin, Plavix held-okayed by Dr. Springer. Labs and medications reviewed. 05/07/2025:Labs reviewed and patient examined at the bedside. BUN: 36, Cr:1.3, eGFR:59 Patient endorses generalized weakness. No other complaints at this moment. Marked improvement renally. Will remove catheter before discharge. 05/08/2025: Labs reviewed and patient examined at the bedside. BUN :25, Cr:1.0, eGFR>60. Temporary Dialysis Catheter removal ordered. Will need to consult urology for mandujano catheter removal. Renal andrews, patient is stable. Okay to Discharge. Exam Vital Signs Temp Pulse Resp BP Pulse Ox O2 Del Method O2 Flow Rate 97.2 F 87 18 115/74 99 Humidified Nasal Cannula 5 05/08/25 07:58 05/08/25 08:38 05/08/25 07:58 05/08/25 08:38 05/08/25 07:58 05/08/25 07:58 05/08/25 07:58 FiO2 3 05/08/25 07:58 Narrative Exam General: No acute distress, frail, elderly, AAO x3 Eye: PERRL, EOMI, normal conjunctiva, no scleral icterus HENT: Normocephalic, atraumatic, hearing intact to conversation at normal volume, moist oral mucosa Neck: Supple, non-tender, no JVD, no lymphadenopathy Lungs: symmetric chest rise, Expiratory wheezing throughout bilateral lungs. Heart: Peripheral pulses intact bilaterally, Regular Rate and Rhythm. Abdomen: Soft, non-tender, non-distended, no palpable masses Musculoskeletal: Normal range of motion and strength, No cyanosis, No visible joint swelling Skin: Skin is warm, dry, no rashes or lesions. Psychiatric: Cooperative, appropriate mood and affect, Awake and alert, not agitated Neuro: Cranial nerves II-XII grossly intact. Sensations intact to light touch. Objective Labs 05/08/25 05:01 05/08/25 05:01 Labs: Laboratory Results - last 24 hr 05/08/25 05:01 WBC 12.0 H RBC 4.07 L Hgb 12.5 L Hct 39.8 L MCV 98 MCH 30.7 MCHC 31.4 RDW Std Deviation 58.5 H Plt Count 108 L Neut % (Auto) 87 H Lymph % (Auto) 3 L [place] % (Auto) 9 Eos % (Auto) 1 Baso % (Auto) 0 Neut # (Auto) 10.4 H Lymph # (Auto) 0.4 L [place] # (Auto) 1.0 H Eos # (Auto) 0.2 Baso # (Auto) 0.0 Immature Gran # (Auto) 0.06 H Absolute Nucleated RBC 0.00 Immature Gran % 1 H Nucleated RBC % 0 Sodium 142 Potassium 3.9 Chloride 99 Carbon Dioxide 36.0 H Anion Gap 7 BUN 25 H Creatinine 1.0 Estim Creat Clear Calc 54.6 L eGFR > 60 BUN/Creatinine Ratio 25 H Glucose 108 H Calculated Osmolality 288 Calcium 9.0 Corrected Calcium 9.5 Total Bilirubin 1.1 AST 53 H ALT 377 H Alkaline Phosphatase 83 Total Protein 6.0 Albumin 3.4 Globulin 2.6 Albumin/Globulin Ratio 1.3 Quality Measures Quality Measures VTE prophylaxis and none Advance care planning discussed with:: patient and other Assessment & Plan Assessment Current Active Medications: Generic Name Dose Route Start Last Admin Trade Name Freq PRN Reason Stop Dose Admin Acetaminophen 650 mg 05/05/25 13:47 05/07/25 17:03 Acetaminophen 325 Mg Tablet PO 05/31/25 16:02 650 mg Q6H PRN Administration Fever >101.5 Albuterol/Ipratropium 3 ml 05/07/25 14:30 Albuterol/Ipratropium (Duoneb) Rt Emily 3 Ml Nebu INH 06/01/25 10:59 Q4HRRT PRN SHORTNESS OF BREATH Aspirin 81 mg 05/01/25 16:30 05/06/25 08:17 Aspirin Ec 81 Mg Tabec PO 05/31/25 16:29 81 mg On Hold: 05/06/25 10:29 QDAY ALISA Administration Bumetanide 1 mg 05/08/25 09:00 05/08/25 08:38 Bumetanide 0.5 Mg Tablet PO 06/07/25 08:59 1 mg QDAY ALISA Administration Clopidogrel Bisulfate 75 mg 05/01/25 16:30 05/06/25 08:17 Clopidogrel Bisulfate 75 Mg Tablet PO 05/31/25 16:29 75 mg On Hold: 05/06/25 10:29 QDAY ALISA Administration Dextrose 50 ml 05/03/25 18:38 Dextrose 50%-Water Inj 50 Ml Syringe IV 06/02/25 18:37 Q15MIN PRN BG <50 OR BG <70 & pt unresponsive Finasteride 5 mg 05/07/25 10:00 05/08/25 08:39 Finasteride 5 Mg Tablet PO 06/06/25 09:59 5 mg QDAY ALISA Administration Glucagon 1 mg 05/03/25 18:38 Glucagon Inj 1 Mg Vial IM Q15MIN PRN BG <70, and no IV access Heparin Sodium (Porcine) 5,000 unit 05/03/25 14:00 05/08/25 05:32 Heparin Sod Inj 5000 Unit/Ml Vial SC 05/17/25 13:59 5,000 unit Q8HR ALISA Administration Heparin Sodium (Porcine) 2,600 unit 05/04/25 11:09 05/05/25 11:15 Heparin Sod Inj 1000 Unit/Ml Vial 10 Ml INDWELLCAT 05/18/25 11:08 2,600 unit PRN PRN Administration DIALYSIS Albumin Human 25 gm in 100 mls @ 100 mls/min 05/04/25 10:07 05/05/25 08:32 Albuminar-25 Ivpb IV 100 mls/min PRN PRN Administration DIALYSIS Insulin Human Lispro 0 unit 05/07/25 11:30 05/08/25 07:25 Insulin Lispro (Admelog) 1 Unit/0.01 Ml Unit SC 06/06/25 11:29 Not Given AC ALISA Protocol Levothyroxine Sodium 88 mcg 05/04/25 06:00 05/08/25 05:32 Levothyroxine Sodium 88 Mcg Tablet PO 06/03/25 05:59 88 mcg ACBR ALISA Administration Midodrine 10 mg 05/04/25 21:00 05/08/25 08:38 Midodrine 5 Mg Tablet PO 06/03/25 20:59 10 mg BID ALISA Administration Ondansetron HCl 4 mg 05/01/25 16:03 05/02/25 12:22 Ondansetron Inj 2 Mg/Ml Inj 2 Ml IVP 05/31/25 16:02 4 mg Q6H PRN Administration NAUSEA OR VOMITING Protocol Plan 70 y/o M with PMG significant for Coronary artery disease s/p stent placement (currently on aspirin and clopidogrel), CHF, and COPD, presented to hospital on 05/01/2025, with several weeks of progressively worsening shortness of breath, increased work of breathing, and lower extremity swelling. Patient was admitted for CHF exacerbation vs pneumonia. Nephrology has been consulted for management of GEORGIE. #GEORGIE on Chronic Kidney Disease - Resolved #Cardiorenal Syndrome-Resolving #ATN - Resolving #VS Contrast Induced nephropathy -On admission: BUN:38, Cr:1.7, eGFR:43, BNP: >3280, Tropnin: 0.056 -Currently, BUN:36, Cr:1.3, eGFR:59 , UoP:1.1L. -CXR: (05/01/2025): Prominent CHF. Moderate enlargement cardiac contour, prominent vascular congestion and perihilar edema, Consider superimposed pneumonia at the lung bases, Large left pleural effusion, Cardiac leads satisfactory position -Repeat CXR (05/01/2025): No pneumothorax post thoracentesis, Mild to moderate enlargement cardiac contour prominent vascular congestion and extensive edema and/or pneumonia throughout the lungs, Cardiac leads satisfactory position. -Chest CTA (05/01/2025): Negative for pulmonary artery emboli, Extensive diffuse bilateral pneumonia, Superimposed pulmonary fibrosis at the lung bases, Extensive loculated left pleural fluid -His current renal function is most likely a result of chronic injury to the kidneys from poorly controlled CHF, resulting in fluid overload as evidenced by BNP levels, with possibility of sepsis due to pneumonia. -Renal US (05/03/25): Small kidneys with bilateral renal cortical thinning, Moderate bilateral renal parenchymal scar formation, No hydronephrosis -Hemodialysis session: 05/03, 05/04, 05/05 Plan: -Hold diuresis. -Renal US - no hydronephrosis -Avoid nephrotoxic and renally dose medications, -Strict ins and outs -Patient's catheter will be removed prior to discharge. #Acute on Chronic CHF exacerbation #Ischemic hepatitis #Pleural Effusion #CAP #NSTEMI #CAD #Non-insulin dependent Type II DM -Management per Primary Hospitalist team Thank you for allowing us to participate in the care of your patient. Patient is stable in nephrology standpoint. No further recommendations. Assessment and plan discussed with my attending physician Dr. Quirino Foss (PGY-1)- Internal medicine resident Attending Provider Attestation/Addendum Patient seen and examined with resident physician Dr. Foss. Note reviewed, agree with findings and recommendations. #GEORGIE secondary to ischemic ATN/cardiorenal syndrome type I. Patient's creatinine started to improve. Will hold off on dialysis. Noted he has some urinary retention. With Mandujano catheter urine output seems to be much better. If creatinine continues to improve will DC dialysis catheter today and dc dialysis. Patient needs urology follow-up as an outpatient. Spoke to his at bedside # Cardiomyopathy, congestive heart failure, coronary artery disease status post stents Under Dr. Springer. Held dialysis. Resume Lasix. Care discussed with Dr. Becker
--- NOTE | 2025-05-08 10:56 | CHAP ---
Patient was visited by a Spiritual Care Volunteer on 05/08/2025 between 0855 and 0915 and received comfort, encouragement and/or prayer.
[2025-05-08] MEDS: INSULIN LISPRO (AdmeLOG) 1 UNIT/0.01 ML UNIT SC (11:52)
--- NOTE | 2025-05-08 12:19 | ESDS_ITS ---
Planned Discharge Date 05/08/25 DS: Providers Provider Date of admission: 05/01/25 15:58 Primary care physician: LAURA Iqbal Admitting Provider: Kelli Tinajero MD Attending Provider on Admission: Ankita Becker DO Consults: 05/02/25 10:27 Consult to Nephrology Routine Comment: Consulting Provider: Iraj Win 05/02/25 12:01 Consult to Gastroenterology Stat Comment: Acute liver injury Consulting Provider: Ken Arana 05/02/25 12:02 Consult to Cardiology Routine Comment: elevated troponins Consulting Provider: Sydney Arizmendi 05/05/25 07:07 Referral Physical Therapy Routine Comment: Physician Instructions: 05/07/25 08:00 Referral Discharge Planning Stat Comment: op dialysis at dialysis Attending Provider on DC: Ankita Becker DO Discharging Provider: Ankita Becker DO DS: Diagnosis Problem List Completed Was Problem List Reviewed/Reconciled?: Yes Hospital Course Hospital Course Hospital course: Reason for hospitalization: CHF exacerbation, PNA, pleural effusions Mr. Dugan is a 70-year-old male with past medical history significant for CAD status post stent with recent 1 on 03/02 currently on aspirin and Plavix, CHF, COPD who presented to ED on 05/01/25 with worsening SOB. He was admitted for AHRF 2/2 CHF exacerbation, CAP and bilateral pleural effusion. In the ER, patient had therapeutic thoracentesis of the left side. Was started on IV antibiotics, aggressive IV Lasix. He was displaying multiorgan failure with GEORGIE and acute liver injury. LFTs markedly worsened with AST 5002, ALT 2333. LDH 4056, troponins uptrending 0.117. Nephrology was consulted for GEORGIE on CKD. Patient had temp cath placed and on 05/03/25 and was upgraded to ICU for conventional dialysis. He was started on midodrine for BP support. Downgraded next day as he tolerated the dialysis well. GEORGIE slowly improved during hospitalization with good urine production but Mandujano was placed due to patient's inability to void. Cardiology was consulted who recommended to hold all antihypertensives and resume low dose Bumex at 1mg daily. Liver injury improved and HD line was removed. Patient is now in stable condition and ready for discharge. Recommendations were given as below. Discharge Recommendations: Hold your Coreg, entresto, digoxin, tadalafil until you see your commercial underwriter. Decrease your Bumex dose from 2 mg to 1 mg daily. Weigh yourself every morning and keep log of your weights. If you gain 2-3lbs in day, take one extra dose of your water pill and call your commercial underwriter. Resume your other previous medications. Follow up with you PCP in 1-2 weeks. Follow up with your commercial underwriter in 1 week. Follow up with wind turbine mechanical engineer in 1 week. Obtain urology referral from your PCP to remove your mandujano. Hospital Diagnoses: #Acute on Chronic CHF exacerbation EF 15-20% #Ischemic Cardiomyopathy #Cardiorenal Syndrome Type I-resolved #GEORGIE (resolved) on CKD #Ischemic Hepatitis- improving #Lactic acidosis-resolved #Pleural Effusion #NSTEMI #CAP #Pulmonary fibrosis. #CAD #Non-insulin dependent Type II DM #acute Urinary Retention The patient's management plan was discussed with my attending physician Dr. Becker. María Jennings MD, PGY-2 Time Spent with Patient Time attestation: Total time spent providing and/or coordinating discharge services: Time spent: Greater than 30 minutes Home Health Home Health Referral Orders: 05/07/25 10:02 Home Health Referral Routine Reason For Exam: chf Home-Bound The patient must either because of illness or injury, need the aid of supportive devices such as crutches, canes, wheelchairs, and walkers; the use of special transportation; or the assistance of another person in order to leave their place of residence; OR have a condition such that leaving his or her home is medically contraindicated. In addition, the patient also meets the following criteria: patient is normally unable to leave the home and leaving home requires considerable taxing effort. Addendum to Home Health Certification Practitioner's Certification: I certify that the patient has been under my care in the hospital and the care of attending physician (see below). We had a [id number] encounter on (see date below). My clinical findings indicate that the patient is home bound per the above criteria and the Home Health Services noted in these orders are medically necessary. The primary reason for the [id number] encounter is related to the fact that the patient requires home health services. Date Certifying [id number] Physician Encounter: 05/01/25 Physician's Name who will Assume Oversight for Services: Hortencia Donis Physician's Phone No.who will Assume Oversight for Service: WORK STUDY STUDENT - Community Resources: No PT to Evaluate: Yes PT to evaluate and provide a treatmnet plan to increase patient's mobility and strength. Wound Care: No IV Therapy: No RN Safety Evaluation: Yes RN to evaluate and create a plan of care that will produce positive outcomes. Palliative Treatment: No Palliative treatment and evaluate the need for hospice. Home Health Aide - Personal Care: Yes Home Health Aide to assist with any ADL's. Exam Vital Signs Temp Pulse Resp BP Pulse Ox O2 Del Method O2 Flow Rate 97.2 F 87 18 115/74 99 Humidified Nasal Cannula 5 05/08/25 07:58 05/08/25 08:38 05/08/25 07:58 05/08/25 08:38 05/08/25 07:58 05/08/25 07:58 05/08/25 07:58 FiO2 3 05/08/25 07:58 Narrative Exam General: frail, elderly patient, no acute distress, converstational HEENT: Mucosa moist. Pupils are equal and reactive to light bilaterally, temporary dialysis catheter removed. Cardiovascular: Soft heart tones, regular rate and rhythm, systolic murmur appre ciated. Respiratory: Coarse sounds along the left lung. Right lung clear to auscultation. Crackles not appreciated on the right. Abdomen: Soft, nontender, not distended, Skin: Dry, no rashes or bruising Musculoskeletal: No gross injuries. Able to move all 4 extremities. Non edematous lower extremities. Neuro: Alert and oriented x3. No focal neuro deficits. Psych: Somewhat flat affect, eager to leave Discharge Plan Plan Patient Disposition: Home w/HOME HEALTH Patient condition on transfer: Stable Prescriptions/Referrals Prescriptions/Med Rec: New finasteride 5 mg Tablet 5 mg PO QDAY 30 Days Qty: 30 0RF bumetanide 1 mg tablet 1 mg PO QDAY 30 Days Qty: 30 0RF midodrine 10 mg tablet 10 mg PO BID 30 Days Qty: 60 0RF Rx Instructions: do not give last dose of day after 6PM or within 4 hrs of bedtime Continued aspirin 81 mg Tablet,Delayed Release (Dr/Ec) 81 mg PO QDAY 30 Days Qty: 30 1RF levothyroxine 88 mcg Tablet 88 mcg PO QDAY clopidogrel [Plavix] 75 mg tablet 75 mg PO QDAY amiodarone 200 mg tablet 200 mg PO Q24H Patient Comments: TAKE 1 TABLET BY MOUTH ONCE DAILY hydrocodone-acetaminophen 10-325 mg tablet 1 tab PO Q6H Patient Comments: TAKE 1 TABLET BY MOUTH EVERY 6 HOURS NEEDED FOR PAIN dapagliflozin propanediol [Farxiga] 10 mg tablet 10 mg PO DAILY Patient Comments: TAKE 1 TABLET BY MOUTH EVERY MORNING fexofenadine [Allergy Relief (fexofenadine)] 180 mg tablet 180 mg PO Q24H Patient Comments: TAKE 1 TABLET BY MOUTH EVERY DAY Held carvedilol 3.125 mg Tablet 3.125 mg PO BIDWM 30 Days Qty: 60 2RF Hold Instructions: Resume on 05/22/25. Hold until you see your commercial underwriter. sacubitril-valsartan [Entresto] 24-26 mg Tablet 1 tab PO BID Qty: 60 2RF Hold Instructions: Resume on 05/22/25. Hold until you see your commercial underwriter. digoxin 125 mcg (0.125 mg) Tablet 125 mcg PO DAILY Hold Instructions: Resume on 05/22/25. Hold until you see your commercial underwriter. tadalafil 10 mg tablet 10 mg PO .as needed Hold Instructions: Resume on 05/22/25. Hold until you see your commercial underwriter. Patient Comments: TAKE 1 TABLET BY MOUTH ONCE DAILY Discontinued dapagliflozin propanediol [Farxiga] 5 mg tablet 10 mg PO DAILY Patient Comments: take 1 tablet by mouth every morning Ozempic 0.25 mg or 0.5 mg(2 mg/1.5 mL) Pen Injector 0.5 mg SUBCUT QWEEK bumetanide 2 mg tablet 2 mg PO QDAY Qty: 90 0RF Referrals: Hortencia Donis FNP [Primary Care Provider] Sydney Arizmendi MD [Physician, Cardiology] Iraj Win MD [Physician, Nephrology] Patient/Caregiver Discharge Instructions Other Discharge Activity Instructions:: Hold your Coreg, entresto, digoxin, tadalafil until you see your commercial underwriter. Decrease your Bumex dose from 2 mg to 1 mg daily. Weigh yourself every morning and keep log of your weights. If you gain 2-3lbs in day, take one extra dose of your water pill and call your commercial underwriter. Resume your other previous medications. Follow up with you PCP in 1-2 weeks. Follow up with your commercial underwriter in 1 week. Follow up with wind turbine mechanical engineer in 1 week. Obtain urology referral from your PCP to remove your mandujano. Education Materials: Emptying and Cleaning Your ..., ED Mandujano Catheter, Care Print Language: Kittitian Stand Alone Forms: Domenica Award Info., Patient Portal Info Letter Discharge Order Discharge Orders: Discharge (Routine); Ordered 05/08/25 Ordered By: María Jennings Quality Discharge Quality Measures VTE prophylaxis
--- NOTE | 2025-05-08 22:55 | PD.IMPROG ---
Documentation for date of: 05/08/25 Subjective Subjective Interval history: Late entry for the note Case discussed with internal medicine team Okay to discharge patient to be followed by the PCP LFTs are greatly improved with a total bilirubin normal at 1.1 AST down to 53 ALT 377 alk phos 83 Exam Vital Signs Temp Pulse Resp BP Pulse Ox O2 Del Method O2 Flow Rate 97.6 F 94 17 111/75 99 Humidified Nasal Cannula 5 05/08/25 12:00 05/08/25 12:00 05/08/25 12:00 05/08/25 12:00 05/08/25 12:00 05/08/25 12:00 05/08/25 12:00 FiO2 3 05/08/25 12:00 Objective Labs 05/08/25 05:01 05/08/25 05:01 Labs: Laboratory Results - last 24 hr 05/08/25 05:01 WBC 12.0 H RBC 4.07 L Hgb 12.5 L Hct 39.8 L MCV 98 MCH 30.7 MCHC 31.4 RDW Std Deviation 58.5 H Plt Count 108 L Neut % (Auto) 87 H Lymph % (Auto) 3 L [place] % (Auto) 9 Eos % (Auto) 1 Baso % (Auto) 0 Neut # (Auto) 10.4 H Lymph # (Auto) 0.4 L [place] # (Auto) 1.0 H Eos # (Auto) 0.2 Baso # (Auto) 0.0 Immature Gran # (Auto) 0.06 H Absolute Nucleated RBC 0.00 Immature Gran % 1 H Nucleated RBC % 0 Sodium 142 Potassium 3.9 Chloride 99 Carbon Dioxide 36.0 H Anion Gap 7 BUN 25 H Creatinine 1.0 Estim Creat Clear Calc 54.6 L eGFR > 60 BUN/Creatinine Ratio 25 H Glucose 108 H Calculated Osmolality 288 Calcium 9.0 Corrected Calcium 9.5 Total Bilirubin 1.1 AST 53 H ALT 377 H Alkaline Phosphatase 83 Total Protein 6.0 Albumin 3.4 Globulin 2.6 Albumin/Globulin Ratio 1.3 Impressions Impression: Resolving acute hypoxic hepatitis Okay to discharge to be followed by the PCP Assessment & Plan Time Spent With Patient Time: Total time spent is greater than 50% in coordination of care (as documented) at patient's floor/unit and/or counseling patient:
--- NOTE | 2025-05-09 08:11 | PC.CC ---
Addendum entered by Mary Downing RN 05/09/25 08:53: [facility] accepted and booked, SOC 05/10 Original Note: [facility] ref sent out, waiting for response
== END 2025-05-08 14:02 | disposition home health service (06) | DRG 280 ==
LOC: SERX 14:30 → S2NX 17:45 → S2SX 05-03 09:03 → S2NX 05-04 15:47
PROVIDERS: Nurse Practitioner Family; Admitting Provider Internal Medicine; Emergency Provider Emergency Medicine; PCP Nurse Practitioner Family; Visit Provider Internal Medicine
DX: I13.0 Hypertensive heart and chronic kidney disease with heart failure and stage 1 through stage 4 chronic kidney disease, or unspecified chronic kidney disease (principal); I50.23 Acute on chronic systolic (congestive) heart failure; I21.4 Non-ST elevation (NSTEMI) myocardial infarction; J18.9 Pneumonia, unspecified organism; J96.01 Acute respiratory failure with hypoxia; N17.0 Acute kidney failure with tubular necrosis; K72.00 Acute and subacute hepatic failure without coma; J44.0 Chronic obstructive pulmonary disease with (acute) lower respiratory infection; E87.1 Hypo-osmolality and hyponatremia; E87.20 Acidosis, unspecified; J91.8 Pleural effusion in other conditions classified elsewhere; D68.9 Coagulation defect, unspecified; N18.9 Chronic kidney disease, unspecified; E03.9 Hypothyroidism, unspecified; I48.91 Unspecified atrial fibrillation; I25.10 Atherosclerotic heart disease of native coronary artery without angina pectoris; I25.2 Old myocardial infarction; Z95.5 Presence of coronary angioplasty implant and graft; E11.22 Type 2 diabetes mellitus with diabetic chronic kidney disease; I50.9 Heart failure, unspecified; E78.5 Hyperlipidemia, unspecified; E83.51 Hypocalcemia; E87.5 Hyperkalemia; I07.1 Rheumatic tricuspid insufficiency; N18.32 Chronic kidney disease, stage 3b; N27.1 Small kidney, bilateral; T50.2X5A Adverse effect of carbonic-anhydrase inhibitors, benzothiadiazides and other diuretics, initial encounter; J84.10 Pulmonary fibrosis, unspecified; T50.8X5A Adverse effect of diagnostic agents, initial encounter; R33.9 Retention of urine, unspecified; I25.5 Ischemic cardiomyopathy; Z79.84 Long term (current) use of oral hypoglycemic drugs; Z79.899 Other long term (current) drug therapy; Z87.01 Personal history of pneumonia (recurrent); Z79.02 Long term (current) use of antithrombotics/antiplatelets; Z87.891 Personal history of nicotine dependence; Z92.3 Personal history of irradiation; Z95.0 Presence of cardiac pacemaker; Z79.82 Long term (current) use of aspirin; Z99.2 Dependence on renal dialysis; Z90.49 Acquired absence of other specified parts of digestive tract; I42.0 Dilated cardiomyopathy; N14.11 Contrast-induced nephropathy; Z85.01 Personal history of malignant neoplasm of esophagus; I35.0 Nonrheumatic aortic (valve) stenosis; I35.8 Other nonrheumatic aortic valve disorders
CPT/HCPCS: 36415; 71046; 71275; 76700; 76770; 77001; 80053; 80074; 80307; 80329; 81001; 82140; 82945; 83605; 83615; 83735; 83880; 83986; 84100; 84157; 84484; 85025; 85610; 85730; 86580; 87040; 87070; 87075; 87205; 89051; 93005; 93306; 94640; 96365; 96375; 96376; 97162; 99285; A4216; A4649; A9270; C1729; J0456; J0612; J0696; J1171; J1643; J1644; J1815; J1938; J1956; J2405; J2919; J3490; J7050; P9047; Q9967; G0480

== ENCOUNTER 2025-05-16 07:20 | Inpatient (IN) | payer MEDICARE, MEDICAID, SELFPAY ==
[2025-05-16] VITALS (15 sets, daily range): BP systolic 0–107; BP diastolic 0–79; PULSE 50–105; RESP 12–92; TEMP 34.5–36.7; O2SAT 92–99; BMI 21.5
[2025-05-16] MEDS: AMIODARONE 150 MG IVPB 150 MG/100 ML BAG 582.524 MG IV (07:40)
--- NOTE | 2025-05-16 07:42 | XR_ITS ---
EXAMINATION: AP chest single view TECHNIQUE: AP portable upright chest single view Date and time: May 16, 2025, 0828 hours, comparison 05/03/2025 INDICATIONS: SOB today. FINDINGS: Moderate heart failure Mild to moderate enlargement cardiac contour. Prominent vascular congestion with perihilar edema. Mild right and moderate to large left pleural effusions Cardiac leads stable position Prominent osteopenia IMPRESSION: Moderate heart failure Consider superimposed bilateral pneumonia
[2025-05-16 08:07] LABS: Basophils # (Auto) 0.0 Thou/mm3 (0.0-0.2); Basophils % (Auto) 0 % (0-2.5); Eosinophils # (Auto) 0.0 Thou/mm3 (0.0-0.5); Eosinophils % (Auto) 0 % (0-10); Hematocrit 41.6 % (41.0-53.0); Hemoglobin 12.9 g/dL (13.5-16.0); Immature Granulocytes Auto 0.23 Thou/mm3 (0.00-0.00); Lymphocytes # (Auto) 0.4 Thou/mm3 (1.0-4.8); Lymphocytes % (Auto) 2 % (10-50); Mean Corpuscular HGB Conc 31.0 g/dl (31.0-37.0); Mean Corpuscular Hemoglobin 31.2 pg (25.0-35.0); Mean Corpuscular Volume 101 fL (80-100); Monocytes # (Auto) 0.6 Thou/mm3 (0.0-0.8); Monocytes % (Auto) 4 % (0-12); Neutrophils # (Auto) 14.7 Thou/mm3 (1.8-7.7); Neutrophils % (Auto) 92 % (37-80); Nucleated Red Blood Cell # 0.00 Thou/mm3 (0.00-0.00); Nucleated Red Blood Cell % 0 /100 WBC (0); Platelet Count 341 Thou/mm3 (140-440); RDW Standard Deviation 58.5 fL (35.1-43.9); Red Blood Count 4.14 Miln/mm3 (4.50-5.90); White Blood Count 15.9 Thou/mm3 (3.8-10.6)
[2025-05-16] MEDS: AMIODARONE 360 MG IVPB 360 MG/200 ML BAG 33.333 MG IV (08:17)
[2025-05-16 08:32] LABS: INR 1.5 (0.9-1.3); Partial Thromboplastin Time 27.1 Seconds (22.0-36.0); Prothrombin Time 15.8 Seconds (9.0-12.2)
--- NOTE | 2025-05-16 08:34 | PD.EDSOB ---
ED SOB =RME/HPI General Chief Complaint: Shortness of Breath/Dyspnea Stated Complaint: SOB Time Seen by Provider: 05/16/25 07:36 Arrival date/time: 05/16/25 07:20 RME / HPI RME / HPI Narrative: 70 yo male patient with h/o CHF BIBA c/o SOB. called EMS due to patient SOB. Patient c/o constipation causing his SOB. Last BM X days ago. Also c/o dysuria and decreased UOP. Has mandujano in place. Related Data Home Medications ?Medication ?Instructions ?Recorded ?Confirmed levothyroxine 88 mcg tablet 88 mcg PO QDAY 05/18/22 05/01/25 digoxin 125 mcg (0.125 mg) tablet 125 mcg PO DAILY 10/27/23 05/01/25 Held on 05/08/25. Instructions: Resume on 05/22/25. Hold until you see your embroidery cutter. clopidogrel 75 mg tablet (Plavix) 75 mg PO QDAY 02/27/25 05/01/25 amiodarone 200 mg tablet 200 mg PO Q24H 05/01/25 05/01/25 dapagliflozin propanediol 10 mg 10 mg PO DAILY 05/01/25 05/01/25 tablet (Farxiga) fexofenadine 180 mg tablet 180 mg PO Q24H 05/01/25 05/01/25 (Allergy Relief (fexofenadine)) hydrocodone 10 mg-acetaminophen 1 tab PO Q6H 05/01/25 05/01/25 325 mg tablet tadalafil 10 mg tablet 10 mg PO .as needed 05/01/25 05/01/25 Held on 05/08/25. Instructions: Resume on 05/22/25. Hold until you see your embroidery cutter. Previous Rx's ?Medication ?Instructions ?Recorded carvedilol 3.125 mg tablet 3.125 mg PO BIDWM 30 days #60 tabs 08/21/23 Held on 05/08/25. Instructions: Resume on 05/22/25. Hold until you see your embroidery cutter. sacubitril 24 mg-valsartan 26 mg 1 tab PO BID #60 tabs 08/21/23 tablet (Entresto) Held on 05/08/25. Instructions: Resume on 05/22/25. Hold until you see your embroidery cutter. aspirin 81 mg tablet,delayed 81 mg PO QDAY Antiplatelet therapy 10/27/23 release post-stent placement 30 days #30 tabs bumetanide 1 mg tablet 1 mg PO QDAY 30 days #30 tabs 05/08/25 finasteride 5 mg tablet 5 mg PO QDAY 30 days #30 tabs 05/08/25 midodrine 10 mg tablet 10 mg PO BID 30 days #60 tabs 05/08/25 Allergies Allergy/AdvReac Type Severity Reaction Status Date / Time No Known Allergies Allergy Verified 05/16/25 07:24 Review of Systems Review of Systems Systems Reviewed: All systems reviewed, normal except as documented Past Medical History Past Medical History CARDIAC: Positive Cardiac Disorders, Myocardial Infarction, Cardiac Arrhythmia, Atrial Fibrillation, Coronary Artery Disease, Congestive Heart Failure, Cardiomyopathy, Edema and Hypertension RESPIRATORY: Positive Chronic Obstructive Pulmonary Disease (COPD), Asthma, Pneumonia and Tuberculosis GASTROINTESTINAL: Positive Gastrointestinal Disorders and Gastroesophageal Reflux Disease GENITOURINARY: Positive Genitourinary Disorders and Kidney Stones MUSCULOSKELETAL: Positive Musculoskeletal Disorders, Arthritis, Rheumatoid Arthritis, Degenerative Disk Disease and Gout ENT: Positive Cataracts and Ear Infection ENDOCRINE: Positive Endocrine Disorders, Diabetes Mellitus Type 2 and Hyperthyroidism PSYCHO/SOCIAL: Positive Depression and Anxiety OTHER HISTORY: Positive Shingles, Radiation Therapy and Cancer Family History FAMILY HISTORY: Positive Family Cardiac Disorders, Family Gastrointestinal Problems, Family Cancer and Family Surgery Surgical History SURGICAL: Positive Cardiac Surgery, Coronary Stent (X2), Pacemaker, Throat Surgery, Abdominal Surgery and Tracheostomy Social History SMOKING STATUS: Former smoker SECOND HAND EXPOSURE: No SUBSTANCE USE: does not use ED Exam Narrative Physical exam: GENERAL APPEARANCE: Alert though appears mildly drowsy, well-developed, cachectic, tachypneic, mild pallor HEENT: Normocephalic, atraumatic; pupils equal, round, reactive to light; EOMI; mucous membranes pink, moist; oropharynx clear NECK: Supple LUNGS: Tachypneic, crackles in the left base; no wheezes, no rales, no rhonchi HEART: Regular rate, regular rhythm; normal S1, S2; no murmurs ABDOMEN: non distended; normal BS; soft, no tenderness, no guarding, no rebound; no masses, no organomegaly, no hernia BACK: no CVA tenderness EXTREMITIES: atraumatic; no edema NEUROLOGIC: awake; alert and oriented x4; cranial nerves II-XII grossly intact; no focal sensory or motor deficits PSYCHIATRIC: appropriate mood and affect SKIN: warm, dry, normal color; no rashes Course Course Course Narrative: I spoke with hospitalist team C for admission. 1045a: I was called into the room by RN who reports the patient is much more lethargic. On reassessment, the patient is very drowsy, will order blood gas. 1105a: Blood gas shows pH 7.07 1110a: I spoke with offal separator Dr. Ashley. Discussed patients PMHx, HPI, ED course, exam findings, labs, and radiology results. Recommends starting patient on BiPAP. She accepts the patient for admission to ICU. 1115a: RT aware to start BiPAP. Quality Measures Current suspected stage: septic shock (LA >4 and/or hypotension) Sepsis reassessment completed at (date): 05/16/25 Sepsis reassessment completed at (time): 10:00 Possible source: pulmonary Blood cultures ordered: completed in ED Antibiotic ordered: Yes Pertinent labs: 05/16/25 09:17 Lactic Acid 15.0 H* mMol/L (0.4-2.0) Procalcitonin 0.58 H ng/ml (0.0-0.49) sepsis Orders Category Date Time Status Bedside COVID-19 Antigen Test NOW Care 05/16/25 07:44 Completed Bedside Influenza A&B Antigen Test NOW Care 05/16/25 07:44 Completed Landscape Technician NOW Care 05/16/25 07:41 Completed EKG (ED ONLY) *Do not use* NOW Care 05/16/25 07:41 Completed Mandujano [Urinary Catheter, Remove] ONCE Care 05/16/25 08:52 Completed Mandujano [Urinary Catheter] QS Care 05/16/25 08:52 Completed Mandujano to [place] Routine Care 05/16/25 08:[address] abdomen pelvis wo con Stat Exams 05/16/25 09:11 Completed EKG (ED Only) Stat Exams 05/16/25 07:41 Ordered XR abdomen series w chest 1V Stat Exams 05/16/25 07:42 Completed ABG [Arterial Blood Gas] Stat Lab 05/16/25 10:54 Completed Alcohol, Blood Medical Stat Lab 05/16/25 11:08 Completed Ammonia Stat Lab 05/16/25 11:08 Completed B-Type Natriuretic Peptide Stat Lab 05/16/25 08:00 Completed Blood Culture (Lab) Stat Lab 05/16/25 09:00 Completed CBC Stat Lab 05/16/25 08:00 Completed Comprehensive Metabolic Panel Stat Lab 05/16/25 08:00 Completed Lactate (Lactic Acid) Stat Lab 05/16/25 09:17 Completed Lactic Acid, 3 HR Stat Lab 05/16/25 13:58 Completed Lipase Stat Lab 05/16/25 08:00 Completed Magnesium Stat Lab 05/16/25 08:00 Completed Partial Thromboplastin Time Stat Lab 05/16/25 08:00 Completed Procalcitonin Stat Lab 05/16/25 09:17 Completed Prothrombin Time with INR Stat Lab 05/16/25 08:00 Completed Troponin I Stat Lab 05/16/25 08:00 Completed Amiodarone 150 mg Ivpb [Nexterone Ivpb] Med 05/16/25 07:39 Discontinued 150 mg in 100 ml IV .STK-MED Amiodarone 150 mg Ivpb [Nexterone Ivpb] Med 05/16/25 07:41 Discontinued 150 mg in 100 ml IV X1 Amiodarone 360 mg Ivpb [Nexterone Ivpb] Med 05/16/25 08:05 Discontinued 360 mg in 200 ml IV 33.333 mls/hr Calcium Gluc/Ns 1000MG Ivpb [Calcium Gluc/Ns 1000mg Med 05/16/25 08:58 Discontinued Ivpb] 1,000 mg in 50 ml IV X1 Doxycycline Inj [Vibramycin Inj] 100 mg Med 05/16/25 09:04 Discontinued Sodium Chloride 0.9% (Pop) [NS 0.9% mini bag] 100 ml IV X1 LORazepam [Ativan] Med 05/16/25 09:51 Discontinued 0.5 mg PO X1 ONE Sodium Chloride 0.9% 500 ml [Ns] 500 ml Med 05/16/25 09:01 Discontinued IV 999 mls/hr Oxygen Delivery NOW RT 05/16/25 07:48 Completed Vital Signs Vital signs: Vital Signs Temperature 97.0 F 05/16/25 07:25 Pulse Rate 105 H 05/16/25 07:25 Respiratory Rate 30 H 05/16/25 07:25 Blood Pressure 107/79 05/16/25 07:25 Pulse Oximetry (%) 92 L 05/16/25 07:25 Oxygen Delivery Method Room Air 05/16/25 07:25 Pulse ox is 92% on room air which is low. Shortness of Breath / Dyspnea Patient data External records reviewed:: [facility] previous records and EMS form Clinical information provided by:: patient and EMS Social determinants that could affect healthcare access:: none Patient has the following chronic illnesses:: CAD s/p PCI, CHF, COPD How is presenting disease/condition affected by chronic disease/condition?: exacerbated by Evaluation data The following diagnostics were reviewed and interpreted by me:: lab results, radiology exam(s) and EKG tracing(s) (EKG @ 05/16/2025 07:43am. Ventricular paced, rate 111. ) Lab and/or radiology exams considered but not ordered:: None Interpretation Summary: Ordering Physician: Aurea Barton MD Date of Service: 05/16/25 Procedure(s): XR abdomen series w chest 1V Accession Number(s): [id number] cc: Hortencia Donis; Kash Orta MD; Aurea Barton MD~ EXAMINATION: AP chest single view TECHNIQUE: AP portable upright chest single view Date and time: May 16, 2025, 0828 hours, comparison 05/03/2025 INDICATIONS: SOB today. FINDINGS: Moderate heart failure Mild to moderate enlargement cardiac contour. Prominent vascular congestion with perihilar edema. Mild right and moderate to large left pleural effusions Cardiac leads stable position Prominent osteopenia IMPRESSION: Moderate heart failure Consider superimposed bilateral pneumonia Dictated By: Kash Orta MD Signed By: <Electronically signed by Kash Orta MD in OV> 05/16/25 0936 Medications / Prescriptions Medications or Prescriptions considered but not ordered:: None Medication administrations:: Medication Administration History Discontinued Medications Acetaminophen (Acetaminophen Supp 650 Mg Supp) 650 mg MN Q6HR PRN PRN Reason: Fever > 100.4 Stop: 06/15/25 13:41 Dextrose (Dextrose 50%-Water Inj 50 Ml Syringe) 25 ml IV Q15MIN PRN PRN Reason: BG 50-70 responsive npo pt Stop: 06/15/25 14:10 Dextrose (Dextrose 50%-Water Inj 50 Ml Syringe) 50 ml IV Q15MIN PRN PRN Reason: BG <50 OR BG <70 & pt unresponsive Stop: 06/15/25 14:10 Last Admin: 05/16/25 16:34 Dose: 50 ml Documented By: GM Glucagon (Glucagon Inj 1 Mg Vial) 1 mg IM Q15MIN PRN PRN Reason: BG <70, and no IV access Heparin Sodium (Porcine) (Heparin Sod Inj 5000 Unit/Ml Vial) 5,000 unit SC Q8HR ALISA Stop: 05/30/25 13:59 Last Admin: 05/16/25 15:46 Dose: 5,000 unit Documented By: KYA Co-signed By: PAULINO Amiodarone HCl/Dextrose (Nexterone Ivpb) 150 mg in 100 mls @ 582.524 mls/hr IV X1 ONE Stop: 05/16/25 07:51 Last Infusion: 05/16/25 07:57 Dose: Infused Documented By: Admin: 05/16/25 07:40 Dose: 582.524 mls/hr Documented By: KYA Amiodarone HCl/Dextrose (Nexterone Ivpb) Confirm Administered Dose 150 mg in 100 mls @ ud IV .STK-MED ONE Stop: 05/16/25 07:40 Last Admin: 05/16/25 07:45 Dose: Not Given Documented By: Non-Admin Reason: Duplicate Medication on eMAR Amiodarone HCl/Dextrose (Nexterone Ivpb) 360 mg in 200 mls @ 33.333 mls/hr IV .Q6H ONE Stop: 05/16/25 14:04 Last Infusion: 05/16/25 15:00 Dose: Infused Documented By: Admin: 05/16/25 08:17 Dose: 33.333 mls/hr Documented By: Calcium Gluconate/Sodium Chloride (Calcium Gluc/Ns 1000mg Ivpb) 1,000 mg in 50 mls @ 50 mls/hr IV X1 ONE Stop: 05/16/25 09:57 Last Infusion: 05/16/25 10:47 Dose: Infused Documented By: Admin: 05/16/25 09:26 Dose: 50 mls/hr Documented By: Sodium Chloride (Ns) 500 mls @ 999 mls/hr IV .Q31M ONE Stop: 05/16/25 09:31 Last Infusion: 05/16/25 09:45 Dose: Infused Documented By: Admin: 05/16/25 09:08 Dose: 999 mls/hr Documented By: KYA Doxycycline Hyclate 100 mg/ (Sodium Chloride) 100 mls @ 100 mls/hr IV X1 ONE Stop: 05/16/25 10:03 Last Infusion: 05/16/25 12:45 Dose: Infused Documented By: Admin: 05/16/25 11:36 Dose: 100 mls/hr Documented By: GM Norepinephrine/Dextrose (Levophed In D5w 8mg/250ml) 8 mg in 250 mls @ 5.166 mls/hr IV .Q24H PRN; Protocol PRN Reason: PER PROTOCOL Stop: 06/15/25 14:53 Last Titration: 05/16/25 17:51 Dose: 1 mcg/kg/min, 103.313 mls/hr Documented By: Titration: 05/16/25 17:47 Dose: 0.5 mcg/kg/min, 51.656 mls/hr Documented By: Titration: 05/16/25 17:42 Dose: 0.5 mcg/kg/min, 51.656 mls/hr Documented By: Titration: 05/16/25 17:37 Dose: 0.5 mcg/kg/min, 51.656 mls/hr Documented By: Titration: 05/16/25 17:32 Dose: 0.5 mcg/kg/min, 51.656 mls/hr Documented By: Titration: 05/16/25 17:27 Dose: 0.5 mcg/kg/min, 51.656 mls/hr Documented By: Titration: 05/16/25 17:22 Dose: 0.48 mcg/kg/min, 49.59 mls/hr Documented By: Titration: 05/16/25 17:17 Dose: 0.46 mcg/kg/min, 47.524 mls/hr Documented By: Titration: 05/16/25 17:02 Dose: 0.44 mcg/kg/min, 45.458 mls/hr Documented By: Titration: 05/16/25 16:47 Dose: 0.44 mcg/kg/min, 45.458 mls/hr Documented By: Titration: 05/16/25 16:42 Dose: 0.44 mcg/kg/min, 45.458 mls/hr Documented By: Titration: 05/16/25 16:37 Dose: 0.44 mcg/kg/min, 45.458 mls/hr Documented By: Titration: 05/16/25 16:32 Dose: 0.42 mcg/kg/min, 43.391 mls/hr Documented By: Titration: 05/16/25 16:27 Dose: 0.4 mcg/kg/min, 41.325 mls/hr Documented By: Titration: 05/16/25 16:22 Dose: 0.38 mcg/kg/min, 39.259 mls/hr Documented By: Titration: 05/16/25 16:17 Dose: 0.36 mcg/kg/min, 37.193 mls/hr Documented By: Titration: 05/16/25 16:12 Dose: 0.34 mcg/kg/min, 35.126 mls/hr Documented By: Titration: 05/16/25 16:07 Dose: 0.32 mcg/kg/min, 33.06 mls/hr Documented By: Titration: 05/16/25 16:02 Dose: 0.3 mcg/kg/min, 30.994 mls/hr Documented By: Titration: 05/16/25 15:57 Dose: 0.28 mcg/kg/min, 28.928 mls/hr Documented By: Titration: 05/16/25 15:52 Dose: 0.26 mcg/kg/min, 26.861 mls/hr Documented By: Titration: 05/16/25 15:47 Dose: 0.24 mcg/kg/min, 24.795 mls/hr Documented By: Titration: 05/16/25 15:42 Dose: 0.22 mcg/kg/min, 22.729 mls/hr Documented By: Titration: 05/16/25 15:37 Dose: 0.2 mcg/kg/min, 20.663 mls/hr Documented By: Titration: 05/16/25 15:35 Dose: 0.11 mcg/kg/min, 11.364 mls/hr Documented By: Titration: 05/16/25 15:30 Dose: 0.09 mcg/kg/min, 9.298 mls/hr Documented By: Titration: 05/16/25 15:25 Dose: 0.07 mcg/kg/min, 7.232 mls/hr Documented By: Admin: 05/16/25 15:20 Dose: 0.05 mcg/kg/min, 5.166 mls/hr Documented By: GM Vasopressin/Sodium Chloride (Vasostrict/Ns Ivpb) 20 unit in 100 mls @ 9 mls/hr IV .Q11H7M PRN; Protocol PRN Reason: PER PROTOCOL Stop: 06/15/25 17:23 Last Admin: 05/16/25 17:46 Dose: 0.03 unit/min, 9 mls/hr Documented By: GM Dobutamine HCl/Dextrose (Dobutrex/D5w Ivpb) 500 mg in 250 mls @ 4.133 mls/hr IV .Q24H ALISA; Protocol Stop: 06/15/25 17:54 Last Admin: 05/16/25 17:51 Dose: 2.5 mcg/kg/min, 4.133 mls/hr Documented By: GM Insulin Human Lispro (Insulin Lispro (Admelog) 1 Unit/0.01 Ml Unit) 0 unit SC Q6HR ALISA; Protocol Stop: 06/15/25 17:59 Lorazepam (Lorazepam 0.5 Mg Tablet) 0.5 mg PO X1 ONE Stop: 05/16/25 09:52 Last Admin: 05/16/25 10:46 Dose: Not Given Documented By: GM Non-Admin Reason: Contraindicated Comments: PT LETHARGIC. Ondansetron HCl (Ondansetron Inj 2 Mg/Ml Inj 2 Ml) 4 mg IVP Q6H PRN; Protocol PRN Reason: NAUSEA OR VOMITING Stop: 06/15/25 13:41 Pantoprazole Sodium (Pantoprazole Inj 40 Mg Vial) 40 mg IVP QDAY [facility] Stop: 06/16/25 08:59 See above Consultations Consultation(s) initiated? (list below): Yes Consultation #1 (Physician, Specialty, Details): See course Diagnosis Shortness of Breath Differential Diagnosis: acute exacerbation of chronic obstructive airways disease, congestive heart failure, community acquired pneumonia and asthma with exacerbation Most likely diagnosis given after review of the tests above:: Elevated troponin Sepsis CHF exacerbation Left pleural effusion Lactic acidosis Respiratory acidosis Metabolic acidosis Admission Indicated Admission indicated?: indicated Admission Request Was there a request for admission?: Yes Admission Attestation Admission request attestation: Discussed case with [] from Hospitalist service regarding admission. Discussed patients ED course, exam findings, labs, and radiology results. The Hospitalist [agrees,declines] to accept the patient for admission. Disposition Plan Disposition Plan: Admit Critical Care Time Critical Care Time Critical Care Time: Yes Total Critical Care Time (min.): 60 Attestation: The high probability of sudden, clinically significant deterioration in the patient's condition required the highest level of my preparedness to intervene urgently. The services I provided to this patient were to treat and/or prevent clinically significant deterioration. Services included the following: chart data review, reviewing nursing notes and/or old charts, documentation time, loans consultant collaboration regarding findings and treatment options, medication orders and management, direct patient care, vital sign assessments and ordering, interpreting and reviewing diagnostic studies and lab tests. Aggregate critical care time includes only time during which I was engaged in work directly related to the patient's care, as described above, whether at bedside or elsewhere in the Emergency Department. It did not include time spent performing other reported procedures or the services of residents, students, nurses or physician assistants. Discharge Plan Plan Patient Disposition: Admit Acute Care w/in Hospital Discharge Disposition comment: ICU Patient condition on transfer: Stable Problem List Clinical Impression: Elevated troponin, Sepsis, CHF exacerbation, Pleural effusion, left, Lactic acidosis, Respiratory acidosis, Metabolic acidosis
[2025-05-16 08:35] LABS: Alanine Aminotransferase 76 U/L (10-49); Albumin, Serum 4.5 gm/dL (3.4-4.8); Albumin/Globulin Ratio 1.3 (1.2-2.2); Alkaline Phosphatase 128 U/L (46-116); Anion Gap 26 (7-16); Aspartate Amino Transferase 56 U/L (0-34); B-Type Natriuretic Peptide > 3280 pg/mL (0-100); BUN/Creatinine Ratio 24 Ratio (12-20); Bilirubin,Total 1.6 mg/dL (0.3-1.2); Blood Urea Nitrogen 70 mg/dL (9-23); Calcium 9.9 mg/dL (8.3-10.6); Calcium (Corrected) 9.9 mg/dL (8.5-10.1); Carbon Dioxide 20.3 mMol/L (20.0-31.0); Chloride 95 mMol/L (98-107); Creatinine (Component) 2.9 mg/dL (0.6-1.3); Estimated Creatinine Clearance 18.7 mL/min (>60); Globulin 3.6 gm/dL (2.3-3.5); Glucose 62 mg/dL (74-106); Lipase 34 U/L (12-53); Magnesium 2.4 mg/dL (1.6-2.6); Osmolality,Calculated 299 (275-295); Potassium 5.3 mMol/L (3.4-5.1); Sodium 141 mMol/L (136-145); Total Protein 8.1 gm/dL (5.7-8.2); eGFR 23 See Note
[2025-05-16 08:42] LABS: Troponin I 0.117 ng/mL (0.0-0.045)
[2025-05-16] MEDS: SODIUM CHLORIDE 0.9% 500 ML 500 ML 999 ML IV (09:08)
--- NOTE | 2025-05-16 09:11 | XR_ITS ---
Examination: CT abdomen and pelvis without contrast. Coronal 3-D reconstructions. Sagittal 2-D reconstructions. Date and time of exam: May 16, 2025, 1006 hours, comparison July 24, 2019 INDICATIONS: Generalized abdominal pain today, history moderate left hydronephrosis 4 mm distal left ureteral calculus on CT stone study July 24, 2019 CTDI: vol (mGy): 4.74 DLP: (mGycm): 254 Technique: Axial images of the abdomen have been obtained, 3 mm slice thickness Intravenous contrast material has not been administered. Low dose protocols were performed. One or more of the following dose reduction techniques were used; automated exposure control, adjustment of the mA and/or KV according to patient size, use of iterative reconstruction technique. Findings: Moderate enlargement cardiac contour Prominent vascular congestion Septal edema in the lung smiley Moderate left and mild right pleural fluid Liver is irregular in contour Gallbladder is isodense Spleen is not enlarged No pancreatic or adrenal mass 5 mm 1 mm right renal calculi Moderate renal scar formation No hydronephrosis or ureteral calculi Aortic calcification no aneurysmal dilatation No bowel obstruction No pericecal inflammatory change No diverticulitis Normal seminal vesicles Transverse prostate dimension 4.2 cm Urinary bladder contracted around a Ochoa catheter Advanced degenerative disc disease L5-S1 Moderate bilateral hip osteoarthritis IMPRESSION: Moderate enlargement cardiac contour with heart failure pattern, prominent vascular congestion and septal edema at the lung bases, moderate left mild right pleural fluid Suspect primary bowel Sever disease Recommend hepatobiliary sonography follow-up 5 mm 1 mm right renal calculi, no hydronephrosis or ureteral calculi No bowel obstruction
[2025-05-16] MEDS: CALCIUM GLUC/NS 1000MG IVPB 1,000 MG/50 ML BAG 50 MG IV (09:26)
[2025-05-16 09:32] LABS: Lactate (Lactic Acid) 15.0 mMol/L (0.4-2.0)
[2025-05-16 09:58] LABS: Procalcitonin 0.58 ng/ml (0.0-0.49)
--- NOTE | 2025-05-16 10:08 | PC.NURSE ---
PER PT'S AT BEDSIDE, THEY DRAINED HIS LUNGS A COUPLE OF WEEKS AGO. THEY DID IT ON THE LEFT SIDE.
[2025-05-16 10:58] LABS: Base Excess -19 (-3-3); HCO3 10 mEq/L (20-26); Inspired Oxygen, FIO2 3 %; O2 Saturation 95 % (91-98); PCO2 35 mmHg (32.0-48.0); PO2 104 mmHg (83-108)
[2025-05-16 11:04] LABS: Allen Test Performed/OK; Puncture Site Right Radial; pH, Arterial 7.07 (7.35-7.45)
[2025-05-16] MEDS: DOXYCYCLINE INJ 100 MG in SODIUM CHLORIDE 0.9% (POP) 100 ML IV (11:36)
[2025-05-16 11:42] LABS: Alcohol, Blood Medical < 3.0 mg/dL (0-10.0)
[2025-05-16 11:43] LABS: Ammonia 40 uMol/L (11-32)
[2025-05-16 12:20] LABS: Reflex Lactate? Y
--- NOTE | 2025-05-16 13:25 | PC.NURSE ---
DR. DÍAZ AT BEDSIDE FOR CARDIOLOGY CONSULT; DR. DÍAZ MADE AWARE PT'S CURRENT BP 93/52. PER DR. DÍAZ, THAT IS PT'S BASELINE. NO NEW ORDERS AT THIS TIME.
--- NOTE | 2025-05-16 13:45 | PD.INTPROG ---
Documentation for date of: 05/16/25 Subjective Subjective Interval history: This is a 70yo M who was recently admitted for cardiorenal and HFrEF. He was DCd on 05/08 and was home for 1 week. at bedside and provided the history. He has had progressive SOB over the last week. Yesterday he was unable to sleep as he had JOHNSON and SOB at rest in both the supine and seated position. This prompted a ER visit today. Labs were drawn and he was noted to be acidotic with both a respiratory and metabolic acidosis. A bipap was placed for his respiratory acidosis and to improve his LV afterload. Critical Care Note Critical care time (min.): 90 Exam Vital Signs Temp Pulse Resp BP Pulse Ox O2 Del Method O2 Flow Rate 96.1 F L 86 30 H 86/59 L 98 BiPAP 30 05/16/25 11:53 05/16/25 11:40 05/16/25 11:40 05/16/25 11:40 05/16/25 11:33 05/16/25 11:40 05/16/25 11:40 FiO2 30 05/16/25 11:33 Narrative Exam Gen- acutely ill appearing, thin, HEENT- NC/AT, mucosa dry, bipap in place, EOMI, sclera anicteric Chest- crackles b/l , decreased breath sounds on L, HRRR, increase WOB Abd- s/nt/bs+ Ext- trace edema, pulses weak, cold feet to touch, no focal deficits Physical Exam Completion Physical Exam Complete?: Yes Objective - Stock Preparation Supervisor Labs 05/16/25 15:58 05/16/25 08:00 Labs: Laboratory Results - last 24 hr 05/16/25 05/16/25 05/16/25 08:00 09:17 10:54 WBC 15.9 H RBC 4.14 L Hgb 12.9 L Hct 41.6 MCV 101 H MCH 31.2 MCHC 31.0 RDW Std Deviation 58.5 H Plt Count 341 D Neut % (Auto) 92 H Lymph % (Auto) 2 L Wilkes % (Auto) 4 Eos % (Auto) 0 Baso % (Auto) 0 Neut # (Auto) 14.7 H Lymph # (Auto) 0.4 L Wilkes # (Auto) 0.6 Eos # (Auto) 0.0 Baso # (Auto) 0.0 Immature Gran # (Auto) 0.23 H Absolute Nucleated RBC 0.00 Immature Gran % 1 H Nucleated RBC % 0 PT 15.8 H INR 1.5 H APTT 27.1 Puncture Site Right Radial ABG pH 7.07 L* ABG pCO2 35 ABG pO2 104 ABG HCO3 10 L ABG O2 Saturation 95 ABG Base Excess -19 L FiO2 3 Sodium 141 Potassium 5.3 H Chloride 95 L Carbon Dioxide 20.3 Anion Gap 26 H BUN 70 H Creatinine 2.9 H Estim Creat Clear Calc 18.7 L eGFR 23 L BUN/Creatinine Ratio 24 H Glucose 62 L Calculated Osmolality 299 H Lactic Acid 15.0 H* Calcium 9.9 Corrected Calcium 9.9 Magnesium 2.4 Total Bilirubin 1.6 H AST 56 H ALT 76 H Alkaline Phosphatase 128 H Ammonia Troponin I 0.117 H* B-Natriuretic Peptide > 3280 H* Total Protein 8.1 Albumin 4.5 Globulin 3.6 H Albumin/Globulin Ratio 1.3 Lipase 34 Procalcitonin 0.58 H Ethyl Alcohol 05/16/25 11:08 WBC RBC Hgb Hct MCV MCH MCHC RDW Std Deviation Plt Count Neut % (Auto) Lymph % (Auto) Wilkes % (Auto) Eos % (Auto) Baso % (Auto) Neut # (Auto) Lymph # (Auto) Wilkes # (Auto) Eos # (Auto) Baso # (Auto) Immature Gran # (Auto) Absolute Nucleated RBC Immature Gran % Nucleated RBC % PT INR APTT Puncture Site ABG pH ABG pCO2 ABG pO2 ABG HCO3 ABG O2 Saturation ABG Base Excess FiO2 Sodium Potassium Chloride Carbon Dioxide Anion Gap BUN Creatinine Estim Creat Clear Calc eGFR BUN/Creatinine Ratio Glucose Calculated Osmolality Lactic Acid Calcium Corrected Calcium Magnesium Total Bilirubin AST ALT Alkaline Phosphatase Ammonia 40 H Troponin I B-Natriuretic Peptide Total Protein Albumin Globulin Albumin/Globulin Ratio Lipase Procalcitonin Ethyl Alcohol < 3.0 Assessment & Plan Additional Assessment Additional Assessment: In summary this is a 70yo M being admitted for severe acidosis a/p ENGINEERING PROGRAM ANALYST Acute encephalopathy CV Shock Tropinemia HFrEF Resp Acute hypercapneic resp failure Renal GEORGIE LA HyperK AGMA GI Transaminitis Heme Leukocytosis- reactive v infectious Macrocytic Anemia- check b12/folate ID SIRS- on abx Endo Hypoglycemia pt was seen in the ER in room 5. He was found to have increased WOB with severe acidosis. Ve on bipap was 16. d/w family and proceeded with TriFlow for emergent CRRT. pts BP initially was in the 90s with a LA of 15. He was suspected to have cardiogenic shock. BP was borderline prior to TriFlow insertion. BP continued to drop and pt was started on levophed. Dobutamine was also requested. Bedside echo showed an EF of ~10% with poor contractility and poor AV excertion. His IVC was dilated at 2cm. Prior records also showed severe pulmonary HTN. Pts creatinine was elevated and a mandujano placed held no UOP. He was felt to have cardiorenal synd as well. Attempts were made at a repeat ABG post bipap however after several attempts it was unable to be obtained. Given the pts overall general decline and poor prognosis it was d/w family regarding CPR and code status. family decided to shift to DNR/DNI. Pt had been noted to have runs of VT on the monitor by the ER and amio was started. Cardiology consult was requested as well. pt continued to decline throughout the afternoon despite resuscitation attempts. Ultimately the pt became pulseless in the early evening and succumbed to his illness. Family was present at bedside case d/w ICU team and ER d/w cardiology labs, imaging, records reviewed ~90ccmin required for eval, exam , review, intervention, discussion and formulation of POC for this critically ill pt with cardiogenic shock. this excludes procedure time Provider Notation Provider Notation: Although this document has been carefully reviewed, there may still be some phonetic and other typographical errors. These errors are purely grammatical due to imperfections in the software program and should not be construed in any way to compromise the substance of the patient's medical care during this visit. Thank you for the opportunity and privilege in assisting you with this patient's care and management.
--- NOTE | 2025-05-16 13:55 | PC.CC ---
[id number] completed an initial assessment with pts as he was not able to speak. Pt is a 70 yo male BIBA due to SOB. Pts is the surragote decision maker- Angelica Dugan [phone]. Pts Angelica stated pt does not have a designated Code, but she will get back to with that answer as she will need to speak with the family. Angelica reported the pts PCP is Dr. Yareli Hull at Dr. Tavarez office. Pts specilaity is Dr. Homer Arizmendi, cardiovasuclar. Pt does use a rollator at home, O2 and pts does his ADLs. Pts states the pharmacy of choice is [facility] [address]. Angelica stated that SNF or Home health could be an option. Angelica stated she will provide transportation once ready for d/c. Decision Maker-, Angelica Dugan [phone] PCP- Yareli Hull [facility] [place] Code-No Code d/c plan-Home
[2025-05-16 14:14] LABS: Lactic Acid, 3 HR 23.0 mMol/L (0.4-2.0)
--- NOTE | 2025-05-16 15:06 | XR_ITS ---
EXAMINATION: AP chest single view TECHNIQUE: AP portable upright chest single view Date and time: September,, 1545 hours, comparison May 16, 2025 0828 hours INDICATIONS: Post dialysis catheter placement FINDINGS: Mild enlargement cardiac contour. Moderate pleural fluid. Bilateral lung opacity, edema and/or pneumonia with pulmonary vascular congestion. Cardiac leads stable position Left internal jugular temporary dialysis catheter SVC satisfactory position IMPRESSION: Satisfactory position of left internal jugular temporary dialysis catheter, no pneumothorax
[2025-05-16] MEDS: Norepinephrine/D5W 8mg/250ml 8 MG/250 ML BAG 5.166 MG IV (15:20)
[2025-05-16] MEDS: HEPARIN SOD INJ 5000 UNIT/ML VIAL SC (15:46)
[2025-05-16 16:18] LABS: Basophils # (Auto) 0.1 Thou/mm3 (0.0-0.2); Basophils % (Auto) 0 % (0-2.5); Eosinophils # (Auto) 0.0 Thou/mm3 (0.0-0.5); Eosinophils % (Auto) 0 % (0-10); Hematocrit 38.3 % (41.0-53.0); Hemoglobin 11.6 g/dL (13.5-16.0); Immature Granulocytes Auto 1.11 Thou/mm3 (0.00-0.00); Lymphocytes # (Auto) 0.7 Thou/mm3 (1.0-4.8); Lymphocytes % (Auto) 3 % (10-50); Mean Corpuscular HGB Conc 30.3 g/dl (31.0-37.0); Mean Corpuscular Hemoglobin 32.4 pg (25.0-35.0); Mean Corpuscular Volume 107 fL (80-100); Monocytes # (Auto) 0.8 Thou/mm3 (0.0-0.8); Monocytes % (Auto) 4 % (0-12); Neutrophils # (Auto) 17.8 Thou/mm3 (1.8-7.7); Neutrophils % (Auto) 87 % (37-80); Nucleated Red Blood Cell # 0.03 Thou/mm3 (0.00-0.00); Nucleated Red Blood Cell % 0 /100 WBC (0); Platelet Count 298 Thou/mm3 (140-440); RDW Standard Deviation 62.5 fL (35.1-43.9); Red Blood Count 3.58 Miln/mm3 (4.50-5.90); White Blood Count 20.4 Thou/mm3 (3.8-10.6)
--- NOTE | 2025-05-16 16:29 | ESHP_ITS ---
<Statement entered by Stanley Richards MD - 05/16/25 19:43> Patient seen and examined at bedside. I discussed and supervised with the regulatory affairs internship physician who took care of this patient. I personally saw and examined the patient. I agree with most of the assessment and plan. Plan of care discussed with attending Dr. Ashley. Stanley Richards MD PGY-2 Documentation for date of: 05/16/25 HPI History of Present Illness Chief complaint: shortness of breath History of present illness: Patient is a 70-year-old male with past medical history of CAD status post stent (recent most recent ) on aspirin and Plavix, CHF, COPD, throat cancer status posttreatment in 2000 presented to the ED with chief complaint of shortness of breath. Much of the history was provided by the . She told us that for the past 1 to 2 weeks he has been requiring oxygen more and more, states in his usual state of health he is only using 2 L of oxygen at home occasionally. States he has been dehydrated with minimal fluid intake, making very little urine with the Mandujano in place that has been in place since recent discharge from previous admission. She states he has not been having any fevers, chills, chest pain. She states he has been constipated, had nausea, dysuria and had a bowel movement 2 days ago. Late last month he was admitted for CHF exacerbation, found to have pleural effusion and had a thoracentesis that produced 3 L of fluid. Patient was diuresed overdiuresed and ended up having shock liver along with GEORGIE necessitating 3 sessions of dialysis. Patient had the dialysis catheter removed before the previous discharge. Past Medical History: above Surgical History: throat surgery for his cancer, abdominal surgery for feeding tube, shoulder surgery. Social History: Has a smoking and alcohol use history quit in 2000. Lives locally with his Current Medications: Bumex, finasteride, midodrine, aspirin, plavix, levothyroxin, amiodarone Allergies: No known drug allergies ED Course: -Initial vitals were 97.0 Fahrenheit temperature, 105 pulse, 30 respiratory rate, 107/79 blood pressure, 92% oxygen on room air -Labs significant for white blood cell count of 15.9, hemoglobin 12.9 MCV 101, platelet count 341, INR 1.5, ABG showed pH 7.07, pCO2 35, pO2 104, HCO3 10, potassium 5.3, chloride 95, anion gap 26, BUN 70, creatinine 2.9, GFR 23, glucose 62, lactic acid 15.0 total bilirubin 1.6, AST 56, ALT 76, alk phos 128, troponin 0.117, BNP greater than 2280, Pro-Anmol 0.58. UA significant for 1+ protein, 3+ glucose, leukocyte esterase positive, urine RBC 5, urine WBC of 7, cellular casts 2, hyaline casts of 7. UTOX for alcohol was less than 3.0. -Imaging included: X-ray of the chest/abdomen significant for moderate heart failure, consider superimposed bilateral pneumonia CT abdomen/pelvis significant for moderate enlargement of cardiac contour with heart failure pattern, prominent vascular congestion and septal edema at the lung bases, moderate left mild right pleural fluid; suspect primary bowel severe disease; 5 mm x 1 mm right renal calculi, no hydronephrosis or ureteral calculi; no bowel obstruction Chest x-ray significant for suspect 3 position of IJ central line, no pneumothorax -In the ED, patient was given Amiodarone 4 V. tach, which resolved after amiodarone infusion; 1 L normal saline; calcium gluconate/normal saline maintenance fluid 1 L; lorazepam 0.5 mg; p.o.; doxycycline 100 mg x 1 -Patient was admitted for evaluation and management of cardiogenic shock. Review of Systems Review of systems otherwise negative except what is mentioned above. Exam Vital Signs Temp Pulse Resp BP Pulse Ox O2 Del Method O2 Flow Rate 94.6 F L 71 28 H 73/57 L 98 BiPAP 30 05/16/25 16:00 05/16/25 16:00 05/16/25 16:00 05/16/25 16:00 05/16/25 16:00 05/16/25 16:00 05/16/25 16:00 FiO2 30 05/16/25 14:29 Narrative Exam General: In acute respiratory distress; A&Ox2 to tactile; somnolent Skin: Cold extremities, dry, intact, no obvious rash. HENT: NCAT, PERRL, External ears normal. No rhinorrhea. Moist mucous membranes Cardiovascular: Regular rate and rhythm, no murmur, +S1/S2. Respiratory: Crackles and rhonchi bilaterally, decreased breath sounds bilaterally on lower lobes. GI: Soft, LLQ tenderness, non-distended. : No suprapubic tenderness. No flank tenderness bilaterally. Extremities: trace bilateral LE edema, no cyanosis, no clubbing. Extremity pulses present Neuro: No focal deficits observed. No overt cerebellar signs/incoordination. Results: Labs 05/16/25 15:58 05/16/25 08:00 Labs: Short CBC 05/16/25 Range/Units 08:00 WBC 15.9 H (3.8-10.6) Thou/mm3 Hgb 12.9 L (13.5-16.0) g/dL Hct 41.6 (41.0-53.0) % Plt Count 341 D (140-440) Thou/mm3 BMP 05/16/25 08:00 Sodium 141 Potassium 5.3 H Chloride 95 L Carbon Dioxide 20.3 BUN 70 H Creatinine 2.9 H Glucose 62 L Calcium 9.9 Cardiac Enzymes 05/16/25 Range/Units 08:00 Troponin I 0.117 H* (0.0-0.045) ng/mL Liver Function 05/16/25 Range/Units 08:00 Total Bilirubin 1.6 H (0.3-1.2) mg/dL AST 56 H (0-34) U/L ALT 76 H (10-49) U/L Alkaline Phosphatase 128 H (46-116) U/L Albumin 4.5 (3.4-4.8) gm/dL ABG Interpretation ABG results: 05/16/25 10:54 ABG pH 7.07 L* ABG pCO2 35 ABG pO2 104 ABG HCO3 10 L ABG O2 Saturation 95 ABG Base Excess -19 L Quality Measures Quality Measures sepsis Current suspected stage: septic shock (LA >4 and/or hypotension) Sepsis reassessment completed at (date): 05/16/25 Sepsis reassessment completed at (time): 17:00 Possible source: pulmonary Blood cultures ordered: completed in ED Antibiotic ordered: Yes Advance care planning discussed with:: spouse Medications Home Medications and Allergies Home Medications ?Medication ?Instructions ?Recorded ?Confirmed ?Type levothyroxine 88 mcg tablet 88 mcg PO QDAY 05/18/22 History digoxin 125 mcg (0.125 mg) tablet 125 mcg PO DAILY 05/01/25 History Held on 05/08/25. Instructions: Resume on 05/22/25. Hold until you see your car tracer. clopidogrel 75 mg tablet (Plavix) 75 mg PO QDAY 05/01/25 History amiodarone 200 mg tablet 200 mg PO Q24H 05/01/2504/10 History dapagliflozin propanediol 10 mg 10 mg PO DAILY 5 05/01/25 History tablet (Farxiga) fexofenadine 180 mg tablet 180 mg PO Q24H 05/01/25 History (Allergy Relief (fexofenadine)) hydrocodone 10 mg-acetaminophen 1 tab PO Q6H 05/01/25 05/01/25 History 325 mg tablet tadalafil 10 mg tablet 10 mg PO .as needed 05/01/25 05/01/25 History Held on 05/08/25. Instructions: Resume on 05/22/25. Hold until you see your car tracer. Allergies Allergy/AdvReac Type Severity Reaction Status Date / Time No Known Allergies Allergy Verified 05/16/25 07:24 Visit Medications Acetaminophen (Acetaminophen Supp 650 Mg Supp) 650 mg AL Q6HR PRN PRN Reason: Fever > 100.4 Stop: 06/15/25 13:41 Dextrose (Dextrose 50%-Water Inj 50 Ml Syringe) 25 ml IV Q15MIN PRN PRN Reason: BG 50-70 responsive npo pt Stop: 06/15/25 14:10 Dextrose (Dextrose 50%-Water Inj 50 Ml Syringe) 50 ml IV Q15MIN PRN PRN Reason: BG <50 OR BG <70 & pt unresponsive Stop: 06/15/25 14:10 Glucagon (Glucagon Inj 1 Mg Vial) 1 mg IM Q15MIN PRN PRN Reason: BG <70, and no IV access Heparin Sodium (Porcine) (Heparin Sod Inj 5000 Unit/Ml Vial) 5,000 unit SC Q8HR ALISA Stop: 05/30/25 13:59 Last Admin: 05/16/25 15:46 Dose: 5,000 unit Norepinephrine/Dextrose (Levophed In D5w 8mg/250ml) 8 mg in 250 mls @ 5.166 mls/hr IV .Q24H PRN; Protocol PRN Reason: PER PROTOCOL Stop: 06/15/25 14:53 Last Titration: 05/16/25 16:27 Dose: 0.4 mcg/kg/min, 41.325 mls/hr Insulin Human Lispro (Insulin Lispro (Admelog) 1 Unit/0.01 Ml Unit) 0 unit SC Q6HR ALISA; Protocol Stop: 06/15/25 17:59 Ondansetron HCl (Ondansetron Inj 2 Mg/Ml Inj 2 Ml) 4 mg IVP Q6H PRN; Protocol PRN Reason: NAUSEA OR VOMITING Stop: 06/15/25 13:41 Pantoprazole Sodium (Pantoprazole Inj 40 Mg Vial) 40 mg IVP QDAY ALISA Stop: 06/16/25 08:59 Discontinued Medications Amiodarone HCl/Dextrose (Nexterone Ivpb) 150 mg in 100 mls @ 582.524 mls/hr IV X1 ONE Stop: 05/16/25 07:51 Last Infusion: 05/16/25 07:57 Dose: Infused Amiodarone HCl/Dextrose (Nexterone Ivpb) 360 mg in 200 mls @ 33.333 mls/hr IV .Q6H ONE Stop: 05/16/25 14:04 Last Admin: 05/16/25 08:17 Dose: 33.333 mls/hr Calcium Gluconate/Sodium Chloride (Calcium Gluc/Ns 1000mg Ivpb) 1,000 mg in 50 mls @ 50 mls/hr IV X1 ONE Stop: 05/16/25 09:57 Last Infusion: 05/16/25 10:47 Dose: Infused Sodium Chloride (Ns) 500 mls @ 999 mls/hr IV .Q31M ONE Stop: 05/16/25 09:31 Last Infusion: 05/16/25 09:45 Dose: Infused Doxycycline Hyclate 100 mg/ (Sodium Chloride) 100 mls @ 100 mls/hr IV X1 ONE Stop: 05/16/25 10:03 Last Infusion: 05/16/25 12:45 Dose: Infused Lorazepam (Lorazepam 0.5 Mg Tablet) 0.5 mg PO X1 ONE Stop: 05/16/25 09:52 Last Admin: 05/16/25 10:46 Dose: Not Given Assessment & Plan Plan Patient is a 70-year-old male with past medical history of CAD status post stent (recent most recent 1 7-2025) on aspirin and Plavix, CHF, COPD, throat cancer status posttreatment in 2000 presented to the ED with chief complaint of shortness of breath. -Patient was admitted to ICU for evaluation and management of cardiogenic shock. Neurology #Metabolic Encephalopathy 2/2 hypoxia Rx: -Started on Bipap in the ED -Treat underlying condition RRx: -Given Lorazepam x1 in ed Cardiovascular #Cardiogenic Shock #Elevated Troponins DDx: Likely due to Acute decompensated heart failure Dx: -In ED HR of 93, BP 107/65 on bipap -Cardiology consulted -BNP >3280 -echo, EKG, troponin repeat ordered Rx: -Started on Levophed IV @ 0.03 units/min & Vasopressin IV @ 0.03 units/min RRx: -Considering dobutamin based off of response to levo and vaso #afib Dx: -Take amiodarone at home -In ED, patient had v tach Rx: -In ED, patient had v tach -> started on amiodarone in the ED Respiratory #AHRF DDx: Likely due to fluid overload from cardiogenic shock Dx: -ABG showed pH 7.07, po2 104, pco2 35, hco3 10 Rx: -On bipap, will continue -Ordered VBG RRx: -Monitor oxygenation, abg's, clinical respiratory status #Pleural Effusions DDx: CHF, PNA, cancer. Dx: -Imaging shows bilateral pleural effusions, worse on the Left Rx: -Plan for Thoracentesis tomorrow -Outpatient oncology #Aspiration Precaution aspiration precautions in place #History of COPD GI and F/E/N #Elevated LFT's DDx: Per charts, appearing to be downtrending from recent admission's shock liver. Dx: - AST 56, ALT 76 Rx: -CMP ordered RRx: -Follow up LFT's Renal #Acute Renal Failure #Metabolic acidosis #lactic acidosis DDx: Likely due to cardiogenic shock Dx: -Patient's urine output reported to be minimal recently with little food/fluid intake. -Admission labs of BUN 70, Cr 2.9 Rx: -Nephrology consulted -mandujano in place Heme #Leukocytosis #Anemia DDx: Given chronicity of it, less likely infection, suspecting cancer; poor nutrition Dx: -Admission labs of WBC 15.9, hgb 12.9 Rx: -Ordered CBC -Outpatient oncology RRx: -Follow up labs Endo #hypoglycemia DDx: Likely due to poor oral intake, patient has been nauseous, but no vomiting reported Dx: -glucose 62 on admission -patient's glucose decreased to 17 in ED (given d50 1 amp) Rx: -Will monitor BG levels -ISS in place RRx: -was given 1 amp D50 with improvement ID #Possible PNA DDx: -May be viral vs bacterial (low procal) Dx: -WBC on admission 15.9; Procal 0.58 -CXR and CT showed vascular congestion, consider superimposed b/l PNA Rx: -blood cultures drawn RRx: -f/u blood cultures -doxy given x1 ed DVT prophylaxis: Heparin IV 5,000 SC q8hr GI prophylaxis: Protonix IV 40 mg qday Diet: NPO Mandujano: yes Lines: Peripherals Drips: Levo, Vaso Vent: no CODE STATUS: DNR Reason of hospitalization: Cardiogenic shock Patient plan of care was discussed with the attending physician, Dr. Ashley & senior resident Dr. Corazon PINON PGY-1
[2025-05-16] MEDS: DEXTROSE 50%-WATER INJ 50 ML SYRINGE IV (16:34)
[2025-05-16 16:55] LABS: Troponin I 0.150 ng/mL (0.0-0.045)
--- NOTE | 2025-05-16 17:05 | PC.NURSE ---
PER RT PRESTON, UNABLE TO GET ABG AT THIS TIME DUE TO EXCESSIVE PT MOVEMENT.
[2025-05-16 17:06] LABS: Base Excess, Venous -21 (-3-3); O2 Saturation, Venous 56 % (96-97); PCO2, Venous 46 mmHg (36-56); PO2, Venous 44 mmHg (15-58); pH, Venous 6.96 (7.33-7.66)
--- NOTE | 2025-05-16 17:45 | ESCONSULT_ITS ---
HPI Data of Consult Requesting Physician: Kary Ashley MD Admitting Provider: Kary Ashley MD Attending Provider: Kary Ashley MD Primary Care Provider: LAURA Iqbal Consult Narrative History of present illness: Ceferino Dugan is a 70-year-old male with a history of CAD status post multiple stents (2009, 2023, 2024) on aspirin and plavix, a-fib on amiodarone, HFrEF (20% on 04/2025) status post CONTRACT ADMINISTRATION SPECIALIST-D placement in 2020, COPD, hypertension, type 2 diabetes mellitus, hypothyroidism, and recent admission for acute renal and liver failure requiring temporary dialysis secondary to severe decompensated CHF exacerbation now presents with shortness of breath. Upon evaluation in the ED, patient was on BiPAP and unable to provide history and so history obtained from granddaughter at bedside and chart review. He was sent home with home health on 05/08/2025 and has been requiring more oxygen and worsening shortness of breath since and has also had decreased urine output. Per ED nurse, patient came in with [place] and had dark, cloudy urine with some residual blood and was then changed. In the ED, initial vitals showed pulse 105, BP 107/79, RR 30, and saturating 92% on room air. Over time, blood pressure decreased to 86/59 and placed on BiPAP and saturating 98%. Labs significant for leukocytosis of 20, initial lactate of 15 that uptrended to 23 after 500 cc IVF bolus, gap of 26, ABG with pH 7.07/pCO2 35/pO2 104. Cr 2.9, BUN 70, GFR 23. Trop 0.12 -> 0.15, BNP > 3280, K 5.3. CXR showed large left pleural effusion, vascular congestion. CT A/P showed moderate left pleural fluid, mild right pleural fluid, vascular congestion. In the ED, started on amiodarone drip, norepi and vasopressin drips, and temporary dialysis catheter was placed. Past Medical History: above Surgical History: throat surgery for his cancer, abdominal surgery for feeding tube, shoulder surgery. Social History: Has a smoking and alcohol use history quit in 2000. Lives locally with his Current Medications: Bumex, finasteride, midodrine, aspirin, plavix, levothyroxin, amiodarone Allergies: No known drug allergies cc:: cc: Kary Ashley MD Review of Systems Review of Systems ROS Unobtainable: unobtainable due to mental status and unobtainable due to medical condition Exam Vital Signs Temp Pulse Resp BP Pulse Ox O2 Del Method O2 Flow Rate 94.6 F L 71 28 H 73/57 L 98 BiPAP 30 05/16/25 16:00 05/16/25 16:00 05/16/25 16:00 05/16/25 16:00 05/16/25 16:00 05/16/25 16:00 05/16/25 16:00 FiO2 30 05/16/25 14:29 Narrative Exam General: disoriented, BiPAP on, not following commands HEENT: NC/AT, mucous membranes moist, bilateral sclera anicteric Cardiovascular: regular rate and rhythm, S1/S2 present, no murmurs appreciated Pulmonary: bibasilar crackles appreciated, diminished left-sided lung sounds Abdominal: soft, non-tender, non-distended, no rebound/guarding, normal bowel sounds present Musculoskeletal: normal ROM, no peripheral edema Skin: cool to touch, intact, no rashes Neuro: CN II-XII intact, no focal deficits Results Labs 05/16/25 15:58 05/16/25 08:00 Labs: Short CBC 05/16/25 05/16/25 Range/Units 08:00 15:58 WBC 15.9 H 20.4 H (3.8-10.6) Thou/mm3 Hgb 12.9 L 11.6 L (13.5-16.0) g/dL Hct 41.6 38.3 L (41.0-53.0) % Plt Count 341 D 298 D (140-440) Thou/mm3 BMP 05/16/25 08:00 Sodium 141 Potassium 5.3 H Chloride 95 L Carbon Dioxide 20.3 BUN 70 H Creatinine 2.9 H Glucose 62 L Calcium 9.9 Cardiac Enzymes 05/16/25 05/16/25 Range/Units 08:00 15:58 Troponin I 0.117 H* 0.150 H* (0.0-0.045) ng/mL Liver Function 05/16/25 Range/Units 08:00 Total Bilirubin 1.6 H (0.3-1.2) mg/dL AST 56 H (0-34) U/L ALT 76 H (10-49) U/L Alkaline Phosphatase 128 H (46-116) U/L Albumin 4.5 (3.4-4.8) gm/dL ABG Interpretation ABG results: 05/16/25 05/16/25 10:54 17:00 ABG pH 7.07 L* ABG pCO2 35 ABG pO2 104 ABG HCO3 10 L ABG O2 Saturation 95 ABG Base Excess -19 L VBG pH 6.96 L VBG pCO2 46 VBG pO2 44 VBG Base Excess -21 L Quality Measures Quality Measures sepsis Current suspected stage: ruled out Possible source: pulmonary Blood cultures ordered: completed in ED Antibiotic ordered: No Advance care planning discussed with:: patient and other (granddaughter) Medications Home Medications and Allergies Home Medications ?Medication ?Instructions ?Recorded ?Confirmed ?Type levothyroxine 88 mcg tablet 88 mcg PO QDAY 05/18/22 History digoxin 125 mcg (0.125 mg) tablet 125 mcg PO DAILY 05/01/25 History Held on 05/08/25. Instructions: Resume on 05/22/25. 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 clopidogrel 75 mg tablet (Plavix) 75 mg PO QDAY 05/01/25 History amiodarone 200 mg tablet 200 mg PO Q24H 05/01/2504/10 History dapagliflozin propanediol 10 mg 10 mg PO DAILY 5 05/01/25 History tablet (Farxiga) fexofenadine 180 mg tablet 180 mg PO Q24H 05/01/25 History (Allergy Relief (fexofenadine)) hydrocodone 10 mg-acetaminophen 1 tab PO Q6H 05/01/25 05/01/25 History 325 mg tablet tadalafil 10 mg tablet 10 mg PO .as needed 05/01/25 05/01/25 History Held on 05/08/25. Instructions: Resume on 05/22/25. 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 Allergies Allergy/AdvReac Type Severity Reaction Status Date / Time No Known Allergies Allergy Verified 05/16/25 07:24 Visit Medications Acetaminophen (Acetaminophen Supp 650 Mg Supp) 650 mg OH Q6HR PRN PRN Reason: Fever > 100.4 Stop: 06/15/25 13:41 Dextrose (Dextrose 50%-Water Inj 50 Ml Syringe) 25 ml IV Q15MIN PRN PRN Reason: BG 50-70 responsive npo pt Stop: 06/15/25 14:10 Dextrose (Dextrose 50%-Water Inj 50 Ml Syringe) 50 ml IV Q15MIN PRN PRN Reason: BG <50 OR BG <70 & pt unresponsive Stop: 06/15/25 14:10 Last Admin: 05/16/25 16:34 Dose: 50 ml Glucagon (Glucagon Inj 1 Mg Vial) 1 mg IM Q15MIN PRN PRN Reason: BG <70, and no IV access Heparin Sodium (Porcine) (Heparin Sod Inj 5000 Unit/Ml Vial) 5,000 unit SC Q8HR ALISA Stop: 05/30/25 13:59 Last Admin: 05/16/25 15:46 Dose: 5,000 unit Norepinephrine/Dextrose (Levophed In D5w 8mg/250ml) 8 mg in 250 mls @ 5.166 mls/hr IV .Q24H PRN; Protocol PRN Reason: PER PROTOCOL Stop: 06/15/25 14:53 Last Titration: 05/16/25 17:27 Dose: 0.5 mcg/kg/min, 51.656 mls/hr Vasopressin/Sodium Chloride (Vasostrict/Ns Ivpb) 20 unit in 100 mls @ 9 mls/hr IV .Q11H7M PRN; Protocol PRN Reason: PER PROTOCOL Stop: 06/15/25 17:23 Insulin Human Lispro (Insulin Lispro (Admelog) 1 Unit/0.01 Ml Unit) 0 unit SC Q6HR ALISA; Protocol Stop: 06/15/25 17:59 Ondansetron HCl (Ondansetron Inj 2 Mg/Ml Inj 2 Ml) 4 mg IVP Q6H PRN; Protocol PRN Reason: NAUSEA OR VOMITING Stop: 06/15/25 13:41 Pantoprazole Sodium (Pantoprazole Inj 40 Mg Vial) 40 mg IVP QDAY ALISA Stop: 06/16/25 08:59 Discontinued Medications Amiodarone HCl/Dextrose (Nexterone Ivpb) 150 mg in 100 mls @ 582.524 mls/hr IV X1 ONE Stop: 05/16/25 07:51 Last Infusion: 05/16/25 07:57 Dose: Infused Amiodarone HCl/Dextrose (Nexterone Ivpb) 360 mg in 200 mls @ 33.333 mls/hr IV .Q6H ONE Stop: 05/16/25 14:04 Last Infusion: 05/16/25 15:00 Dose: Infused Calcium Gluconate/Sodium Chloride (Calcium Gluc/Ns 1000mg Ivpb) 1,000 mg in 50 mls @ 50 mls/hr IV X1 ONE Stop: 05/16/25 09:57 Last Infusion: 05/16/25 10:47 Dose: Infused Sodium Chloride (Ns) 500 mls @ 999 mls/hr IV .Q31M ONE Stop: 05/16/25 09:31 Last Infusion: 05/16/25 09:45 Dose: Infused Doxycycline Hyclate 100 mg/ (Sodium Chloride) 100 mls @ 100 mls/hr IV X1 ONE Stop: 05/16/25 10:03 Last Infusion: 05/16/25 12:45 Dose: Infused Lorazepam (Lorazepam 0.5 Mg Tablet) 0.5 mg PO X1 ONE Stop: 05/16/25 09:52 Last Admin: 05/16/25 10:46 Dose: Not Given Assessment & Plan Plan Ceferino Dugan is a 70-year-old male with a history of CAD status post multiple stents (2009, 2023, 2024) on aspirin and plavix, a-fib on amiodarone, HFrEF (20% on 04/2025) status post CONTRACT ADMINISTRATION SPECIALIST-D placement in 2020, COPD, hypertension, type 2 diabetes mellitus, hypothyroidism, and recent admission for acute renal and liver failure requiring temporary dialysis secondary to severe decompensated CHF exacerbation now presents with shortness of breath and severe lactic acidosis. #Severe lactic acidosis, secondary to #Likely cardiogenic shock, secondary to #Advanced heart failure, stage D #Acute decompensated congestive heart failure exacerbation #HFrEF (20% on 04/2025) s/p CONTRACT ADMINISTRATION SPECIALIST-D placement #NSTEMI type II/demand ischemia #? Cardiorenal syndrome, type 1 vs type 2 Presents with progressive shortness of breath in setting of recent hospital admission for decompenated CHF exaceration leading to renal and liver failure requiring temporary dialysis. In the ED, BP dropped to 86/59 and was on BiPAP upon evaluation. Initial labs showed lactate of 15 that uptrended to 23 after 500 cc IVF bolus, gap of 26, and ABG with pH of 7.07/pCO2 35/pO2 104. Mild troponinemia, BNP > 3280 and leukocytosis of 20. Imaging showed pleural effusions and vascular congestion. In ED started on amiodarone drip, norepi and vasopressin drips and temporary dialysis catheter was placed. Given above findings in conjunction with recent admission, patient has poor prognosis with EF 20%, minimal urine output, and severe lactic acidosis refractory to IVF bolus but complicated by decreased urine output. ? Continue pressor support and BiPAP as needed ? No diuretics given hypotension requiring pressors ? Consider milrinone per primary team discretion, recommend holding off on dobutamine ? Poor prognosis, recommend GOC discussion with family regarding code status #History of CAD s/p multiple stents on aspirin and plavix ? Hold aspirin and plavix given NPO status and resume per primary team discretion given stent placement as recent as 02/2025 #Atrial fibrillation ? Amiodarone drip #Acute on chronic hypoxic respiratory failure #Acute on chronic kiney injury #Leukocytosis #Hyperkalemia #Anion gap metabolic acidosis #Transaminitis #Hyperbilirubinemia #Hyperammonemia #COPD #Hypertension #Type 2 diabetes mellitus #Hypothyroidism ? Continue management per primary team ----- Plan discussed with attending physician Dr. Ugo Sylvester MD PGY-2 Internal Medicine
[2025-05-16] MEDS: VASOPRESSIN IN NS IVPB 20 UNIT/100 ML BAG 9 UNIT IV (17:46)
[2025-05-16] MEDS: DOBUTamine/D5w 500 MG IVPB 500 MG/250 ML BAG IV (17:51)
--- NOTE | 2025-05-16 17:51 | PC.NURSE ---
@1751- PT BEGAN TO HAVE UNREADABLE SPO2 EVEN AFTER CHANGING FROM FINGERTIPS TO EARS; PT'S RR DROPPED FROM 24 TO 16 AND EVENTUALLY TO 0. PT HAD ABNORNAL RHYTHM ON DISABILITY ATTORNEY. FAINT PULSE PALPATED BY LEAH Sullivan RN ON R FEMORAL SITE. THIS RN UNABLE TO PALPATE ANY FEMORAL PULSE ON L FEMORAL SITE. CODE BLUE CALLED. ALL RESTRAINTS REMOVED AT THIS TIME. UNABLE TO HAVE UNREADABLE BP THROUGH BOTH AUTOMATIC & MANUAL BP READING AT THIS TIME WELL. DR. COURTNEY & DR. PEREZ AT BEDSIDE; PER , INCREASE LEVOPHED TO 1MCG/KG/MIN. START DOBUTAMINE AT 2.5MCG/KG/MIN. ORDER CARRIED BY TRACK GRINDER DENISE AND ROLAND Recinos RN. DR. COURTNEY USING DOPPLER TO ATTEMPT TO LOOK FOR PULSE. PER DR. COURTNEY, NO DOPPLER PULSE. NO HEART ACTIVITY/MOTION ON BEDSIDE ECHO, PER DR. PEREZ WELL. PUPILS COMPLETELY UNREACTIVE AT THIS TIME. @1802- PT DNR/DNI. TIME OF CALLED AT THIS TIME BY DR. COURTNEY & DR. PEREZ.
--- NOTE | 2025-05-16 18:15 | PD.DDS ---
Documentation for date of: 05/16/25 Summary Date and Time Date of admission: 05/16/25 13:42 Date of : 05/16/25 Time of : 18:02 Summary Details: Patient is a 70-year-old male with past medical history of CAD status post stent (recent most recent ) on aspirin and Plavix, CHF, COPD, throat cancer status posttreatment in 2000 presented to the ED at [facility] with chief complaint of shortness of breath, admitted for cardiogenic shock. Initial vital signs were stable with respiratory status worsening which led to usage of bipap. Patient's abg was taken and showed metabolic acidosis. Patient's BNP and lactic acidosis were greatly elevated. Imaging showed heart failure pattern. Patient in the ED was having some runs of Ventricular tachycardia and was given amiodarone which resolved the VT. The patient's was initially asked about code status and was initially full code, with it being changed to DNR shortly after that. Patient was in need of pressors so a central line was placed and pressors were given. Dobutamine was ordered but was not yet given to the patient due to low blood pressures. Code blue was called for patient around 17:50 pm. Team responded promptly in the ED to assess patient, informed he was pulseless. Patient's code status was confirmed to be DNR. Patient was assessed with doppler and was unable to find a pulse. Portable ultrasound machine was used to assess cardiac function with none being found. Throughout this time the monitor showed absence of pulse. Patient was then examined and there was no pupillary response to light. I did not observe spontaneous breathing or appreciate heart sounds on auscultation. There was no palpable radial pulse. The patient did not respond to nail bed stimuli. Patient was pronounced at 18:02 on 05/16/2025. Admission Diagnosis Metabolic Encephalopathy Cardiogenic Shock Elevated Troponins Afib AHRF Pleural Effusions History of COPD Elevated LFT's Acute Renal Failure Metabolic Acidosis Lactic Acidosis Leukocytosis Anemia Hypoglycemia Possible pneumonia Patient plan of care was discussed with the attending physician, Dr. Ashley & resident physician Dr. Corazon PINON PGY-1 Additional Data Attending physician: Kary Ashley MD Visit Providers Provider Primary care physician: LAURA Iqbal Admitting clinician: Kary Ashley Attending physician on admission: Kary Ashley Pronouncing clinician: Stanley Richards Diagnosis PCOD Cause of : Acute decompensated heart failure Contributing Factors (1) Cardiogenic shock: Discharge Plan Plan Patient Disposition: Prescriptions/Referrals Referrals: Hortencia Donis FNP [Primary Care Provider] Patient/Caregiver Discharge Instructions Print Language: Yakut
--- NOTE | 2025-05-16 18:19 | PD.DPN ---
Documentation for date of: 05/16/25 Pronouncement Note Date and Time of Date of : 05/16/25 Time of : 18:02 PCOD Preliminary cause of : Acute decompensated heart failure Contributing Factors (1) Cardiogenic shock: (2) Lactic acidosis: Summary Additional details: Patient presented with acute decompensated heart failure with severe cardiogenic shock and lactic acidosis. Patient had decreasing blood pressure, treatment is initiated with Levophed and vasopressin. Patient was also placed on BiPAP due to suspected respiratory acidosis. Dobutamine was also ordered, but had difficulty initiating due to low MAP despite increasing pressors. Patient became increasingly lethargic, slowed breathing, O2 sats decreased. Pulse was then lost and CODE BLUE was called. Patient was made DNR/DNI earlier in the day. At bedside, Levophed was emergency titrated from 0.5 up to 1.0. Unable to detect automatic blood pressure, manual blood pressure was attempted, unable to be detected. Doppler was used to search for pulse, unable to detect. Bedside echo was performed, no cardiac activity detected. Pupils remained fixed and unreactive to light. Time of was called at 1802. Family was at bedside. Additional Data Confirmation of : no pulse, no respirations, no heart sounds and pupils fixed and dilated Family: at bedside Attending/PCP notified?: Yes Attending physician: Kary Ashley MD Was code activated?: Yes Autopsy requested?: No medical examiner notified?: No Organ bank notified?: No Advance directives: Yes
--- NOTE | 2025-05-16 18:20 | PC.NURSE ---
SPOKE TO TEJA FROM [facility] FOR [facility] THIS TIME TO REPORT PT'S ; FAMILY HAS NOT CHOSEN A MORTUARY AT THIS TIME. PER TEJA, CALL US BACK ONCE FAMILY HAS CHOSEN A MORTUARY.''
--- NOTE | 2025-05-16 18:22 | PD.RESEVENT ---
Documentation for date of: 05/16/25 Event Note Event Note: Naeem means was called for patient around 17:50 pm. Team responded promptly in the ED to assess patient, informed he was pulseless. Patient's code status was confirmed to be DNR. Patient was assessed with doppler and was unable to find a pulse. Portable ultrasound machine was used to assess cardiac function with none being found. Throughout this time the monitor showed absence of pulse. Patient was then examined and there was no pupillary response to light. I did not observe spontaneous breathing or appreciate heart sounds on auscultation. There was no palpable radial pulse. The patient did not respond to nail bed stimuli. Patient was pronounced at 18:02 on 05/16/2025. Dr. Richards and Dr. Mora were also present during the exam. Patient plan of care was discussed with the attending physician, Dr. Ashley & senior resident Dr. Corazon PINON PGY-1
--- NOTE | 2025-05-16 18:34 | PD.RESEVENT ---
Documentation for date of: 05/16/25 Event Note Event Note: Shortly after 1500, GOC was held with patient's and youngest son. Patients current condition, as well as overall quality of life prior to this admission, were discussed. Family showed good understanding of patient's current status and prognosis. The Tri-flow procedure and need for urgent dialysis, as well as pressors, was also discussed. Family engaged in shared decision making, and elected to make patient DNR/DNI in line with patient's beliefs and values. Patient's CODE STATUS was changed to reflect this. Stanley Richards MD PGY-2
--- NOTE | 2025-05-16 18:35 | PC.NURSE ---
RN SPOKE TO FAMILY AT THIS TIME TO CONFIRM IF READY TO CHOOSE A MORTUARY; PER PT'S & DAUGHTER AT BEDSIDE, W HAVE NOT CHOSEN YET; WE ARE STILL WAITING FOR MORE FAMILY TO COME AND WE ALSO CALLED THE [employer]2B OUTSIDE SALES REPRESENTATIVE TO COME.
--- NOTE | 2025-05-16 19:23 | PD.RESCONSUL ---
HPI Data of Consult Consult date: 05/16/25 Requesting Physician: Kary Ashley MD Admitting Provider: Kary Ashley MD Attending Provider: Kary Ashley MD Primary Care Provider: LAURA Iqbal Consult Narrative Reason for consult: GEORGIE, anuria, and metabolic acidosis in setting of cardiogenic shock History of present illness: Informant grandson Location ER. Mr. De La Vega is a 70-year-old male with a significant past medical history of CAD s/p multiple stents (2009, 2023, 2024), HFrEF (EF 20% on 04/2025) s/p MATERIAL CHECKER-D, atrial fibrillation on amiodarone, COPD, hypertension, type 2 diabetes mellitus, hypothyroidism, and recent admission for acute renal and liver failure requiring temporary dialysis secondary to decompensated CHF. Patient presented to the ED with worsening shortness of breath, constipation, dysuria, and markedly decreased urine output for several days. History largely obtained from . He was hypoxic (92% RA), tachypneic (RR 30), and hypotensive (86/59 at rik). On BiPAP and pressor support with norepinephrine and vasopressin. Lactate initially 15 -> 23 after fluid bolus. He remains anuric with rising creatinine (2.9) and severe high-anion gap metabolic acidosis (pH 7.07, HCO3 10, AG 26). Patient is currently in ICU on BiPAP with cold extremities and poor perfusion. He is DNR/DNI. Imaging: CT A/P: Cardiac enlargement with vascular congestion, bilateral pleural effusions, no obstruction. CXR: Pulmonary congestion, large left pleural effusion. Past Medical History: above Surgical History: throat surgery for his cancer, abdominal surgery for feeding tube, shoulder surgery. Social History: Has a smoking and alcohol use history quit in 2000. Lives locally with his Current Medications: Bumex, finasteride, midodrine, aspirin, plavix, levothyroxin, amiodarone Allergies: No known drug allergies cc:: cc: Kary Ashley MD Review of Systems Review of Systems ROS Unobtainable: unobtainable due to medical condition Narrative Review of Systems: On BiPAP Exam Vital Signs Temp Pulse Resp BP Pulse Ox O2 Del Method O2 Flow Rate 94.6 F L 50 L 28 H 0/0 L 98 BiPAP 30 05/16/25 16:00 05/16/25 17:51 05/16/25 16:00 05/16/25 17:51 05/16/25 16:00 05/16/25 16:00 05/16/25 16:00 FiO2 30 05/16/25 14:29 Narrative Exam General: Somnolent, on BiPAP, in acute respiratory distress. In the ED. Patient with heating blanket CV: Regular rhythm, distant heart sounds. Cool extremities, weak pulses. Resp: Bilateral crackles and diminished breath sounds at bases. Abdomen: Soft, non-distended, mild LLQ tenderness. : Ochoa in place with minimal dark urine output. Extremities: Trace edema, mottled skin, cold to touch. Neuro: Drowsy, not following commands, no focal deficits Results Labs 05/16/25 15:58 05/16/25 08:00 Labs: Short CBC 05/16/25 05/16/25 Range/Units 08:00 15:58 WBC 15.9 H 20.4 H (3.8-10.6) Thou/mm3 Hgb 12.9 L 11.6 L (13.5-16.0) g/dL Hct 41.6 38.3 L (41.0-53.0) % Plt Count 341 D 298 D (140-440) Thou/mm3 BMP 05/16/25 08:00 Sodium 141 Potassium 5.3 H Chloride 95 L Carbon Dioxide 20.3 BUN 70 H Creatinine 2.9 H Glucose 62 L Calcium 9.9 Cardiac Enzymes 05/16/25 05/16/25 Range/Units 08:00 15:58 Troponin I 0.117 H* 0.150 H* (0.0-0.045) ng/mL Liver Function 05/16/25 Range/Units 08:00 Total Bilirubin 1.6 H (0.3-1.2) mg/dL AST 56 H (0-34) U/L ALT 76 H (10-49) U/L Alkaline Phosphatase 128 H (46-116) U/L Albumin 4.5 (3.4-4.8) gm/dL ABG Interpretation ABG results: 05/16/25 05/16/25 10:54 17:00 ABG pH 7.07 L* ABG pCO2 35 ABG pO2 104 ABG HCO3 10 L ABG O2 Saturation 95 ABG Base Excess -19 L VBG pH 6.96 L VBG pCO2 46 VBG pO2 44 VBG Base Excess -21 L Quality Measures Quality Measures sepsis Current suspected stage: sepsis Possible source: pulmonary Blood cultures ordered: completed in ED Antibiotic ordered: Yes Advance care planning discussed with:: patient and spouse Medications Home Medications and Allergies Home Medications ?Medication ?Instructions ?Recorded ?Confirmed ?Type levothyroxine 88 mcg tablet 88 mcg PO QDAY 05/18/22 05/01/25 History digoxin 125 mcg (0.125 mg) tablet 125 mcg PO DAILY 10/27/23 05/01/25 History Held on 05/08/25. Instructions: Resume on 05/22/25. Hold until you see your floor and wall applier liquid. clopidogrel 75 mg tablet (Plavix) 75 mg PO QDAY 02/27/25 05/01/25 History amiodarone 200 mg tablet 200 mg PO Q24H 05/01/25 05/01/25 History dapagliflozin propanediol 10 mg 10 mg PO DAILY 05/01/25 05/01/25 History tablet (Farxiga) fexofenadine 180 mg tablet 180 mg PO Q24H 05/01/25 05/01/25 History (Allergy Relief (fexofenadine)) hydrocodone 10 mg-acetaminophen 1 tab PO Q6H 05/01/25 05/01/25 History 325 mg tablet tadalafil 10 mg tablet 10 mg PO .as needed 05/01/25 05/01/25 History Held on 05/08/25. Instructions: Resume on 05/22/25. Hold until you see your floor and wall applier liquid. Allergies Allergy/AdvReac Type Severity Reaction Status Date / Time No Known Allergies Allergy Verified 05/16/25 07:24 Visit Medications Acetaminophen (Acetaminophen Supp 650 Mg Supp) 650 mg NV Q6HR PRN PRN Reason: Fever > 100.4 Stop: 06/15/25 13:41 Dextrose (Dextrose 50%-Water Inj 50 Ml Syringe) 25 ml IV Q15MIN PRN PRN Reason: BG 50-70 responsive npo pt Stop: 06/15/25 14:10 Dextrose (Dextrose 50%-Water Inj 50 Ml Syringe) 50 ml IV Q15MIN PRN PRN Reason: BG <50 OR BG <70 & pt unresponsive Stop: 06/15/25 14:10 Last Admin: 05/16/25 16:34 Dose: 50 ml Glucagon (Glucagon Inj 1 Mg Vial) 1 mg IM Q15MIN PRN PRN Reason: BG <70, and no IV access Heparin Sodium (Porcine) (Heparin Sod Inj 5000 Unit/Ml Vial) 5,000 unit SC Q8HR ALISA Stop: 05/30/25 13:59 Last Admin: 05/16/25 15:46 Dose: 5,000 unit Norepinephrine/Dextrose (Levophed In D5w 8mg/250ml) 8 mg in 250 mls @ 5.166 mls/hr IV .Q24H PRN; Protocol PRN Reason: PER PROTOCOL Stop: 06/15/25 14:53 Last Titration: 05/16/25 17:51 Dose: 1 mcg/kg/min, 103.313 mls/hr Vasopressin/Sodium Chloride (Vasostrict/Ns Ivpb) 20 unit in 100 mls @ 9 mls/hr IV .Q11H7M PRN; Protocol PRN Reason: PER PROTOCOL Stop: 06/15/25 17:23 Last Admin: 05/16/25 17:46 Dose: 0.03 unit/min, 9 mls/hr Dobutamine HCl/Dextrose (Dobutrex/D5w Ivpb) 500 mg in 250 mls @ 4.133 mls/hr IV .Q24H ALISA; Protocol Stop: 06/15/25 17:54 Last Admin: 05/16/25 17:51 Dose: 2.5 mcg/kg/min, 4.133 mls/hr Insulin Human Lispro (Insulin Lispro (Admelog) 1 Unit/0.01 Ml Unit) 0 unit SC Q6HR ALISA; Protocol Stop: 06/15/25 17:59 Ondansetron HCl (Ondansetron Inj 2 Mg/Ml Inj 2 Ml) 4 mg IVP Q6H PRN; Protocol PRN Reason: NAUSEA OR VOMITING Stop: 06/15/25 13:41 Pantoprazole Sodium (Pantoprazole Inj 40 Mg Vial) 40 mg IVP QDAY ALISA Stop: 06/16/25 08:59 Discontinued Medications Amiodarone HCl/Dextrose (Nexterone Ivpb) 150 mg in 100 mls @ 582.524 mls/hr IV X1 ONE Stop: 05/16/25 07:51 Last Infusion: 05/16/25 07:57 Dose: Infused Amiodarone HCl/Dextrose (Nexterone Ivpb) 360 mg in 200 mls @ 33.333 mls/hr IV .Q6H ONE Stop: 05/16/25 14:04 Last Infusion: 05/16/25 15:00 Dose: Infused Calcium Gluconate/Sodium Chloride (Calcium Gluc/Ns 1000mg Ivpb) 1,000 mg in 50 mls @ 50 mls/hr IV X1 ONE Stop: 05/16/25 09:57 Last Infusion: 05/16/25 10:47 Dose: Infused Sodium Chloride (Ns) 500 mls @ 999 mls/hr IV .Q31M ONE Stop: 05/16/25 09:31 Last Infusion: 05/16/25 09:45 Dose: Infused Doxycycline Hyclate 100 mg/ (Sodium Chloride) 100 mls @ 100 mls/hr IV X1 ONE Stop: 05/16/25 10:03 Last Infusion: 05/16/25 12:45 Dose: Infused Lorazepam (Lorazepam 0.5 Mg Tablet) 0.5 mg PO X1 ONE Stop: 05/16/25 09:52 Last Admin: 05/16/25 10:46 Dose: Not Given Assessment & Plan Plan 70M with end-stage HFrEF (EF 20%), CAD, COPD, and prior GEORGIE requiring temporary dialysis now presenting with cardiogenic shock, severe lactic acidosis, and anuric GEORGIE likely representing acute cardiorenal syndrome. #Acute Kidney Injury Anuric x2?3 days, Cr 2.9, BUN 70, GFR 23; likely cardiorenal syndrome secondary to cardiogenic shock. #Severe Metabolic and Lactic Acidosis pH 7.07, HCO3 10, lactate 23, due to low perfusion from cardiogenic shock. #Hyperkalemia K 5.3 in setting of anuria and metabolic acidosis. Plan: Initiate CRRT. Trend BMP, Mg, Phos Avoid nephrotoxins and IV contrast. Strict I/O monitoring. Trend lactate and ABG Treat hyperkalemia: CRRT for clearance; start calcium gluconate + insulin/D50 if K >5.5. Coordinate with cardiology and ICU for ongoing management and family GOC discussion regarding poor prognosis. Other Active Problems: #Cardiogenic shock #Advanced HFrEF #Acute on chronic hypoxic respiratory failure #NSTEMI type II #Transaminitis #Hyperbilirubinemia #Hyperammonemia #COPD #Hypertension #Type 2 Diabetes Mellitus #Hypothyroidism Management per ICU and cardiology teams. ----- Plan discussed with attending physician Dr. Quirino Somers MD PGY-1 Internal Medicine Attending Provider Attestation/Addendum Patient seen and examined with resident physician Dr. Somers. Note reviewed, agree with findings and recommendations. Patient currently seen in the emergency department. Grandson, great grandson at bedside. Very sick on BiPAP. Hypoxic respiratory failure, acute renal failure, electrolyte imbalance with lactic acidosis. Patient currently on pressors. Decided to move him to ICU and start him on Tablo. CRRT orders given to the nurse. Prognosis remains guarded. Thank you Kary for allowing me to participate in the care of Mr. Dugan
--- NOTE | 2025-05-16 22:08 | PD.RESPROC ---
PROCEDURES: Procedure Date / Time 05/16/25 ~17:00 Central Line Placement Left IJ: Indication(s): shock Informed consent obtained: obtained from surrogate decision maker Time out done, and the following verified: correct patient, side and site, procedure, patient position and implants and/or equipment Patient placed on monitor/pulse ox: Yes Hand Hygiene: soap & water and alcohol-based hand rub Max Sterile Barrier Techniques used: cap, mask, sterile gown, sterile gloves and sterile full body drape Central line prep: Chlorhexidine scrub and sterile drapes applied Local anesthesia used: lidocaine 1% Amount of anesthesia used (mL): 3 Ultrasound used for placement: Yes Sterile Technique if Ultrasound used, including sterile gel: yes Central line lumen inserted: triple Post procedure: sutured in place, good blood return, all ports aspirated, flushed, capped and sterile dressing applied Post procedure x-ray: tip of catheter in good position and no pneumothorax seen Patient tolerated procedure: well and no complications EBL(ml): 10 Complications: none Procedure comment: Attending note I was present for and assisted with all west aspects of this procedure. Triflow was inserted for vasopressor use and possible CRRT
== END 2025-05-16 18:04 | disposition expired ==
LOC: SERX 13:18 → SERHOLD 13:56
PROVIDERS: Admitting Provider Internal Medicine; Emergency Provider Emergency Medicine; PCP Nurse Practitioner Family; Visit Provider Internal Medicine
DX: R57.0 Cardiogenic shock (principal); G93.41 Metabolic encephalopathy; I21.A1 Myocardial infarction type 2; I50.23 Acute on chronic systolic (congestive) heart failure; J96.21 Acute and chronic respiratory failure with hypoxia; K72.00 Acute and subacute hepatic failure without coma; E87.4 Mixed disorder of acid-base balance; N17.9 Acute kidney failure, unspecified; J91.8 Pleural effusion in other conditions classified elsewhere; J44.9 Chronic obstructive pulmonary disease, unspecified; K59.00 Constipation, unspecified; R30.0 Dysuria; I48.91 Unspecified atrial fibrillation; D64.9 Anemia, unspecified; E11.649 Type 2 diabetes mellitus with hypoglycemia without coma; Z66 Do not resuscitate; I50.84 End stage heart failure; E87.5 Hyperkalemia; E03.9 Hypothyroidism, unspecified; I11.0 Hypertensive heart disease with heart failure; I25.10 Atherosclerotic heart disease of native coronary artery without angina pectoris; Z79.02 Long term (current) use of antithrombotics/antiplatelets; Z87.891 Personal history of nicotine dependence; Z95.5 Presence of coronary angioplasty implant and graft; Z85.819 Personal history of malignant neoplasm of unspecified site of lip, oral cavity, and pharynx
CPT/HCPCS: 36415; 36600; 74022; 74176; 80053; 80307; 80320; 81001; 82140; 82803; 83605; 83690; 83735; 83880; 84100; 84145; 84484; 85025; 85610; 85730; 87040; 87400; 87811; 93005; 94660; 96365; 96366; 96372; 99285; J0283; J0613; J1250; J1644; J2598; J3490; J7999; G0480